=== PATIENT | female | born 1945 | race Caucasian/White ===

== ENCOUNTER 2019-11-21 16:00 | Outpatient (CLI) | payer MEDICARE, SELFPAY ==
[2019-11-21 16:40] LABS: Basophils Absolute Auto 0.1 K/mm3 (0.0-0.1); Basophils Percent Auto 0.7 % (0.2-1.2); Eosinophils Absolute Auto 0.1 K/mm3 (0-0.3); Eosinophils Percent Auto 1.1 % (0-4.4); Hematocrit 45.6 % (37.0-47.0); Hemoglobin 14.6 g/dL (12.0-15.0); Immature Granulocyte Absolute 0.02 K/mm3 (0.00-0.031); Immature Granulocyte Percent A 0.2 % (0-0.5); Lymphocytes Absolute Auto 1.75 K/mm3 (0.9-3.2); Lymphocytes Percent Auto 19.8 % (18.3-44.2); Mean Corpuscular Hemoglobin 30.6 pg (26-34); Mean Corpuscular Volume 95.6 fl (80-100); Mean Platelet Volume 10.7 fl (7.4-10.4); Monocytes Absolute Auto 0.6 K/mm3 (0.1-0.6); Monocytes Percent Auto 7.1 % (2.6-8.5); Neutrophils Absolute Auto 6.3 K/mm3 (1.3-6.7); Neutrophils Percent Auto 71.1 % (45.5-73.1); Platelet Count Result 188 k/mm3 (150-375); Red Blood Count 4.77 M/mm3 (4.2-5.4); White Blood Count 8.8 K/mm3 (4.5-10.0)
== END 2019-11-21 16:01 | disposition home or self-care (01) ==
PROVIDERS: PCP Internal Medicine; Visit Provider Internal Medicine
DX: D72.829 Elevated white blood cell count, unspecified (principal)
CPT/HCPCS: 36415; 85025

== ENCOUNTER 2020-03-06 15:54 | Outpatient (CLI) | payer MEDICARE, SELFPAY ==
--- NOTE | ~2020-03-06 | XR_ITS ---
XR cervical spine 4-5V 03/06/2020 16:18 Indication: Neck pain Procedure: 4 views cervical spine Comparison: No prior studies for comparison. Findings: Straightening of cervical lordosis. There is disc narrowing and endplate degenerative nava e at C3-4, C4-5, C5-6 and C6-7. Prominent ventral osteophytes at multiple levels. No fracture or trau matic malalignment. There is moderate multilevel uncinate hypertrophy. Lung apices are normal. Impression: 1: Moderate-severe cervical spondylosis. Reviewed, dictated and finalized at location A. Impression: 1: Moderate-severe cervical spondylosis.
== END 2020-03-06 15:55 | disposition home or self-care (01) ==
PROVIDERS: PCP Internal Medicine; Visit Provider Internal Medicine
DX: M47.892 Other spondylosis, cervical region (principal)
CPT/HCPCS: 72050

== ENCOUNTER 2020-04-02 07:16 | Outpatient (CLI) | payer MEDICARE, SELFPAY ==
[2020-04-02 08:03] LABS: Alanine Aminotransferase 21 U/L (4-35); Alkaline Phosphatase 53 U/L (38-126); Anion Gap 3 mmol/L (8-16); Aspartate Amino Transferase 24 U/L (14-36); Bilirubin,Total 0.2 mg/dL (0.2-1.3); Blood Urea Nitrogen 20 mg/dL (7-17); Calcium 9.6 mg/dL (8.4-10.2); Carbon Dioxide 34 mmol/L (22-30); Chloride 102 mmol/L (98-107); Cholesterol 197 mg/dL (0-200); Estimated Glomerular Filt Rate > 60; Glucose 100 mg/dL (65-105); HDL Direct 69 mg/dL; Potassium 4.2 mmol/L (3.4-5.0); Sodium 139 mmol/L (137-145); Triglycerides 64 mg/dL (<150)
[2020-04-02 08:14] LABS: LDL Cholesterol Direct 103 mg/dL
== END 2020-04-02 07:17 | disposition home or self-care (01) ==
PROVIDERS: PCP Internal Medicine; Visit Provider Internal Medicine
DX: I10 Essential (primary) hypertension (principal)
CPT/HCPCS: 36415; 80053; 80061

== ENCOUNTER 2020-05-16 06:44 | Outpatient (CLI) | payer MEDICARE, SELFPAY ==
[2020-05-16 07:47] LABS: Alanine Aminotransferase 28 U/L (4-35); Albumin Level 3.6 g/dL (3.5-5.1); Alkaline Phosphatase 50 U/L (38-126); Anion Gap 3 mmol/L (8-16); Aspartate Amino Transferase 25 U/L (14-36); Bilirubin,Total 0.4 mg/dL (0.2-1.3); Blood Urea Nitrogen 23 mg/dL (7-17); Calcium 9.1 mg/dL (8.4-10.2); Carbon Dioxide 34 mmol/L (22-30); Chloride 100 mmol/L (98-107); Cholesterol 150 mg/dL (0-200); Estimated Glomerular Filt Rate > 60; Glucose 95 mg/dL (65-105); HDL Direct 64 mg/dL; Potassium 4.5 mmol/L (3.4-5.0); Sodium 137 mmol/L (137-145); Triglycerides 46 mg/dL (<150)
[2020-05-16 07:58] LABS: LDL Cholesterol Direct 69 mg/dL
== END 2020-05-16 06:45 | disposition home or self-care (01) ==
PROVIDERS: PCP Internal Medicine; Visit Provider Internal Medicine
DX: E78.5 Hyperlipidemia, unspecified (principal)
CPT/HCPCS: 36415; 80053; 80061

== ENCOUNTER 2020-07-02 06:55 | Outpatient (CLI) | payer MEDICARE, SELFPAY ==
[2020-07-04 22:53] LABS: Albumin 3.7 g/dL (3.8-4.8); Alpha 1 Globulin 0.3 g/dL (0.2-0.3); Alpha 2 Globulin 0.6 g/dL (0.5-0.9); Beta 1 Globulin 0.4 g/dL (0.4-0.6); Gamma Globulin 0.7 g/dL (0.8-1.7); Interpretation Consistent with; Protein, Total 5.9 g/dL (6.1-8.1)
[2020-07-06 05:00] LABS: Creatinine, Random Urine 167 mg/dL (20-275); Total Protein/Creatinine Ratio 60 mg/g creat (21-161)
== END 2020-07-02 06:56 | disposition home or self-care (01) ==
PROVIDERS: PCP Internal Medicine; Visit Provider Internal Medicine
DX: Z13.29 Encounter for screening for other suspected endocrine disorder (principal); Z13.0 Encounter for screening for diseases of the blood and blood-forming organs and certain disorders involving the immune mechanism; Z13.228 Encounter for screening for other metabolic disorders
CPT/HCPCS: 36415; 82570; 84155; 84156; 84165; 84166

== ENCOUNTER 2020-07-16 07:58 | Outpatient (CLI) | payer MEDICARE, SELFPAY ==
--- NOTE | ~2020-07-16 | MM_ITS ---
EXAMINATION: MM screening [facility] BI w raymon HISTORY: Screening mammogram TECHNIQUE: Craniocaudal and mediolateral oblique 3-D tomosynthesis images were obtained and synthetic 2-D images were generated. CAD analysis was submitted and interpreted. COMPARISON: 07/05/2019, 06/30/2018, 06/16/2017, 06/03/1916 BREAST PARENCHYMAL COMPOSITION: The breasts are almost entirely fatty. FINDINGS: There is no evidence of suspicious mass, calcification, or architectural distortion to sugg est malignancy in either breast. There has been no suspicious interval change. IMPRESSION: 1. No mammographic evidence of malignancy. 2. Recommend routine screening mammography in one year. BI-RADS Category 1: Negative Reviewed, dictated and finalized at location A. 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
== END 2020-07-16 07:59 | disposition home or self-care (01) ==
LOC: ANHIMG 08:01
PROVIDERS: PCP Internal Medicine; Visit Provider Internal Medicine
DX: Z12.31 Encounter for screening mammogram for malignant neoplasm of breast (principal)
CPT/HCPCS: 77063; 77067

== ENCOUNTER 2020-09-12 10:58 | Outpatient (CLI) | payer MEDICARE, SELFPAY ==
--- NOTE | ~2020-09-12 | XR_ITS ---
EXAMINATION: XR tibia fibula LT 2V DATE: 09/12/2020 11:42 INDICATION: Left lower leg pain and swelling. TECHNIQUE: 2 views of left tibia and fibula were obtained. COMPARISON: Left tibia and fibula radiographs 02/10/2017 FINDINGS: Bone alignment is normal. No fracture. The knee demonstrates severe osteoarthritis of the p atellofemoral compartment, mild osteoarthritis of the medial compartment, moderate osteoarthritis of the lateral compartment. There are loose bodies in the joint. No knee joint effusion. IMPRESSION: 1. Severe left knee osteoarthritis. 2. Left knee joint loose bodies. Reviewed, dictated and finalized at location A.
--- NOTE | ~2020-09-12 | US_ITS ---
EXAMINATION:US venous doppler LE LT INDICATION:Left leg pain and swelling. Superficial thrombosis. TECHNIQUE: Multiple grayscale, color flow and Doppler images of the left lower extremity deep venous systems were obtained and reviewed. COMPARISON:No prior studies for comparison. FINDINGS: The common femoral, superficial femoral and popliteal veins demonstrate normal respiratory variation, augmentation and compressibility. Color flow is also seen within the posterior tibial, pe roneal, greater saphenous and profunda veins. No discrete mass identified in the lateral aspect of th e ankle in the area of palpable concern. IMPRESSION: 1: No lower extremity deep venous thrombosis. Reviewed, dictated and finalized at location B.
== END 2020-09-12 10:59 | disposition home or self-care (01) ==
PROVIDERS: PCP Internal Medicine; Visit Provider Internal Medicine
DX: I82.812 Embolism and thrombosis of superficial veins of left lower extremity (principal); M17.12 Unilateral primary osteoarthritis, left knee; M23.42 Loose body in knee, left knee
CPT/HCPCS: 73590; 93971

== ENCOUNTER 2020-09-21 07:28 | Outpatient (CLI) | payer MEDICARE, SELFPAY ==
--- NOTE | ~2020-09-21 | US_ITS ---
EXAMINATION: US venous doppler [facility] DATE: 09/21/2020 08:27 INDICATION: Left lower limb swelling TECHNIQUE: Grayscale ultrasound images without and with compression and Doppler ultrasound images of the left lower extremity veins were obtained. COMPARISON: None. FINDINGS: The visualized portions of left common femoral vein, profunda (deep) femoral vein, femoral vein, popl iteal vein, peroneal veins, posterior tibial veins, gastrocnemius vein and greater saphenous vein out flow are patent. No abnormal masses or fluid collections identified at the lateral left calf at the r egion of swelling. IMPRESSION: 1. No deep venous thrombosis in the left lower limb. Reviewed, dictated and finalized at location B.
== END 2020-09-21 07:29 | disposition home or self-care (01) ==
LOC: ANHIMG 07:31
PROVIDERS: PCP Internal Medicine; Visit Provider Internal Medicine
DX: M79.89 Other specified soft tissue disorders (principal)
CPT/HCPCS: 93971

== ENCOUNTER 2021-02-26 21:20 | Emergency (ER) | payer MEDICARE, SELFPAY ==
--- NOTE | ~2021-02-26 | XR_ITS ---
EXAMINATION: XR shoulder LT min 2V DATE: 02/27/2021 00:56 INDICATION: Left shoulder pain TECHNIQUE: AP internally and externally rotated, AP oblique externally rotated and transscapular Y vi ews of the left shoulder were obtained. COMPARISON: None FINDINGS: Normal alignment. No fracture. Glenohumeral joint is normal. Mild acromioclavicular osteoarthritis. Couple tiny chronic heterotopic ossicles along the cephalad margin of the acromioclavicular joint. So ft tissues are unremarkable. Visualized portion of the lungs are clear. IMPRESSION: Mild left acromioclavicular osteoarthritis. No acute osseous abnormality. Reviewed, dictated and finalized at location A.
--- NOTE | ~2021-02-26 | XR_ITS ---
XR chest 2V DATE: 02/26/2021 22:13 INDICATION: Chest pain for one day. Left neck and shoulder pain. Hypertension. TECHNIQUE: PA and lateral views COMPARISON: 02/22/2017 PA and lateral chest FINDINGS: Normal heart size. No hilar or mediastinal enlargement. No pulmonary infiltrate or consolid ation, pleural effusion or pulmonary vascular congestion or pneumothorax. Degenerative spurring of the thoracic spine. Surgical clips, right upper quadrant, consistent with cholecystectomy. IMPRESSION: No active cardiopulmonary disease Reviewed, dictated and finalized at location A.
--- NOTE | ~2021-02-26 | XR_ITS ---
XR_[id number]_CR 02/27/2021 00:55 Indication: Neck pain Procedure: 5 views of the cervical spine Comparison: 03/06/2020 Findings: There is degenerative disc disease at C3-4 through C6-7. There is multilevel uncinate and f acet hypertrophy. Lung apices are normal. Odontoid process within normal limits. No prevertebral soft tissue abnormality. Straightening of cervical lordosis, likely due to muscle spasm. No acute fractur e or traumatic malalignment. Impression: 1: No acute fracture. Reviewed, dictated and finalized at location A. Impression: 1: No acute fracture.
--- NOTE | 2021-02-26 21:27 | ECG_ITS ---
Measurements Intervals [place] Rate: 61 P: 37 NC: 155 QRS: -5 QRSD: 92 T: 44 QT: 401 QTc: 406 Interpretive Statements SINUS RHYTHM VOLTAGE CRITERIA FOR LVH BORDERLINE ST ABNORMALITY- ANTEROLATERAL LEADS BORDERLINE ECG Electronically Signed On 02-27-2021 6:55:38 CDT by Rohan High D.O.
[2021-02-26 21:53] LABS: Basophils Absolute Auto 0.1 K/mm3 (0.0-0.1); Basophils Percent Auto 0.7 % (0.2-1.2); Eosinophils Absolute Auto 0.1 K/mm3 (0-0.3); Eosinophils Percent Auto 1.5 % (0-4.4); Hematocrit 42.6 % (37.0-47.0); Hemoglobin 13.8 g/dL (12.0-15.0); Immature Granulocyte Absolute 0.02 K/mm3 (0.00-0.031); Immature Granulocyte Percent A 0.2 % (0-0.5); Lymphocytes Absolute Auto 1.48 K/mm3 (0.9-3.2); Lymphocytes Percent Auto 17.4 % (18.3-44.2); Mean Corpuscular HGB Conc 32.4 g/dl (32-36); Mean Corpuscular Hemoglobin 29.9 pg (26-34); Mean Corpuscular Volume 92.2 fl (80-100); Mean Platelet Volume 10.2 fl (7.4-10.4); Monocytes Absolute Auto 0.9 K/mm3 (0.1-0.6); Monocytes Percent Auto 10.4 % (2.6-8.5); Neutrophils Absolute Auto 5.9 K/mm3 (1.3-6.7); Neutrophils Percent Auto 69.8 % (45.5-73.1); Platelet Count Result 219 k/mm3 (150-375); Red Blood Count 4.62 M/mm3 (4.2-5.4); Red Cell Distribution Width 12.7 % (11.5-14.5); White Blood Count 8.5 K/mm3 (4.5-10.0)
[2021-02-26 22:02] LABS: INR 0.9; Prothrombin Time 11.7 Seconds (11.1-14.7)
[2021-02-26 22:03] LABS: Partial Thromboplastin Time 28.1 SECONDS (22.3-36.8)
[2021-02-26 22:05] LABS: Anion Gap 9 mmol/L (8-16); Blood Urea Nitrogen 17 mg/dL (7-17); Carbon Dioxide 27 mmol/L (22-30); Chloride 100 mmol/L (98-107); Estimated Glomerular Filt Rate > 60; Glucose 112 mg/dL (65-110); Sodium 136 mmol/L (137-145)
[2021-02-26 22:11] VITALS: BP 177/57; PULSE 64; RESP 16; TEMP 36.5; O2SAT 97
[2021-02-26 22:16] LABS: Troponin I < 0.012 ng/mL (0.000-0.034)
[2021-02-26 22:32] VITALS: BP 168/71; PULSE 65; RESP 20; O2SAT 97
[2021-02-26 23:02] VITALS: BP 131/62; PULSE 62; RESP 17; O2SAT 95
[2021-02-26 23:30] VITALS: BP 118/54; PULSE 60; RESP 18; O2SAT 96
[2021-02-26 23:32] VITALS: BP 118/54; PULSE 61; RESP 12; O2SAT 99
[2021-02-27 00:32] VITALS: BP 143/66; PULSE 59; RESP 17; O2SAT 97
--- NOTE | 2021-02-27 00:32 | ED.GENADULT ---
HPI - General Adult General Chief complaint: Neck Pain/Injury Stated complaint: left shoulder pain, neck pain w/ nausea Time Seen by Provider: 02/27/21 00:23 Source: patient History of Present Illness HPI narrative: Patient is a 75 y/o female complaining of left neck and shoulder pain starting over 24 hours ago. She describes her pain as aching and sharp at times. Movement and raising left arm aggravates her pain. She took OTC meds which did not help with her pain. She has no chest pain or SOB. Related Data Home Medications Medication Instructions Recorded Confirmed amlodipine 02/26/21 hydrochlorothiazide 02/26/21 latanoprost drp 02/26/21 lisinopril 02/26/21 pravastatin 02/26/21 02/26/21 Allergies Allergy/AdvReac Type Severity Reaction Status Date / Time Quinolones Allergy Mild N/V Verified 02/26/21 22:36 azelastine Allergy Unknown Nose Bleeds Verified 02/26/21 22:36 bacitracin Allergy Unknown Blister Verified 02/26/21 22:36 benzocaine Allergy Unknown Swelling Verified 02/26/21 22:36 camphor Allergy Unknown Heart Verified 02/26/21 22:36 fluttering cephalexin Allergy Unknown Nausea Verified 02/26/21 22:36 ipratropium Allergy Unknown Palpitation Verified 02/26/21 22:36 s ketorolac Allergy Unknown Nausea Verified 02/26/21 22:36 latex Allergy Unknown Blister Verified 02/26/21 22:36 levofloxacin Allergy Unknown Nausea Verified 02/26/21 22:36 lidocaine Allergy Unknown Swelling Verified 02/26/21 22:36 menthol Allergy Unknown Heart Verified 02/26/21 22:36 fluttering neomycin Allergy Unknown HIVES Verified 02/26/21 22:36 ofloxacin Allergy Unknown NAUSEA Verified 02/26/21 22:36 polymyxin B Allergy Unknown Blister Verified 02/26/21 22:36 triamcinolone Allergy Unknown N/V Verified 02/26/21 22:36 DURAPREP Allergy Mild RASH Uncoded 02/26/21 22:36 Review of Systems Constitutional: Constitutional: Denies chills, Denies fever(s), Denies headache(s) and Denies weakness Eyes: Eyes: Denies blurry vision ENT: Denies headache(s) and Reports neck pain Cardiovascular: Cardiovascular: Denies chest pain and Denies dyspnea Respiratory: Respiratory: Denies cough and Denies dyspnea Gastrointestinal: Gastrointestinal: Denies abdominal pain, Denies diarrhea, Denies nausea and Denies vomiting Genitourinary: Genitourinary: Denies hematuria and Denies dysuria Musculoskeletal: Musculoskeletal: Reports as per HPI, Denies back pain, Reports arthralgias (left shoulder pain), Reports neck pain and Reports other Neurologic: Denies headache(s) and Denies weakness PMFSH Family History Family History Mother Cerebrovascular accident, Onset Age: 92 Family history of arthritis Family history of mental disorder, Onset Age: 92 Depression, Onset Age: 92 Hypertension, Onset Age: 92 Family history of anemia, Onset Age: 92 Father Family history of dementia Depression, Onset Age: 82 Family history of glaucoma, Onset Age: 82 Grandparent Carcinoma of colon Family history of lung cancer Family history of Hodgkin's lymphoma Family history of cardiovascular disease Hypertension Family history of malignant neoplasm Sibling Family history of Parkinson's disease Patient's brother is in good health Social History Social History Smoking status: Never smoker Second hand tobacco smoke exposure: Yes Alcohol intake: current Exam Const: General: no acute distress and well developed Orientation/consciousness: oriented to person, oriented to place, oriented to time and patient oriented x3 HENMT: Head: normocephalic Ears: external ears normal General nose exam: Normal external nose present Eyes: General: appearance normal, both eyes and all related structures Conjunctivae: conjunctivae normal Neck: Neck: normal visual inspection and full ROM Chest: Chest palpation & inspection: norm
--- NOTE | 2021-02-27 00:45 | PC.NURSE ---
Pt to imaging at this time.
[2021-02-27 01:00] VITALS: BP 135/65; PULSE 57; RESP 18; O2SAT 98
[2021-02-27] MEDS: CYCLOBENZAPRINE HCL 10 MG TABLET PO (01:03)
[2021-02-27 01:10] LABS: Troponin I < 0.012 ng/mL (0.000-0.034)
[2021-02-27 01:31] VITALS: BP 143/48; PULSE 58; RESP 15; O2SAT 97
== END 2021-02-27 01:34 | disposition home or self-care (01) ==
PROVIDERS: Emergency Provider Emergency Medicine; PCP Internal Medicine
DX: M54.12 Radiculopathy, cervical region (principal); Z79.899 Other long term (current) drug therapy; Z51.81 Encounter for therapeutic drug level monitoring; Z88.8 Allergy status to other drugs, medicaments and biological substances
CPT/HCPCS: 36415; 71046; 72040; 73030; 80048; 84484; 85025; 85610; 85730; 93005; 99284; A9270

== ENCOUNTER 2021-03-23 18:25 | Emergency (ER) | payer MEDICARE, SELFPAY ==
--- NOTE | ~2021-03-23 | XR_ITS ---
EXAMINATION: XR hip LT 2V w AP pelvis DATE: 03/23/2021 20:48 INDICATION: Left hip pain post fall while mowing grass TECHNIQUE: Anteroposterior view of the pelvis and anteroposterior and frog-leg lateral views of the l eft hip were obtained. COMPARISON: None. FINDINGS: Alignment is normal. No fracture. Bilateral hip joint spaces are normal. Mild bilateral sacral iliac osteoarthritis. Severe lower lumbar facet osteoarthritis. Multiple metallic coils project over the pe lvis likely related to prior ventral hernia repair. IMPRESSION: 1. No acute osseous abnormality. Reviewed, dictated and finalized at location A.
[2021-03-23 18:28] VITALS: BP 106/90; PULSE 73; RESP 18; TEMP 36.2; O2SAT 100
--- NOTE | 2021-03-23 20:45 | PC.NURSE ---
Patient in xray.
--- NOTE | 2021-03-23 21:23 | ED.FALL ---
HPI - Fall General Chief Complaint: Fall Stated Complaint: fell, L hip pain Time Seen by Provider: 03/23/21 20:16 Source: patient Mode of arrival: ambulatory Limitations: no limitations History of Present Illness HPI Narrative: Patient was mowing the lawn, the lawnmower got stuck in a hole in the ER, she pushed the lawnmower away and then she got stuck in a hole and fell onto her left hip. Ambulatory after event no LOC, patient is not on blood thinners. Patient also complaining of right elbow skin tear. No elbow injury. Tdap not up-to-date. No other complaints. Mechanical fall no previous history of same. MD complaint: fall Onset (ago): hour(s) (1) Fall from: standing Fall witnessed: no Place fall occurred: home Loss of consciousness: none Prolonged down time: no Symptoms prior to fall: none Context: tripped/slipped Location of injury - extremities: Right: elbow Associated symptoms (after fall): denies Related Data Home Medications Medication Instructions Recorded Confirmed amlodipine 02/26/21 hydrochlorothiazide 02/26/21 latanoprost drp 02/26/21 lisinopril 02/26/21 pravastatin 02/26/21 02/26/21 Allergies Allergy/AdvReac Type Severity Reaction Status Date / Time Quinolones Allergy Mild N/V Verified 02/26/21 22:36 azelastine Allergy Unknown Nose Bleeds Verified 02/26/21 22:36 bacitracin Allergy Unknown Blister Verified 02/26/21 22:36 benzocaine Allergy Unknown Swelling Verified 02/26/21 22:36 camphor Allergy Unknown Heart Verified 02/26/21 22:36 fluttering cephalexin Allergy Unknown Nausea Verified 02/26/21 22:36 ipratropium Allergy Unknown Palpitation Verified 02/26/21 22:36 s ketorolac Allergy Unknown Nausea Verified 02/26/21 22:36 latex Allergy Unknown Blister Verified 02/26/21 22:36 levofloxacin Allergy Unknown Nausea Verified 02/26/21 22:36 lidocaine Allergy Unknown Swelling Verified 02/26/21 22:36 menthol Allergy Unknown Heart Verified 02/26/21 22:36 fluttering neomycin Allergy Unknown HIVES Verified 02/26/21 22:36 ofloxacin Allergy Unknown NAUSEA Verified 02/26/21 22:36 polymyxin B Allergy Unknown Blister Verified 02/26/21 22:36 triamcinolone Allergy Unknown N/V Verified 02/26/21 22:36 DURAPREP Allergy Mild RASH Uncoded 02/26/21 22:36 Review of Systems Review of Systems: CONSTITUTIONAL: no fever, no weight loss, no confusion EYES: no vision changes, no eye pain ENT: no rhinorrhea, no sore throat, no difficulty swallowing CARDIOVASCULAR: no chest pain, no leg edema, no palpitations RESPIRATORY: no cough, no shortness of breath, no hemoptysis GASTROINTESTINAL: no abdominal pain, no nausea, no vomiting, no diarrhea GENITOURINARY: no flank pain, no dysuria, no hematuria SKIN: R elbow skin tear, no jaundice MUSCULOSKELETAL: no back pain, L hip pain NEUROLOGIC: No headache, no dizziness, no focal weakness PSYCHIATRIC: No hallucinations, no suicidal ideation PMFSH Family History Family History Mother Cerebrovascular accident, Onset Age: 92 Family history of arthritis Family history of mental disorder, Onset Age: 92 Depression, Onset Age: 92 Hypertension, Onset Age: 92 Family history of anemia, Onset Age: 92 Father Family history of dementia Depression, Onset Age: 82 Family history of glaucoma, Onset Age: 82 Grandparent Carcinoma of colon Family history of lung cancer Family history of Hodgkin's lymphoma Family history of cardiovascular disease Hypertension Family history of malignant neoplasm Sibling Family history of Parkinson's disease Patient's brother is in good health Social History Social History Smoking status: Never smoker Second hand tobacco smoke exposure: Yes Alcohol intake: current Exam Narrative: General: alert, afebrile, answering all questions appropriately Head: normocephalic, atraumatic Eyes: EOMI
[2021-03-23 21:29] VITALS: BP 145/68; PULSE 65; RESP 18; TEMP 36.8; O2SAT 100
[2021-03-23] MEDS: ACETAMINOPHEN 500 MG TABLET 1000 MG PO (21:38)
[2021-03-23] MEDS: TETANUS,DIPHTHERIA,AC PERTUSSIS ADULT (0.5 ML) BOOSTRIX IM (21:39)
== END 2021-03-23 21:45 | disposition home or self-care (01) ==
LOC: ANHED 21:02
PROVIDERS: Emergency Provider Emergency Medicine; PCP Internal Medicine
DX: S76.012A Strain of muscle, fascia and tendon of left hip, initial encounter (principal); S51.011A Laceration without foreign body of right elbow, initial encounter; Z23 Encounter for immunization; W17.2XXA Fall into hole, initial encounter; Y92.007 Garden or yard of unspecified non-institutional (private) residence as the place of occurrence of the external cause
CPT/HCPCS: 73502; 90471; 90715; 99283; A9270

== ENCOUNTER 2021-04-12 09:04 | Outpatient (CLI) | payer MEDICARE, SELFPAY ==
[2021-04-12 09:46] LABS: Alanine Aminotransferase 26 U/L (4-35); Albumin Level 4.4 g/dL (3.5-5.1); Alkaline Phosphatase 63 U/L (38-126); Anion Gap 4 mmol/L (8-16); Aspartate Amino Transferase 25 U/L (14-36); Bilirubin,Total 0.5 mg/dL (0.2-1.3); Blood Urea Nitrogen 20 mg/dL (7-17); Calcium 9.8 mg/dL (8.4-10.2); Carbon Dioxide 32 mmol/L (22-30); Chloride 102 mmol/L (98-107); Cholesterol 174 mg/dL (0-200); Estimated Glomerular Filt Rate > 60; Glucose 113 mg/dL (65-110); HDL Direct 84 mg/dL; Potassium 5.6 mmol/L (3.4-5.0); Sodium 138 mmol/L (137-145); Triglycerides 70 mg/dL (<150)
[2021-04-12 10:03] LABS: LDL Cholesterol Direct 70 mg/dL
== END 2021-04-12 09:05 | disposition home or self-care (01) ==
PROVIDERS: PCP Internal Medicine; Visit Provider Internal Medicine
DX: I10 Essential (primary) hypertension (principal)
CPT/HCPCS: 36415; 80053; 80061

== ENCOUNTER 2021-05-06 07:13 | Outpatient (CLI) | payer MEDICARE, SELFPAY ==
[2021-05-06 09:10] LABS: Alanine Aminotransferase 19 U/L (4-35); Albumin Level 3.6 g/dL (3.5-5.1); Alkaline Phosphatase 56 U/L (38-126); Anion Gap 1 mmol/L (8-16); Aspartate Amino Transferase 24 U/L (14-36); Bilirubin,Total 0.5 mg/dL (0.2-1.3); Blood Urea Nitrogen 16 mg/dL (7-17); Calcium 9.5 mg/dL (8.4-10.2); Carbon Dioxide 34 mmol/L (22-30); Chloride 98 mmol/L (98-107); Cholesterol 138 mg/dL (0-200); Estimated Glomerular Filt Rate > 60; Glucose 93 mg/dL (65-110); HDL Direct 71 mg/dL; Potassium 4.4 mmol/L (3.4-5.0); Sodium 133 mmol/L (137-145); Triglycerides 42 mg/dL (<150)
[2021-05-06 09:21] LABS: LDL Cholesterol Direct 52 mg/dL
== END 2021-05-06 07:14 | disposition home or self-care (01) ==
PROVIDERS: PCP Internal Medicine; Visit Provider Internal Medicine
DX: E87.5 Hyperkalemia (principal)
CPT/HCPCS: 36415; 80053; 80061

== ENCOUNTER 2021-05-22 07:04 | Outpatient (CLI) | payer MEDICARE, SELFPAY ==
[2021-05-22 07:59] LABS: Alanine Aminotransferase 21 U/L (4-35); Albumin Level 3.9 g/dL (3.5-5.1); Alkaline Phosphatase 56 U/L (38-126); Anion Gap 3 mmol/L (8-16); Aspartate Amino Transferase 26 U/L (14-36); Bilirubin,Total 0.4 mg/dL (0.2-1.3); Blood Urea Nitrogen 14 mg/dL (7-17); Calcium 9.3 mg/dL (8.4-10.2); Carbon Dioxide 30 mmol/L (22-30); Chloride 98 mmol/L (98-107); Cholesterol 148 mg/dL (0-200); Estimated Glomerular Filt Rate > 60; Glucose 95 mg/dL (65-110); HDL Direct 77 mg/dL; Potassium 4.2 mmol/L (3.4-5.0); Sodium 131 mmol/L (137-145); Triglycerides 62 mg/dL (<150)
[2021-05-22 08:10] LABS: LDL Cholesterol Direct 57 mg/dL
== END 2021-05-22 07:05 | disposition home or self-care (01) ==
LOC: ANHLAB 07:09
PROVIDERS: PCP Internal Medicine; Visit Provider Internal Medicine
DX: E78.5 Hyperlipidemia, unspecified (principal)
CPT/HCPCS: 36415; 80053; 80061

== ENCOUNTER 2021-08-06 08:45 | Outpatient (CLI) | payer MEDICARE, SELFPAY ==
--- NOTE | ~2021-08-06 | MM_ITS ---
EXAMINATION: MM screening afua BI w raymon HISTORY: Screening mammogram TECHNIQUE: Craniocaudal and mediolateral oblique 3-D tomosynthesis images were obtained and synthetic 2-D images were generated. CAD analysis was submitted and interpreted. COMPARISON: July 16, 2020, July 05, 2019, June 30, 2018 bilateral screening mammogram examin ations BREAST PARENCHYMAL COMPOSITION: The breasts are almost entirely fatty. FINDINGS: There is no evidence of suspicious mass, calcification, or architectural distortion to sugg est malignancy in either breast. There has been no suspicious interval change. IMPRESSION: 1. No mammographic evidence of malignancy. 2. Recommend routine screening mammography in one year. BI-RADS Category 1: Negative Reviewed, dictated and finalized at location A. GER METROLOGY
== END 2021-08-06 08:46 | disposition home or self-care (01) ==
PROVIDERS: PCP Internal Medicine; Visit Provider Internal Medicine
DX: Z12.31 Encounter for screening mammogram for malignant neoplasm of breast (principal)
CPT/HCPCS: 77063; 77067

== ENCOUNTER 2021-08-19 07:20 | Outpatient (CLI) | payer MEDICARE, SELFPAY ==
--- NOTE | ~2021-08-19 | XR_ITS ---
EXAMINATION:XR cervical spine 4-5V DATE: 08/19/2021 07:56 INDICATION: Neck pain TECHNIQUE: AP, lateral, lateral swimmers and odontoid views of the cervical spine are provided. COMPARISON: 02/27/2021 FINDINGS: There are 2 mm of stable anterolisthesis of C2 on C3 and 2 mm of stable retrolisthesis of C 3 on C4 and C4 on C5. The vertebral body heights are maintained. There is moderate loss of interverte bral disc space height from C3-4 through C6-7. The odontoid is intact. No fracture is identified. Sma ll degenerative osteophytes project from the anterior endplates of multiple vertebral bodies. There i s severe multilevel facet and uncovertebral joint osteoarthritis. IMPRESSION: 1. Severe cervical spondylosis without acute findings or significant interval change. Reviewed, dictated and finalized at location B. E CUTTER IMPRESSION: 1. Severe cervical spondylosis without acute findings or significant interval c chuck.
--- NOTE | ~2021-08-19 | XR_ITS ---
EXAMINATION: XR shoulder RT min 2V DATE: 08/19/2021 07:56 INDICATION: Right shoulder pain. TECHNIQUE: 4 views of right shoulder were obtained. COMPARISON: None. FINDINGS: Bone alignment is normal. No fracture. There is moderate osteoarthritis of glenohumeral johnson nt and acromioclavicular joint. IMPRESSION: 1. Polyarticular osteoarthritis. Reviewed, dictated and finalized at location A. ERN FITTER
[2021-08-19 08:05] LABS: Anion Gap 3 mmol/L (8-16); Blood Urea Nitrogen 13 mg/dL (7-17); Carbon Dioxide 31 mmol/L (22-30); Chloride 100 mmol/L (98-107); Estimated Glomerular Filt Rate > 60; Glucose 96 mg/dL (65-110); Potassium 4.1 mmol/L (3.4-5.0); Sodium 134 mmol/L (137-145)
== END 2021-08-19 07:21 | disposition home or self-care (01) ==
PROVIDERS: PCP Internal Medicine; Visit Provider Internal Medicine
DX: E87.1 Hypo-osmolality and hyponatremia (principal); M47.892 Other spondylosis, cervical region; M19.011 Primary osteoarthritis, right shoulder
CPT/HCPCS: 36415; 72050; 73030; 80048

== ENCOUNTER 2021-09-25 07:40 | Outpatient (CLI) | payer MEDICARE, SELFPAY ==
--- NOTE | ~2021-09-25 | DEXA_ITS ---
Bone Density Report Name: MARYJANE PARISI Age: 76 Sex: Female Ethnicity: White Date of : 1945 Indication: postmenopausal; screening for osteoporosis; height loss; hysterectomy; Referring Provider: CHLOE, DENISE Fletcher Study: Bone densitometry was performed. Exam Date: September 25, 2021 Accession number: [id number] Bone Density: Region BMD T-score Z-score Classification AP Spine(L1, L4) 1.262 2.0 4.5 Normal Femoral Neck (Left) 0.707 -1.3 0.8 Osteopenia Total Hip (Left) 0.945 0.0 1.8 Normal Femoral Neck (Right) 0.855 0.1 2.1 Normal Total Hip (Right) 0.965 0.2 2.0 Normal Total Hip Mean 0.955 0.1 1.9 Normal World Health Organization criteria for BMD impression classify patients as: Normal (T-score at or above -1.0), Osteopenia (T-score between -1.0 and -2.5), or Osteoporosis (T-score at or below -2.5). 10-year Fracture Risk(1): Major Osteoporotic Fracture 10.0% Hip Fracture 1.7% Reported Risk Factors: [place] (), Neck BMD=0.707, BMI=33.3 (1) FRAX(R) Version 3.08. Fracture probability calculated for an untreated patient. Fracture probability may be lower if the patient has received treatment. Previous Exams: Region Exam Age BMD T-score BMD Change BMD Change Date g/cm2 vs Baseline vs Previous AP Spine(L1, L4) 09/25/2021 76 1.262 2.0 -0.185(-12.8%) -0.185(-12.8%) 06/12/2016 70 1.447 3.7 Total Hip(Left) 09/25/2021 76 0.945 0.0 -0.184(-16.3%) -0.184(-16.3%) 06/12/2016 70 1.129 1.5 Total Hip(Right) 09/25/2021 76 0.965 0.2 -0.130(-11.9%) -0.130(-11.9%) 06/12/2016 70 1.094 1.2 *Denotes significance at 95% confidence level, LSC for AP Spine = 0.022 g/cm2, LSC for Total Hip = 0.027 g/cm2 Clinical Information Provided by Patient: Has used the following medications: Vitamin D, Calcium Has the following medical conditions: Hysterectomy Patient maximum height was 64 Menopause Age: 47 Onset of menses at age 14 Number of children 0 Impression: The patient has low bone mass, based on the Left Femoral Neck T-score. The patient has an estimated ten-year risk of hip fracture of 1.7% and an estimated ten-year risk of major fracture of 10%, based on the WHO FRAX algorithm. The BMD for the AP Spine(L1, L4) decreased, changing by -12.8% since the last DXA exam. The BMD for the Total Hip(Left) decreased, changing by -16.3% since the last DXA exam. The BMD for the Total Hip(Right) decreased, changing
== END 2021-09-25 07:41 | disposition home or self-care (01) ==
PROVIDERS: PCP Internal Medicine; Visit Provider Internal Medicine
DX: Z78.0 Asymptomatic menopausal state (principal); M85.852 Other specified disorders of bone density and structure, left thigh
CPT/HCPCS: 77080

== ENCOUNTER 2021-10-19 08:26 | Outpatient (CLI) | payer MEDICARE, SELFPAY ==
[2021-10-19 09:14] LABS: Basophils Absolute Auto 0.1 K/mm3 (0.0-0.1); Basophils Percent Auto 1.1 % (0.2-1.2); Eosinophils Absolute Auto 0.1 K/mm3 (0-0.3); Hematocrit 46.3 % (37.0-47.0); Hemoglobin 14.5 g/dL (12.0-15.0); Immature Granulocyte Absolute 0.02 K/mm3 (0.00-0.031); Immature Granulocyte Percent A 0.3 % (0-0.5); Lymphocytes Absolute Auto 1.93 K/mm3 (0.9-3.2); Lymphocytes Percent Auto 26.9 % (18.3-44.2); Mean Corpuscular HGB Conc 31.3 g/dl (32-36); Mean Corpuscular Volume 95.9 fl (80-100); Mean Platelet Volume 9.6 fl (7.4-10.4); Monocytes Absolute Auto 0.7 K/mm3 (0.1-0.6); Monocytes Percent Auto 9.2 % (2.6-8.5); Neutrophils Absolute Auto 4.4 K/mm3 (1.3-6.7); Neutrophils Percent Auto 61.5 % (45.5-73.1); Platelet Count Result 274 k/mm3 (150-375); Red Blood Count 4.83 M/mm3 (4.2-5.4); Red Cell Distribution Width 14.1 % (11.5-14.5); White Blood Count 7.2 K/mm3 (4.5-10.0)
[2021-10-19 09:30] LABS: Albumin Level 3.7 g/dL (3.5-5.1); Anion Gap 2 mmol/L (8-16); Blood Urea Nitrogen 16 mg/dL (7-17); Calcium 9.2 mg/dL (8.4-10.2); Carbon Dioxide 33 mmol/L (22-30); Chloride 101 mmol/L (98-107); Estimated Glomerular Filt Rate > 60; Glucose 91 mg/dL (65-110); Phosphorus 3.8 mg/dL (2.5-4.5); Potassium 4.6 mmol/L (3.4-5.0); Sodium 136 mmol/L (137-145)
[2021-10-19 09:38] LABS: Parathyroid Intact 34.6 pg/mL (7.5-53.5)
[2021-10-19 09:59] LABS: Vitamin D 25 Hydroxy 96.3 ng/mL
== END 2021-10-19 08:27 | disposition home or self-care (01) ==
LOC: ANHLAB 08:29
PROVIDERS: PCP Internal Medicine; Visit Provider Internal Medicine
DX: M85.80 Other specified disorders of bone density and structure, unspecified site (principal)
CPT/HCPCS: 36415; 80069; 82306; 83970; 85025

== ENCOUNTER 2021-11-30 02:31 | Emergency (ER) | payer MEDICARE, SELFPAY ==
[2021-11-30 02:44] VITALS: BP 157/65; PULSE 72; RESP 15; TEMP 36.8; O2SAT 98
--- NOTE | 2021-11-30 03:09 | ED.GENADULT ---
HPI - General Adult General Chief complaint: Arrhythmia/Palpitations Stated complaint: rapid heart beat, legs twitching, irritable Time Seen by Provider: 11/30/21 03:01 History of Present Illness HPI narrative: 76-year-old female presents emergency room secondary to some swelling to her lower extremities and muscle twitching. Patient states she has been out playing golf in the heat for the last 4 days in a row. She been drinking a lot of water and added to it with a substance called drip drops . Apparently that some type of electrolyte supplement. Something that she has used many times in the past. However tonight she was lying there and was having a lot of muscle twitching and spasms and was concerned that her electrolytes may be out of balance. He also has some swelling to her lower extremities the left greater than right. Not uncommon for her to have more swelling in the left leg than the right. Denies any chest pain. She does have a history of some PVCs in the past and had some of those earlier but not at this time. Related Data Home Medications Medication Instructions Recorded Confirmed amlodipine 2.5 mg tablet 02/26/21 hydrochlorothiazide 12.5 mg tablet 02/26/21 latanoprost 0.005 % eye drops drp 02/26/21 lisinopril 20 mg tablet 02/26/21 pravastatin 20 mg tablet 02/26/21 02/26/21 Allergies Allergy/AdvReac Type Severity Reaction Status Date / Time Quinolones Allergy Mild N/V Verified 02/26/21 22:36 azelastine Allergy Unknown Nose Bleeds Verified 02/26/21 22:36 bacitracin Allergy Unknown Blister Verified 02/26/21 22:36 benzocaine Allergy Unknown Swelling Verified 02/26/21 22:36 camphor Allergy Unknown Heart Verified 02/26/21 22:36 fluttering cephalexin Allergy Unknown Nausea Verified 02/26/21 22:36 ipratropium Allergy Unknown Palpitation Verified 02/26/21 22:36 s ketorolac Allergy Unknown Nausea Verified 02/26/21 22:36 latex Allergy Unknown Blister Verified 02/26/21 22:36 levofloxacin Allergy Unknown Nausea Verified 02/26/21 22:36 lidocaine Allergy Unknown Swelling Verified 02/26/21 22:36 menthol Allergy Unknown Heart Verified 02/26/21 22:36 fluttering neomycin Allergy Unknown HIVES Verified 02/26/21 22:36 ofloxacin Allergy Unknown NAUSEA Verified 02/26/21 22:36 polymyxin B Allergy Unknown Blister Verified 02/26/21 22:36 triamcinolone Allergy Unknown N/V Verified 02/26/21 22:36 DURAPREP Allergy Mild RASH Uncoded 02/26/21 22:36 Review of Systems Review of Systems: CONSTITUTIONAL: Denies fever, chills, or sweats. EYES: Denies visual changes, redness, or discharge. ENT: Denies rhinorrhea, congestion, sore throat, or otalgia. CARDIOVASCULAR: Denies chest pain, palpitations, or edema. RESPIRATORY: Denies cough or dyspnea. GASTROINTESTINAL: Denies abdominal pain, nausea, vomiting, or diarrhea. GENITOURINARY: Denies dysuria or hematuria. SKIN: Denies rash or itching. MUSCULOSKELETAL: Denies back pain, joint pain, or myalgia. Muscle spasms and some swelling to her leg NEUROLOGIC: Denies headache, numbness, or weakness. PSYCHIATRIC: Denies anxiety or depression. [facility] Past Medical History Medical History PVC (premature ventricular contraction) Family History Family History Mother Cerebrovascular accident, Onset Age: 92 Family history of arthritis Family history of mental disorder, Onset Age: 92 Depression, Onset Age: 92 Hypertension, Onset Age: 92 Family history of anemia, Onset Age: 92 Father Family history of dementia Depression, Onset Age: 82 Family history of glaucoma, Onset Age: 82 Grandparent Carcinoma of colon Family history of lung cancer Family history of Hodgkin's lymphoma Family history of cardiovascular disease Hypertension Family history of malignant neoplasm Sibling Family history of Parkinson's disease Patient's brother is in g
[2021-11-30 03:44] VITALS: BP 139/54; PULSE 69; RESP 18; O2SAT 97
[2021-11-30 03:51] LABS: Alanine Aminotransferase 19 U/L (6-35); Albumin Level 3.4 g/dL (3.5-5.1); Alkaline Phosphatase 60 U/L (38-126); Anion Gap 3 mmol/L (8-16); Aspartate Amino Transferase 26 U/L (14-36); Bilirubin,Total 0.2 mg/dL (0.2-1.3); Blood Urea Nitrogen 21 mg/dL (7-17); Carbon Dioxide 30 mmol/L (22-30); Chloride 103 mmol/L (98-107); Estimated CRCL calculation 47 ml/min; Estimated Glomerular Filt Rate > 60; Glucose 113 mg/dL (65-110); Magnesium 2.1 mg/dL (1.6-2.3); Potassium 3.8 mmol/L (3.4-5.0); Sodium 136 mmol/L (137-145)
--- NOTE | 2021-11-30 04:21 | ECG_ITS ---
Measurements Intervals [place] Rate: 62 P: 53 SD: 143 QRS: 10 QRSD: 90 T: 56 QT: 385 QTc: 394 Interpretive Statements SINUS RHYTHM WITH SINUS ARRHYTHMIA LOW-VOLTAGE QRS IN PRECORDIAL LEADS NONSPECIFIC T-WAVE ABNORMALITY BORDERLINE ECG COMPARED TO ECG 02/26/2021 21:27:57 SINUS ARRHYTHMIA NOW PRESENT Electronically Signed On 11-30-2021 11:23:09 CDT by Sal Canales M.D.
[2021-11-30 05:05] VITALS: BP 124/57; PULSE 57; RESP 18; O2SAT 100
== END 2021-11-30 05:05 | disposition home or self-care (01) ==
PROVIDERS: Emergency Provider Emergency Medicine; PCP Internal Medicine
DX: T67.8XXA Other effects of heat and light, initial encounter (principal); M62.838 Other muscle spasm; R94.31 Abnormal electrocardiogram [ECG] [EKG]; X30.XXXA Exposure to excessive natural heat, initial encounter
CPT/HCPCS: 36415; 80053; 83735; 93005; 99284

== ENCOUNTER 2021-12-19 10:07 | Outpatient (CLI) | payer MEDICARE, SELFPAY ==
[2021-12-19 10:45] LABS: Appearance Urine Clear (Clear); Bilirubin Urine Negative (Negative); Blood Urine Negative (Negative); Color Urine Yellow (Yellow); Glucose Urine UA Negative (Negative); Ketones Urine Negative (Negative); Leukocyte Esterase Ur Negative LEU/UL (Negative); Nitrate Urine Negative (Negative); Protein Urine Negative (Negative); Urobilinogen Urine 0.2 mg/dL (<2.0)
[2021-12-19 11:49] LABS: Add Urine Microscopic? NO
== END 2021-12-19 10:08 | disposition home or self-care (01) ==
LOC: ANHLAB 10:18
PROVIDERS: PCP Internal Medicine; Visit Provider Internal Medicine
DX: R60.9 Edema, unspecified (principal)
CPT/HCPCS: 36415; 81003; 84443

== ENCOUNTER 2022-04-17 16:02 | Outpatient (CLI) | payer MEDICARE, SELFPAY ==
--- NOTE | ~2022-04-17 | XR_ITS ---
XR ribs RT 2V w CXR 2V DATE: 04/17/2022 16:48 INDICATION: Posterior lower right rib pain. No injury. TECHNIQUE: PA and lateral views. 3 views of the right ribs. COMPARISON: 02/26/2021 2 view chest FINDINGS: No right rib fracture or bone destruction is detected. Normal heart size. No hilar or mediastinal enlargement. No pulmonary infiltrate or consolidation, ple ural effusion or pulmonary vascular congestion or pneumothorax. Status post cholecystectomy. IMPRESSION: No right rib fractures detected No active cardiopulmonary disease Reviewed, dictated and finalized at location A.
--- NOTE | ~2022-04-17 | XR_ITS ---
XR lumbar spine 2-3V DATE: 04/17/2022 16:48 INDICATION: Low right back pain TECHNIQUE: AP, lateral, coned lateral lumbosacral views COMPARISON: None FINDINGS: There is osteopenia. There is severe degenerative disc disease at T11-12, T12-L1, L1-2, L2-3. There is associated mild ret rolisthesis at L2-3. Moderate degenerative disc disease at L3-4. Moderately severe degenerative disc disease at L4-5 and L5-S1. There is very prominent degenerative changes apophyseal joints with associated 9 mm borderline grade 1/grade 2 anterolisthesis at L4-5. No fracture or bone destruction is evident. Included lower thoracic and lumbar pedicles are intact. There is degenerative change of the acromioclavicular joints. Status post upper and lower ventral abdominal wall repair. Surgical clips, right upper quadrant consistent with cholecystectomy. IMPRESSION: Multilevel degenerative disc disease of lower thoracic and lumbar spine Borderline grade 1/grade 2 anterolisthesis at L4-5 due to prominent degenerative change at the apophy seal joints Reviewed, dictated and finalized at location A. IMPRESSION: Multilevel degenerative disc disease of lower thoracic and lumbar s pine Borderline grade 1/grade 2 anterolisthesis at L4-5 due to prominent degenerativ e change at the apophyseal joints
== END 2022-04-17 16:03 | disposition home or self-care (01) ==
PROVIDERS: PCP Internal Medicine; Visit Provider Internal Medicine
DX: R07.81 Pleurodynia (principal); M51.34 Other intervertebral disc degeneration, thoracic region; M51.36 Other intervertebral disc degeneration, lumbar region
CPT/HCPCS: 71046; 71100; 72100

== ENCOUNTER 2022-04-22 07:54 | Outpatient (CLI) | payer MEDICARE, SELFPAY ==
[2022-04-22 08:24] LABS: Basophils Absolute Auto 0.1 K/mm3 (0.0-0.1); Basophils Percent Auto 0.8 % (0.2-1.2); Eosinophils Absolute Auto 0.2 K/mm3 (0-0.3); Eosinophils Percent Auto 2.7 % (0-4.4); Hemoglobin 13.9 g/dL (12.0-15.0); Immature Granulocyte Absolute 0.01 K/mm3 (0.00-0.031); Immature Granulocyte Percent A 0.2 % (0-0.5); Lymphocytes Absolute Auto 1.48 K/mm3 (0.9-3.2); Lymphocytes Percent Auto 25.1 % (18.3-44.2); Mean Corpuscular HGB Conc 32.3 g/dl (32-36); Mean Corpuscular Volume 92.7 fl (80-100); Mean Platelet Volume 10.2 fl (7.4-10.4); Monocytes Absolute Auto 0.6 K/mm3 (0.1-0.6); Monocytes Percent Auto 10.5 % (2.6-8.5); Neutrophils Absolute Auto 3.6 K/mm3 (1.3-6.7); Neutrophils Percent Auto 60.7 % (45.5-73.1); Platelet Count Result 201 k/mm3 (150-375); Red Blood Count 4.64 M/mm3 (4.2-5.4); White Blood Count 5.9 K/mm3 (4.5-10.0)
[2022-04-22 08:33] LABS: Appearance Urine Clear (Clear); Bilirubin Urine 1+ (Negative); Blood Urine Trace-intact (Negative); Color Urine Yellow (Yellow); Glucose Urine UA Negative (Negative); Ketones Urine Trace mg/dL (Negative); Leukocyte Esterase Ur Negative LEU/UL (Negative); Nitrate Urine Negative (Negative); Protein Urine Negative (Negative); Urobilinogen Urine 0.2 mg/dL (<2.0)
[2022-04-22 08:35] LABS: Alanine Aminotransferase 20 U/L (6-35); Albumin Level 3.9 g/dL (3.5-5.1); Alkaline Phosphatase 66 U/L (38-126); Anion Gap 8 mmol/L (8-16); Aspartate Amino Transferase 24 U/L (14-36); Bilirubin,Total 0.4 mg/dL (0.2-1.3); Blood Urea Nitrogen 14 mg/dL (7-17); Calcium 9.2 mg/dL (8.4-10.2); Carbon Dioxide 32 mmol/L (22-30); Chloride 97 mmol/L (98-107); Cholesterol 141 mg/dL (0-200); Estimated Glomerular Filt Rate > 60; Glucose 90 mg/dL (65-110); HDL Direct 67 mg/dL; Potassium 4.2 mmol/L (3.4-5.0); Sodium 137 mmol/L (137-145); Triglycerides 47 mg/dL (<150)
[2022-04-22 08:42] LABS: Hemoglobin A1C 5.6 % (<5.7)
[2022-04-22 08:45] LABS: LDL Cholesterol Direct 53 mg/dL
[2022-04-22 08:57] LABS: Bacteria Urine Trace /hpf; Mucus Urine Rare /lpf; Squamous Epithelial Cell Urine Rare /hpf (Few); WBC Urine 0-3 /hpf
[2022-04-22 09:18] LABS: Add Urine Microscopic? YES
== END 2022-04-22 07:55 | disposition home or self-care (01) ==
PROVIDERS: PCP Internal Medicine; Visit Provider Internal Medicine
DX: R53.83 Other fatigue (principal); R73.01 Impaired fasting glucose; E78.5 Hyperlipidemia, unspecified; I10 Essential (primary) hypertension
CPT/HCPCS: 36415; 80053; 80061; 81001; 83036; 84443; 85025

== ENCOUNTER → 2022-04-23 15:13 | Outpatient (CLI) | payer MEDICARE, SELFPAY ==
--- NOTE | ~2022-04-23 | CT_ITS ---
EXAMINATION: CT abdomen pelvis wo con DATE: 04/23/2022 15:36 INDICATION: Right groin and inguinal pain TECHNIQUE: Computed tomography (CT) of the abdomen and pelvis was performed without intravenous contr ast. The dose-length product (DLP) was 909.27 mGy-cm. Automated exposure control and iterative recons truction technique were employed. COMPARISON: 02/15/2018 FINDINGS: The lung bases are clear. The heart size is normal. The gallbladder is surgically absent. T he liver, spleen, pancreas, and adrenal glands are normal. The kidneys are unremarkable. No pathologi aman enlarged abdominal or pelvic lymph nodes are identified. There is no free intraperitoneal gas o r evidence of bowel obstruction. A rectosigmoid anastomosis is noted. The appendix is normal. Colonic diverticulosis is present without evidence of diverticulitis. There are changes of mesh ventral poly ia repair. There is a small left inguinal hernia containing fat. There is severe lumbar spondylosis. There is mild osteoarthritis of the hips. IMPRESSION: 1. No CT correlate for the patient's symptoms. Reviewed, dictated and finalized at location B. HOUSE CLERK
== END ==
PROVIDERS: PCP Internal Medicine; Visit Provider Surgery
DX: R10.31 Right lower quadrant pain (principal)
CPT/HCPCS: 74176

== ENCOUNTER 2022-04-24 07:43 | Outpatient (CLI) | payer MEDICARE, SELFPAY ==
[2022-04-24 09:08] LABS: Appearance Urine Clear (Clear); Bilirubin Urine 1+ (Negative); Blood Urine Trace-lysed (Negative); Color Urine Yellow (Yellow); Glucose Urine UA Negative (Negative); Ketones Urine Negative (Negative); Leukocyte Esterase Ur Negative LEU/UL (Negative); Nitrate Urine Negative (Negative); Protein Urine Trace mg/dL (Negative); Specific Grav Ur >= 1.030 (1.001-1.035); Urobilinogen Urine 0.2 mg/dL (<2.0); pH Urine 5.5 (5.0-9.0)
[2022-04-24 09:18] LABS: Add Urine Microscopic? YES; Bacteria Urine Trace /hpf; Mucus Urine Few /lpf; Squamous Epithelial Cell Urine Rare /hpf (Few); WBC Urine 0-3 /hpf
== END 2022-04-24 07:44 | disposition home or self-care (01) ==
LOC: ANHLAB 07:46
PROVIDERS: PCP Internal Medicine; Visit Provider Internal Medicine
DX: R31.29 Other microscopic hematuria (principal)
CPT/HCPCS: 81001

== ENCOUNTER 2022-09-26 08:34 | Outpatient (CLI) | payer MEDICARE, SELFPAY ==
--- NOTE | ~2022-09-26 | MM_ITS ---
EXAMINATION: MM screening afua BI w raymon HISTORY: Screening mammogram TECHNIQUE: Craniocaudal and mediolateral oblique 3-D tomosynthesis images were obtained and synthetic 2-D images were generated. CAD analysis was submitted and interpreted. COMPARISON: August 06, 2021, July 16, 2020, July 05, 2019 bilateral screening mammogram exami nations BREAST PARENCHYMAL COMPOSITION: The breasts are almost entirely fatty. FINDINGS: There is no evidence of suspicious mass, calcification, or architectural distortion to sugg est malignancy in either breast. There has been no suspicious interval change. IMPRESSION: 1. No mammographic evidence of malignancy. 2. Recommend routine screening mammography in one year. BI-RADS Category 1: Negative Reviewed, dictated and finalized at location A.
== END 2022-09-26 08:35 | disposition home or self-care (01) ==
LOC: ANHIMG 08:36
PROVIDERS: PCP Internal Medicine; Visit Provider Internal Medicine
DX: Z12.31 Encounter for screening mammogram for malignant neoplasm of breast (principal)
CPT/HCPCS: 77063; 77067

== ENCOUNTER 2023-04-06 12:52 | Emergency (ER) | payer MEDICARE, SELFPAY ==
--- NOTE | ~2023-04-06 | CT_ITS ---
EXAMINATION: CT abdomen pelvis w con DATE: 04/06/2023 17:49 INDICATION: left lower quadrant TECHNIQUE: Computed tomography (CT) of the abdomen and pelvis was performed with 100 mL Omnipaque-350 intravenous contrast. Automated exposure control and iterative reconstruction technique were employe d. The dose-length product was 1041.37 mGy-cm. COMPARISON: 04/23/2022. FINDINGS: Lower thorax: Unremarkable Liver: Normal. Biliary/Gallbladder: Gallbladder is absent. No bile duct dilation. Pancreas: No mass or duct dilation. Spleen: Normal. Adrenals:No mass. Kidneys: No suspicious mass, obstructing stone, or hydronephrosis. Bilateral renal hypodensities too small to characterize but most likely represent cysts. GI tract: Mild distal esophageal and gastric wall edema. Uncomplicated rectosigmoid anastomosis. No s mall or large bowel dilation. Normal appendix. Diverticulosis without diverticulitis. Mesentery/Peritoneum: No ascites, mass, or free air. Retroperitoneum: No mass. Mild atherosclerotic abdominal aortic and/or arterial calcifications. Pelvis: Normal urinary bladder. Absent uterus. Soft Tissues: Small uncomplicated fat-containing left inguinal hernia. Bones: No acute osseous finding. Stable grade 1 L4-5 anterolisthesis. IMPRESSION: Mild esophagitis/gastritis. Otherwise, no acute abdominal pelvic process detected. Reviewed, dictated and finalized at location K.
[2023-04-06 13:16] VITALS: BP 133/55; PULSE 66; RESP 18; TEMP 36.4; O2SAT 99
--- NOTE | 2023-04-06 14:20 | ED.GENADULT ---
HPI - General Adult General Chief complaint: Abdominal Pain <Senia Carter October, - Last Filed: 04/06/23 14:22> Stated complaint: abdominal pain <Senia Carter October, - Last Filed: 04/06/23 14:22> Time Seen by Provider: 04/06/23 16:29 <Senia Carter October, - Last Filed: 04/06/23 14:22> History of Present Illness HPI narrative: Atiya Aguilera is a 77 y/o female with PMHx of diverticulitis with 14 inches of her colon removed in 1999. Reports last flare was several years ago. She reports of having left lower quadrant pain that started about 4 days ago, feeling nauseated but has not vomited. No fever/chills <Senia Carter October, - Last Filed: 04/06/23 14:22> Related Data Home medications: Home Medications Medication Instructions Recorded Confirmed amlodipine 2.5 mg tablet 02/26/21 05/05/22 hydrochlorothiazide 12.5 mg tablet 02/26/21 05/05/22 latanoprost 0.005 % eye drops drp 02/26/21 05/05/22 cetirizine 10 mg capsule (Wal-Zyr 10 mg PO DAILY PRN 04/14/22 05/05/22 (cetirizine)) lisinopril 40 mg tablet 40 mg PO DAILY 04/14/22 05/05/22 pravastatin 40 mg tablet 40 mg PO DAILY 04/14/22 05/05/22 <Senia Carter October, - Last Filed: 04/06/23 14:22> Allergies/adverse reactions: Allergies Allergy/AdvReac Type Severity Reaction Status Date / Time Quinolones Allergy Mild N/V Verified 04/06/23 15:54 azelastine Allergy Unknown Nose Bleeds Verified 04/06/23 15:54 bacitracin Allergy Unknown Blister Verified 04/06/23 15:54 benzocaine Allergy Unknown Swelling Verified 04/06/23 15:54 camphor Allergy Unknown Heart Verified 04/06/23 15:54 fluttering cephalexin Allergy Unknown Nausea Verified 04/06/23 15:54 ipratropium Allergy Unknown Palpitation Verified 04/06/23 15:54 s ketorolac Allergy Unknown Nausea Verified 04/06/23 15:54 latex Allergy Unknown Blister Verified 04/06/23 15:54 levofloxacin Allergy Unknown Nausea Verified 04/06/23 15:54 menthol Allergy Unknown Heart Verified 04/06/23 15:54 fluttering neomycin Allergy Unknown HIVES Verified 04/06/23 15:54 ofloxacin Allergy Unknown NAUSEA Verified 04/06/23 15:54 polymyxin B Allergy Unknown Blister Verified 04/06/23 15:54 triamcinolone Allergy Unknown N/V Verified 04/06/23 15:54 DURAPREP Allergy Mild RASH Uncoded 04/06/23 15:54 <Sneia Carter October, - Last Filed: 04/06/23 14:22> [facility] Past Medical History Medical History: Medical History Hyperlipidemia Hypertension PVC (premature ventricular contraction) Seizure <Senia Carter October, Last Filed: 04/06/23 14:22> Surgical History Surgical History: Surgical History History of arthroscopic knee surgery History of cataract surgery History of colectomy History of incisional hernia repair Multiple incisional hernia repairs - 10/1995, 06/2021, 04/2005, 06/2006, 07/2015 History of laparoscopic cholecystectomy <Senia Carter October, - Last Filed: 04/06/23 14:22> Family History Family History: Family History Mother Cerebrovascular accident, Onset Age: 92 Family history of arthritis Family history of mental disorder, Onset Age: 92 Depression, Onset Age: 92 Hypertension, Onset Age: 92 Family history of anemia, Onset Age: 92 Father Family history of dementia Depression, Onset Age: 82 Family history of glaucoma, Onset Age: 82 Grandparent Carcinoma of colon Family history of lung cancer Family history of Hodgkin's lymphoma Family history of cardiovascular disease Hypertension Family history of malignant neoplasm Sibling Family history of Parkinson's disease Patient's brother is in good health <Senia Carter October, Last Filed: 04/06/23 14:22> Social History Social History: Social History Smoking status: Never smoke
[2023-04-06 14:51] LABS: Basophils Absolute Auto 0.1 K/mm3 (0.0-0.1); Basophils Percent Auto 0.7 % (0.2-1.2); Eosinophils Absolute Auto 0.1 K/mm3 (0-0.3); Hematocrit 47.2 % (37.0-47.0); Hemoglobin 14.9 g/dL (12.0-15.0); Immature Granulocyte Absolute 0.02 K/mm3 (0.00-0.031); Immature Granulocyte Percent A 0.3 % (0-0.5); Lymphocytes Absolute Auto 1.34 K/mm3 (0.9-3.2); Lymphocytes Percent Auto 19.6 % (18.3-44.2); Mean Corpuscular HGB Conc 31.6 g/dl (32-36); Mean Corpuscular Hemoglobin 30.1 pg (26-34); Mean Corpuscular Volume 95.4 fl (80-100); Mean Platelet Volume 9.6 fl (7.4-10.4); Monocytes Absolute Auto 0.7 K/mm3 (0.1-0.6); Monocytes Percent Auto 10.4 % (2.6-8.5); Neutrophils Absolute Auto 4.7 K/mm3 (1.3-6.7); Platelet Count Result 285 k/mm3 (150-375); Red Blood Count 4.95 M/mm3 (4.2-5.4); Red Cell Distribution Width 14.3 % (11.5-14.5); White Blood Count 6.9 K/mm3 (4.5-10.0)
[2023-04-06 15:09] LABS: Alanine Aminotransferase 22 U/L (6-35); Albumin Level 4.3 g/dL (3.5-5.1); Alkaline Phosphatase 62 U/L (38-126); Anion Gap 4 mmol/L (8-16); Aspartate Amino Transferase 27 U/L (14-36); Bilirubin,Total 0.5 mg/dL (0.2-1.3); Blood Urea Nitrogen 12 mg/dL (7-17); Calcium 9.6 mg/dL (8.4-10.2); Carbon Dioxide 29 mmol/L (22-30); Chloride 100 mmol/L (98-107); Estimated CRCL calculation 47 ml/min; Estimated Glomerular Filt Rate > 60; Glucose 94 mg/dL (65-110); Lipase 86 U/L (23-300); Potassium 4.4 mmol/L (3.4-5.0); Sodium 133 mmol/L (137-145)
[2023-04-06 15:10] LABS: Appearance Urine Clear (Clear); Bilirubin Urine Negative (Negative); Blood Urine Negative (Negative); Color Urine Yellow (Yellow); Glucose Urine UA Negative (Negative); Ketones Urine Negative (Negative); Leukocyte Esterase Ur Negative LEU/UL (Negative); Nitrate Urine Negative (Negative); Protein Urine Negative (Negative); Specific Grav Ur 1.015 (1.001-1.035); Urobilinogen Urine 0.2 mg/dL (<2.0)
[2023-04-06 15:13] LABS: Add Urine Microscopic? NO
[2023-04-06 15:53] VITALS: BP 183/61; PULSE 60; RESP 16; O2SAT 100
[2023-04-06 16:56] VITALS: BP 160/73; PULSE 76; RESP 22; O2SAT 100
== END 2023-04-06 18:56 | disposition home or self-care (01) ==
PROVIDERS: Nurse Practitioner Family; Emergency Provider Emergency Medicine; PCP Internal Medicine
DX: R10.32 Left lower quadrant pain (principal); E78.5 Hyperlipidemia, unspecified; I10 Essential (primary) hypertension; Z90.49 Acquired absence of other specified parts of digestive tract; Z98.49 Cataract extraction status, unspecified eye; K20.90 Esophagitis, unspecified without bleeding; K29.70 Gastritis, unspecified, without bleeding
CPT/HCPCS: 36415; 74177; 80053; 81003; 83605; 83690; 85025; 99284; Q9967

== ENCOUNTER 2023-04-13 14:44 | Emergency (ER) | payer MEDICARE, SELFPAY ==
--- NOTE | ~2023-04-13 | CT_ITS ---
EXAMINATION: CT abdomen pelvis w con DATE: 04/13/2023 19:29 INDICATION: TECHNIQUE: Computed tomography (CT) of the abdomen and pelvis was performed with 100 cc Omnipaque 350 intravenous contrast. The dose-length product was 1098.38 mGy-cm. Automated exposure control and ite rative reconstruction technique were employed. COMPARISON: CT dated 04/06/2023. FINDINGS: Lung bases are unremarkable. Heart size normal. No significant pleural or pericardial effus ion. Status post cholecystectomy. The there are changes of ventral abdominal wall hernia repair. The liver, spleen, pancreas, adrenal glands and kidneys are unremarkable. No free air or free fluid. Nonobstructive bowel gas pattern. Colonic diverticulosis without evidence for diverticulitis. There i s a surgical anastomosis at the rectosigmoid junction. Normal appendix. Stable grade 1 spondylolisthe sis at L4-5. There is moderate lower thoracic and lumbar spondylosis. IMPRESSION: 1. No acute abdominal abnormality. Reviewed, dictated and finalized at location A.
[2023-04-13 14:53] VITALS: BP 167/72; PULSE 79; RESP 20; TEMP 36.4; O2SAT 97
--- NOTE | 2023-04-13 15:30 | ED.GENADULT ---
HPI - General Adult General Chief complaint: Abdominal Pain Stated complaint: abdominal pain/diverticulitis Time Seen by Provider: 04/13/23 19:22 History of Present Illness HPI narrative: Atiya Aguilera is a 77 y/o female with PMHx of Diverticulitis. She was evaluated here 1 week ago dx wtih diverticulitis and sent home with PO antibiotics. She followed up with her PCP the following Thursday and her PCP increased her antibiotics to every 8 hours/ clear liquid diet. She followed up with her PCP today and her PCP sent her here concerned that she is not responding to her antibiotics as her pain is increasing and spreading and would like her admitted for IV antibiotics. Patient report of nausea but has not vomited and she has been able to keep her antibiotics down. Related Data Home Medications Medication Instructions Recorded Confirmed amlodipine 2.5 mg tablet 02/26/21 04/15/23 hydrochlorothiazide 12.5 mg tablet 02/26/21 04/15/23 latanoprost 0.005 % eye drops drp 02/26/21 04/15/23 cetirizine 10 mg capsule (Wal-Zyr 10 mg PO DAILY PRN 04/14/22 04/15/23 (cetirizine)) lisinopril 40 mg tablet 40 mg PO DAILY 04/14/22 04/15/23 pravastatin 40 mg tablet 40 mg PO DAILY 04/14/22 04/15/23 Allergies Allergy/AdvReac Type Severity Reaction Status Date / Time Quinolones Allergy Mild N/V Verified 04/06/23 15:54 azelastine Allergy Unknown Nose Bleeds Verified 04/06/23 15:54 bacitracin Allergy Unknown Blister Verified 04/06/23 15:54 benzocaine Allergy Unknown Swelling Verified 04/06/23 15:54 camphor Allergy Unknown Heart Verified 04/06/23 15:54 fluttering cephalexin Allergy Unknown Nausea Verified 04/06/23 15:54 ipratropium Allergy Unknown Palpitation Verified 04/06/23 15:54 s ketorolac Allergy Unknown Nausea Verified 04/06/23 15:54 latex Allergy Unknown Blister Verified 04/06/23 15:54 levofloxacin Allergy Unknown Nausea Verified 04/06/23 15:54 menthol Allergy Unknown Heart Verified 04/06/23 15:54 fluttering neomycin Allergy Unknown HIVES Verified 04/06/23 15:54 ofloxacin Allergy Unknown NAUSEA Verified 04/06/23 15:54 polymyxin B Allergy Unknown Blister Verified 04/06/23 15:54 triamcinolone Allergy Unknown N/V Verified 04/06/23 15:54 DURAPREP Allergy Mild RASH Uncoded 04/06/23 15:54 PMFSH Past Medical History Medical History Hyperlipidemia Hypertension PVC (premature ventricular contraction) Seizure Stomach ulcer Surgical History Surgical History History of arthroscopic knee surgery History of cataract surgery History of colectomy History of hysterectomy History of incisional hernia repair Multiple incisional hernia repairs - 10/1995, 06/2021, 04/2005, 06/2006, 07/2015 History of laparoscopic cholecystectomy Family History Family History Mother Cerebrovascular accident, Onset Age: 92 Family history of arthritis Family history of mental disorder, Onset Age: 92 Depression, Onset Age: 92 Hypertension, Onset Age: 92 Family history of anemia, Onset Age: 92 Father Family history of dementia Depression, Onset Age: 82 Family history of glaucoma, Onset Age: 82 Grandparent Carcinoma of colon Family history of lung cancer Family history of Hodgkin's lymphoma Family history of cardiovascular disease Hypertension Family history of malignant neoplasm Sibling Family history of Parkinson's disease Patient's brother is in good health Social History Social History Smoking status: Never smoker Second hand tobacco smoke exposure: Yes Alcohol intake: current Living arrangements: with family Occupation/Education: retired [employer] Vital Signs Vital signs: Vital Signs Temperature 36.4 C 04/13/23 14:53 Pulse Rate 79 04/13/23 14:53 Respiratory Rate 20
[2023-04-13 19:10] LABS: Basophils Absolute Auto 0.1 K/mm3 (0.0-0.1); Basophils Percent Auto 1.1 % (0.2-1.2); Eosinophils Percent Auto 0.5 % (0-4.4); Hematocrit 47.7 % (37.0-47.0); Hemoglobin 15.3 g/dL (12.0-15.0); Immature Granulocyte Absolute 0.02 K/mm3 (0.00-0.031); Immature Granulocyte Percent A 0.2 % (0-0.5); Lymphocytes Absolute Auto 1.49 K/mm3 (0.9-3.2); Lymphocytes Percent Auto 18.2 % (18.3-44.2); Mean Corpuscular HGB Conc 32.1 g/dl (32-36); Mean Corpuscular Hemoglobin 29.9 pg (26-34); Mean Corpuscular Volume 93.2 fl (80-100); Monocytes Absolute Auto 0.8 K/mm3 (0.1-0.6); Monocytes Percent Auto 9.9 % (2.6-8.5); Neutrophils Absolute Auto 5.8 K/mm3 (1.3-6.7); Neutrophils Percent Auto 70.1 % (45.5-73.1); Platelet Count Result 272 k/mm3 (150-375); Red Blood Count 5.12 M/mm3 (4.2-5.4); Red Cell Distribution Width 13.8 % (11.5-14.5); White Blood Count 8.2 K/mm3 (4.5-10.0)
[2023-04-13 19:20] LABS: Alanine Aminotransferase 23 U/L (6-35); Albumin Level 4.4 g/dL (3.5-5.1); Alkaline Phosphatase 59 U/L (38-126); Anion Gap 6 mmol/L (8-16); Aspartate Amino Transferase 35 U/L (14-36); Bilirubin,Total 0.8 mg/dL (0.2-1.3); Blood Urea Nitrogen 5 mg/dL (7-17); Calcium 9.6 mg/dL (8.4-10.2); Carbon Dioxide 30 mmol/L (22-30); Chloride 96 mmol/L (98-107); Estimated CRCL calculation 69 ml/min; Estimated Glomerular Filt Rate > 60; Glucose 94 mg/dL (65-110); Lipase 51 U/L (23-300); Potassium 4.4 mmol/L (3.4-5.0); Sodium 132 mmol/L (137-145)
[2023-04-13 19:21] LABS: Lactic Acid Reflex 0.9 mmol/L (0.7-2.0)
[2023-04-13 19:24] LABS: Estimated CRCL calculation 81 ml/min; Estimated Glomerular Filt Rate > 60
--- NOTE | 2023-04-13 19:40 | ED.GENADULT ---
HPI - General Adult General Chief complaint: Abdominal Pain Stated complaint: abdominal pain/diverticulitis Time Seen by Provider: 04/13/23 19:22 History of Present Illness HPI narrative: This is a 77-year-old female a bouncing back to the ED for left lower quadrant /groin pain. Patient started having symptoms 11-12 days ago. She was seen ER and while her CT was negative she does have significant history of diverticulitis and was presumptively treated for that. However her symptoms did not improve. She followed-up with Dr. Travis Yin who felt this was a muscle strain. She then saw her primary care physician who recommended she come to the ED to be admitted for IV antibiotics. At this time the patient says the pain is in the left lower quadrant, is an achy pain that is not noticeable at rest or when she is in a comfortable position but is worse when she moves. Patient notes she is very active and golfs several times a week and gardens. She says this does feel like when she has had diverticulitis in the past. patient does not have any GI symptoms outside of some nausea. The patient has been on a liquid diet for 3-4 days and says she is very hungry. At no point has the patient been prescribed or taking any pain medication for her pain. Related Data Home Medications Medication Instructions Recorded Confirmed amlodipine 2.5 mg tablet 02/26/21 05/05/22 hydrochlorothiazide 12.5 mg tablet 02/26/21 05/05/22 latanoprost 0.005 % eye drops drp 02/26/21 05/05/22 cetirizine 10 mg capsule (Wal-Zyr 10 mg PO DAILY PRN 04/14/22 05/05/22 (cetirizine)) lisinopril 40 mg tablet 40 mg PO DAILY 04/14/22 05/05/22 pravastatin 40 mg tablet 40 mg PO DAILY 04/14/22 05/05/22 Allergies Allergy/AdvReac Type Severity Reaction Status Date / Time Quinolones Allergy Mild N/V Verified 04/06/23 15:54 azelastine Allergy Unknown Nose Bleeds Verified 04/06/23 15:54 bacitracin Allergy Unknown Blister Verified 04/06/23 15:54 benzocaine Allergy Unknown Swelling Verified 04/06/23 15:54 camphor Allergy Unknown Heart Verified 04/06/23 15:54 fluttering cephalexin Allergy Unknown Nausea Verified 04/06/23 15:54 ipratropium Allergy Unknown Palpitation Verified 04/06/23 15:54 s ketorolac Allergy Unknown Nausea Verified 04/06/23 15:54 latex Allergy Unknown Blister Verified 04/06/23 15:54 levofloxacin Allergy Unknown Nausea Verified 04/06/23 15:54 menthol Allergy Unknown Heart Verified 04/06/23 15:54 fluttering neomycin Allergy Unknown HIVES Verified 04/06/23 15:54 ofloxacin Allergy Unknown NAUSEA Verified 04/06/23 15:54 polymyxin B Allergy Unknown Blister Verified 04/06/23 15:54 triamcinolone Allergy Unknown N/V Verified 04/06/23 15:54 DURAPREP Allergy Mild RASH Uncoded 04/06/23 15:54 PMFSH Past Medical History Medical History Hyperlipidemia Hypertension PVC (premature ventricular contraction) Seizure Stomach ulcer Surgical History Surgical History History of arthroscopic knee surgery History of cataract surgery History of colectomy History of hysterectomy History of incisional hernia repair Multiple incisional hernia repairs - 10/1995, 06/2021, 04/2005, 06/2006, 07/2015 History of laparoscopic cholecystectomy Family History Family History Mother Cerebrovascular accident, Onset Age: 92 Family history of arthritis Family history of mental disorder, Onset Age: 92 Depression, Onset Age: 92 Hypertension, Onset Age: 92 Family history of anemia, Onset Age: 92 Father Family history of dementia Depression, Onset Age: 82 Family history of glaucoma, Onset Age: 82 Grandparent Carcinoma of colon Family history of lung cancer Family history of Hodgkin's lymphoma Family history of cardiovascular disease Hypertension Family history of malignant ne
[2023-04-13] MEDS: ACETAMINOPHEN 500 MG TABLET 1000 MG PO (19:56)
[2023-04-13] MEDS: KETOROLAC 15 MG/ML VIAL (*BKC) IV PUSH (19:56)
[2023-04-13] MEDS: methocarbamoL 750 MG TABLET PO (19:57)
[2023-04-13] MEDS: SODIUM CHLORIDE 0.9% IV 1,000 ML 999 ML IV CONT (19:57)
[2023-04-13 21:27] LABS: Appearance Urine Clear (Clear); Bilirubin Urine Negative (Negative); Blood Urine Negative (Negative); Color Urine Yellow (Yellow); Glucose Urine UA Negative (Negative); Ketones Urine Trace mg/dL (Negative); Leukocyte Esterase Ur Negative LEU/UL (Negative); Nitrate Urine Negative (Negative); Protein Urine Negative (Negative); Urobilinogen Urine 0.2 mg/dL (<2.0)
[2023-04-13 21:28] LABS: Specific Grav Ur 1.053 (1.001-1.035)
[2023-04-13 21:29] LABS: Add Urine Microscopic? NO
[2023-04-13 22:08] VITALS: BP 148/70; PULSE 75; RESP 20; O2SAT 97
== END 2023-04-13 22:08 | disposition home or self-care (01) ==
PROVIDERS: Nurse Practitioner Family; Physician Assistant; Emergency Provider Emergency Medicine; PCP Internal Medicine
DX: R10.32 Left lower quadrant pain (principal); E78.5 Hyperlipidemia, unspecified; I10 Essential (primary) hypertension; Z90.49 Acquired absence of other specified parts of digestive tract; Z90.710 Acquired absence of both cervix and uterus; Z98.49 Cataract extraction status, unspecified eye; Z77.22 Contact with and (suspected) exposure to environmental tobacco smoke (acute) (chronic)
CPT/HCPCS: 36415; 74177; 80053; 81003; 83605; 83690; 85025; 96374; 99284; A9270; J1885; J7030; Q9967

== ENCOUNTER 2023-04-15 07:08 | Outpatient (CLI) | payer MEDICARE, SELFPAY ==
[2023-04-15 07:58] LABS: Alanine Aminotransferase 19 U/L (6-35); Albumin Level 3.5 g/dL (3.5-5.1); Alkaline Phosphatase 50 U/L (38-126); Anion Gap 2 mmol/L (8-16); Aspartate Amino Transferase 28 U/L (14-36); Bilirubin,Total 0.4 mg/dL (0.2-1.3); Blood Urea Nitrogen 11 mg/dL (7-17); Carbon Dioxide 29 mmol/L (22-30); Chloride 102 mmol/L (98-107); Cholesterol 132 mg/dL (0-200); Estimated Glomerular Filt Rate > 60; Glucose 97 mg/dL (65-110); HDL Direct 65 mg/dL; Sodium 133 mmol/L (137-145); Triglycerides 60 mg/dL (<150)
[2023-04-15 08:08] LABS: LDL Cholesterol Direct 50 mg/dL
== END 2023-04-15 07:09 | disposition home or self-care (01) ==
LOC: ANHLAB 07:10
PROVIDERS: PCP Internal Medicine; Visit Provider Internal Medicine
DX: I10 Essential (primary) hypertension (principal)
CPT/HCPCS: 36415; 80053; 80061

== ENCOUNTER 2023-05-11 06:50 | Outpatient (CLI) | payer MEDICARE, SELFPAY ==
[2023-05-11 09:31] LABS: Vitamin D 25 Hydroxy 64.8 ng/mL
[2023-05-11 10:03] LABS: Hepatitis C Virus Antibody Negative (Negative)
== END 2023-05-11 06:51 | disposition home or self-care (01) ==
LOC: ANHLAB 06:55
PROVIDERS: PCP Internal Medicine; Visit Provider Internal Medicine
DX: M85.80 Other specified disorders of bone density and structure, unspecified site (principal); Z11.59 Encounter for screening for other viral diseases; T07.XXXA Unspecified multiple injuries, initial encounter
CPT/HCPCS: 36415; 82306; 86803

== ENCOUNTER 2023-06-02 01:17 | Day surgery (SDC) | payer MEDICARE, SELFPAY ==
[2023-05-15 08:49] VITALS: BMI 33.5
--- NOTE | 2023-05-29 10:25 | SUR.PREOP ---
Patient called regarding upcoming procedure. Message left on pt's voicemail regarding appointment times.
[2023-06-02 10:10] VITALS: BP 160/59; PULSE 67; RESP 18; TEMP 36.5; O2SAT 100
[2023-06-02] MEDS: LACTATED RINGERS 1,000 ML 150 ML IV CONT (10:18)
--- NOTE | 2023-06-02 10:57 | PM.HPGS ---
History of Present Illness History of Present Illness Consent: Risks, benefits, and alternatives have been discussed and questions answered. Patient agrees to proceed with procedure. Chief complaint: Left lower quadrant pain Narrative: Atiya Aguilera is a 77 year old female Presents for colonoscopy. Patient reports having had left lower quadrant pain he was seen in the ER several months ago. Eventually was seen in the GI office in early April and placed on fiber supplements. She states this has helped regulate her bowel habits and minimized any abdominal pain. Past medical history is significant for multiple surgeries. She had a sigmoid resection because of diverticulitis. She has had several hernias. Is felt to have an ongoing left lower quadrant ventral hernia. Patient referred for colonoscopy. To evaluate her pain which is now resolved. He reports bowel habits have improved as well. Family history is noncontributory. Review of Systems Review of Systems: Review of systems noncontributory. [facility] Past Medical History Medical History (Updated 04/23/23 @ 11:22 by AMBERLY Fofana) Constipation Diverticulitis Hyperlipidemia Hypertension Left lower quadrant pain PVC (premature ventricular contraction) Seizure Stomach ulcer Surgical History Surgical History History of arthroscopic knee surgery History of cataract surgery History of colectomy History of hysterectomy History of incisional hernia repair Multiple incisional hernia repairs - 10/1995, 06/2021, 04/2005, 06/2006, 07/2015 History of laparoscopic cholecystectomy Family History Family History (Updated 05/15/23 @ 09:18 by Kacey Rahman RN) Mother Family history of arthritis Family history of anemia, Onset Age: 92 Depression, Onset Age: 92 Family history of mental disorder, Onset Age: 92 Hypertension, Onset Age: 92 Cerebrovascular accident, Onset Age: 92 Father Depression, Onset Age: 82 Family history of glaucoma, Onset Age: 82 Family history of dementia Grandparent Family history of cardiovascular disease Family history of malignant neoplasm Family history of lung cancer Family history of Hodgkin's lymphoma Carcinoma of colon Hypertension Sibling Patient's brother is in good health Family history of Parkinson's disease Social History Social History Smoking status: Never smoker Second hand tobacco smoke exposure: Yes Alcohol intake: current Substance use: never Substance use type: does not use Living arrangements: with family Occupation/Education: retired Spiritual care concerns: No Meds Home Medications and Allergies Home Medications Medication Instructions Recorded Confirmed Type amlodipine 2.5 mg tablet 2.5 mg PO DAILY 02/26/21 05/15/23 History hydrochlorothiazide 12.5 mg tablet 12.5 mg PO DAILY 02/26/21 05/15/23 History latanoprost 0.005 % eye drops 1 drp EACH EYE HS 02/26/21 05/15/23 History cetirizine 10 mg capsule (Wal-Zyr 10 mg PO DAILY 04/14/22 05/15/23 History (cetirizine)) lisinopril 40 mg tablet 40 mg PO DAILY 04/14/22 05/15/23 History pravastatin 40 mg tablet 40 mg PO HS 04/14/22 05/15/23 History sodium,potassium,mag sulfates 17.5 See Rx Instructions PO .COMPLEX 04/24/23 05/15/23 Rx gram-3.13 gram-1.6 gram oral soln #354 mL (Suprep Bowel Prep Kit) acetaminophen 500 mg tablet 1,000 mg PO TID PRN Pain 05/15/23 05/15/23 History amoxicillin 500 mg tablet 2,000 mg PO ONCE PRN PROPHYLACTIC 05/15/23 05/15/23 History multivitamin with minerals-folic 1 tablet PO DAILY 05/15/23 05/15/23 History acid 80 mcg chewable tablet (Centrum Adult 50 Plus) psyllium husk 3.4 gram/5.4 gram 1 tsp PO DAILY 05/15/23 05/15/23 History oral powder (Metamucil) Allergies Allergy/AdvReac Type Severity Reaction Status Date / Time be
--- NOTE | 2023-06-02 10:59 | WPDANESEPPF ---
Anes - Initial Pre Proc Eval Procedure: Operation Date: 06/02/23 11:00 Proposed Procedures p Colonoscopy - Isak Boswell MD Date/Time: 06/02/23 10:59 Surgeon: Isak Boswell MD Pre Op Diagnosis: Left lower quadrant pain Patient Data Age: 77 Gender: F Height: 1.57 m Weight: 84.4 kg Last Vital Signs Temp 36.5 C 06/02/23 10:10 Pulse 67 06/02/23 10:10 Resp 18 06/02/23 10:10 BP 160/59 H 06/02/23 10:10 Pulse Ox 100 06/02/23 10:10 O2 Del Method Room Air 06/02/23 10:10 Allergies Allergy/AdvReac Type Severity Reaction Status Date / Time benzocaine Allergy Severe Swelling Verified 06/02/23 10:09 cedarwood Allergy Severe Difficulty Verified 06/02/23 10:09 Breathing bacitracin Allergy Intermediate Blister Verified 06/02/23 10:09 camphor Allergy Intermediate Heart Verified 06/02/23 10:09 fluttering latex Allergy Intermediate Blister Verified 06/02/23 10:09 menthol Allergy Intermediate Heart Verified 06/02/23 10:09 fluttering neomycin Allergy Intermediate HIVES Verified 06/02/23 10:09 polymyxin B Allergy Intermediate Blister Verified 06/02/23 10:09 azelastine AdvReac Severe Nose Bleeds Verified 06/02/23 10:09 cephalexin AdvReac Intermediate Nausea Verified 06/02/23 10:09 ipratropium AdvReac Intermediate Palpitation Verified 06/02/23 10:09 s ketorolac AdvReac Intermediate Nausea Verified 06/02/23 10:09 levofloxacin AdvReac Intermediate Nausea Verified 06/02/23 10:09 ofloxacin AdvReac Intermediate NAUSEA Verified 06/02/23 10:09 triamcinolone AdvReac Intermediate N/V Verified 06/02/23 10:09 Quinolones AdvReac Mild N/V Verified 06/02/23 10:09 dust mites Allergy Severe Wheezing Uncoded 05/15/23 08:53 DURAPREP Allergy Intermediate RASH Uncoded 05/15/23 08:51 Home Medications Medication Instructions Recorded Confirmed Type amlodipine 2.5 mg tablet 2.5 mg PO DAILY 02/26/21 05/15/23 History hydrochlorothiazide 12.5 mg tablet 12.5 mg PO DAILY 02/26/21 05/15/23 History latanoprost 0.005 % eye drops 1 drp EACH EYE HS 02/26/21 05/15/23 History cetirizine 10 mg capsule (Wal-Zyr 10 mg PO DAILY 04/14/22 05/15/23 History (cetirizine)) lisinopril 40 mg tablet 40 mg PO DAILY 04/14/22 05/15/23 History pravastatin 40 mg tablet 40 mg PO HS 04/14/22 05/15/23 History sodium,potassium,mag sulfates 17.5 See Rx Instructions PO .COMPLEX 04/24/23 05/15/23 Rx gram-3.13 gram-1.6 gram oral soln #354 mL (Suprep Bowel Prep Kit) acetaminophen 500 mg tablet 1,000 mg PO TID PRN Pain 05/15/23 05/15/23 History amoxicillin 500 mg tablet 2,000 mg PO ONCE PRN PROPHYLACTIC 05/15/23 05/15/23 History multivitamin with minerals-folic 1 tablet PO DAILY 05/15/23 05/15/23 History acid 80 mcg chewable tablet (Centrum Adult 50 Plus) psyllium husk 3.4 gram/5.4 gram 1 tsp PO DAILY 05/15/23 05/15/23 History oral powder (Metamucil) Patient hx anesthesia problems: none Family hx anesthesia problems: none Results Review: All pre-operative results and documents have been reviewed as part of the pre-operative evaluation. [facility] Past Medical History Medical History Constipation Diverticulitis Hyperlipidemia Hypertension Left lower quadrant pain PVC (premature ventricular contraction) Seizure Stomach ulcer Surgical History Surgical History History of arthroscopic knee surgery History of cataract surgery History of colectomy History of hysterectomy History of incisional hernia repair Multiple incisional hernia repairs - 10/1995, 06/2021, 04/2005, 06/2006, 07/2015 History of laparoscopic cholecystectomy Family History Family History Mother Family history of arthritis Family history of anemia, Onset Age: 92 Depression, Onset Age: 92 Family history of mental disorder, Onset Age: 92 Hypertension, Onset Age: 92 Cerebrova
[2023-06-02 12:02] VITALS: BP 120/54; PULSE 64; RESP 22; O2SAT 100
[2023-06-02 12:12] VITALS: BP 126/54; PULSE 60; RESP 12; O2SAT 100
[2023-06-02 12:22] VITALS: BP 132/63; PULSE 60; RESP 11; O2SAT 100
== END 2023-06-02 12:35 | disposition home or self-care (01) ==
PROVIDERS: PCP Internal Medicine; Visit Provider Internal Medicine Gastroenterology
PROC: 0DJD8ZZ Inspection of Lower Intestinal Tract, Via Natural or Artificial Opening Endoscopic (ICD-10-PCS; CPT 45378; principal; 2023-06-02 11:00)
DX: K57.30 Diverticulosis of large intestine without perforation or abscess without bleeding (principal); K63.5 Polyp of colon; K64.8 Other hemorrhoids; I10 Essential (primary) hypertension; E78.5 Hyperlipidemia, unspecified; I49.3 Ventricular premature depolarization; E66.9 Obesity, unspecified; Z68.34 Body mass index [BMI] 34.0-34.9, adult
CPT/HCPCS: 45385; 88305; J2704; J7120

== ENCOUNTER 2023-06-10 08:15 | Outpatient (CLI) | payer MEDICARE, SELFPAY ==
--- NOTE | 2023-06-10 | EST_ITS ---
Patient Info Name: Atiya Aguilera Age: 77 years : 1945 Gender: Female Ht: 62 in Wt: 186 lbs BSA: 1.96 m2 HR: 64 bpm BP: 152 / 55 mmHg Heart Rhythm: Sinus Rhythm Exam Date: 06/10/2023 8:49 AM Exam Location: Echo Lab Patient Status: Outpatient Admit Date: 06/10/2023 Staff Ordering Physician: Leah Barajas MD Attending Provider: Leah Barajas MD Exercise Technologist: Xochitl Ortiz RDCS Exercise Physician: Sandrine Rushing MD Exam Type: CA stress test treadmill Study Info An exercise stress test was performed. Summary 1. Hypertensive blood pressure response to exercise. 2. Exercise capacity fair to good at 6-10 METS. 3. Significant baseline motion artifact during exercise despite multiple attempts at readjusting EKG leads. Stress ECG is uninterpretable for ischemia given the significant baseline motion artifact. Consider repeating stress test with imaging. 4. Stress test supervised and interpreted by Sandrine Rushing MD. Protocol: Jose Carlos Stress ECG Details Stage: REST Duration (min): 1 min : 59 sec Speed (mph): 0.0 Grade (%): 0 HR (bpm): 60 SBP (mmHg): 152 DBP (mmHg): 55 METS: --- Stage: REST Duration (min): 9 min : 8 sec Speed (mph): 0.0 Grade (%): 0 HR (bpm): 65 SBP (mmHg): 152 DBP (mmHg): 55 METS: --- Stage: STAGE 1 Duration (min): 1 min : 0 sec Speed (mph): 1.7 Grade (%): 10 HR (bpm): 95 SBP (mmHg): 152 DBP (mmHg): 55 METS: --- Stage: STAGE 1 Duration (min): 2 min : 0 sec Speed (mph): 1.7 Grade (%): 10 HR (bpm): 116 SBP (mmHg): 152 DBP (mmHg): 55 METS: --- Stage: STAGE 1 Duration (min): 3 min : 0 sec Speed (mph): 1.7 Grade (%): 10 HR (bpm): 104 SBP (mmHg): 202 DBP (mmHg): 68 METS: --- Stage: STAGE 2 Duration (min): 1 min : 0 sec Speed (mph): 2.5 Grade (%): 12 HR (bpm): 112 SBP (mmHg): 202 DBP (mmHg): 68 METS: --- Stage: STAGE 2 Duration (min): 2 min : 0 sec Speed (mph): 2.5 Grade (%): 12 HR (bpm): 117 SBP (mmHg): 202 DBP (mmHg): 68 METS: --- Stage: STAGE 2 Duration (min): 3 min : 0 sec Speed (mph): 2.5 Grade (%): 12 HR (bpm): 123 SBP (mmHg): 206 DBP (mmHg): 69 METS: --- Stage: STAGE 3 Duration (min): 0 min : 25 sec Speed (mph): 0.0 Grade (%): 0 HR (bpm): 129 SBP (mmHg): 206 DBP (mmHg): 69 METS: --- Stage: RECOVERY Duration (min): 0 min : 34 sec Speed (mph): 0.0 Grade (%): 0 HR (bpm): 101 SBP (mmHg): 206 DBP (mmHg): 69 METS: --- Stage: RECOVERY Duration (min): 1 min : 34 sec Speed (mph): 0.0 Grade (%): 0 HR (bpm): 88 SBP (mmHg): 217 DBP (mmHg): 47 METS: --- Stage: RECOVERY Duration (min): 2 min : 34 sec Speed (mph): 0.0 Grade (%): 0 HR (bpm): 77 SBP (mmHg): 217 DBP (mmHg): 47 METS: --- Stage: RECOVERY Duration (min): 3 min : 34 sec Speed (mph): 0.0 Grade (%): 0 HR (bpm): 74 SBP (mmHg): 181 DBP
== END 2023-06-10 08:16 | disposition home or self-care (01) ==
LOC: ANHCARD 08:16
PROVIDERS: PCP Internal Medicine; Visit Provider Internal Medicine
DX: R07.89 Other chest pain (principal)
CPT/HCPCS: 93017

== ENCOUNTER 2023-08-24 09:12 | Outpatient (CLI) | payer MEDICARE, SELFPAY ==
--- NOTE | 2023-08-24 | EST_ITS ---
Patient Info Name: Atiya Aguilera Age: 78 years : 1945 Gender: Female Ht: 62 in Wt: 180 lbs BSA: 1.92 m2 HR: 57 bpm BP: 166 / 84 mmHg Heart Rhythm: Sinus Rhythm Exam Date: 08/24/2023 10:16 AM Exam Location: Echo Lab Patient Status: Outpatient Admit Date: 08/24/2023 Staff Ordering Physician: Leah Barajas MD Attending Provider: Leah Barajas MD Exercise Technologist: Myrna Begr, CT Nurse: Kimber Reddy APN Exam Type: CA stress test treadmill w NM Study Info Indications R07.89 - Other chest pain A nuclear stress test was performed. Summary 1. No abnormal ST/T wave changes with exercise. 2. Normal sinus rhythm - normal ECG. 3. Graded exercise test to 88% of age predicted maximum heart rate clinically and electrocardiographically negative. 4. Myocardial perfusion imaging study to be dictated by Radiology. Protocol: Jose Carlos Stress ECG Details Stage: REST Duration (min): 4 min : 31 sec Speed (mph): 0.0 Grade (%): 0 HR (bpm): 58 SBP (mmHg): 166 DBP (mmHg): 84 METS: --- Stage: REST Duration (min): 18 min : 15 sec Speed (mph): 0.0 Grade (%): 0 HR (bpm): 71 SBP (mmHg): 166 DBP (mmHg): 84 METS: --- Stage: STAGE 1 Duration (min): 1 min : 0 sec Speed (mph): 1.7 Grade (%): 10 HR (bpm): 90 SBP (mmHg): 166 DBP (mmHg): 84 METS: --- Stage: STAGE 1 Duration (min): 2 min : 0 sec Speed (mph): 1.7 Grade (%): 10 HR (bpm): 104 SBP (mmHg): 166 DBP (mmHg): 84 METS: --- Stage: STAGE 1 Duration (min): 3 min : 0 sec Speed (mph): 1.7 Grade (%): 10 HR (bpm): 102 SBP (mmHg): 241 DBP (mmHg): 78 METS: --- Stage: STAGE 2 Duration (min): 1 min : 0 sec Speed (mph): 2.5 Grade (%): 12 HR (bpm): 110 SBP (mmHg): 260 DBP (mmHg): 87 METS: --- Stage: STAGE 2 Duration (min): 2 min : 0 sec Speed (mph): 2.5 Grade (%): 12 HR (bpm): 114 SBP (mmHg): 260 DBP (mmHg): 87 METS: --- Stage: STAGE 2 Duration (min): 3 min : 0 sec Speed (mph): 2.5 Grade (%): 12 HR (bpm): 124 SBP (mmHg): 260 DBP (mmHg): 87 METS: --- Stage: STAGE 3 Duration (min): 0 min : 7 sec Speed (mph): 3.4 Grade (%): 14 HR (bpm): 126 SBP (mmHg): 260 DBP (mmHg): 87 METS: --- Stage: RECOVERY Duration (min): 0 min : 52 sec Speed (mph): 0.0 Grade (%): 0 HR (bpm): 98 SBP (mmHg): 188 DBP (mmHg): 98 METS: --- Stage: RECOVERY Duration (min): 1 min : 52 sec Speed (mph): 0.0 Grade (%): 0 HR (bpm): 81 SBP (mmHg): 188 DBP (mmHg): 98 METS: --- Stage: RECOVERY Duration (min): 2 min : 52 sec Speed (mph): 0.0 Grade (%): 0 HR (bpm): 75 SBP (mmHg): 241 DBP (mmHg): 71 METS: --- Stage: RECOVERY Duration (min): 3 min : 52 sec Speed (mph): 0.0 Grade (%): 0 HR (bpm): 66 SBP (mmHg): 241 DBP (mmHg): 71 METS: --- Stage: RECOVERY Duration (min):
--- NOTE | ~2023-08-24 | NM_ITS ---
EXAMINATION: NM stress w perf spect multi DATE: 08/24/2023 11:30 INDICATION: Chest discomfort TECHNIQUE: Rest images were obtained following intravenous administration of 9.3 mCi Tc99m tetrofosmi n ([employer]). The patient performed an exercise activity. At peak exercise, 29.4 mCi Tc99m tetrofosmin ([employer]) was administered intravenously, and stress images were obtained. Data was reconstructed in to short axis and horizontal and vertical long axis SPECT images. Gated SPECT images were also obtain ed. COMPARISON: None. FINDINGS: There is normal left ventricular perfusion without definite evidence of reversible or fixed perfusion abnormality to suggest ischemia or infarction. There is normal left ventricular chamber size, wall motion and ejection fraction. Left ventricular ejection fraction measures >70%. IMPRESSION: 1. Normal myocardial perfusion at rest and during stress. 2. Left ventricular ejection fraction measuring >70%. Reviewed, dictated and finalized at location B.
== END 2023-08-24 09:13 | disposition home or self-care (01) ==
PROVIDERS: PCP Internal Medicine; Visit Provider Internal Medicine
DX: R07.89 Other chest pain (principal)
CPT/HCPCS: 78452; 93017; A9502

== ENCOUNTER 2023-12-21 08:08 | Outpatient (CLI) | payer MEDICARE, SELFPAY ==
--- NOTE | ~2023-12-21 | MM_ITS ---
EXAMINATION: MM screening afua BI w raymon HISTORY: Screening TECHNIQUE: Craniocaudal and mediolateral oblique 3-D tomosynthesis images were obtained and synthetic 2-D images were generated. CAD analysis was submitted and interpreted. COMPARISON: Comparison to multiple prior studies sequentially, with oldest reviewed study dated 07/2017. BREAST PARENCHYMAL COMPOSITION: Not Dense: Breast are almost entirely fatty. FINDINGS: There is no evidence of suspicious mass, calcification, or architectural distortion to sugg est malignancy in either breast. There has been no suspicious interval change. IMPRESSION: 1. No mammographic evidence of malignancy. 2. Recommend routine screening mammography in one year. BI-RADS Category 1: Negative Reviewed, dictated and finalized at location B.
== END 2023-12-21 08:09 | disposition home or self-care (01) ==
LOC: ANHIMG 08:11
PROVIDERS: PCP Internal Medicine; Visit Provider Internal Medicine
DX: Z12.31 Encounter for screening mammogram for malignant neoplasm of breast (principal)
CPT/HCPCS: 77063; 77067

== ENCOUNTER 2024-03-10 07:01 | Outpatient (CLI) | payer MEDICARE, SELFPAY ==
[2024-03-10 07:59] LABS: Alanine Aminotransferase 18 U/L (6-35); Albumin Level 3.9 g/dL (3.5-5.1); Alkaline Phosphatase 60 U/L (38-126); Anion Gap 1 mmol/L (4-12); Aspartate Amino Transferase 21 U/L (14-36); Bilirubin,Total 0.8 mg/dL (0.2-1.3); Blood Urea Nitrogen 15 mg/dL (7-17); Calcium 9.3 mg/dL (8.4-10.2); Carbon Dioxide 35 mmol/L (22-30); Chloride 100 mmol/L (98-107); Cholesterol 157 mg/dL (0-200); Estimated Glomerular Filt Rate > 60; Glucose 98 mg/dL (65-110); HDL Direct 87 mg/dL; Potassium 4.3 mmol/L (3.4-5.0); Sodium 136 mmol/L (137-145); Triglycerides 54 mg/dL (<150)
[2024-03-10 08:05] LABS: Hemoglobin A1C 6.1 % (<5.7)
[2024-03-10 08:13] LABS: LDL Cholesterol Direct 56 mg/dL
[2024-03-15 08:48] LABS: Reference Lab Test Name VIT D TOTAL IA
[2024-03-15 08:50] LABS: Reference Lab Test Result 42
== END 2024-03-10 07:02 | disposition home or self-care (01) ==
LOC: ANHLAB 07:11
PROVIDERS: PCP Internal Medicine; Visit Provider Internal Medicine
DX: E78.5 Hyperlipidemia, unspecified (principal); R73.01 Impaired fasting glucose; M85.80 Other specified disorders of bone density and structure, unspecified site; I10 Essential (primary) hypertension
CPT/HCPCS: 36415; 80053; 80061; 83036

== ENCOUNTER 2024-03-15 07:32 | Outpatient (CLI) | payer MEDICARE, SELFPAY ==
[2024-03-17 00:51] LABS: Creatinine, Random Urine 187 mg/dL (20-275); Total Prot/Creat ratio mg/mg 0.059 (0.024-0.184); Total Protein/Creatinine Ratio 59 mg/g creat (24-184)
[2024-03-17 05:14] LABS: Protein, Total 5.8 g/dL (6.1-8.1)
[2024-03-17 15:32] LABS: Albumin 3.7 g/dL (3.8-4.8); Alpha 1 Globulin 0.2 g/dL (0.2-0.3); Alpha 2 Globulin 0.6 g/dL (0.5-0.9); Beta 1 Globulin 0.5 g/dL (0.4-0.6); Gamma Globulin 0.6 g/dL (0.8-1.7)
== END 2024-03-15 07:33 | disposition home or self-care (01) ==
PROVIDERS: PCP Internal Medicine; Visit Provider Internal Medicine
DX: Z13.29 Encounter for screening for other suspected endocrine disorder (principal); Z13.0 Encounter for screening for diseases of the blood and blood-forming organs and certain disorders involving the immune mechanism; Z13.228 Encounter for screening for other metabolic disorders
CPT/HCPCS: 36415; 82570; 84155; 84156; 84165; 84166

== ENCOUNTER 2024-03-18 12:38 | Emergency (ER) | payer MEDICARE, SELFPAY ==
[2024-03-18] VITALS (7 sets, daily range): BP systolic 124–158; BP diastolic 54–72; PULSE 58–71; RESP 13–20; TEMP 36.4–36.6; O2SAT 97–100
--- NOTE | ~2024-03-18 | CT_ITS ---
EXAMINATION: CT abdomen pelvis w con DATE: 03/18/2024 14:57 INDICATION: Right flank pain TECHNIQUE: Computed tomography (CT) of the abdomen and pelvis was performed with 100 mL Omnipaque-350 intravenous contrast. Automated exposure control and iterative reconstruction technique were employe d. The dose-length product was 1122.32 mGy-cm. COMPARISON: 04/13/2023 FINDINGS: Lung bases are clear. Heart size is normal. Small amount of atherosclerotic coronary artery calcific location. No pericardial or pleural effusion. Cholecystectomy clips the gallbladder fossa. There is a lso been prior ventral hernia mesh repair. Liver, spleen, pancreas, bilateral adrenal glands and kidn eys are normal. Bladder is normal. The uterus is not identified and has likely been surgically resect ed. Partial colectomy with anastomotic suture line at the sigmoid colon. There scattered diverticula most prominent along the remaining sigmoid: And at the cecum without adjacent from trace stranding to suggest diverticular colitis. No bowel obstruction. No free intraperitoneal gas or fluid. No patholo gically enlarged abdominal or pelvic lymphadenopathy. Moderate to severe thoracolumbar spondylosis. 5 mm anterolisthesis L4 on L5. IMPRESSION: 1. No acute intra-abdominal/pelvic process. Reviewed, dictated and finalized at location A.
--- NOTE | ~2024-03-18 | XR_ITS ---
Clinical Indication: Chest pain PA and lateral views of the chest: Comparison: 04/17/2022 Findings: The lungs are clear, without evidence of focal consolidation or pleural effusion. Cardiome diastinal silhouette is within normal limits. Bones and soft tissues are unremarkable, 7 right should er arthroplasty. Impression: No acute abnormality. Reviewed, dictated and finalized at location . Impression: No acute abnormality.
--- NOTE | 2024-03-18 12:44 | ECG_ITS ---
Test Date: 2024-03-18 12:49:28 Measurements Intervals [place] Rate: 64 P: 139 LA: 146 QRS: 1 QRSD: 92 T: 93 QT: 354 QTc: 368 Interpretive Statements ECTOPIC ATRIAL RHYTHM NONSPECIFIC T-WAVE ABNORMALITY No previous ECG available for comparison Electronically Signed On 03-19-2024 16:13:03 CDT by Lucrecia Parada M.D.
[2024-03-18 13:11] LABS: Basophils Percent Auto 0.3 % (0.2-1.2); Eosinophils Percent Auto 0.1 % (0-4.4); Hematocrit 40.2 % (37.0-47.0); Hemoglobin 13.4 g/dL (12.0-15.0); Immature Granulocyte Absolute 0.04 K/mm3 (0.00-0.031); Immature Granulocyte Percent A 0.3 % (0-0.5); Lymphocytes Absolute Auto 1.06 K/mm3 (0.9-3.2); Lymphocytes Percent Auto 8.7 % (18.3-44.2); Mean Corpuscular HGB Conc 33.3 g/dl (32-36); Mean Corpuscular Hemoglobin 31.6 pg (26-34); Mean Corpuscular Volume 94.8 fl (80-100); Mean Platelet Volume 10.1 fl (7.4-10.4); Monocytes Absolute Auto 0.9 K/mm3 (0.1-0.6); Monocytes Percent Auto 7.5 % (2.6-8.5); Neutrophils Absolute Auto 10.2 K/mm3 (1.3-6.7); Neutrophils Percent Auto 83.1 % (45.5-73.1); Platelet Count Result 202 k/mm3 (150-375); Red Blood Count 4.24 M/mm3 (4.2-5.4); Red Cell Distribution Width 12.6 % (11.5-14.5); White Blood Count 12.2 K/mm3 (4.5-10.0)
[2024-03-18 13:20] LABS: Alanine Aminotransferase 16 U/L (6-35); Albumin Level 3.9 g/dL (3.5-5.1); Alkaline Phosphatase 63 U/L (38-126); Anion Gap 3 mmol/L (4-12); Aspartate Amino Transferase 32 U/L (14-36); Bilirubin,Total 0.7 mg/dL (0.2-1.3); Blood Urea Nitrogen 10 mg/dL (7-17); Calcium 9.2 mg/dL (8.4-10.2); Carbon Dioxide 32 mmol/L (22-30); Chloride 93 mmol/L (98-107); Estimated CRCL calculation 66 ml/min; Estimated Glomerular Filt Rate > 60; Glucose 120 mg/dL (65-110); Lipase 50 U/L (23-300); Potassium 4.1 mmol/L (3.4-5.0); Sodium 128 mmol/L (137-145)
[2024-03-18 13:21] LABS: Partial Thromboplastin Time 29.4 Seconds (22.3-36.8); Prothrombin Time 13.3 Seconds (11.1-14.7)
[2024-03-18 13:30] LABS: Troponin I < 0.012 ng/mL (0.000-0.034)
[2024-03-18] MEDS: LIDOCAINE 5% PATCH 1 PATCH TRANSDERM (14:09)
[2024-03-18 14:48] LABS: Add Urine Microscopic? YES; Appearance Urine Cloudy (Clear); Bacteria Urine None Seen /hpf; Bilirubin Urine Negative (Negative); Blood Urine Negative (Negative); Color Urine Yellow (Yellow); Glucose Urine UA Negative (Negative); Ketones Urine Negative (Negative); Leukocyte Esterase Ur Negative LEU/UL (Negative); Nitrate Urine Negative (Negative); Non Pathogenic Casts 0-2; Protein Urine Negative (Negative); RBC Urine 0-2 /hpf (0-2); Squamous Epithelial Cell Urine None Seen /hpf (Few); Urobilinogen Urine 0.2 mg/dL (<2.0); WBC Urine 0-5 /hpf (0-3); pH Urine 7.5 (5.0-9.0)
--- NOTE | 2024-03-18 15:58 | ED.CHESTPAIN ---
HPI - Chest Pain General Chief Complaint: Chest Pain Stated Complaint: right chest pain Time Seen by Provider: 03/18/24 13:36 Source: patient Mode of arrival: ambulatory Limitations: no limitations History of Present Illness HPI narrative: This is a 78-year-old female, with history of diverticulitis, seizure disorder and hypertension, presents emergency department complaining of right-sided chest pain for the past day. Patient describes pain as sharp, located at the inferior border of the right ribcage. Worsened with deep breathing or movement. She denies radiation of the pain, shortness of breath, nausea, vomiting or cold sweats. She has no other complaints at this time. Related Data Home Medications Medication Instructions Recorded Confirmed amlodipine 2.5 mg tablet 2.5 mg PO DAILY 02/26/21 05/15/23 hydrochlorothiazide 12.5 mg tablet 12.5 mg PO DAILY 02/26/21 05/15/23 latanoprost 0.005 % eye drops 1 drp EACH EYE HS 02/26/21 05/15/23 cetirizine 10 mg capsule (Wal-Zyr 10 mg PO DAILY 04/14/22 05/15/23 (cetirizine)) lisinopril 40 mg tablet 40 mg PO DAILY 04/14/22 05/15/23 pravastatin 40 mg tablet 40 mg PO HS 04/14/22 05/15/23 acetaminophen 500 mg tablet 1,000 mg PO TID PRN Pain 05/15/23 05/15/23 amoxicillin 500 mg tablet 2,000 mg PO ONCE PRN PROPHYLACTIC 05/15/23 05/15/23 multivitamin with minerals-folic 1 tablet PO DAILY 05/15/23 05/15/23 acid 80 mcg chewable tablet (Centrum Adult 50 Plus) psyllium husk 3.4 gram/5.4 gram 1 tsp PO DAILY 05/15/23 05/15/23 oral powder (Metamucil) Allergies Allergy/AdvReac Type Severity Reaction Status Date / Time benzocaine Allergy Severe Swelling Verified 06/02/23 10:09 cedarwood Allergy Severe Difficulty Verified 06/02/23 10:09 Breathing bacitracin Allergy Intermediate Blister Verified 06/02/23 10:09 camphor Allergy Intermediate Heart Verified 06/02/23 10:09 fluttering latex Allergy Intermediate Blister Verified 06/02/23 10:09 menthol Allergy Intermediate Heart Verified 06/02/23 10:09 fluttering neomycin Allergy Intermediate HIVES Verified 06/02/23 10:09 polymyxin B Allergy Intermediate Blister Verified 06/02/23 10:09 azelastine AdvReac Severe Nose Bleeds Verified 06/02/23 10:09 cephalexin AdvReac Intermediate Nausea Verified 06/02/23 10:09 ipratropium AdvReac Intermediate Palpitation Verified 06/02/23 10:09 s ketorolac AdvReac Intermediate Nausea Verified 06/02/23 10:09 levofloxacin AdvReac Intermediate Nausea Verified 06/02/23 10:09 ofloxacin AdvReac Intermediate NAUSEA Verified 06/02/23 10:09 triamcinolone AdvReac Intermediate N/V Verified 06/02/23 10:09 Quinolones AdvReac Mild N/V Verified 06/02/23 10:09 dust mites Allergy Severe Wheezing Uncoded 05/15/23 08:53 DURAPREP Allergy Intermediate RASH Uncoded 05/15/23 08:51 Review of Systems Review of Systems: All systems reviewed & are unremarkable except as noted in HPI and below PMFSH Past Medical History Medical History Constipation Diverticulitis Hyperlipidemia Hypertension Left lower quadrant pain PVC (premature ventricular contraction) Seizure Stomach ulcer Surgical History Surgical History History of arthroscopic knee surgery History of cataract surgery History of colectomy History of hysterectomy History of incisional hernia repair Multiple incisional hernia repairs - 10/1995, 06/2021, 04/2005, 06/2006, 07/2015 History of laparoscopic cholecystectomy Family History Family History Mother Family history of arthritis Family history of anemia, Onset Age: 92 Depression, Onset Age: 92 Family history of mental disorder, Onset Age: 92 Hypertension, Onset Age: 89 Cerebrovascular accident, Onset Age: 89 Father Depression, Onset Age: 82 Family history of glaucoma, Onset Age: 82 Family history of
== END 2024-03-18 16:34 | disposition home or self-care (01) ==
PROVIDERS: Emergency Provider Preventive Medicine Aerospace Medicine; PCP Internal Medicine
DX: R09.1 Pleurisy (principal); R07.89 Other chest pain; E87.1 Hypo-osmolality and hyponatremia; G40.909 Epilepsy, unspecified, not intractable, without status epilepticus; I10 Essential (primary) hypertension; E78.5 Hyperlipidemia, unspecified; Z98.49 Cataract extraction status, unspecified eye; Z90.710 Acquired absence of both cervix and uterus; Z90.49 Acquired absence of other specified parts of digestive tract; Z79.899 Other long term (current) drug therapy; R94.31 Abnormal electrocardiogram [ECG] [EKG]
CPT/HCPCS: 36415; 71046; 74177; 80053; 81001; 83690; 84484; 85025; 85610; 85730; 93005; 99284; A9270; Q9967

== ENCOUNTER 2024-04-07 04:07 | Emergency (ER) | payer MEDICARE, SELFPAY ==
--- NOTE | 2024-04-07 04:38 | ED.EXTPRO ---
HPI - Extremity Problem General Chief complaint: Extremity Problem,Nontraumatic Stated complaint: right case wound Time Seen by Provider: 04/07/24 04:09 History of Present Illness HPI Narrative: Patient is a 78-year-old female who presents to the emergency department this due to concern for right lower extremity cellulitis. Patient states that she scraped her right case on the of this month on a bleacher at a football game. Patient states that initially it was a small skin tear but throughout the past few days she has noticed that the area surrounding it has become more erythematous and is concerned that she is developing a skin infection. Patient admits that she has been placing Vaseline on the wound. Denies any additional symptoms or concerns at this time. Related Data Home Medications Medication Instructions Recorded Confirmed amlodipine 2.5 mg tablet 2.5 mg PO DAILY 02/26/21 05/15/23 hydrochlorothiazide 12.5 mg tablet 12.5 mg PO DAILY 02/26/21 05/15/23 latanoprost 0.005 % eye drops 1 drp EACH EYE HS 02/26/21 05/15/23 cetirizine 10 mg capsule (Wal-Zyr 10 mg PO DAILY 04/14/22 05/15/23 (cetirizine)) lisinopril 40 mg tablet 40 mg PO DAILY 04/14/22 05/15/23 pravastatin 40 mg tablet 40 mg PO HS 04/14/22 05/15/23 acetaminophen 500 mg tablet 1,000 mg PO TID PRN Pain 05/15/23 05/15/23 amoxicillin 500 mg tablet 2,000 mg PO ONCE PRN PROPHYLACTIC 05/15/23 05/15/23 multivitamin with minerals-folic 1 tablet PO DAILY 05/15/23 05/15/23 acid 80 mcg chewable tablet (Centrum Adult 50 Plus) psyllium husk 3.4 gram/5.4 gram 1 tsp PO DAILY 05/15/23 05/15/23 oral powder (Metamucil) Allergies Allergy/AdvReac Type Severity Reaction Status Date / Time benzocaine Allergy Severe Swelling Verified 06/02/23 10:09 cedarwood Allergy Severe Difficulty Verified 06/02/23 10:09 Breathing bacitracin Allergy Intermediate Blister Verified 06/02/23 10:09 camphor Allergy Intermediate Heart Verified 06/02/23 10:09 fluttering latex Allergy Intermediate Blister Verified 06/02/23 10:09 menthol Allergy Intermediate Heart Verified 06/02/23 10:09 fluttering neomycin Allergy Intermediate HIVES Verified 06/02/23 10:09 polymyxin B Allergy Intermediate Blister Verified 06/02/23 10:09 azelastine AdvReac Severe Nose Bleeds Verified 06/02/23 10:09 cephalexin AdvReac Intermediate Nausea Verified 06/02/23 10:09 ipratropium AdvReac Intermediate Palpitation Verified 06/02/23 10:09 s ketorolac AdvReac Intermediate Nausea Verified 06/02/23 10:09 levofloxacin AdvReac Intermediate Nausea Verified 06/02/23 10:09 ofloxacin AdvReac Intermediate NAUSEA Verified 06/02/23 10:09 triamcinolone AdvReac Intermediate N/V Verified 06/02/23 10:09 Quinolones AdvReac Mild N/V Verified 06/02/23 10:09 dust mites Allergy Severe Wheezing Uncoded 05/15/23 08:53 DURAPREP Allergy Intermediate RASH Uncoded 05/15/23 08:51 Review of Systems Review of Systems: All systems are reviewed and are negative unless stated otherwise in the HPI. [facility] Past Medical History Medical History Constipation Diverticulitis Hyperlipidemia Hypertension Left lower quadrant pain PVC (premature ventricular contraction) Seizure Stomach ulcer Surgical History Surgical History History of arthroscopic knee surgery History of cataract surgery History of colectomy History of hysterectomy History of incisional hernia repair Multiple incisional hernia repairs - 10/1995, 06/2021, 04/2005, 06/2006, 07/2015 History of laparoscopic cholecystectomy Family History Family History Mother Family history of arthritis Family history of anemia, Onset Age: 92 Depression, Onset Age: 92 Family history of mental disorder, Onset Age: 92 Hypertension, Onset Age: 92 Cerebrovascular accident, Onset Age: 92 Father Depression, Onset Age: 82 Family history of glaucoma, Onset Age: 82 Family history of dementia Grandparent Family history of cardiovascular disease Family history of malignant neoplasm Family history of lung cancer Family history of Hodgkin's lymphoma Carcinoma of colon Hypertension Sibling Patient's brother is in good health Family history of Parkinson's disease Social History Social History Smoking status: Never smoker Second hand tobacco smoke exposure: Yes Alcohol intake: current Substance use: never Substance use type: does not use Living arrangements: with family Occupation/Education: retired Spiritual care concerns: No Exam Narrative: General: Alert, awake, afebrile, in no acute distress. HEENT: PERRL, no rhinorrhea, no post nasal drip, oropharynx clear. Cardiovascular: Regular rate and rhythm, no murmurs, rubs or gallops, no peripheral edema. Respiratory: Clear to auscultation bilaterally, no tachypnea, no wheezing, no rhonchi, no rubs, no respiratory distress. Abdomen: Soft, nontender, nondistended, no rebound, no guarding, no peritoneal signs. Musculoskeletal: No joint swelling or deformity, normal muscle tone. Skin: Round 2 x 2 cm skin tear with a surrounding erythema and a small area of yellow crusting with clear yellow drainage concerning for cellulitis. Neurological: Alert and oriented to person, place, and time. Follows all commands. No focal deficits, speech is clear and fluent. Course Vital Signs Vital signs: Vital Signs Pulse Rate 69 04/07/24 05:19 Respiratory Rate 15 04/07/24 05:19 Blood Pressure 142/86 H 04/07/24 05:19 Pulse Oximetry 97 04/07/24 05:19 Pulse Rate 69 04/07/24 05:19 Respiratory Rate 15 04/07/24 05:19 Blood Pressure 142/86 H 04/07/24 05:19 Pulse Oximetry 97 04/07/24 05:19 MDM - Extremity (Nontraumatic) MDM Narrative Medical decision making narrative: The patient was evaluated by myself in the emergency department. History is obtained from patient who is an independent historian and physical exam was performed. External medical records were reviewed at this time. Patient was informed to not use Vaseline on any patient is this could be contributing cellulitis. Patient does have an extensive list of allergies to medications and she was informed that she will be placed on Bactrim to cover for MRSA. Initial dose of Bactrim was administered in the emergency department and patient was informed that she will be provided with a script which will be sent to her pharmacy to continue her oral course and patient is agreeable. Differential diagnosis considerations include cellulitis, abscess, skin tear. Comorbidities impacting this visit include none. I have evaluated and discussed social determinants of health with the patient that could potentially impact subsequent diagnosis and treatment plans. On repeat assessment of the patient, reevaluation revealed that the patient is doing well and is in no acute distress. Patient symptoms have improved since she arrived to our emergency department. Repeat vital signs were all reviewed and noted to be stable. Differential diagnosis and treatment plan were discussed with the patient at bedside. Patient agrees with discussion and after shared medical decision making agrees with discharge. All questions were answered to the patient's satisfaction. Patient will follow up with her PCP in 3-5 days. A script for Bactrim was sent to patient's pharmacy to take as prescribed. Patient was provided with strict return precautions and instructed to return to the emergency department if any new or worsening symptoms develop. The patient was discharged in stable condition. Discharge Plan Discharge Clinical Impression: Cellulitis Patient Disposition: Home, Self-Care Condition: Stable Instructions: Antibiotic Form, Cellulitis (ED) Additional Instructions: Please take the prescribed antibiotic for your cellulitis as instructed for the next 7 days. Return to the ED if any new or worsening symptoms develop and if your wound does not improve with the antibiotics. Prescriptions: New sulfamethoxazole-trimethoprim [Bactrim DS] 800-160 mg tablet 1 tablet PO Q12H 7 Days Qty: 14 0RF No Action lisinopril 40 mg tablet 40 mg PO DAILY pravastatin 40 mg tablet 40 mg PO HS Wal-Zyr (cetirizine) 10 mg capsule 10 mg PO DAILY latanoprost 0.005 % drops 1 drp EACH EYE HS amlodipine 2.5 mg tablet 2.5 mg PO DAILY hydrochlorothiazide 12.5 mg tablet 12.5 mg PO DAILY amoxicillin 500 mg Tablet 2,000 mg PO ONCE PRN (Reason: PROPHYLACTIC) Patient Comments: PRIOR TO DENTAL PROCEDURES Metamucil 3.4 gram/5.4 gram Powder 1 tsp PO DAILY Rx Instructions: mix into at least 4 oz water or juice before administering Centrum Adult 50 Plus 80 mcg Tablet,Chewable 1 tablet PO DAILY acetaminophen 500 mg tablet 1,000 mg PO TID PRN (Reason: Pain) lidocaine 5 % adhesive patch,medicated 1 patch topical DAILY Qty: 30 0RF Rx Instructions: leave on most painful area for up to 12 hrs sodium,potassium,mag sulfates [Suprep Bowel Prep Kit] 17.5-3.13-1.6 gram recon soln See Rx Instructions PO .COMPLEX Qty: 354 0RF Rx Instructions: TAKE DIRECTED Follow-up/Referrals: Leah Barajas MD [Primary Care Provider] - 1 Week Time of Disposition: 04:37
[2024-04-07] MEDS: SULFAMETHOXAZOLE/TRIMETHOPRIM 800/160 MG DS TABLET 1 TAB PO (05:18)
[2024-04-07 05:19] VITALS: BP 142/86; PULSE 69; RESP 15; O2SAT 97
== END 2024-04-07 05:19 | disposition home or self-care (01) ==
LOC: ANHED 05:08
PROVIDERS: Emergency Provider Emergency Medicine; PCP Internal Medicine
DX: L03.115 Cellulitis of right lower limb (principal); I10 Essential (primary) hypertension; E78.5 Hyperlipidemia, unspecified; Z98.49 Cataract extraction status, unspecified eye; Z90.710 Acquired absence of both cervix and uterus; Z90.49 Acquired absence of other specified parts of digestive tract; Z79.899 Other long term (current) drug therapy
CPT/HCPCS: 99283; A9270

== ENCOUNTER 2024-04-09 08:26 | Emergency (ER) | payer MEDICARE, SELFPAY ==
[2024-04-09 08:31] VITALS: BP 170/56; PULSE 66; RESP 14; TEMP 37; O2SAT 99
[2024-04-09 09:15] VITALS: BP 128/49; PULSE 62; RESP 18; O2SAT 98
[2024-04-09 09:23] LABS: Basophils Absolute Auto 0.1 K/mm3 (0.0-0.1); Basophils Percent Auto 0.6 % (0.2-1.2); Eosinophils Absolute Auto 0.1 K/mm3 (0-0.3); Eosinophils Percent Auto 1.6 % (0-4.4); Hematocrit 41.6 % (37.0-47.0); Hemoglobin 13.3 g/dL (12.0-15.0); Immature Granulocyte Absolute 0.02 K/mm3 (0.00-0.031); Immature Granulocyte Percent A 0.3 % (0-0.5); Lymphocytes Absolute Auto 1.14 K/mm3 (0.9-3.2); Lymphocytes Percent Auto 14.3 % (18.3-44.2); Mean Corpuscular Hemoglobin 30.2 pg (26-34); Mean Corpuscular Volume 94.3 fl (80-100); Mean Platelet Volume 9.5 fl (7.4-10.4); Monocytes Absolute Auto 0.9 K/mm3 (0.1-0.6); Monocytes Percent Auto 10.8 % (2.6-8.5); Neutrophils Absolute Auto 5.8 K/mm3 (1.3-6.7); Neutrophils Percent Auto 72.4 % (45.5-73.1); Platelet Count Result 257 k/mm3 (150-375); Red Blood Count 4.41 M/mm3 (4.2-5.4); Red Cell Distribution Width 12.7 % (11.5-14.5)
[2024-04-09 09:31] VITALS: BP 114/46; PULSE 63; RESP 20; O2SAT 100
[2024-04-09 09:33] LABS: Alanine Aminotransferase 14 U/L (6-35); Albumin Level 3.6 g/dL (3.5-5.1); Alkaline Phosphatase 61 U/L (38-126); Anion Gap 4 mmol/L (4-12); Aspartate Amino Transferase 20 U/L (14-36); Bilirubin,Total 0.6 mg/dL (0.2-1.3); Blood Urea Nitrogen 15 mg/dL (7-17); Calcium 9.4 mg/dL (8.4-10.2); Carbon Dioxide 34 mmol/L (22-30); Chloride 95 mmol/L (98-107); Estimated CRCL calculation 57 ml/min; Estimated Glomerular Filt Rate > 60; Glucose 91 mg/dL (65-110); Potassium 4.5 mmol/L (3.4-5.0); Sodium 133 mmol/L (137-145)
--- NOTE | 2024-04-09 09:42 | ED_ITS ---
HPI - General Adult General Chief complaint: Extremity Problem,Nontraumatic Stated complaint: R leg infection Time Seen by Provider: 04/09/24 08:27 History of Present Illness HPI narrative: patient is a 78-year-old female who presents ER with infection to her right case. She broke the skin on 03/25/2024 when she struck it on a bleacher. She reports earlier this week she began having redness around the site that was spreading. She was started on Bactrim and took 1 dose and then her doctor discontinued the medication as it interferes with her lisinopril. She switched her to amoxicillin and doxycycline. Patient has continued to take that. She feels like there is still red and she is concerned that if she still has infection she will not be able to get a surgery on 04/19/2024. No fevers or chills or sweats. No purulent drainage. Related Data Home Medications Medication Instructions Recorded Confirmed amlodipine 2.5 mg tablet 2.5 mg PO DAILY 02/26/21 05/15/23 hydrochlorothiazide 12.5 mg tablet 12.5 mg PO DAILY 02/26/21 05/15/23 latanoprost 0.005 % eye drops 1 drp EACH EYE HS 02/26/21 05/15/23 cetirizine 10 mg capsule (Wal-Zyr 10 mg PO DAILY 04/14/22 05/15/23 (cetirizine)) lisinopril 40 mg tablet 40 mg PO DAILY 04/14/22 05/15/23 pravastatin 40 mg tablet 40 mg PO HS 04/14/22 05/15/23 acetaminophen 500 mg tablet 1,000 mg PO TID PRN Pain 05/15/23 05/15/23 amoxicillin 500 mg tablet 2,000 mg PO ONCE PRN PROPHYLACTIC 05/15/23 05/15/23 multivitamin with minerals-folic 1 tablet PO DAILY 05/15/23 05/15/23 acid 80 mcg chewable tablet (Centrum Adult 50 Plus) psyllium husk 3.4 gram/5.4 gram 1 tsp PO DAILY 05/15/23 05/15/23 oral powder (Metamucil) Allergies Allergy/AdvReac Type Severity Reaction Status Date / Time benzocaine Allergy Severe Swelling Verified 04/09/24 08:38 cedarwood Allergy Severe Difficulty Verified 04/09/24 08:38 Breathing bacitracin Allergy Intermediate Blister Verified 04/09/24 08:38 camphor Allergy Intermediate Heart Verified 04/09/24 08:38 fluttering latex Allergy Intermediate Blister Verified 04/09/24 08:38 menthol Allergy Intermediate Heart Verified 04/09/24 08:38 fluttering neomycin Allergy Intermediate HIVES Verified 04/09/24 08:38 polymyxin B Allergy Intermediate Blister Verified 04/09/24 08:38 azelastine AdvReac Severe Nose Bleeds Verified 04/09/24 08:38 cephalexin AdvReac Intermediate Nausea Verified 04/09/24 08:38 ipratropium AdvReac Intermediate Palpitation Verified 04/09/24 08:38 s ketorolac AdvReac Intermediate Nausea Verified 04/09/24 08:38 levofloxacin AdvReac Intermediate Nausea Verified 04/09/24 08:38 ofloxacin AdvReac Intermediate NAUSEA Verified 04/09/24 08:38 triamcinolone AdvReac Intermediate N/V Verified 04/09/24 08:38 Quinolones AdvReac Mild N/V Verified 04/09/24 08:38 dust mites Allergy Severe Wheezing Uncoded 04/09/24 08:38 DURAPREP Allergy Intermediate RASH Uncoded 04/09/24 08:38 Review of Systems Review of Systems: All systems reviewed & are unremarkable except as noted in HPI and below Constitutional: Constitutional: Reports no additional constitutional complaints Musculoskeletal: Musculoskeletal: Reports no additional musculoskeletal complaints Integumentary/Breasts: Skin/Breast: Reports system reviewed and no additional complaints, except as docu PMFSH Past Medical History Medical History Constipation Diverticulitis Hyperlipidemia Hypertension Left lower quadrant pain PVC (premature ventricular contraction) Seizure Stomach ulcer Surgical History Surgical History History of arthroscopic knee surgery History of cataract surgery History of colectomy History of hysterectomy History of incisional hernia repair Multiple incisional hernia repairs - 10/1995, 06/2021, 04/2005, 06/2006, 07/2015 History of laparoscopic cholecystectomy Family History Family History Mother Family history of arthritis Family history of anemia, Onset Age: 92 Depression, Onset Age: 92 Family history of mental disorder, Onset Age: 92 Hypertension, Onset Age: 92 Cerebrovascular accident, Onset Age: 92 Father Depression, Onset Age: 82 Family history of glaucoma, Onset Age: 82 Family history of dementia Grandparent Family history of cardiovascular disease Family history of malignant neoplasm Family history of lung cancer Family history of Hodgkin's lymphoma Carcinoma of colon Hypertension Sibling Patient's brother is in good health Family history of Parkinson's disease Social History Social History Smoking status: Never smoker Second hand tobacco smoke exposure: Yes Alcohol intake: current Substance use: never Substance use type: does not use Living arrangements: with family Occupation/Education: retired Spiritual care concerns: No Exam Narrative: GENERAL: Well-appearing, well-nourished, and in no acute distress. HEAD: Normocephalic, atraumatic. ENT: Mucous membranes moist. EXTREMITIES: Normal range of motion. No edema. Normal pulses SKIN: Warm, dry, no rash. left case with erythema and skin tear. No fluctuant abscess. NEURO: No focal deficits. Alert and oriented x3. PSYCH: Normal mood and affect. Course Course Emergency Course: Labs normal. Recommend continuing home antibiotics. Will not make another change. Compared to a photo she has on her phone it does not seem to be spreading but it is a bit deeper red around the wound itself. Vital Signs Vital signs: Vital Signs Temperature 98.6 F 04/09/24 08:31 Pulse Rate 66 04/09/24 08:31 Respiratory Rate 14 04/09/24 08:31 Blood Pressure 170/56 H 04/09/24 08:31 Pulse Oximetry 99 04/09/24 08:31 Oxygen Delivery Room Air 04/09/24 08:31 Temperature 98.6 F 04/09/24 08:31 Pulse Rate 66 04/09/24 08:31 Respiratory Rate 14 04/09/24 08:31 Blood Pressure 170/56 H 04/09/24 08:31 Pulse Oximetry 99 04/09/24 08:31 Oxygen Delivery Room Air 04/09/24 08:31 Medical Decision Making Vital Signs Vital Signs: Vital Signs Temperature 98.6 F 04/09/24 08:31 Pulse Rate 66 04/09/24 08:31 Respiratory Rate 14 04/09/24 08:31 Blood Pressure 170/56 H 04/09/24 08:31 Pulse Oximetry 99 04/09/24 08:31 Oxygen Delivery Room Air 04/09/24 08:31 Temperature 98.6 F 04/09/24 08:31 Pulse Rate 66 04/09/24 08:31 Respiratory Rate 14 04/09/24 08:31 Blood Pressure 170/56 H 04/09/24 08:31 Pulse Oximetry 99 04/09/24 08:31 Oxygen Delivery Room Air 04/09/24 08:31 Lab Data 04/09/24 09:15 04/09/24 09:15 Labs: Lab Results 04/09/24 Range/Units 09:15 WBC 8.0 (4.5-10.0) K/mm3 RBC 4.41 (4.2-5.4) M/mm3 Hgb 13.3 (12.0-15.0) g/dL Hct 41.6 (37.0-47.0) % MCV 94.3 (80-100) fl MCH 30.2 (26-34) pg MCHC 32.0 (32-36) g/dl RDW 12.7 (11.5-14.5) % Plt Count 257 (150-375) k/mm3 MPV 9.5 (7.4-10.4) fl Immature Gran % (Auto) 0.3 (0-0.5) % Neut % (Auto) 72.4 (45.5-73.1) % Lymph % (Auto) 14.3 L (18.3-44.2) % [place] % (Auto) 10.8 H (2.6-8.5) % Eos % (Auto) 1.6 (0-4.4) % Baso % (Auto) 0.6 (0.2-1.2) % Lymph # (Auto) 1.14 (0.9-3.2) K/mm3 [place] # (Auto) 0.9 H (0.1-0.6) K/mm3 Eos # (Auto) 0.1 (0-0.3) K/mm3 Baso # (Auto) 0.1 (0.0-0.1) K/mm3 Abs Immat Gran (auto) 0.02 (0.00-0.031) K/mm3 Absolute Neuts (auto) 5.8 (1.3-6.7) K/mm3 Absolute Nucleated RBC 0.000 (0.0-0.012) K/mm3 Nucleated RBC % 0.0 (0.0-0.2) % Sodium 133 L (137-145) mmol/L Potassium 4.5 (3.4-5.0) mmol/L Chloride 95 L (98-107) mmol/L Carbon Dioxide 34 H (22-30) mmol/L Anion Gap 4 (4-12) mmol/L BUN 15 D (7-17) mg/dL Creatinine 0.70 (0.7-1.0) mg/dL Estim Creat Clear Calc 57 ml/min Estimated GFR > 60 (59 - ) Glucose 91 (65-110) mg/dL Calcium 9.4 (8.4-10.2) mg/dL Total Bilirubin 0.6 (0.2-1.3) mg/dL AST 20 (14-36) U/L ALT 14 (6-35) U/L Alkaline Phosphatase 61 (38-126) U/L Total Protein 6.0 L (6.3-8.2) g/dL Albumin 3.6 (3.5-5.1) g/dL Discharge Plan Discharge Clinical Impression: Cellulitis Patient Disposition: Home, Self-Care Condition: Stable Instructions: Cellulitis (ED) Additional Instructions: continue taking antibiotics. Return the ER if there is pus draining from the wound or you develop fever. Follow up with your primary care doctor. Prescriptions: No Action lisinopril 40 mg tablet 40 mg PO DAILY pravastatin 40 mg tablet 40 mg PO HS Wal-Zyr (cetirizine) 10 mg capsule 10 mg PO DAILY latanoprost 0.005 % drops 1 drp EACH EYE HS amlodipine 2.5 mg tablet 2.5 mg PO DAILY hydrochlorothiazide 12.5 mg tablet 12.5 mg PO DAILY amoxicillin 500 mg Tablet 2,000 mg PO ONCE PRN (Reason: PROPHYLACTIC) Patient Comments: PRIOR TO DENTAL PROCEDURES Metamucil 3.4 gram/5.4 gram Powder 1 tsp PO DAILY Rx Instructions: mix into at least 4 oz water or juice before administering Centrum Adult 50 Plus 80 mcg Tablet,Chewable 1 tablet PO DAILY acetaminophen 500 mg tablet 1,000 mg PO TID PRN (Reason: Pain) lidocaine 5 % adhesive patch,medicated 1 patch topical DAILY Qty: 30 0RF Rx Instructions: leave on most painful area for up to 12 hrs sulfamethoxazole-trimethoprim [Bactrim DS] 800-160 mg tablet 1 tablet PO Q12H 7 Days Qty: 14 0RF sodium,potassium,mag sulfates [Suprep Bowel Prep Kit] 17.5-3.13-1.6 gram recon soln See Rx Instructions PO .COMPLEX Qty: 354 0RF Rx Instructions: TAKE DIRECTED Follow-up/Referrals: Leah Barajas MD [Primary Care Provider] - 1 Week
== END 2024-04-09 09:56 | disposition home or self-care (01) ==
PROVIDERS: Emergency Provider Emergency Medicine; PCP Internal Medicine
DX: L03.115 Cellulitis of right lower limb (principal); E78.5 Hyperlipidemia, unspecified; I10 Essential (primary) hypertension
CPT/HCPCS: 36415; 80053; 85025; 99283

== ENCOUNTER 2024-04-22 04:32 | Emergency (ER) | payer MEDICARE, SELFPAY ==
--- NOTE | ~2024-04-22 | US_ITS ---
Duplex Sonography of the bilateral lower extremities: Indication: Swelling Sagittal and transverse B-mode images as well as color-flow imaging were performed on the right and l eft femoral and popliteal veins. B-mode examination was done without and with compression in the tra nsverse plane. There is visualization of the bilateral common femoral, proximal profunda femoral, santos perficial femoral, greater saphenous, and popliteal veins. Normal flow was seen on color-flow imaging . Normal compressibility was demonstrated. Visualized calf veins are also patent. Impression: No evidence of deep vein thrombosis involving the bilateral lower extremities. Reviewed, dictated and finalized at location M. EMIC INTERN Impression: No evidence of deep vein thrombosis involving the bilateral lower e xtremities.
[2024-04-22 04:45] VITALS: BP 144/60; PULSE 64; RESP 16; TEMP 36.8; O2SAT 96
--- NOTE | 2024-04-22 05:08 | ED.EXTPRO ---
HPI - Extremity Problem General Chief complaint: Extremity Problem,Nontraumatic <Nicholas Garcia MD - Last Filed: 04/22/24 07:29> Stated complaint: swollen legs <Nicholas Garcia MD - Last Filed: 04/22/24 07:29> Time Seen by Provider: 04/22/24 04:45 <Nicholas Garcia MD - Last Filed: 04/22/24 07:29> History of Present Illness HPI Narrative: 78-year-old female with a history of venous insufficiency and recent right shoulder surgery 2 days prior. Presents to the emergency department for evaluation of leg swelling. She has a history of swelling in her legs and recent cellulitis for right lower extremity treated with antibiotics. She states that since her surgery 2 days prior she has been having worsening swelling in her bilateral lower extremities but right side is worse than left. She normally wears compression stockings. Notes that swelling slightly diminishes when she gets up and ambulates but are still worse than her baseline level of swelling. Denies any calf pain or new pain in the thigh. No history of DVT or thrombosis. Takes a baby aspirin but no other anticoagulation medications. <Nicholas Garcia MD - Last Filed: 04/22/24 07:29> Related Data Home medications: Home Medications Medication Instructions Recorded Confirmed amlodipine 2.5 mg tablet 2.5 mg PO DAILY 02/26/21 05/15/23 hydrochlorothiazide 12.5 mg tablet 12.5 mg PO DAILY 02/26/21 05/15/23 latanoprost 0.005 % eye drops 1 drp EACH EYE HS 02/26/21 05/15/23 cetirizine 10 mg capsule (Wal-Zyr 10 mg PO DAILY 04/14/22 05/15/23 (cetirizine)) lisinopril 40 mg tablet 40 mg PO DAILY 04/14/22 05/15/23 pravastatin 40 mg tablet 40 mg PO HS 04/14/22 05/15/23 acetaminophen 500 mg tablet 1,000 mg PO TID PRN Pain 05/15/23 05/15/23 amoxicillin 500 mg tablet 2,000 mg PO ONCE PRN PROPHYLACTIC 05/15/23 05/15/23 multivitamin with minerals-folic 1 tablet PO DAILY 05/15/23 05/15/23 acid 80 mcg chewable tablet (Centrum Adult 50 Plus) psyllium husk 3.4 gram/5.4 gram 1 tsp PO DAILY 05/15/23 05/15/23 oral powder (Metamucil) <Nicholas Garcia MD - Last Filed: 04/22/24 07:29> Allergies/Adverse reactions: Allergies Allergy/AdvReac Type Severity Reaction Status Date / Time benzocaine Allergy Severe Swelling Verified 04/09/24 08:38 cedarwood Allergy Severe Difficulty Verified 04/09/24 08:38 Breathing bacitracin Allergy Intermediate Blister Verified 04/09/24 08:38 camphor Allergy Intermediate Heart Verified 04/09/24 08:38 fluttering latex Allergy Intermediate Blister Verified 04/09/24 08:38 menthol Allergy Intermediate Heart Verified 04/09/24 08:38 fluttering neomycin Allergy Intermediate HIVES Verified 04/09/24 08:38 polymyxin B Allergy Intermediate Blister Verified 04/09/24 08:38 azelastine AdvReac Severe Nose Bleeds Verified 04/09/24 08:38 cephalexin AdvReac Intermediate Nausea Verified 04/09/24 08:38 ipratropium AdvReac Intermediate Palpitation Verified 04/09/24 08:38 s ketorolac AdvReac Intermediate Nausea Verified 04/09/24 08:38 levofloxacin AdvReac Intermediate Nausea Verified 04/09/24 08:38 ofloxacin AdvReac Intermediate NAUSEA Verified 04/09/24 08:38 triamcinolone AdvReac Intermediate N/V Verified 04/09/24 08:38 Quinolones AdvReac Mild N/V Verified 04/09/24 08:38 sulfamethoxazole AdvReac Other Verified 04/22/24 04:33 [From Bactrim] trimethoprim [From Bactrim] AdvReac Other Verified 04/22/24 04:33 dust mites Allergy Severe Wheezing Uncoded 04/09/24 08:38 DURAPREP Allergy Intermediate RASH Uncoded 04/09/24 08:38 <Nicholas Garcia MD - Last Filed: 04/22/24 07:29> Review of Systems Review of Systems: As reviewed above in HPI <Nicholas Garcia MD - Last Filed: 04/22/24 07:29> PMFSH Past Medical History Medical History: Medical History Constipation Diverticulitis Hyperlipidemia Hypertension Left lower quadrant pain PVC (premature ventricular contraction) Seizure Stomach ulcer <Nicholas Garcia MD - Last Filed: 04/22/24 07:29> Surgical History Surgical History: Surgical History History of arthroscopic knee surgery History of cataract surgery History of colectomy History of hysterectomy History of incisional hernia repair Multiple incisional hernia repairs - 10/1995, 06/2021, 04/2005, 06/2006, 07/2015 History of laparoscopic cholecystectomy <Nicholas Garcia MD - Last Filed: 04/22/24 07:29> Family History Family History: Family History Mother Family history of arthritis Family history of anemia, Onset Age: 92 Depression, Onset Age: 92 Family history of mental disorder, Onset Age: 92 Hypertension, Onset Age: 92 Cerebrovascular accident, Onset Age: 92 Father Depression, Onset Age: 82 Family history of glaucoma, Onset Age: 82 Family history of dementia Grandparent Family history of cardiovascular disease Family history of malignant neoplasm Family history of lung cancer Family history of Hodgkin's lymphoma Carcinoma of colon Hypertension Sibling Patient's brother is in good health Family history of Parkinson's disease <Nicholas Garcia MD - Last Filed: 04/22/24 07:29> Social History Social History: Social History Smoking status: Never smoker Second hand tobacco smoke exposure: Yes Alcohol intake: current Substance use: never Substance use type: does not use Living arrangements: with family Occupation/Education: retired Spiritual care concerns: No <Nicholas Garcia MD - Last Filed: 04/22/24 07:29> Exam Narrative: GENERAL: [Well-appearing, well-nourished, and in no acute distress.] HEAD: [Normocephalic, atraumatic.] EYES: [PERRLA and EOMI.] ENT: Nares clear, no rhinorrhea or epistaxis. Mucous membranes moist. NECK: Supple. CHEST: [Clear to auscultation. No respiratory distress.] HEART: [Regular rate and rhythm]. No murmur heard. [Normal peripheral pulses.] ABDOMEN: [Soft, nondistended], [nontender], [No rigidity or guarding] EXTREMITIES: Right shoulder in a sling. Bilateral lower extremities with 1+ pitting edema right-sided more swollen than the left at the calf and ankle. Superficial abrasion to the anterior right case noted from previous examinations. No overlying skin changes or cellulitis. SKIN: Warm, dry, no rash. NEURO: [No focal deficits]. Alert and oriented [x3.] PSYCH: [Normal mood and affect.] <Nicholas Garcia MD - Last Filed: 04/22/24 07:29> Course Course Emergency Course: Signed out to the oncoming ER physician Dr. Singleton at 0700. <Nicholas Garcia MD - Last Filed: 04/22/24 07:29> Vital Signs Vital signs: Vital Signs Temperature 36.8 C 04/22/24 04:45 Pulse Rate 64 04/22/24 04:45 Respiratory Rate 16 04/22/24 04:45 Blood Pressure 144/60 H 04/22/24 04:45 Pulse Oximetry 96 04/22/24 04:45 Oxygen Delivery Room Air 04/22/24 04:45 Temperature 36.8 C 04/22/24 04:45 Pulse Rate 67 04/22/24 07:35 Respiratory Rate 20 04/22/24 07:35 Blood Pressure 150/51 H 04/22/24 07:35 Pulse Oximetry 98 04/22/24 07:35 Oxygen Delivery Room Air 04/22/24 04:45 <Nicholas Garcia MD - Last Filed: 04/22/24 07:29> Vital Signs Temperature 36.8 C 04/22/24 04:45 Pulse Rate 64 04/22/24 04:45 Respiratory Rate 16 04/22/24 04:45 Blood Pressure 144/60 H 04/22/24 04:45 Pulse Oximetry 96 04/22/24 04:45 Oxygen Delivery Room Air 04/22/24 04:45 Temperature 36.8 C 04/22/24 04:45 Pulse Rate 67 04/22/24 07:35 Respiratory Rate 20 04/22/24 07:35 Blood Pressure 150/51 H 04/22/24 07:35 Pulse Oximetry 98 04/22/24 07:35 Oxygen Delivery Room Air 04/22/24 04:45 <Markus Singleton MD - Last Filed: 04/22/24 08:00> MDM - Extremity (Nontraumatic) MDM Narrative Medical decision making narrative: 78-year-old female with a history of chronic venous insufficiency in the legs and recent shoulder surgery 2 days prior presenting to the ER for evaluation. She called her surgeons office and was told to proceed to the ER for evaluation of potential blood clot. She is only on aspirin but no other blood thinning medications. Only risk factor for thrombosis at this time is her recent procedure. She has normal reassuring vital signs. Warm well-perfused extremities with 2+ pedal pulses. Right leg is slightly more swollen than the left leg and there is appreciable 1+ pitting edema bilaterally. No skin changes or concerns for a cellulitis at this time. Was previously treated for cellulitis several weeks prior at this facility. Given her asymmetric leg swelling and recent procedure a Doppler DVT ultrasound of bilateral lower extremities was ordered. Given the present hours of operation of the ultrasound team patient will remain in the emergency department until 7:00 a.m. when they will come in for her evaluation. Patient was agreeable to stay in the ER until then. Patient will be endorsed to the oncoming ER physician pending scan and discharged home afterwards. <Nicholas Garcia MD - Last Filed: 04/22/24 07:29> 78-year-old female with a history of chronic venous insufficiency in the legs and recent shoulder surgery 2 days prior presenting to the ER for evaluation. She called her surgeons office and was told to proceed to the ER for evaluation of potential blood clot. She is only on aspirin but no other blood thinning medications. Only risk factor for thrombosis at this time is her recent procedure. She has normal reassuring vital signs. Warm well-perfused extremities with 2+ pedal pulses. Right leg is slightly more swollen than the left leg and there is appreciable 1+ pitting edema bilaterally. No skin changes or concerns for a cellulitis at this time. Was previously treated for cellulitis several weeks prior at this facility. Given her asymmetric leg swelling and recent procedure a Doppler DVT ultrasound of bilateral lower extremities was ordered. Given the present hours of operation of the ultrasound team patient will remain in the emergency department until 7:00 a.m. when they will come in for her evaluation. Patient was agreeable to stay in the ER until then. Patient will be endorsed to the oncoming ER physician pending scan and discharged home afterwards. ultrasound was obtained that showed no evidence of DVT <Markus Singleton MD - Last Filed: 04/22/24 08:00> Discharge Plan Discharge Clinical Impression: Localized swelling of both lower legs <Nicholas Garcia MD - Last Filed: 04/22/24 07:29> Patient Disposition: Home, Self-Care <Nicholas Garcia MD - Last Filed: 04/22/24 07:29> Condition: Stable <Nicholas Garcia MD - Last Filed: 04/22/24 07:29> Instructions: Antibiotic Form, Leg Edema (ED), Leg Pain (ED) <Nicholas Garcia MD - Last Filed: 04/22/24 07:29> Prescriptions: No Action lisinopril 40 mg tablet 40 mg PO DAILY pravastatin 40 mg tablet 40 mg PO HS Wal-Zyr (cetirizine) 10 mg capsule 10 mg PO DAILY latanoprost 0.005 % drops 1 drp EACH EYE HS amlodipine 2.5 mg tablet 2.5 mg PO DAILY hydrochlorothiazide 12.5 mg tablet 12.5 mg PO DAILY amoxicillin 500 mg Tablet 2,000 mg PO ONCE PRN (Reason: PROPHYLACTIC) Patient Comments: PRIOR TO DENTAL PROCEDURES Metamucil 3.4 gram/5.4 gram Powder 1 tsp PO DAILY Rx Instructions: mix into at least 4 oz water or juice before administering Centrum Adult 50 Plus 80 mcg Tablet,Chewable 1 tablet PO DAILY acetaminophen 500 mg tablet 1,000 mg PO TID PRN (Reason: Pain) lidocaine 5 % adhesive patch,medicated 1 patch topical DAILY Qty: 30 0RF Rx Instructions: leave on most painful area for up to 12 hrs sulfamethoxazole-trimethoprim [Bactrim DS] 800-160 mg tablet 1 tablet PO Q12H 7 Days Qty: 14 0RF sodium,potassium,mag sulfates [Suprep Bowel Prep Kit] 17.5-3.13-1.6 gram recon soln See Rx Instructions PO .COMPLEX Qty: 354 0RF Rx Instructions: TAKE DIRECTED <Nicholas Garcia MD - Last Filed: 04/22/24 07:29> Follow-up/Referrals: Leah Barajas MD [Primary Care Provider] - <Nicholas Garcia MD - Last Filed: 04/22/24 07:29> Time of Disposition: 07:59 <Nicholas Garcia MD - Last Filed: 04/22/24 07:29> 07:59 <Markus Singleton MD - Last Filed: 04/22/24 08:00>
[2024-04-22 05:51] VITALS: BP 137/48; PULSE 61; RESP 14; O2SAT 98
[2024-04-22 06:36] VITALS: BP 117/89; PULSE 59; RESP 13; O2SAT 98
[2024-04-22 07:35] VITALS: BP 150/51; PULSE 67; RESP 20; O2SAT 98
--- NOTE | 2024-04-22 07:43 | PC.NURSE ---
US at bedside
[2024-04-22] MEDS: ACETAMINOPHEN 325 MG TABLET 650 MG PO (07:55)
== END 2024-04-22 08:32 | disposition home or self-care (01) ==
PROVIDERS: Emergency Provider Student in an Organized Health Care Education/Training Program; PCP Internal Medicine
DX: R22.43 Localized swelling, mass and lump, lower limb, bilateral (principal); I10 Essential (primary) hypertension; E78.5 Hyperlipidemia, unspecified
CPT/HCPCS: 93970; 99284; A9270

== ENCOUNTER 2024-04-23 08:18 | Outpatient (CLI) | payer MEDICARE, SELFPAY ==
[2024-04-23 08:49] LABS: Basophils Absolute Auto 0.1 K/mm3 (0.0-0.1); Basophils Percent Auto 0.9 % (0.2-1.2); Eosinophils Absolute Auto 0.3 K/mm3 (0-0.3); Hematocrit 34.2 % (37.0-47.0); Hemoglobin 11.1 g/dL (12.0-15.0); Immature Granulocyte Absolute 0.01 K/mm3 (0.00-0.031); Immature Granulocyte Percent A 0.2 % (0-0.5); Lymphocytes Absolute Auto 1.27 K/mm3 (0.9-3.2); Lymphocytes Percent Auto 23.7 % (18.3-44.2); Mean Corpuscular HGB Conc 32.5 g/dl (32-36); Mean Corpuscular Hemoglobin 30.5 pg (26-34); Monocytes Absolute Auto 0.5 K/mm3 (0.1-0.6); Monocytes Percent Auto 8.4 % (2.6-8.5); Neutrophils Absolute Auto 3.3 K/mm3 (1.3-6.7); Neutrophils Percent Auto 61.8 % (45.5-73.1); Platelet Count Result 213 k/mm3 (150-375); Red Blood Count 3.64 M/mm3 (4.2-5.4); Red Cell Distribution Width 12.8 % (11.5-14.5); White Blood Count 5.4 K/mm3 (4.5-10.0)
[2024-04-23 09:04] LABS: Alanine Aminotransferase 18 U/L (6-35); Albumin Level 3.4 g/dL (3.5-5.1); Alkaline Phosphatase 58 U/L (38-126); Anion Gap 1 mmol/L (4-12); Aspartate Amino Transferase 26 U/L (14-36); Bilirubin,Total 0.4 mg/dL (0.2-1.3); Blood Urea Nitrogen 10 mg/dL (7-17); Calcium 9.2 mg/dL (8.4-10.2); Carbon Dioxide 35 mmol/L (22-30); Chloride 92 mmol/L (98-107); Estimated Glomerular Filt Rate > 60; Glucose 104 mg/dL (65-110); Potassium 4.5 mmol/L (3.4-5.0); Sodium 128 mmol/L (137-145)
[2024-04-23 09:10] LABS: NT Pro B Type Natriuretic Pept 128 pg/mL (19.9-100)
[2024-04-23 09:21] LABS: Creatinine Urine 39.1 mg/dL
[2024-04-23 09:32] LABS: MALB Creatinine Ratio < 15.3 mg/g (0-30); Microalbumin Urine Random < 6.0 mg/L (0-16.7)
== END 2024-04-23 08:19 | disposition home or self-care (01) ==
PROVIDERS: PCP Internal Medicine; Visit Provider Internal Medicine
DX: E87.1 Hypo-osmolality and hyponatremia (principal); R60.0 Localized edema
CPT/HCPCS: 36415; 80053; 82043; 83880; 84443; 85025

== ENCOUNTER 2024-04-27 07:36 | Outpatient (CLI) | payer MEDICARE, SELFPAY ==
[2024-04-27 08:01] LABS: Basophils Absolute Auto 0.1 K/mm3 (0.0-0.1); Basophils Percent Auto 1.3 % (0.2-1.2); Eosinophils Absolute Auto 0.5 K/mm3 (0-0.3); Eosinophils Percent Auto 8.1 % (0-4.4); Hematocrit 34.2 % (37.0-47.0); Hemoglobin 11.1 g/dL (12.0-15.0); Immature Granulocyte Absolute 0.02 K/mm3 (0.00-0.031); Immature Granulocyte Percent A 0.4 % (0-0.5); Lymphocytes Absolute Auto 1.17 K/mm3 (0.9-3.2); Lymphocytes Percent Auto 21.1 % (18.3-44.2); Mean Corpuscular HGB Conc 32.5 g/dl (32-36); Mean Corpuscular Hemoglobin 30.5 pg (26-34); Mean Platelet Volume 9.3 fl (7.4-10.4); Monocytes Absolute Auto 0.7 K/mm3 (0.1-0.6); Monocytes Percent Auto 11.9 % (2.6-8.5); Neutrophils Absolute Auto 3.2 K/mm3 (1.3-6.7); Neutrophils Percent Auto 57.2 % (45.5-73.1); Platelet Count Result 299 k/mm3 (150-375); Red Blood Count 3.64 M/mm3 (4.2-5.4); White Blood Count 5.6 K/mm3 (4.5-10.0)
[2024-04-27 08:16] LABS: Alanine Aminotransferase 17 U/L (6-35); Albumin Level 3.5 g/dL (3.5-5.1); Alkaline Phosphatase 66 U/L (38-126); Anion Gap 4 mmol/L (4-12); Aspartate Amino Transferase 25 U/L (14-36); Bilirubin,Total 0.3 mg/dL (0.2-1.3); Blood Urea Nitrogen 14 mg/dL (7-17); Carbon Dioxide 32 mmol/L (22-30); Chloride 94 mmol/L (98-107); Estimated Glomerular Filt Rate > 60; Glucose 99 mg/dL (65-110); Potassium 4.7 mmol/L (3.4-5.0); Sodium 130 mmol/L (137-145)
== END 2024-04-27 07:37 | disposition home or self-care (01) ==
PROVIDERS: PCP Internal Medicine; Visit Provider Internal Medicine
DX: E87.1 Hypo-osmolality and hyponatremia (principal); R68.83 Chills (without fever)
CPT/HCPCS: 36415; 80053; 85025

== ENCOUNTER 2024-04-30 07:27 | Outpatient (CLI) | payer MEDICARE, SELFPAY ==
[2024-04-30 08:31] LABS: Anion Gap 2 mmol/L (4-12); Blood Urea Nitrogen 13 mg/dL (7-17); Calcium 9.5 mg/dL (8.4-10.2); Carbon Dioxide 32 mmol/L (22-30); Chloride 100 mmol/L (98-107); Estimated Glomerular Filt Rate > 60; Glucose 96 mg/dL (65-110); Magnesium 2.2 mg/dL (1.6-2.3); Potassium 4.7 mmol/L (3.4-5.0); Sodium 134 mmol/L (137-145)
== END 2024-04-30 07:28 | disposition home or self-care (01) ==
PROVIDERS: PCP Internal Medicine; Visit Provider Internal Medicine
DX: R60.0 Localized edema (principal)
CPT/HCPCS: 36415; 80048; 83735

== ENCOUNTER 2024-05-02 12:38 | Emergency (ER) | payer MEDICARE, SELFPAY ==
--- NOTE | 2024-05-02 12:56 | PC.NURSE ---
Pt approached triage desk and stated that the ED was too busy so she was going to leave. Pt ambulated to exit using steady gait NAD noted
== END 2024-05-02 13:55 | disposition left against medical advice (07) ==
LOC: ANHED 13:03
PROVIDERS: PCP Internal Medicine
DX: M25.511 Pain in right shoulder (principal)
CPT/HCPCS: 99199

== ENCOUNTER 2024-05-09 10:46 | Outpatient (CLI) | payer MEDICARE, SELFPAY ==
[2024-05-09 12:10] LABS: Anion Gap 2 mmol/L (4-12); Blood Urea Nitrogen 13 mg/dL (7-17); Calcium 9.4 mg/dL (8.4-10.2); Carbon Dioxide 33 mmol/L (22-30); Chloride 99 mmol/L (98-107); Estimated Glomerular Filt Rate > 60; Glucose 94 mg/dL (65-110); Potassium 4.6 mmol/L (3.4-5.0); Sodium 134 mmol/L (137-145)
== END 2024-05-09 10:47 | disposition home or self-care (01) ==
PROVIDERS: PCP Internal Medicine; Visit Provider Internal Medicine
DX: R60.0 Localized edema (principal)
CPT/HCPCS: 36415; 80048; 83735

== ENCOUNTER 2024-05-16 07:44 | Outpatient (CLI) | payer MEDICARE, SELFPAY ==
[2024-05-16 08:40] LABS: Anion Gap 3 mmol/L (4-12); Blood Urea Nitrogen 13 mg/dL (7-17); Calcium 9.4 mg/dL (8.4-10.2); Carbon Dioxide 33 mmol/L (22-30); Chloride 101 mmol/L (98-107); Estimated Glomerular Filt Rate > 60; Glucose 101 mg/dL (65-110); Potassium 4.1 mmol/L (3.4-5.0); Sodium 137 mmol/L (137-145)
== END 2024-05-16 07:45 | disposition home or self-care (01) ==
LOC: ANHLAB 07:46
PROVIDERS: PCP Internal Medicine; Visit Provider Internal Medicine
DX: I10 Essential (primary) hypertension (principal)
CPT/HCPCS: 36415; 80048; 83735

== ENCOUNTER 2024-05-23 07:35 | Outpatient (RCR) | payer MEDICARE, SELFPAY ==
[2024-04-25 12:44] VITALS: BMI 33.0
== END 2024-07-11 14:26 | disposition home or self-care (01) ==
LOC: ANHWOC 07:35
PROVIDERS: PCP Internal Medicine; Visit Provider Internal Medicine
DX: S61.401A Unspecified open wound of right hand, initial encounter (principal); L97.919 Non-pressure chronic ulcer of unspecified part of right lower leg with unspecified severity
CPT/HCPCS: 99212; 99213; A9270; G0463

== ENCOUNTER 2024-11-29 12:59 | Outpatient (CLI) | payer MEDICARE, SELFPAY ==
--- NOTE | ~2024-11-29 | DEXA_ITS ---
Bone Density Report Name: MARYJANE PARISI Age: 79 Sex: Female Ethnicity: White Date of : 1945 Indication: postmenopausal; screening for osteoporosis; height loss; hysterectomy; Referring Provider: CRISTI, DYLAN [place] Study: Bone densitometry was performed. Exam Date: November 29, 2024 Accession number: [id number] Bone Density: Region BMD T-score Z-score Classification AP Spine(L2, L3, L4) 1.356 2.5 5.2 Normal Femoral Neck (Left) 0.635 -1.9 0.3 Osteopenia Total Hip (Left) 0.940 0.0 1.9 Normal Femoral Neck (Right) 0.723 -1.1 1.1 Osteopenia Total Hip (Right) 0.914 -0.2 1.7 Normal Total Hip Mean 0.927 -0.1 1.8 Normal World Health Organization criteria for BMD impression classify patients as: Normal (T-score at or above -1.0), Osteopenia (T-score between -1.0 and -2.5), or Osteoporosis (T-score at or below -2.5). 10-year Fracture Risk(1): Major Osteoporotic Fracture 13% Hip Fracture 3.4% Reported Risk Factors: [place] (), Neck BMD=0.635, BMI=36.5 (1) FRAX(R) Version 3.08. Fracture probability calculated for an untreated patient. Fracture probability may be lower if the patient has received treatment. Previous Exams: Region Exam Age BMD T-score BMD Change BMD Change Date g/cm2 vs Baseline vs Previous AP Spine (L2-L4) 11/29/2024 79 1.356 2.5 -0.186 (-12.1% -0.186 (-12.1% 06/12/2016 70 1.542 4.2 Total Hip(Left) 11/29/2024 79 0.940 0.0 -0.190 (-16.8% -0.005 (-0.6%) 09/25/2021 76 0.945 0.0 -0.184 (-16.3% -0.184 (-16.3% 06/12/2016 70 1.129 1.5 Total Hip(Right) 11/29/2024 79 0.914 -0.2 -0.180 (-16.5% -0.050 (-5.2%) 09/25/2021 76 0.965 0.2 -0.130 (-11.9% -0.130 (-11.9% 06/12/2016 70 1.094 1.2 *Denotes significance at 95% confidence level, LSC for AP Spine = 0.022 g/cm2, LSC for Total Hip = 0.027 g/cm2 Clinical Information Provided by Patient: Has used the following medications: Vitamin D, Calcium Has the following medical conditions: Hysterectomy Patient maximum height was 64 Menopause Age: 47 Onset of menses at age 12 Number of children 0 Impression: The patient has low bone mass, based on the Left Femoral Neck T-score. The patient has an estimated ten-year risk of hip fracture of 3.4% and an estimated ten-year risk of major fracture of 13%, based on the WHO FRAX algorithm. The BMD for the AP Spine (L2-L4) decreased, changing by -12.1% since the last DXA exam. The BMD for the Total Hip(Right) decreased, changing by -5.2% since the last DXA exam. Discussion: BONE DENSITY IS LOW AT ONE OR MORE SKELETAL SITES. THE PATIENT'S BMD AND CLINICAL RISK FACTORS CONTRIBUTE TO THIS PATIENT'S INCREASED RISK OF FRACTURE. This patient's lowest T-score is low at one or more skeletal sites. It meets the World Health Organization's (WHO) criteria for ?low bone mass? (T-score between -1.0 and -2.5). The patient's 10-year risk of hip fracture as calculated by FRAX exceeds the threshold where pharmacological therapy is recommended by the National Osteoporosis Foundation (NOF). However, all treatment decisions require clinical judgment and consideration of individual patient factors, including patient preferences, comorbidities, previous drug use, risk factors not captured in the FRAX model (e.g., frailty, falls, vitamin D deficiency, increased bone turnover, interval significant decline in bone density) and possible under or overestimation of fracture risk by FRAX. The patient should follow a healthful lifestyle (good nutrition with adequate calcium and vitamin D, and appropriate weight-bearing exercise). Follow-Up: Consider a repeat BMD and Vertebral Fracture Assessment (VFA) exam in 2 years or sooner if medically necessary, to reassess this patient's status. Reported by: JANET on 11/29/2024 1:43:00 PM. Reviewed, dictated and finalized at location A.
--- OUTSIDE RECORDS SUMMARY | 2024-11-29 13:37 | XMS_ITS | Encounter Summary ---
Author Organization [facility] Address [address] [facility] [address] Care Team Providers Care Shop Technician Name Role Phone Indigo Curtis MD Unavailable Colton Hernández MD Unavailable [phone] Ida Bailey MD Primary Care Provider [phone] Antonio Santillan MD Primary Care Provider [phone] Hiram Fontenot MD Primary Care Provider [phone] Huber Matos MD Unavailable [phone] Leah Barajas MD Primary Care Provider [phone] Myrna Devi PA-C Unavailable [phone] Lavern Monzon Primary Care Provider [phone] Encounter Details Date Type Department Care Team (Late Contact Info) Description 10/29/2016 [facility] Outpatient Visit [facility] Orthopedics [address] [place] [id number] Unknown, Provider Social History Tobacco Use Types Packs/Day Years Used Date Smoking Tobacco: Never Assessed Comments Unknown Sex and Gender Information Value Date Recorded Sex Assigned at Not on file Legal Sex Female 2:16 PM DIP BRAZIER Gender Identity Not on file Sexual Orientation Not on file documented as of this encounter Plan of Treatment Upcoming Encounters Date Type Department Care Team (Late Contact Info) Description 02/16/2025 9:45 AM CDT Office Visit [facility] [address] [facility] [address] [place] [phone] [place] [address] [address] 05/08/2025 10:00 AM DIP BRAZIER Office Visit [facility] Health Orthopedics [address] [facility], [address] [address] [place] [address] [id number] documented as of this encounter Visit Diagnoses Not on filedocumented in this encounter Care Teams Shop Technician Relationship Specialty [place] [address] [id number] PCP - General Family Medicine 05/29/16 07/13/17 Antonio Santillan MD [address] [place] [address] PCP - General Internal Medicine 07/14/17 02/08/18 Hiram Fontenot MD [address] [place] [phone] PCP - General 02/09/18 07/15/20 [place] [address] [address] [address] PCP - General Internal Medicine 10/08/20 07/11/24 Myrna Devi, PA-C [address] [address] PCP - Attributed-Sandeep [place] 10/13/22 07/02/23 Lavern Monzon [address] [place], [place] [phone] PCP - General Roller Stitcher 07/12/24 Indigo Curtis MD Orthopedic Surgery 04/14/12 Colton Hernández [place] [address] [place] [address] Orthopedic Surgery 10/21/13 [place] [address] [place] [address] Physical Medicine and Rehabilitation 09/22/18 documented as of this encounter
--- OUTSIDE RECORDS SUMMARY | 2024-11-29 13:37 | XMS_ITS | Encounter Summary ---
Author Organization [facility] Address [address] [facility] [place] [address] Care Team Providers Care Optical Design Engineer Name Role Phone Inidgo Curtis MD Unavailable [phone] Colton Hernández MD Unavailable [phone] Ida Bailey MD Primary Care Provider [phone] Antonio Santillan MD Primary Care Provider [phone] Hiram Fontenot MD Primary Care Provider [phone] Huber Matos MD Unavailable [phone] Leah Barajas MD Primary Care Provider + [phone] Myrna Devi PA-C Unavailable [phone] Lavern Monzon Primary Care Provider [phone] Encounter Details Date Type Department Care Team (Late Contact Info) Description 06/04/2017 [facility] Outpatient Visit [facility] Orthopedics [address] [place] [phone] Unknown, Provider Social History Tobacco Use Types Packs/Day Years Used Date Smoking Tobacco: Never Assessed Comments Unknown Sex and Gender Information Value Date Recorded Sex Assigned at Not on file Legal Sex Female 2:16 PM CONCRETE SAW OPERATOR Gender Identity Not on file Sexual Orientation Not on file documented as of this encounter Plan of Treatment Upcoming Encounters Date Type Department Care Team (Late Contact Info) Description 02/16/2025 9:45 AM CDT Office Visit [facility] [address] [facility] [address] [facility] [place] [phone] [place] [address] [address] [address] 05/08/2025 10:00 AM CONCRETE SAW OPERATOR Office Visit [facility] Health Orthopedics [address] [facility], [address] [address] [place] [address] [id number] documented as of this encounter Visit Diagnoses Not on filedocumented in this encounter Care Teams Optical Design Engineer Relationship Specialty [place] [address] [phone] PCP - General Family Medicine 05/29/16 07/13/17 Antonio Santillan MD [address] [place] [address] PCP - General Internal Medicine 07/14/17 02/08/18 Hiram Fontenot MD [address] [place] [phone] PCP - General 02/09/18 07/15/20 [place] [address] [address] [address] PCP - General Internal Medicine 10/08/20 07/11/24 Myrna Devi, PA-C [address] [address] PCP - Attributed-Sandeep [place] 10/13/22 07/02/23 Lavern Monzon [address] [place], [place] [phone] PCP - General Transportation Project Manager 07/12/24 Indigo Curtis MD Orthopedic Surgery 04/14/12 Colton Hernández [place] [address] [place] [address] Orthopedic Surgery 10/21/13 [place] [address] [place] [address] Physical Medicine and Rehabilitation 09/22/18 documented as of this encounter
--- OUTSIDE RECORDS SUMMARY | 2024-11-29 13:37 | XMS_ITS ---
Author Organization [facility] ([address]) Address [address] [place] [address] Care Team Providers Care Shoe Associate Name Role Phone Leah Barajas Primary Care Provider UnavailCaroline Ellsworth Unavailable [phone] [employer]Migration, Provider Unavailable Unavailab le Allergies Allergen (clinical drug ingredient) Drug/Non Drug Allergy documented on EMR Reaction Allergy Type Onset Date Status KEFLEX (uncoded) unknown reaction Allergy Active PROLONG CONTACT TO LATEX (uncoded) Blisters on skin Allergy Active ketorolac TORADOL (uncoded) Unknown Allergy Ac tive azelastine Azelastine HCl epistaxis Drug Allergy A ctive menthol Biofreeze Palpitations; flushing Drug Allergy Active ipratropium Ipratropium [place]amie Palpitations ; flushing; red/swolen face Drug Allergy Active levofloxacin levoFLOXacin unknown reaction Drug Allergy Active Neosporin blisters Drug Allergy Active cyclobenzaprine Cyclobenzaprine shortness of breath Drug Allergy Active REASON FOR VISIT Multum To Medispan Conversion Encounter Medications Medication SIG (Take, Route, Frequency, Duration) Notes Start Date End Date Status Xyzal Allergy 24HR 5 MG 1 tablet PO ebony y for 30 Not-Taking Patanase 665 MCG/INH 2 SPRAY(S) INTRANASALLY 2 TIMES A DAY for 30 DAY(S) *Please review and pick correct strength-formula tion from Medispan options. If intended option is not shown, discontinue and re-order from Quick Search* Not-Taking Levocetirizine Dihydrochloride 5 MG 1 tab(s) orally once a day (in the evening) for 30 day(s) 08/30/2023 Active NASAL WASHES N/A DIRECTED INTRANASALLY NEEDED for 30 *Please review for potential replacement for e-prescription and drug interaction check* Active Fluticasone Propionate 50 MCG/ACT 2 spray(s) in each nostril BID for 30 day(s) 08/30/2023 Active ESTROPIPATE 0.75 MG 1 TAB(S) ORALLY ONCE A DAY *Please review for potential replacement for e-prescription and drug interaction check* Not-Taking Estradiol 0.5 MG 1 tab(s) orally once a day for 30 day(s) Not-Taking Pantoprazole Sodium 20 MG [...] review and pick correct strength-formula tion from XRONet options. If intended option is not shown, [...] review and pick correct strength-formula tion from XRONet options. If intended option is not shown, [...] Active Encounters Encounter Location Date Provider Diagnosis [address] [address] 11/28/2023 Provider Ty Allergic rhinitis due to pollen J30.1 Assessments Encounter Date Diagnosis (ICD Code) Assessment Notes Treatment Notes Treatment Clinical Notes Section Notes 11/28/2023 Allergic rhinitis due to pollen (ICD-10 - J30.1) Plan Of Treatment Medication Medication Name Sig Start Date Stop Date Notes Levocetirizine Dihydrochloride 5 MG 1 tab(s) orally once a day (in the evening) for 30 day(s) 08/30/2023 NASAL WASHES N/A DIRECTED INTRANASALLY NEEDED for 30 *Please review for potential replacement for e-prescription and drug interaction check* Fluticasone Propionate 50 MCG/ACT 2 spray(s) in each nostril BID for 30 day(s) 08/30/2023 Progress Notes * Atiya AGUILERA DDOB:1945 (79 yo F)Acc No.[id number]:11/28/2023 Patient: Atiya SINGH D Provider: Aguilar Bates :1945 A ge:78 Y S ex:Female Date:11/28/2023 Address:[address] [place], [place] [phone] Pcp:Leah Barajas Subjective: * Chief Complaints: * [facility] . [facility] * Medical History: * Medications: T aking ALBUTEROL (EQV-PROAIR HFA) 90 MCG/INH AEROSOL 2 PUFF(S) INHALED EVERY 6 HOURS , Notes to Pharmacist: *Please review for potential replacement for e-prescription and drug interaction check*, Taking Lubricant Eye Drops - SOLUTION 1 GTT IN EACH EYE 4 TIMES A DAY , Notes to Pharmacist: *Please review and pick correct strength-formulation from XRONet options. If intended option is not shown, [...] review and pick correct strength- formulation from XRONet options. If intended option is not shown, [...] *Please review and pick correct strength-formulation from XRONet options. If intended option is not shown, [...] *Please review and pick correct strength-formulation from Medispan options. If intended option is not shown, discontinue and re-order from Quick Search* * Allergies: B iofreeze: Palpitations; flushing, PROLONG CONTACT TO LATEX: Blisters on skin, Neosporin: blisters - Allergy, Ipratropium [place]: Palpitations; flushing; red/swolen face, Azelastine HCl: epistaxis, TORADOL, levoFLOXacin: unknown reaction, KEFLEX: unknown reaction, Cyclobenzaprine: shortness of breath. Objective: * Vitals: Assessment: * Assessment: 1. A llergic rhinitis due to pollen - J30.1 (Primary) Plan: * Treatment: * Billing Information: * Visit Code: * Procedure Codes: * Electronic signature of Prov huseyin MORTON-Migration on 11/29/2024 at 01:36 PM CDT Sign off status: Pending * Provider: Aguilar eason Migration Date: 11/28/2023 Generated for Jaime nunes/Noel/Shiva on: 11/29/2024 01:36 PM CDT
--- OUTSIDE RECORDS SUMMARY | 2024-11-29 13:37 | XMS_ITS | Encounter Summary ---
Author Organization [facility] Address [address] [facility] [place] [address] Care Team Providers Care Upholstery Estimator Name Role Phone Indigo Curtis MD Unavailable [phone] Colton Hernández MD Unavailable [phone] Ida Bailey MD Primary Care Provider [phone] Antonio Santillan MD Primary Care Provider [phone] Hiram Fontenot MD Primary Care Provider [phone] Huber Matos MD Unavailable [phone] Leah Barajas MD Primary Care Provider + [phone] Myrna Devi PA-C Unavailable [phone] Lavern Monzon Primary Care Provider [phone] Encounter Details Date Type Department Care Team (Late Contact Info) Description 09/29/2016 [facility] Outpatient Visit [facility] Orthopedics [address] [place] [address] Unknown, Provider Social History Tobacco Use Types Packs/Day Years Used Date Smoking Tobacco: Never Assessed Comments Unknown Sex and Gender Information Value Date Recorded Sex Assigned at Not on file Legal Sex Female 2:16 PM SUBSTATION OPERATOR HELPER Gender Identity Not on file Sexual Orientation Not on file documented as of this encounter Plan of Treatment Upcoming Encounters Date Type Department Care Team (Late Contact Info) Description 02/16/2025 9:45 AM CDT Office Visit [facility] [address] [facility] [address] [facility] [place] [address] [place] [address] [address] 05/08/2025 10:00 AM SUBSTATION OPERATOR HELPER Office Visit [facility] Health Orthopedics [address] [facility], [address] [address] [place] [address] [address] [id number] documented as of this encounter Visit Diagnoses Not on filedocumented in this encounter Care Teams Upholstery Estimator Relationship Specialty [place] [address] [phone] PCP - General Family Medicine 05/29/16 07/13/17 Antonio Santillan MD [address] [place] [address] PCP - General Internal Medicine 07/14/17 02/08/18 Hiram Fontenot MD [address] [place] [phone] PCP - General 02/09/18 07/15/20 [place] [address] [address] [address] PCP - General Internal Medicine 10/08/20 07/11/24 Myrna Devi, PA-C [address] [address] PCP - Attributed-Sandeep [place] 10/13/22 07/02/23 Lavern Monzon [address] [place], [place] [id number] PCP - General Ceramics Test Engineer 07/12/24 Indigo Curtis MD Orthopedic Surgery 04/14/12 Colton Hernández [place] [address] [place] [address] Orthopedic Surgery 10/21/13 [place] [address] [place] [address] Physical Medicine and Rehabilitation 09/22/18 documented as of this encounter
--- OUTSIDE RECORDS SUMMARY | 2024-11-29 13:37 | XMS_ITS | Patient Health Record ---
Author Organization [facility] [employer] [place] ([address]) Address [address] [place] [address] Care Team Providers Care Petroleum Refinery Operator Name Role Phone Leah Barajas Primary Care Provider Caroline Tello Unavailable [phone] Allergies Allergen (clinical drug ingredient) Drug/Non Drug Allergy documented on EMR Reaction Allergy Type Onset Date Status KEFLEX (uncoded) unknown reaction Allergy Active PROLONG CONTACT TO LATEX (uncoded) Blisters on skin Allergy Active ketorolac TORADOL (uncoded) Unknown Allergy Ac tive azelastine Azelastine HCl epistaxis Drug Allergy A ctive menthol Biofreeze Palpitations; flushing Drug Allergy Active ipratropium Ipratropium Kerrick Palpitations ; flushing; red/swolen face Drug Allergy Active levofloxacin levoFLOXacin unknown reaction Drug Allergy Active Neosporin blisters Drug Allergy Active cyclobenzaprine Cyclobenzaprine shortness of breath Drug Allergy Active Reason For Referral No Information Medications Medication SIG (Take, Route, Frequency, Duration) Notes Start Date End Date Status VITAMIN D3 5000 intl units 1 cap(s) orally once a day Not-Taking CALCIUM 500+D 500 mg-400 intl units 1 tab(s) chewed 2 times a day Not-Taking ZYRTEC 10 mg 1 tab(s) orally once a day Active CENTRUM ADULT MULTIGUMMIES MULTIPLE VITAMINS WITH MINERALS 1 TAB(S) CHEWED ONCE A DAY *Please review for potential replacement for e-prescription and drug interaction check* Active Milk of Magnesia 1200 MG/15 ML 15 ML ORALLY 3 TIMES A DAY *Please review and pick correct strength-formula tion from [employer] options. If intended option is not shown, discontinue and re-order from Quick Search* Active Pravastatin Sodium 40 MG 1 tab(s) orally once a day Active Latanoprost 0.005 % 1 gtt in each eye once a day (in the evening) Active Fluticasone Propionate 50 MCG/ACT 2 spray(s) in each nostril BID for 30 day(s) 08/30/2023 Active ALBUTEROL (EQV-PROAIR HFA) 90 MCG/INH 2 PUFF(S) INHALED EVERY 6 HOURS *Please review for potential replacement for e-prescription and drug interaction check* Active Lubricant Eye Drops - 1 GTT IN EACH EYE 4 TIMES A DAY *Please review and pick correct strength-formula tion from [employer] options. If intended option is not shown, discontinue and re-order from Quick Search* Active ESTROPIPATE 0.75 MG 1 TAB(S) ORALLY ONCE A DAY *Please review for potential replacement for e-prescription and drug interaction check* Not-Taking Xyzal Allergy 24HR 5 MG 1 tablet PO ebony y for 30 Not-Taking Patanase 665 MCG/INH 2 SPRAY(S) INTRANASALLY 2 TIMES A DAY for 30 DAY(S) *Please review and pick correct strength-formula tion from [employer] options. If intended option is not shown, discontinue and re-order from Quick Search* Not-Taking Levocetirizine Dihydrochloride 5 MG 1 tab(s) orally once a day (in the evening) for 30 day(s) 08/30/2023 Active AMLODIPINE 2.5 mg 1 tab(s) orally once a day Active LISINOPRIL 40 mg 1 tab(s) orally once a day Active HYDROCHLOROTHIAZIDE 12.5 mg 1 cap(s) orally once a day Active PRAVASTATIN 40 mg 1 tab(s) orally once a day Active LATANOPROST OPHTHALMIC 0.005% 1 gtt in each eye once a day (in the evening) Active MILK OF MAGNESIA 1200 mg/15 mL 15 mL orally 3 times a day Active LUBRICANT EYE DROPS - 1 gtt in each eye 4 times a day Active LEVOCETIRIZINE 5 mg 1 tab(s) orally once a day (in the evening) for 30 day(s) 08/30/2023 Active FLUTICASONE NASAL 50 mcg/inh 2 spray(s) in each nostril BID for 30 day(s) 08/30/2023 Active NASAL WASHES N/A DIRECTED INTRANASALLY NEEDED for 30 *Please review for potential replacement for e-prescription and drug interaction check* Active PATANASE 665 mcg/inh 2 spray(s) intranasally 2 times a day for 30 day(s) Not-Taking Estradiol 0.5 MG 1 tab(s) orally once a day for 30 day(s) Not-Taking Pantoprazole Sodium 20 MG 1 tab(s) orally once a day Not-Taking Aspirin 81 MG 1 tab(s) orally once a day Not-Taking ZyrTEC Allergy 10 MG 1 tab(s) orally once a day Active Vitamin D3 125 MCG (5000 UT) 1 cap(s) orally once a day Not-Taking Calcium 500+D 500 MG-400 INTL UNITS 1 TAB(S) CHEWED 2 TIMES A DAY *Please review and pick correct strength-formula tion from [employer] options. If intended option is not shown, discontinue and re-order from Quick Search* Not-Taking NASAL WASHES N/A DIRECTED INTRANASALLY NEEDED *Please review for potential replacement for e-prescription and drug interaction check* Not-Taking Lisinopril 40 MG 1 tab(s) orally once a day Active hydroCHLOROthiazide 12.5 MG 1 cap(s) orally once a day Active amLODIPine Besylate 2.5 MG 1 tab(s) orally once a day Active XYZAL 5 mg 1 tablet PO daily for 30 Not-Taking PANTOPRAZOLE 20 mg 1 tab(s) orally once a day Not-Taking ASPIR 81 81 mg 1 tab(s) orally once a day Not-Taking ESTRADIOL 0.5 mg 1 tab(s) orally once a day for 30 day(s) Not-Taking Immunizations Vaccine Route Administration Date Status Comme nts NOC Tdap Unknown 07/22/1965 Administered Portal [employer] NOC Pneumovax 23 Unknown 01/19/2018 Refused NOC Fluzone Quadrivalent Unknown 08/25/2018 Refused Influenza Unknown 04/20/2017 Administered Portal Infor matFlipaste Flucelvax Unknown 03/17/2019 Refused Flucelvax Unknown 07/16/2019 Administered DTaP < 7 y/o Unknown 07/21/1947 Administered Portal Inf ormation Social History Tobacco Use: Social History Observation Description Date Details (start date - stop date) Never Smoker NA - NA Smoking Smart Form: Question Answer Notes Are you a: never smoker Problems Problem Type SNOMED Code ICD Code Onset Dates Problem Status W/U Status Risk Notes Problem Chronic allergic conjunctivitis (42427327) Other chronic allergic conjunctivitis (H10.45) Active confirmed Problem Allergic rhinitis caused by pollen (disorder) (49698211) Allergic rhinitis due to pollen (J30.1) Active confirmed Problem Allergic rhinitis (41061635) Other allergic rhinitis (J30.89) Active confirmed Problem Allergic contact dermatitis caused by drug in contact with skin (158038950) Allergic contact dermatitis due to drugs in contact with skin (L23.3) Active confirmed Problem Sunburn (632177927) Sunburn, unspecified (L55.9) Active confirmed Problem Allergic rhinitis caused by animal hair and dander (540106662799864) Allergic rhinitis due to animal (cat) (dog) hair and dander (J30.81) Active confirmed Problem Allergic contact dermatitis caused by chemical (9524170883561155 3) Allergic contact dermatitis due to other chemical products (L23.5) Active confirmed Problem Postnasal drip (20605175) Postnasal drip (R09.82) Active confirmed Problem Allergy status t o anesthetic agent status (Z88.4) Active confirmed Problem Drug allergy (590642507) Allergy status to other drugs, medicaments and biological substances status (Z88.8) Active confirmed Problem Allergy status t o analgesic agent (Z88.6) Active confirmed Plan Of Treatment No Information Insurance Providers Payer Name Payer Address Payer Phone Subscriber Number Group Number Insured Name Patient Relationship to Insured Coverage Start Date Coverage End Date [employer] Medicare [address] [place] [address] [phone] [id number] Ale Atiya Self - patient is the insured 4 Medical (General) History Medical History History ICD Code Essential (primary) hypertension Surgical History Surgery Date(Month/Year) Hysterectomy 11/09/2017 Sigmoid Colectomy 12/29/2017 Repair Incisional Hernia 10/16/2000 Repair Incisional Hernia 06/22/2001 Repair Incisional Hernia 05/06/2005 Arthroscopic Knee 03/25/2006 Repair Incisional Hernia 06/18/2006 Cataract (R/L) 07/29/2010 Cholecystectomy 01/30/2015 Repair Incisional Hernia 07/20/2015 Hospitalization History Reason Date(Month/Year) Diverticulitis as adult Poison Ara as child Curtis as toddler
--- OUTSIDE RECORDS SUMMARY | 2024-11-29 13:37 | XMS_ITS | Encounter Summary ---
Author Organization [facility] Address [address] [place] [address] Care Team Providers Care Geomorphologist Name Role Phone Indigo Curtis MD Unavailable [phone] Colton Hernández MD Unavailable [phone] Ida Bailey MD Primary Care Provider [phone] Antonio Santillan MD Primary Care Provider [phone] Hiram Fontenot MD Primary Care Provider [phone] Huber Matos MD Unavailable [phone] Leah Barajas MD Primary Care Provider [phone] Myrna Devi PA-C Unavailable [phone] Lavern Monzon Primary Care Provider [phone] Encounter Details Date Type Department Care Team (Late Contact Info) Description 11/13/2016 [facility] Outpatient Visit [facility] Orthopedics [address] [place] [address] Unknown, Provider Social History Tobacco Use Types Packs/Day Years Used Date Smoking Tobacco: Never Assessed Comments Unknown Sex and Gender Information Value Date Recorded Sex Assigned at Not on file Legal Sex Female 2:16 PM DATABASE MODELER Gender Identity Not on file Sexual Orientation Not on file documented as of this encounter Plan of Treatment Upcoming Encounters Date Type Department Care Team (Late Contact Info) Description 02/16/2025 9:45 AM CDT Office Visit [facility] [address] [facility] [address] [facility] [place] [address] [place] [address] [address] [address] 05/08/2025 10:00 AM DATABASE MODELER Office Visit [facility] Health Orthopedics [address] [facility], [address] [address] [place] [address] [address] [phone] documented as of this encounter Visit Diagnoses Not on filedocumented in this encounter Care Teams Geomorphologist Relationship Specialty [place] [address] [address] [id number] PCP - General Family Medicine 05/29/16 07/13/17 Antonio Santillan MD [address] [place] [address] PCP - General Internal Medicine 07/14/17 02/08/18 Hiram Fontenot MD [address] [place] [phone] PCP - General 02/09/18 07/15/20 [place] [address] [address] [address] PCP - General Internal Medicine 10/08/20 07/11/24 Myrna Devi, PA-C [address] [address] PCP - Attributed-Sandeep [place] 10/13/22 07/02/23 Lavern Monozn [address] [place], [place] [id number] PCP - General Automobile Drivers 07/12/24 Indigo Curtis MD Orthopedic Surgery 04/14/12 Colton Hernández [place] [address] [place] [address] Orthopedic Surgery 10/21/13 [place] [address] [place] [address] Physical Medicine and Rehabilitation 09/22/18 documented as of this encounter
--- OUTSIDE RECORDS SUMMARY | 2024-11-29 13:37 | XMS_ITS | Continuity of Care Document ---
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 Name Role Phone Moffett OD, Isak Unavailable Unavailable Procedures Procedure Date Visual Field Examination(s) Optic Nerve Topography Optic Nerve Topography Eye Exam & Treatment Refraction Office/outpatient Visit, Est Optic Nerve Topography Optic Nerve Topography Visual Field Examination(s) Removal Of Skin Lesion No Charge Contact Lens Check CL Replacement - Vistakon Disp W/BW Soft [facility] Medical Eye Exam & Treatment Refraction No Charge Contact Lens Check CL Replacement - Vistakon Disp W/BW Soft [facility] No Charge Contact Lens Check No Charge Contact Lens Check No Charge Contact Lens Check Office/outpatient Visit, Est Visual Field Examination(s) Office/outpatient Visit, Est No Charge Contact Lens Check CL Replacement - Vistakon Disp W/BW Soft [facility] No Charge Contact Lens Check CL Replacement - Vistakon Disp W/BW Soft [facility] No Charge Contact Lens Check Advance Directives Directive Yes / No Effective Date File Name No Information Encounters Encounter Description Practice Location Reason(s) For Visit Diagnoses Date Provider Providers Copied on Encounter [facility], [address] [place] [address] [address], [place], [place], [id number], [place] tel:[phone] [facility] No Information 8-201 0 Moffett OD Isak. [address], [place], [place], [facility], . tel:[phone] Referring Provider: Isak Moffett OD A, [address] [place], [place] [address]ate [address], [place], [place], [facility]. tel:[phone] [facility], [address], [place], [place], [address], [place] tel:[phone] [facility] No Information 5-201 0 Moffett OD Isak. [address] [facility] [address], [place], [place], [facility], [place]. tel:[phone] Referring Provider: Isak Moffett OD A, [address] [place], [place] [address]ate [address], [place], [place], [facility]. tel:[phone] [facility], [address] [place] [address] [address], [place], [place], [address], [place] tel:[phone] [facility] No Information 8-201 0 Moffett OD Isak. [address] [place] [address] [address], [place], [place], [facility], [place]. tel:[phone] Office/outpat ient Visit, Est [facility], [address], [place], [place], [address], [place] tel:[phone] [facility] No Information 3-200 9 Moffett OD Isak. [address], [place], [place], [facility], [place]. tel:[phone] [facility], [address], [place], [place], [address], [place] tel:[phone] SEC [facility] No Information 7-200 9 Moffett OD Isak. [address] [place], [place] [address]ate Center , [address], [place], [place], [facility], . tel:[phone] Referring Provider: Isak Moffett OD A, [address] [place], [place] [address]ate [address], [place], [place], [facility]. tel:[phone] [facility] Eye [facility], [address] [place] [address] [address], [place], [place], [id number], tel:[phone] [facility] No Information 9-200 9 Moffett OD Isak. [address] [place], [place] [address]ate Center , [address], [place], [place], [facility], . tel:[phone] Referring Provider: Isak Moffett OD A, [address] [place], [place] [address]ate [address], [place], [place], [facility]. tel:[phone] [facility], [address] [place] [address] [address], [place], [place], [id number], tel:[phone] [facility] No Information 8-200 9 Miramontes Nitza. [address] [place], [place] [address]ate Center , [address], [place], [place], [facility], . tel:[phone] Referring Provider: Isak Moffett OD A, [address] [place], [place] [address]ate [address], [place], [facility]. tel:[phone] [facility], [address] [place] [address] [address], [place], [place], [address], [place] tel:[phone] [facility] [place] No Information 4-200 8 Moffett OD Isak. [address] [place], [place] [address], [place], [facility], [place]. tel:[phone] [facility], [address] [place] [address] [address], [place], [place], [address], [place] tel:[phone] [facility] No Information Dec-1 6-200 8 Moffett OD Isak. [address] , [address], [place], [address], [place]. tel:[phone] [facility], [address], [place], [place], [address], [place] tel:[phone] [facility] No Information Nov-1 4-200 8 Moffett OD Isak. [address] , [address], [place], [facility], [place]. tel:[phone] [facility], [address] [place] [address] [address], [place], [place], [address], [place] tel:[phone] [facility] No Information Oct-3 0-200 8 Moffett OD Isak. [address] , [address], [place], [facility], [place]. tel:[phone] [facility], [address] [place] [address] [address], [place], [place], [address], [place] tel:[phone] [facility] No Information Sep-1 8-200 8 Moffett OD Isak. [address] , [address], [place], [address], [place]. tel:[phone] [facility], [address] [place] [address] [address], [place], [place], [address], [place] tel:[phone] [facility] No Information Sep-1 2-200 8 Moffett OD Isak. [address] , [address], [place], [address], [place]. tel:[phone] Office/outpat ient Visit, Est [facility], [address] [place] [address] [address], [place], [place], [address], [place] tel:[phone] [facility] [place] No Information Real-1 8-200 8 Moffett OD Isak. [address] , [address], [place], [facility], [place]. tel:[phone] [facility], [address], [place], [place], [address], [place] tel:[phone] SEC [facility] No Information Dec-0 6-200 7 Moffett OD Isak. [address], [place], [facility], [place]. tel:[phone] Referring Provider: Isak Moffett OD A, [facility] [address], [place], [facility]. tel:[phone] Office/outpat ient Visit, [facility] [address], [place], [place], [address], [place] tel:[phone] SEC [facility] No Information Real-2 0-200 7 Moffett OD Isak. [address], [place], [facility], [place]. tel:[phone] [facility], [address] [place] [address] [address], [place], [place], [address], [place] tel:[phone] [facility] No Information Apr-2 4-200 7 Moffett OD Isak. [address], [place], [address], [place]. tel:[phone] [facility], [address], [place], [place], [address], [place] tel:[phone] [facility] No Information Apr-1 2-200 7 Moffett OD Isak. [address], [place], [address], [place]. tel:[phone] [facility], [address], [place], [place], [address], [place] tel:[phone] [facility] No Information Apr-0 3-200 7 Moffett OD Isak. [address] , [address], [place], [address], [place]. tel:[phone] Family History Family Member Type Diagnosis Age At Onset No Information Payers Payer name Insurance type Covered green party ID Authoriza tion(s) No Information Social History [...]
--- OUTSIDE RECORDS SUMMARY | 2024-11-29 13:37 | XMS_ITS | Clinical Summary ---
Author Organization [facility] Address [address] [place] [address] Care Team Providers Care Superintendent [employer] Name Role Phone Indigo Curtis MD Unavailable [phone] Colton Hernández MD Unavailable [phone] Huber Matos MD Unavailable [phone] Lavern Monzon Primary Care Provider [phone] Source Comments [facility],non-owned Affiliates and Associated Physician Practices is amultiple site organization consisting of ambulatory clinics and hospital sitesin [place], [place], [place] and [place]. This disclosure is being madepursuant to the Care Everywhere program and may not contain all information available regarding this patient. Last updated 18.[facility] Allergies Active Allergy Reactions Criticality Noted Date Comments Azelastine Other 08/27/2023 Nose bleeds Sulfamethoxazole W-Trimethoprim Unknown 04/13/2024 Benzocaine Skin Reactions 05/29/2016 Red swollen face Kdc:Benzoyl Peroxide+Benzyl Alcohol+Edetic Acid+Trolamine Rash Medium 03/30/2024 Cedarwood Oil Shortness of Breath High 08/27/2023 Celecoxib Elevated Blood Pressure,Skin Reactions,Swelling Medium 04/20/2024 Cyclobenzaprine Shortness of Breath High 08/27/2023 Doxycycline Nausea and/or Vomiting 04/28/2024 Patient notes nausea, skin crawling sensation, hot flashes and chills Dust Mite Extract Rhinitis 08/27/2023 Furosemide Rash Medium 05/11/2024 Gabapentin Psychiatric Medium 03/28/2024 Hydrogen Peroxide Rash Medium 04/13/2024 Ipratropium Lynn Palpitations 08/27/2023 Cephalexin Nausea and/or Vomiting 04/14/2012 Oral form Toradol Nausea and/or Vomiting 04/03/2011 Latex Other 04/14/2012 blisters Levofloxacin Nausea and/or Vomiting,Myalgias 04/14/2012 Menthol (Topical Analgesic) Palpitations Low 08/27/2023 Flushing, red swollen face Iefvuclp-Cycvtrigux-Wciol yxin Skin Reactions 08/27/2023 blisters Nystatin Rash Medium 10/21/2023 Nystatin (Topical) Rash Medium 10/21/2023 Ketorolac 04/14/2012 Biofreeze Palpitations 08/27/2023 Flushing, red swollen face Medications * Be aware that medications may not be up to date on this document. Alwaysverify current medications with the patient. latanoprost (XALATAN) 0.005 % ophthalmic solution 1 (one) drop at bedtime Active amLODIPine (NORVASC) 2.5 MG tablet Take 1 (one) tablet by mouth once daily 05/13/20 20 Active pravastatin (PRAVACHOL) 40 MG tablet Take 1 (one) tablet by mouth once daily 06/17/19 22 Active lisinopril (PRINIVIL; ZESTRIL) 40 MG tablet Take 1 (one) tablet by mouth once daily 12/06/19 22 Active albuterol HFA (Proventil; Ventolin; Proair) 108 (90 Base) MCG/ACT inhaler Inhale 2 (two) puffs by mouth every 6 hours as needed for Shortness of Breath Active Multiple Vitamins-Minera ls (CENTRUM SILVER 50+WOMEN PO) Take 1 tablet by mouth once daily Active carboxymethylce llulose sodium PF 0.5 % ophthalmic solution Instill 1 (one) drop into both eyes once daily as needed (dry eyes) Active Calcium Carb-Cholecalci ferol (CALCIUM 500 + D PO) 1 TAB(S) CHEWED 2 TIMES A DAY Active lidocaine (Lidoderm) 5 % patch Apply 1 (one) patch to skin once daily Apply patch to right side and back and remove after 12 hours. May reapply a new patch 12 hours later. Active magnesium hydroxide (Milk Of Magnesia) 400 MG/5ML suspension Take 15 mL by mouth as needed Active acetaminophen (Tylenol) 500 MG tablet Take 2 (two) tablets by mouth 3 times daily Maximum allowable Acetaminophen amount = 4 Grams (4000 mg) / 24 hours. 04/19/20 24 Active amoxicillin (Amoxil) 500 MG capsule Take 4 (four) capsules by mouth as needed 07/04/19 25 Active B Complex Vitamins (B COMPLEX PO) 08/24/19 25 Active levocetirizine (Xyzal) 5 MG tablet Take 1 (one) tablet by mouth once daily 09/01/19 25 Active methocarbamol (Robaxin) 500 MG tablet Take 2 (two) tablets by mouth 2 times daily as needed 07/08/19 25 Active ondansetron, disintegrating, (Zofran ODT) 4 MG tablet Take 1 (one) tablet by mouth every 6 hours as needed 07/25/19 25 Active cetirizine (ZYRTEC) 10 MG tablet Take 1 (one) tablet by mouth once daily Discontin ued(Tx Complete) fluticasone propionate (Flonase) 50 MCG/ACT nasal spray [place] 2 (two) sprays into each nostril once daily 025 Discontin ued(Tx Complete) Other Zyzal 5 mg QD Discontin ued(Tx Complete) oxyCODONE, immediate release, (Roxicodone) 5 MG tabletIndicatio ns:Status post reverse total replacement of right shoulder Take 1 (one) tablet to 2 (two) tablets by mouth every 4 hours as needed for Pain (Moderate or Severe Pain) 30 tablet 04/19/20 24 025 Discontin ued(Tx Complete) hydroCHLOROthia zide 12.5 MG 1 (one) tablet 2 times daily 05/25/20 24 025 Discontin ued(Tx Complete) mupirocin (Bactroban) 2 % ointment 05/06/20 24 025 Discontin ued(Tx Complete) Hospital, Clinic, or Other Facility Administered Medication Ordered Dose Route Frequency Start Date End Date Status triamcinolone acetonide (Kenalog-40) injection 40 mgIndications:Myofascial pain 40 mg IM ONCE 11/08/2024 11/08/2024 Ended lidocaine PF (Xylocaine MPF) 1 % injectionIndications:Myofas cial pain IM ONCE 11/08/2024 11/08/2024 Ended Active Problems Problem Noted Date Diagnosed Date Unspecified open wound, right lower leg, initial encounter 10/12/2024 Unspecified open wound of right hand, initial en counter 10/12/2024 Localized swelling, mass and lump, lower limb, b ilateral 10/12/2024 Encounter for screening mamm ogram for malignant neoplasm of breast 10/12/2024 Pure hyperglyceridemia 09/23/2024 Other specified disorders of bone density and structure, unspecified site 09/23/2024 Local infection of the skin and subcutaneous tissue, unspecified 09/23/2024 Impaired fasting glucose 09/23/2024 Hypo-osmolality and hyponatremia 09/23/2024 Chills (without fever) 09/23/2024 Chest pain, unspecified 09/23/2024 Primary open angle glaucoma (POAG) of both eyes, indeterminate stage 07/20/2024 Lymphedema 06/27/2024 Localized edema 06/01/2024 Chronic pain of left ankle 06/01/2024 Venous insufficiency 05/18/2024 Osteopenia 05/18/2024 Hyperlipidemia, unspecified 05/18/2024 History of colonic diverticulitis 05/18/2024 Frequent nosebleeds 05/18/2024 Essential (primary) hypertension 05/18/2024 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 [address] Huber Matos MD Lumbar facet arthropathy (Primary Dx); Synovial cyst of lumbar facet joint; Gait difficulty 11/15/2024 7:35 AM CDT - 11/15/2024 11:59 PM CDT Hospital Encounter [facility] [address] [place] [address] Huber Matos MD Discharge Disposition: Home or Self Care 11/15/2024 7:34 AM CDT Hospital Encounter [facility] [address] [place] [address] Huber Matos MD Discharge Disposition: Home or Self Care 11/15/2024 Travel 11/10/2024 Travel 11/08/2024 9:10 AM CDT Office Visit [facility] [address] [facility] [address] [place] [phone] Huber Matos MD Myofascial pain (Primary Dx); Lumbar facet arthropathy; Synovial cyst of lumbar facet joint; Gait difficulty; Trochanteric bursitis of both hips 10/12/2024 9:30 AM CDT Office Visit [facility] Orthopedics [id number] [place] [address], [facility] [address] [place] [address] Indigo Curtis MD Status post reverse total shoulder replacement, right (Primary Dx); Chronic right shoulder pain 10/12/2024 9:10 AM CDT Ancillary Procedure [facility] Orthopedics - Radiology [address] [place] [phone] Indigo Curtis MD Status post reverse total shoulder replacement, right; Chronic right shoulder pain 10/12/2024 Travel 10/07/2024 8:02 AM CDT - 10/07/2024 11:59 PM CDT Hospital Encounter [facility] [address] [place] [address] Nadeem Burrell MD Discharge Disposition: Home or Self Care 10/07/2024 8:02 AM CDT - 10/07/2024 11:59 PM CDT Hospital Encounter [facility] Pain Care [address] [place] [address] Nadeem Burrell MD Discharge Disposition: Home or Self Care 09/19/2024 9:20 AM CDT Office Visit [facility] Pain Care [address] [phone] Huber Matos MD Myofascial pain (Primary Dx); Lumbar facet arthropathy; Gait difficulty 09/19/2024 Travel from Last 3 Months Immunizations Immunization Administration Dates Next Due INFLUENZA VACCINE 04/23/2016 Social History Tobacco Use Types Packs/Day Years Used Date Smoking Tobacco: Never Smokeless Tobacco: Never Tobacco Cessation:Counseling Given: Not Answered Alcohol Use Standard Drinks/Week Comments Not Currently 0 (1 standard drink = 0.6 oz pur e alcohol) rare AUDIT-C Answer Date Recorded Q1: How often do you have a drink containing alcohol? Never 04/19/2024 Q2: How many drinks containi ng alcohol do you have on a typical day when you are drinking? Patient does not drink Q3: How often do you have si x or more drinks on one occasion? Never 04/19/2024 Overall Financial Resource Strain (CARDIA) Answe r Date Recorded How hard is it for you to pa y for the very basics like food, housing, medical care, and heating? Not hard at all 04/19/2024 PHQ-2 Answer Date Recorded Patient Health Questionnaire-2 Score 0 11/11/2024 [facility] - Occupational Stress Questionnaire Answer Date Recorded Do you feel stress - tense, restless, nervous, or anxious, or unable to sleep at night because your mind is troubled all the time - these days? Not at all 04/19/2024 Hunger Vital Sign Answer Date Recorded Within the past 12 months, y ou worried that your food would run out before you got the money to buy more. Never true 04/19/20 24 Within the past 12 months, t he food you bought just didn't last and you didn't have money to get more. Never true 04/19/2024 PRAPARE - Transportation Answer Date Re corded In the past 12 months, has l ack of transportation kept you from medical appointments or from getting medications? No 10/2023 In the past 12 months, has l ack of transportation kept you from meetings, work, or from getting things needed for daily living? No 04/19/2024 Housing Stability Vital Sign Answer Duncan e Recorded In the last 12 months, was t here a time when you were not able to pay the mortgage or rent on time? No 04/19/2024 In the past 12 months, how m any times have you moved where you were living? 1 04/19/2024 At any time in the past 12 m [facility], were you homeless or living in a fdc (including now)? No 04/19/2024 Comments Unknown Sex and Gender Information Value Date Recorded Sex Assigned at Not on file Legal Sex Female 2:16 PM [employer] Gender Identity Not on file Sexual Orientation Not on file Last Filed Vital Signs Vital Sign Reading Time Taken Comments Blood Pressure 143/58 11/15/2024 8:12 AM CDT Pulse 62 11/15/2024 8:12 AM CDT Temperature 36.5 C (97.7 F) 04/20/2024 7:48 AM [employer] Respiratory Rate 18 11/15/2024 8:12 AM CDT Oxygen Saturation 98% 11/15/2024 8:12 AM CDT Inhaled Oxygen Concentration - - Weight 83 kg (183 lb) 09/19/2024 9:28 AM CDT Height 157.5 cm (5' 2) 09/19/2024 9:28 AM CDT Body Mass Index 33.47 09/19/2024 9:28 AM CDT Plan of Treatment Upcoming Encounters Date Type Department Care Team (Late st Contact Info) Description 02/16/2025 9:45 AM CDT Office Visit [facility] Pain Care [address] [place] [address] [place] [address] [facility] [address] [place] [address] 05/08/2025 10:00 AM [employer] Office Visit [facility] Orthopedics [address] [facility], [address] [address] [place] [address] [address] [address] Health Maintenance Due Date Last Done Comments BONE DENSITY TESTING 1946 DTAP/TDAP/TD VACCINES (1 - Tdap) 1965 PNEUMOCOCCAL VACCINE 50+ (1 of 1 - PCV) 1996 ZOSTER VACCINE (1 of 2) 1996 Respiratory Syncytial Virus (RSV) Vaccine Pt: or over 60 yrs (1 - 1-dose 75+ series) 2021 COVID-19 VACCINE ( - season) 2024 MEDICARE AWV CALENDAR YEAR 2024 INFLUENZA VACCINE Completed 03/09/2024, , 07/16/2019, Additional history exists DEPRESSION SCREENING Completed 07/05/2024, 02/24/20 HEPATITIS C SCREENING Completed 10/17/2024 HEPATITIS B VACCINE Aged Out No longe r eligible based on patient's age to complete this topic HIB VACCINE Aged Out No longer eligi ble based on patient's age to complete this topic HPV VACCINE Aged Out No longer eligi ble based on patient's age to complete this topic MENINGOCOCCAL (Group B) VACCINE SHARED DECISION-MAKING Aged Out No longer eligible based on patient's age to complete this topic MENINGOCOCCAL GROUPS A/C/Y/W VACCINE Aged Out No longer eligible based on patient's age to complete this topic Medical Devices Implanted Type Area Ferry Boat Captain Device Identifier Shelf Expiration Date Model / Serial / Lot Bsplt Glnd 30mm Rsp Shldr P2 Strl Lf Implanted:Qty: 1 on 09/29/2023 by Indigo Curtis MD at [facility] Right: Shoulder [employer] 09/14/2029 508-32-204 / / [id number] Stem Hum 48mm 6mm Sm Shl Implanted:Qty: 1 on 09/29/2023 by Indigo Curtis MD at [facility] Right: Shoulder [employer] 03/07/2029 533-06-048 / / [id number] Head Glnd 32mm Rsp -4mm Ofst Shldr Rtn Implanted:Qty: 1 on 04/19/2024 by Indigo Curtis MD at [facility] Right: Shoulder [employer] 03/27/2030 508-32-103 / / [id number] Altivate Reverse Torx Peripheral Screw, 26mm Implanted:Qty: 1 on 04/19/2024 by Indigo Curtis MD at [facility] Right: Shoulder [employer] 02/17/2029 506-04-126 / / [id number] Altivate Reverse Rev Mod Central Screw, 8.0 X 40mm Implanted:Qty: 1 on 04/19/2024 by Indigo Curtis MD at [facility] Right: Shoulder [employer] 07/27/2028 508-80-040 / / [id number] Altivate Reverse Torx Peripheral Screw, 30mm Implanted:Qty: 1 on 04/19/2024 by Indigo Curtis MD at [facility] Right: Shoulder [employer] 10/14/2028 506-04-130 / / [id number] Altivate Reverse Torx Peripheral Screw, 18mm Implanted:Qty: 1 on 04/19/2024 by Indigo Curtis MD at [facility] Right: Shoulder [employer] 02/10/2029 506-04-118 / / [id number] Altivate Reverse Torx Peripheral Screw, 22mm Implanted:Qty: 1 on 04/19/2024 by Indigo Curtis MD at [facility] Right: Shoulder [employer] 09/13/2028 506-04-122 / / [id number] Revision Modular Baseplate And Taper Kit, 8.0mm Wedge Implanted:Qty: 1 on 04/19/2024 by Indigo Curtis MD at [facility] Right: Shoulder [employer] 08/31/2028 508-80-001 / / [id number] Ins Sckt 32mm Altivate Rvrs +4mm Sm Ntrl Implanted:Qty: 1 on 04/19/2024 by Indigo Curtis MD at [facility] Right: Shoulder [employer] 10/20/2027 509-02-432 / / [id number] Explanted Type Area Ferry Boat Captain Device Identifier Shelf Expiration Date Model / Serial / Lot Screw 5mm 18mm Shldr Lck Rsp Glnd Bsplt Implanted:Qty: 1 on 09/29/2023 by Indigo Curtis MD at [facility] Explanted:Qty: 1 on 04/19/2024 by Indigo Curtis MD at [facility] Right: Shoulder [employer] 06/10/2029 506-03-118 / / [id number] Screw 5mm 18mm Shldr Lck Rsp Glnd Bsplt Implanted:Qty: 1 on 09/29/2023 by Indigo Curtis MD at [facility] Explanted:Qty: 1 on 04/19/2024 by Indigo Curtis MD at [facility] Right: Shoulder [employer] 05/21/2029 506-03-118 / / [id number] Screw 5mm 26mm Shldr Lck Rsp Glnd Bsplt Implanted:Qty: 1 on 09/29/2023 by Indigo Curtis MD at [facility] Explanted:Qty: 1 on 04/19/2024 by Indigo Curtis MD at [facility] Right: Shoulder [employer] 05/18/2029 506-03-126 / / [id number] Screw 5mm 14mm Shldr Lck Rsp Glnd Bsplt Implanted:Qty: 1 on 09/29/2023 by Indigo Curtis MD at [facility] Explanted:Qty: 1 on 04/19/2024 by Indigo Curtis MD at [facility] Right: Shoulder [employer] 08/11/2029 506-03-114 / / [id number] Head Glnd 32mm Rsp -4mm Ofst Shldr Rtn Implanted:Qty: 1 on 09/29/2023 by Indigo Curtis MD at [facility] Explanted:Qty: 1 on 04/19/2024 by Indigo Curtis MD at [facility] Right: Shoulder [employer] 02/06/2029 508-32-103 / / [id number] Ins Sckt 32mm Altivate Rvrs +4mm Sm Implanted:Qty: 1 on 09/29/2023 by Indigo Curtis MD at [facility] Explanted:Qty: 1 on 04/19/2024 by Indigo Curtis MD at [facility] Right: Shoulder [employer] 07/01/2028 509-03-432 / / [id number] Procedures Procedure Name Priority Date/Time Associated Diagnosis Comments PAIN MANAGEMENT PROCEDURE TIME Routine 11/15/2024 8:06 AM CDT Lumbar spondylosis Lumbosacral spondylosis without myelopathy XR SHOULDER RIGHT 2VW OR MORE Routine 10/12/2024 9:19 AM CDT Status post reverse total shoulder replacement, right Chronic right shoulder pain from Last 3 Months Results * PAIN MANAGEMENT PROCEDURE TIME (11/15/2024 8:06 AM CDT) Anatomical Region Laterality Modality X-Ray Angiograph y Narrative 11/15/2024 8:51 AM CDT Huber Matos MD 11/15/2024 8:53 AM Right L4-5 Facet Joint Injection Atiya Pop Aguilera [id number] 11/15/2024 Allergies Allergies Allergen Reactions Latex Other blisters Cyclobenzaprine Shortness of Breath Keflex [Cephalexin] Nausea and/or Vomiting Oral form Levaquin [Levofloxacin] Nausea and/or Vomiting and Myalgias Toradol [Ketorolac] [place] [Cedarwood Oil] Shortness of Breath Nystatin (Topical) Rash Azelastine Other Nose bleeds Benzocaine Skin Reactions Red swollen face Dust Mite Extract Rhinitis Ipratropium Lynn Palpitations Ketorolac Tromethamine [Toradol] Nausea and/or Vomiting Neosporin Original [Euzxiwdz-Jhnqaluvlm-Aqroixuyl] Skin Reactions blisters X-Treme Freeze [Biofreeze] Palpitations Flushing, red swollen face Procedure: Right L4-5 Facet Joint Injection Under Fluoroscopy Indication for Procedure: Back pain/Facet Joint DJD/Facet Joint cyst M71.38 Informed Consent: After the patient, Atiya Aguilera, was informed of the risks and benefits of the procedure and all questions were answered, the consent was signed. Prep:Patient identified, proper procedure and site verified, marked by Dr. Jacob. In the oblique/ prone position, right L4-5 facet joint was identified under fluoroscopy and marked on the patient's skin. The skin was prepped in a routine sterile fashion using chloraprep. Responsible concrete pile driver operator not needed as the patient is not having sedation. Under pulsed fluoroscopy, a 22 gauge, 3 1/2 inch spinal needle was slowly inserted towards the right L4-5 Facet joint after 1 % lidocaine MPF was used to anesthetize the skin , subcutaneous tissue and the muscle overlying the area. Once the tip of the needle was in proper position, 0.5 ml of Kenalog 40 mg per ml and 1.0 ml of 1 % lidocaine was injected in a slow, incremental fashion after aspiration revealed no blood or CSF return. The needle was removed, the skin was cleaned, and ensured no bleeding was noted. Total Lidocaine : 4 ml Total Kenalog : 40mg The patient tolerated the procedure well without complications. The patient was taken to the recovery area and remained stable without complications. Vital signs stable. Injection site clean, dry, and intact. Post procedure instructions were given to the patient and follow up appointment was confirmed. The patient was discharged with information on how to reach the clinic at any time for questions or concerns. Patient ambulatory, denies complaints, DC to home. Patient survey given. Procedure codes: 00164 Pre VAS 7-8/10 Post VAS 5-6/10 Huber Matos MD Huber Matos MD DIAGNOSTIC IMAGING ORDERABLE S Final Result * XR Shoulder Right 2Vw or More (10/12/2024 9:19 AM CDT) Narrative [facility] [place] [address] - 10/12/2024 9:19 AM CDT Please see progress note in Epic for results. us Indigo Curtis MD DIAGNOSTIC IMAGING ORDERABL ES Final Result [facility] [address] from Last 3 Months Insurance [employer] MEDICARE [facility] Advance Directives Documents on File Type Date Recorded Patient Tissue Specialist Expl anation Adv Directive/Living Will/POA 09/02/2023 1:24 AM * Full Code (Latest Code Status on File) Date Activated Date Inactivated Comments 04/19/2024 1:09 PM 04/20/2024 1:57 PM Care Teams Superintendent [employer] Relationship Specialty Start Date End Date Lavern Monzon [address] [place] [address] PCP - General Crm Solution Architect 07/12/24 Indigo Curtis MD Orthopedic Surgery 04/14/12 Colton Hernán[place] [address] [place] [address] Orthopedic Surgery 10/21/13 [place] [address] [place] [address] Physical Medicine and Rehabilitation 09/22/18
== END 2024-11-29 13:00 | disposition home or self-care (01) ==
PROVIDERS: PCP Nurse Practitioner; Visit Provider Nurse Practitioner
DX: Z13.820 Encounter for screening for osteoporosis (principal); N95.8 Other specified menopausal and perimenopausal disorders; M85.852 Other specified disorders of bone density and structure, left thigh; M85.851 Other specified disorders of bone density and structure, right thigh
CPT/HCPCS: 77080

== ENCOUNTER 2024-12-18 20:21 | Emergency (ER) | payer MEDICARE, SELFPAY ==
[2024-12-18] VITALS (13 sets, daily range): BP systolic 153–165; BP diastolic 53–78; PULSE 62–68; RESP 12–21; TEMP 36.7–37.1; O2SAT 94–100
--- NOTE | ~2024-12-18 | CT_ITS ---
EXAMINATION: CTA chest abdomen pelvis DATE: 12/18/2024 21:26 INDICATION: chest pain, mid thoracic pain . TECHNIQUE: Computed tomography angiography of the chest, abdomen, and pelvis was performed with 100 m L Omnipaque-350 intravenous contrast in the arterial phase. Automated exposure control and iterative reconstruction technique were employed. The dose-length product was 1306.46 mGy-cm. COMPARISON: CT abdomen pelvis 03/18/2024 FINDINGS: CHEST: Thoracic aorta: No significant dilation. No dissection. Minimal arch calcification. Lung parenchyma and airways: Lungs and airways are clear. Thoracic inlet, axillae and chest wall: No thyroid or soft tissue mass. No axillary lymphadenopathy. Mediastinum: No mass or lymphadenopathy. Heart and pericardium: Normal heart size. No pericardial effusion. Coronary artery calcifications: Absent. Pleura: No effusion or mass. Thoracic bones: No acute osseous finding in the chest. Partially visualized, uncomplicated appearing right shoulder arthroplasty hardware. ABDOMEN/PELVIS: Liver: Normal. Biliary/Gallbladder: Gallbladder is absent. No bile duct dilation. Pancreas: 6 mm cysts in the pancreatic head and tail Spleen: Normal. Adrenals:No mass. Kidneys: No suspicious mass, obstructing stone, or hydronephrosis. GI tract: No small or large bowel dilation. Uncomplicated rectosigmoid anastomosis. Normal appendix. Diverticulosis without diverticulitis. Mesentery/Peritoneum: No ascites, mass, or free air. Retroperitoneum: No mass. Mild atherosclerotic calcifications of intra-abdominal arterial vessels. No dissection or aneurysm. No severe aortic branch vessel origin stenosis. Pelvis: Normal urinary bladder. Absent uterus. Bilateral ovaries not confidently identified. Soft Tissues: Midline abdominal hernia repair mesh. Abdominopelvic bones: No acute osseous finding in the abdomen/pelvis. Stable grade 1 anterolisthesis at L4-5. IMPRESSION: No aortic dissection or aneurysm. No acute process detected in the chest, abdomen, or pelvis. Multiple 6 mm pancreatic cysts. Recommend follow-up CT abdomen and pelvis with contrast in 2 years. Reviewed, dictated and finalized at location K.
--- NOTE | ~2024-12-18 | XR_ITS ---
EXAMINATION: XR chest 2V Exam Date/Time: 12/18/2024 21:08 CDT HISTORY: chest pain Comparison: 03/18/2024; CT chest abdomen pelvis 12/18/2024. RESULT: Lines, tubes, and devices: Partially visualized right shoulder arthroplasty hardware. Lungs and pleura: Clear. Cardiomediastinal silhouette: Stable. Other: No acute osseous or upper abdominal finding. IMPRESSION: No acute cardiopulmonary process. Reviewed, dictated and finalized at location K.
--- NOTE | 2024-12-18 20:23 | ECG_ITS ---
Test Date: 2024-12-18 20:38:50 Measurements Intervals [place] Rate: 66 P: 46 [place]: 148 QRS: 3 QRSD: 89 T: 34 QT: 379 QTc: 397 Interpretive Statements SINUS RHYTHM LOW QRS VOLTAGE IN PRECORDIAL LEADS [QRS DEFLECTION < 1.0 mV IN CHEST LEADS] Compared to ECG 03/18/2024 12:49:28 Low QRS voltage now present Ectopic atrial rhythm no longer present T-wave abnormality no longer present Electronically Signed On 12-19-2024 22:31:01 CDT by Lucrecia Parada M.D.
--- OUTSIDE RECORDS SUMMARY | 2024-12-18 20:23 | XMS_ITS | Encounter Summary ---
Author Organization [facility] Address [facility] [place] [address] Care Team Providers Care Finishing Range Feeder Name Role Phone Lavern Monzon NP Primary Care Provider [phone] Encounter Details Date Type Department Care Team (Late st Contact Info) Description 10/17/2024 MyChart Message Enc [facility] [address] [place], [place] [id number] Lavern Monzon NP [address] [place], [place] [id number] APPOINTMENTS Social History Tobacco Use Types Packs/Day Years Used Date Smoking Tobacco: Never Passive Smoke Exposure: Never Smokeless Tobacco: Never Alcohol Use Standard Drinks/Week Comments Not Currently 0 (1 standard drink = 0.6 oz pure alcohol) 2-3 beers/year; 1 glass of wine/year; 1 vodka tonic/year PHQ-2 Answer Date Recorded Patient Health Questionnaire-2 Score 1 06/17/2024 Comments No Sex and Gender Information Value Date Recorded Sex Assigned at Female 04/18/2024 4:24 PM SKIMMER REVERBERATORY Legal Sex Female 8:00 AM CDT Gender Identity Female 04/18/2024 4:24 PM SKIMMER REVERBERATORY Sexual Orientation Choose not to disclose 2024 7:30 AM CDT documented as of this encounter Plan of Treatment Upcoming Encounters Date Type Department Care Team (Late st Contact Info) Description 12/21/2024 8:20 AM CDT [facility] [address] [place] [address] Lavern Monzon CLEANING AND WASHING EQUIPMENT OPERATOR [address] [facility] [address] [place] [address] 01/23/2025 8:10 AM CDT Laboratory Only [facility] [place] [address] [place] [address] Lavern Monzon, CLEANING AND WASHING EQUIPMENT OPERATOR [address] [facility] [address] [place] [address] 04/19/2025 10:00 AM SKIMMER REVERBERATORY [facility] [place] [address] [facility] [address] [place] [address] Lavern Monzon NP [address] [facility] [address] [place] [address] 04/19/2025 10:30 AM SKIMMER REVERBERATORY [facility] [place] [address] [facility] [address] [place] [address] Lavern Monzon NP [address] [facility] [address] [place] [address] documented as of this encounter Visit Diagnoses Not on filedocumented in this encounter Care Teams Finishing Range Feeder Relationship Specialty Start Date End Date Lavern Monzon CLEANING AND WASHING EQUIPMENT OPERATOR [address] [place] [address] PCP - General NURSE PRACTITIONER 04/18/24 documented as of this encounter
--- OUTSIDE RECORDS SUMMARY | 2024-12-18 20:24 | XMS_ITS | Encounter Summary ---
Author Organization [facility] Address [facility] [place] [address] Care Team Providers Care Bad Cloth Checker Name Role Phone Lavern Monzon NP Primary Care Provider [phone] Encounter Details Date Type Department Care Team (Late st Contact Info) Description 05/19/2024 MyChart Message Enc [facility] [place] [address] [place], [place] [id number] Lavern Monzon NP [address] [place], [place] [phone] Testing Documents Social History Tobacco Use Types Packs/Day Years Used Date Smoking Tobacco: Never Passive Smoke Exposure: Never Smokeless Tobacco: Never Alcohol Use Standard Drinks/Week Comments Not Currently 0 (1 standard drink = 0.6 oz pure alcohol) 2-3 beers/year; 1 glass of wine/year; 1 vodka tonic/year Comments No Sex and Gender Information Value Date Recorded Sex Assigned at Female 04/18/2024 4:24 PM UNIT SECRETARY Legal Sex Female 8:00 AM CDT Gender Identity Female 04/18/2024 4:24 PM UNIT SECRETARY Sexual Orientation Choose not to disclose 2024 7:30 AM CDT documented as of this encounter Functional Status * Calculated C-SSRS Risk Score (Lifetime/Recent) Answer Date of Assessment Author Status No Risk Indicated 05/22/2024 1:16 PM UNIT SECRETARY Gina Telles RN Active * [place] Suicide Severity Rating Scale (Screener/Recent Self-Report) Question Answer Date of Assessment Author Status 1. Wish to be (Past 1 Month) No 05/22/2024 1:16 PM UNIT SECRETARY Gina Telles RN Activ e 2. Non-Specific Active Suicidal Thoughts (Past 1 Month) No 05/22/2024 1:16 PM UNIT SECRETARY Gina Telles RN Activ e 6. Suicidal Behavior (Lifetime) No 05/22/2024 1:16 PM Gina Lovell RN Activ e documented as of this encounter Plan of Treatment Upcoming Encounters Date Type Department Care Team (Late st Contact Info) Description 12/21/2024 8:20 AM CDT [facility] [address] [facility] [address] [place] [address] Lavern Monzon APPELLATE LAW CLERK [address] [facility] [address] [place] [address] 01/23/2025 8:10 AM CDT [facility] [place] [address] [place] [address] Lavern Monzon APPELLATE LAW CLERK [address] [facility] [address] [place] [address] 04/19/2025 10:00 AM UNIT SECRETARY [facility] [address] [facility] [address] [place] [address] Lavern Monzon APPELLATE LAW CLERK [address] [facility] [address] [place] [address] 04/19/2025 10:30 AM UNIT SECRETARY [facility] [address] [place] [address] Lavern Monzon, APPELLATE LAW CLERK [address] [facility] [address] [place] [address] documented as of this encounter Visit Diagnoses Not on filedocumented in this encounter Additional Health Concerns Infection Onset Date Last Indicated Resolved Time COVID-19 Rule Out 07/25/2024 07/25/2024 07/25/2024 11:57 AM UNIT SECRETARY Influenza - Seasonal 07/25/2024 07/25/2024 025 12:32 AM UNIT SECRETARY documented as of this encounter Care Teams Bad Cloth Checker Relationship Specialty Start Date End Date Lavern Monzon, APPELLATE LAW CLERK [address] [facility] [address] [place] [address] PCP - General NURSE PRACTITIONER 04/18/24 documented as of this encounter
--- OUTSIDE RECORDS SUMMARY | 2024-12-18 20:24 | XMS_ITS | Encounter Summary ---
Author Organization [facility] Address [facility] [place] [address] Care Team Providers Care Production Line Mechanic Name Role Phone Lavern Monzon NP Primary Care Provider [phone] Encounter Details Date Type Department Care Team (Late st Contact Info) Description 06/22/2024 [facility] [address] [place], [place] [id number] Lavern Monzon DATA GOVERNANCE ANALYST [address] [place], [place] [id number] refill Social History Tobacco Use Types Packs/Day Years [...] Sex Assigned at Female 04/18/2024 4:24 PM LADLE REPAIRMAN Legal Sex Female 8:00 AM CDT Gender Identity Female 04/18/2024 4:24 PM LADLE REPAIRMAN Sexual Orientation Choose not to disclose 2024 7:30 AM CDT documented as of this encounter Plan of Treatment Upcoming Encounters Date Type Department Care Team (Late st Contact Info) Description 12/21/2024 8:20 AM CDT [facility] [address] [place] [address] Lavern Monzon, DATA GOVERNANCE ANALYST [address] [facility] [address] [place] [address] 01/23/2025 8:10 AM CDT Laboratory [facility] [place] [address] [facility] [address] [place] [address] Lavern Monzon, DATA GOVERNANCE ANALYST [address] [facility] [address] [place] [address] 04/19/2025 10:00 AM LADLE REPAIRMAN [facility] [place] [address] [facility] [address] [place] [address] Lavern Monzon, DATA GOVERNANCE ANALYST [address] [facility] [address] [place] [address] 04/19/2025 10:30 AM LADLE REPAIRMAN [facility] [place] [address] [facility] [address] [place] [address] Lavern Monzon, DATA GOVERNANCE ANALYST [address] [facility] [address] [place] [address] documented as of this encounter Visit Diagnoses Not on filedocumented in this encounter Additional Health Concerns Infection Onset Date Last Indicated Resolved Time COVID-19 Rule Out 07/25/2024 07/25/2024 07/25/2024 11:57 AM LADLE REPAIRMAN Influenza - Seasonal 07/25/2024 07/25/2024 025 12:32 AM LADLE REPAIRMAN documented as of this encounter Care Teams Production Line Mechanic Relationship Specialty Start Date End Date Lavern Monzon, DATA GOVERNANCE ANALYST [address] [facility] [address] [place] [address] PCP - General NURSE PRACTITIONER 04/18/24 documented as of this encounter
--- OUTSIDE RECORDS SUMMARY | 2024-12-18 20:24 | XMS_ITS | Encounter Summary ---
Author Organization [facility] Address [address] [place] [address] Care Team Providers Care Drop Man Name Role Phone Lavern Monzon NP Primary Care Provider [phone] Encounter Details Date Type Department Care Team (Latest Contact Info) Description 06/03/2024 MyChart Message Enc [facility] [place] [address] [place] [address] Lavern Monzon, TREV [address] [place], [place] [address] Blood Pressure Medication Social History Tobacco Use Types Packs/Day Years Used Date Smoking Tobacco: Never Passive Smoke Exposure: Never Smokeless Tobacco: Never Alcohol Use Standard Drinks/Week Comments Not Currently 0 (1 standard drink = 0.6 oz pure alcohol) 2-3 beers/year; 1 glass of wine/year; 1 vodka tonic/year Comments No Sex and Gender Information Value Date Recorded Sex Assigned at Female 04/18/2024 4:24 PM DUB ROOM ENGINEER Legal Sex Female 8:00 AM CDT Gender Identity Female 04/18/2024 4:24 PM DUB ROOM ENGINEER Sexual Orientation Choose not to disclose 2024 7:30 AM CDT documented as of this encounter Plan of Treatment Upcoming Encounters Date Type Department Care Team (Late st Contact Info) Description 12/21/2024 8:20 AM CDT [facility] [place] [address] [place], [place] [address] Lavern Monzon, BELLY ROLLER [address] [place] [address] 01/23/2025 8:10 AM CDT Laboratory Only [facility] [place] [address] [place] [address] Lavern Monzon, BELLY ROLLER [address] [facility] [address] [place] [address] 04/19/2025 10:00 AM DUB ROOM ENGINEER [facility] [place] [address] [place] [address] Lavern Monzon, BELLY ROLLER [address] [facility] [address] [place] [address] 04/19/2025 10:30 AM DUB ROOM ENGINEER [facility] [place] [address] [place] [address] Lavern Monzon, BELLY ROLLER [address] [facility] [address] [place] [address] documented as of this encounter Visit Diagnoses Not on filedocumented in this encounter Additional Health Concerns Infection Onset Date Last Indicated Resolved Time COVID-19 Rule Out 07/25/2024 07/25/2024 07/25/2024 11:57 AM DUB ROOM ENGINEER Influenza - Seasonal 07/25/2024 07/25/2024 025 12:32 AM DUB ROOM ENGINEER documented as of this encounter Care Teams Drop Man Relationship Specialty Start Date End Date Lavern Monzon BELLY ROLLER [address] [place] [address] PCP - General NURSE PRACTITIONER 04/18/24 documented as of this encounter
--- OUTSIDE RECORDS SUMMARY | 2024-12-18 20:24 | XMS_ITS | Patient Health Record ---
Author Organization [facility] [email or web address] [place] ([address]) Address [address] [place] [address] Care Team Providers Care Gas Torch Solderer Name Role Phone Leah Barajas Primary Care Provider Caroline Tello Unavailable [phone] Allergies Allergen (clinical drug ingredient) Drug/Non Drug Allergy documented on EMR Reaction Allergy Type Onset Date Status KEFLEX (uncoded) unknown reaction Allergy Active PROLONG CONTACT TO LATEX (uncoded) Blisters on skin Allergy Active ketorolac TORADOL (uncoded) Unknown Allergy Ac tive azelastine Azelastine HCl epistaxis Drug Allergy A ctive menthol Biofreeze Palpitations; flushing Drug Allergy Active ipratropium Ipratropium [place] Palpitations ; flushing; red/swolen face Drug Allergy [...] review and pick correct strength-formula tion from [place] options. If intended option is not shown, discontinue and re-order from Quick Search* Active Pravastatin Sodium 40 MG 1 tab(s) orally once a day Active Latanoprost 0.005 % 1 gtt in each eye once a day (in the evening) Active Fluticasone Propionate 50 MCG/ACT 2 spray(s) in each nostril BID; Duration: 30 day(s) 08/30/2023 Active ALBUTEROL (EQV-PROAIR HFA) 90 MCG/INH 2 PUFF(S) INHALED EVERY 6 HOURS *Please review for potential replacement for e-prescription and drug interaction check* Active Lubricant Eye Drops - 1 GTT IN EACH EYE 4 TIMES A DAY *Please review and pick correct strength-formula tion from [place] options. If intended option is not shown, [...] review and pick correct strength-formula tion from [place] options. If intended option is not shown, discontinue and re-order from Quick Search* Not-Taking Levocetirizine Dihydrochloride 5 MG 1 tab(s) orally once a day (in the evening); Duration: 30 day(s) 08/30/2023 Active AMLODIPINE 2.5 mg [...] the evening); Duration: 30 day(s) 08/30/2023 Active FLUTICASONE NASAL 50 mcg/inh 2 spray(s) in each nostril BID; Duration: 30 day(s) 08/30/2023 Active NASAL WASHES N/A DIRECTED INTRANASALLY NEEDED; Duration: 30 *Please review for potential replacement for e-prescription and drug interaction check* Active PATANASE 665 mcg/inh 2 spray(s) intranasally 2 times a day; Duration: 30 day(s) Not-Taking Estradiol 0.5 MG 1 [...] review and pick correct strength-formula tion from [place] options. If intended option is not shown, [...] Active XYZAL 5 mg 1 tablet PO daily; Duration: 30 Not-Taking PANTOPRAZOLE 20 mg 1 tab(s) orally once a day Not-Taking ASPIR 81 81 mg 1 tab(s) orally once a day Not-Taking ESTRADIOL 0.5 mg 1 tab(s) orally once a day; Duration: 30 day(s) Not-Taking Immunizations Vaccine Route Administration Date Status Comme nts NOC Tdap Unknown 07/22/1965 Administered Portal Infor [facility] NOC Pneumovax 23 Unknown 01/19/2018 Refused NOC Fluzone Quadrivalent Unknown 08/25/2018 Refused Influenza Unknown 04/20/2017 Administered Portal Infor [facility] Flucelvax Unknown 03/17/2019 Refused Flucelvax Unknown 07/16/2019 [...] Status Risk Notes Problem Chronic allergic conjunctivitis (33859453) Other chronic allergic conjunctivitis (H10.45) Active confirmed Problem Allergic rhinitis caused by pollen (disorder) (86237242) Allergic rhinitis due to pollen (J30.1) Active confirmed Problem Allergic rhinitis (65513775) Other allergic rhinitis (J30.89) Active confirmed Problem Allergic contact dermatitis caused by drug in contact with skin (287426026) Allergic contact dermatitis due to drugs in contact with skin (L23.3) Active confirmed Problem Sunburn (394079141) Sunburn, unspecified (L55.9) Active confirmed Problem Allergic rhinitis caused by animal hair and dander (774423307070376) Allergic rhinitis due to animal (cat) (dog) hair and dander (J30.81) Active confirmed Problem Allergic contact dermatitis caused by chemical (2858696078608840 3) Allergic contact dermatitis due to other chemical products (L23.5) Active confirmed Problem Postnasal drip (21768949) Postnasal drip (R09.82) Active confirmed Problem Allergy status t o anesthetic agent status (Z88.4) Active confirmed Problem Drug allergy (883152620) Allergy status to other drugs, medicaments and biological substances status (Z88.8) Active confirmed Problem Allergy status t o analgesic agent (Z88.6) Active confirmed Plan Of Treatment No Information Insurance Providers Payer Name Payer Address Payer Phone Subscriber Number Group Number Insured Name Patient Relationship to Insured Coverage Start Date Coverage End Date [employer] [address] [place] [address] [phone] [id number] Ale Atiya Self - patient is the [...]
--- OUTSIDE RECORDS SUMMARY | 2024-12-18 20:24 | XMS_ITS | Encounter Summary ---
Author Organization [facility] Address [address] [place] [address] Care Team Providers Care Shirt Bander Name Role Phone Lavern Monzon NP Primary Care Provider [phone] Encounter Details Date Type Department Care Team (Late st Contact Info) Description 05/29/2024 MyChart Message Enc [facility] - [place] [address] [place], [place] [address] Lavern Monzon NP [address] [place], [place] [address] SPIRONOLACTONE Social History Tobacco Use Types Packs/Day Years Used Date Smoking Tobacco: Never Passive Smoke Exposure: Never Smokeless Tobacco: Never Alcohol Use Standard Drinks/Week Comments Not Currently 0 (1 standard drink = 0.6 oz pure alcohol) 2-3 beers/year; 1 glass of wine/year; 1 vodka tonic/year Comments No Sex and Gender Information Value Date Recorded Sex Assigned at Female 04/18/2024 4:24 PM RN BUILDING Legal Sex Female 8:00 AM CDT Gender Identity Female 04/18/2024 4:24 PM RN BUILDING Sexual Orientation Choose not to disclose 2024 7:30 AM CDT documented as of this encounter Plan of Treatment Upcoming Encounters Date Type Department Care Team (Late st Contact Info) Description 12/21/2024 8:20 AM CDT [facility] [place] [address] [place] [address] Laevrn Monzon, AGRICULTURAL EXTENSION SPECIALIST [address] [facility] [address] [place] [address] 01/23/2025 8:10 AM CDT Laboratory Only [facility] - [place] [address] [place] [address] Lavern Monzon, AGRICULTURAL EXTENSION SPECIALIST [address] [facility] [address] [place] [address] 04/19/2025 10:00 AM RN BUILDING [facility] [place] [address] [facility] [address] [place] [address] Lavern Monzon, AGRICULTURAL EXTENSION SPECIALIST [address] [facility] [address] [place] [address] 04/19/2025 10:30 AM RN BUILDING [facility] [place] [address] [place] [address] Lavern Monzon, AGRICULTURAL EXTENSION SPECIALIST [address] [facility] [address] [place] [address] documented as of this encounter Visit Diagnoses Not on filedocumented in this encounter Additional Health Concerns Infection Onset Date Last Indicated Resolved Time COVID-19 Rule Out 07/25/2024 07/25/2024 07/25/2024 11:57 AM RN BUILDING Influenza - Seasonal 07/25/2024 07/25/2024 025 12:32 AM RN BUILDING documented as of this encounter Care Teams Shirt Bander Relationship Specialty Start Date End Date Lavern Monzon AGRICULTURAL EXTENSION SPECIALIST [address] [place] [address] PCP - General NURSE PRACTITIONER 04/18/24 documented as of this encounter
--- OUTSIDE RECORDS SUMMARY | 2024-12-18 20:24 | XMS_ITS | Encounter Summary ---
Author Organization [facility] Address [facility] [place] [address] Care Team Providers Care Predatory Animal Hunter Name Role Phone Lavern Monzon NP Primary Care Provider [phone] Encounter Details Date Type Department Care Team (Latest Contact Info) Description 08/28/2024 MyChart Message Enc [facility] - [place] [address] [place], [place] [address] Lavern Monzon, RESEARCH SOFTWARE ENGINEER [address] [place], [place] [address] Wrist Pain, Hip Pain, Inside of Lips, Bone Density Social History Tobacco Use Types Packs/Day Years [...] Sex Assigned at Female 04/18/2024 4:24 PM AUTOMOBILE SERVICE STATION ATTENDANT Legal Sex Female 8:00 AM CDT Gender Identity Female 04/18/2024 4:24 PM AUTOMOBILE SERVICE STATION ATTENDANT Sexual Orientation Choose not to disclose 2024 7:30 AM CDT documented as of this encounter Plan of Treatment Upcoming Encounters Date Type Department Care Team (Late st Contact Info) Description 12/21/2024 8:20 AM CDT Office Visit [facility] - [place] [address] [place] [address] Lavern Monzon RESEARCH SOFTWARE ENGINEER [address] [place] [address] 01/23/2025 8:10 AM CDT Laboratory Only [facility] [place] [address] [place] [address] Lavern Monzon, RESEARCH SOFTWARE ENGINEER [address] [place] [address] 04/19/2025 10:00 AM AUTOMOBILE SERVICE STATION ATTENDANT [facility] [place] [address] [place] [address] Lvaern Monzon NP [address] [facility] [address] [place] [address] 04/19/2025 10:30 AM AUTOMOBILE SERVICE STATION ATTENDANT [facility] [place] [address] [place] [address] Lavern Monzon RESEARCH SOFTWARE ENGINEER [address] [facility] [address] [place] [address] documented as of this encounter Visit Diagnoses Not on filedocumented in this encounter Care Teams Predatory Animal Hunter Relationship Specialty Start Date End Date Lavern Monzon, RESEARCH SOFTWARE ENGINEER [address] [place] [address] PCP - General NURSE PRACTITIONER 04/18/24 documented as of this encounter
--- OUTSIDE RECORDS SUMMARY | 2024-12-18 20:24 | XMS_ITS | Encounter Summary ---
Author Organization [facility] Address [address] [facility] [place] [address] Care Team Providers Care Library Aide Name Role Phone Indigo Curtis MD Unavailable Colton Hernández MD Unavailable [phone] Ida Bailey MD Primary Care Provider [phone] Antonio Santillan MD Primary Care Provider [phone] Hiram Fontenot MD Primary Care Provider [phone] Huber Matos MD Unavailable [phone] Leah Barajas MD Primary Care Provider + [phone] Myrna Devi PA-C Unavailable [phone] Lavern Monzon Primary Care Provider [phone] Encounter Details Date Type Department Care Team (Late Contact Info) Description 11/13/2016 [facility] Out[facility] Visit [facility] [address] [address] Unknown, Provider Social History Tobacco Use Types Packs/Day Years Used Date Smoking Tobacco: Never Assessed Comments Unknown Sex and Gender Information Value Date Recorded Sex Assigned at Not on file Legal Sex Female 2:16 PM BROKERAGE OFFICE MANAGER Gender Identity Not on file Sexual Orientation Not on file documented as of this encounter Plan of Treatment Upcoming Encounters Date Type Department Care Team (Late Contact Info) Description 12/21/2024 3:40 PM CDT Office Visit [facility] [address] [facility], [address] [phone] [place] [address] [address] 02/16/2025 9:45 AM CDT Office Visit [facility] Pain Care [address] [place] [address] [place] [address] [id number] 05/08/2025 10:00 AM BROKERAGE OFFICE MANAGER Office Visit [facility] [address] [place] [address] [place] [address] [address] documented as of this encounter Visit Diagnoses Not on filedocumented in this encounter Care Teams Library Aide Relationship Specialty [place] [address] [id number] PCP - General Family Medicine 05/29/16 07/13/17 Antonio Santillan MD [address] [place] [address] PCP - General Internal Medicine 07/14/17 02/08/18 Hiram Fontenot MD [address] [place] [address] PCP - General 02/09/18 07/15/20 [place] [address] [address] PCP - General Internal Medicine 10/08/20 07/11/24 Myrna Devi PA-C [address] [facility] [address] [place] [address] [facility] 10/13/22 07/02/23 Lavern Monzon [address] [place] [address] PCP - General Casing Trimmer 07/12/24 Indigo Curtis MD Orthopedic Surgery 04/14/12 Colton Hernández [place] [address] [facility] [address] [place] [address] Orthopedic Surgery 10/21/13 [place] [address] [place] [address] Physical Medicine and Rehabilitation 09/22/18 documented as of this encounter
--- OUTSIDE RECORDS SUMMARY | 2024-12-18 20:24 | XMS_ITS | Encounter Summary ---
Author Organization [facility] Address Counts include 234 beds at the [facility] [place] [address] Care Team Providers Care Scientific Associate Name Role Phone Lavern Monzon NP Primary Care Provider [phone] Encounter Details Date Type Department Care Team (Late st Contact Info) Description 08/02/2024 MyChart Message Enc [facility] [place] [address] [place], [place] [address] Lavern Monzon FAN RUNNER [address] [place], [place] [address] MUCUS/PHLEGM Social History Tobacco Use Types Packs/Day Years [...] Sex Assigned at Female 04/18/2024 4:24 PM HUMAN RESOURCES PROFESSIONAL Legal Sex Female 8:00 AM CDT Gender Identity Female 04/18/2024 4:24 PM HUMAN RESOURCES PROFESSIONAL Sexual Orientation Choose not to disclose 2024 7:30 AM CDT documented as of this encounter Plan of Treatment Upcoming Encounters Date Type Department Care Team (Late st Contact Info) Description 12/21/2024 8:20 AM CDT Office Visit [facility] - [place] [address] [place] [address] Lavern Monzon, FAN RUNNER [address] [facility] [address] [place] [address] 01/23/2025 8:10 AM CDT Laboratory Only [facility] [place] [address] [facility] [address] [place] [address] Lavern Monzon, FAN RUNNER [address] [facility] [address] [place] [address] 04/19/2025 10:00 AM HUMAN RESOURCES PROFESSIONAL [facility] [place] [address] [facility] [address] [place] [address] Lavern Monzon NP [address] [facility] [address] [place] [address] 04/19/2025 10:30 AM HUMAN RESOURCES PROFESSIONAL [facility] [place] [address] [facility] [address] [place] [address] Lavern Monzon, FAN RUNNER [address] [facility] [address] [place] [address] documented as of this encounter Visit Diagnoses Not on filedocumented in this encounter Additional Health Concerns Infection Onset Date Last Indicated Resolved Time Influenza - Seasonal 07/25/2024 07/25/2024 025 12:32 AM HUMAN RESOURCES PROFESSIONAL documented as of this encounter Care Teams Scientific Associate Relationship Specialty Start Date End Date Lavern Monzon NP [address] [place] [address] PCP - General NURSE PRACTITIONER 04/18/24 documented as of this encounter
--- OUTSIDE RECORDS SUMMARY | 2024-12-18 20:24 | XMS_ITS | Continuity of Care Document ---
Author Organization [facility] Address [address] [facility] tiffanie Gray [address] [place] [address] Phone Care Team Providers Care Sewage Screen Operator Name Role Phone Moffett OD, Isak Unavailable Unavailable Procedures Procedure Date Visual Field Examination(s) Optic Nerve Topography Optic Nerve Topography Eye Exam & Treatment Refraction Office/outpatient Visit, Est Optic Nerve Topography Optic Nerve Topography Visual Field Examination(s) Removal Of Skin Lesion No Charge Contact Lens Check CL Replacement - Vistakon Disp W/BW Soft [facility] Medical Eye Exam & Treatment Refraction No Charge Contact Lens Check CL Replacement - Vistakon Disp W/BW Soft [facility] No Charge Contact Lens Check No Charge Contact Lens Check No Charge Contact Lens Check Office/outpatient Visit, Est Visual Field Examination(s) Office/outpatient Visit, Est No Charge Contact Lens Check CL Replacement - Vistakon Disp W/BW Soft [facility] No Charge Contact Lens Check CL Replacement - Vistakon Disp W/BW Soft [facility] No Charge Contact Lens Check Advance Directives Directive Yes / No Effective Date File Name No Information Encounters Encounter Description Practice Location Reason(s) For Visit Diagnoses Date Provider Providers Copied on Encounter [facility], [address] [place] [address] [address], [place], [place], [id number], [place] tel:[phone] [facility] No Information 8-201 0 Moffett OD Isak. [address] [facility] [address], [place], [place], [facility], . tel:[phone] Referring Provider: Isak Moffett OD A, [address] [place], [place] [address]ate [address], [place], [place], [facility]. tel:[phone] [facility], [address], [place], [place], [address], [place] tel:[phone] [facility] No Information 5-201 0 Moffett OD Isak. [address] [facility] [address], [address], [place], [facility], [place]. tel:[phone] Referring Provider: Isak Moffett OD A, [address] [place], [place] [address]ate [address], [place], [facility]. tel:[phone] [facility], [address] [place] [address] [address], [place], [place], [address], [place] tel:[phone] [facility] No Information 8-201 0 Moffett OD Isak. [address] [place] [address] [address], [address], [place], [facility], [place]. tel:[phone] Office/outpat ient Visit, Est [facility], [address], [place], [place], [address], [place] tel:[phone] [facility] No Information 3-200 9 Moffett OD Isak. [address] [facility] [address], [address], [place], [facility], [place]. tel:[phone] [facility], [address], [place], [place], [address], [place] tel:[phone] [facility] No Information 7-200 9 Moffett OD Isak. [address] [place], [place] [address]ate Center , [address], [place], [facility], . tel:[phone] Referring Provider: Isak Moffett OD A, [address] [place], [place] [address]ate [address], [place], [facility]. tel:[phone] [facility], [address] [place] [address] [address], [place], [place], [address], tel:[phone] [facility] No Information 9-200 9 Moffett OD Isak. [address] [place], [place] [address]ate Center , [address], [place], [facility], . tel:[phone] Referring Provider: Isak Moffett OD A, [address] [place], [place] [address]ate Center [address], [place], [facility]. tel:[phone] [facility], [address] [place] [address] [address], [place], [place], [address], tel:[phone] [facility] No Information 8-200 9 Miramontes Nitza. [address] [place], [place] [address]ate Center , [address], [place], [facility], . tel:[phone] Referring Provider: Isak Moffett OD A, [address] [place], [place] [address]ate Center [address], [place], [facility]. tel:[phone] [facility], [address] [place] [address] [address], [place], [place], [address], [place] tel:[phone] [facility] [place] No Information 4-200 8 Moffett OD Isak. [address] [place], [place] [address], [place], [facility], [place]. tel:[phone] [facility], [address] [place] [address] [address], [place], [place], [address], [place] tel:[phone] [facility] No Information Dec-1 6-200 8 Moffett OD Isak. [address] , [address], [place], [address], [place]. tel:[phone] [facility], [address], [place], [place], [address], [place] tel:[phone] [facility] No Information Nov-1 4-200 8 Moffett OD Isak. [address] , [address], [place], [facility], [place]. tel:[phone] [facility], [address] [place] [address] [address], [place], [place], [address], [place] tel:[phone] [facility] No Information Oct-3 0-200 8 Moffett OD Isak. [address] , [address], [place], [facility], [place]. tel:[phone] [facility], [address] [place] [address] [address], [place], [place], [address], [place] tel:[phone] [facility] No Information Sep-1 8-200 8 Moffett OD Isak. [address] , [address], [place], [address], [place]. tel:[phone] [facility], [address] [place] [address] [address], [place], [place], [address], [place] tel:[phone] [facility] No Information Sep-1 2-200 8 Moffett OD Isak. [address] , [address], [place], [address], [place]. tel:[phone] Office/outpat ient Visit, Est [facility], [address] [place] [address] [address], [place], [place], [address], [place] tel:[phone] [facility] [place] No Information Real-1 8-200 8 Moffett OD Isak. [address] , [address], [place], [facility], [place]. tel:[phone] [facility], [address], [place], [place], [address], [place] tel:[phone] [facility] No Information Dec-0 6-200 7 Moffett OD Isak. [address] [facility] [address], [address], [place], [facility], [place]. tel:[phone] Referring Provider: Isak Moffett OD A, [facility] [address], [place], [facility]. tel:[phone] Office/outpat ient Visit, [facility], [address], [place], [place], [address], [place] tel:[phone] [facility] No Information Real-2 0-200 7 Moffett OD Isak. [address] [facility] [address], [address], [place], [facility], [place]. tel:[phone] [facility], [address] [place] [address] [address], [place], [place], [address], [place] tel:[phone] [facility] No Information Apr-2 4-200 7 Moffett OD Isak. [address] [facility] [address], [address], [place], [address], [place]. tel:[phone] [facility], [address], [place], [place], [address], [place] tel:[phone] [facility] No Information Apr-1 2-200 7 Moffett OD Isak. [address] [facility] [address], [address], [place], [address], [place]. tel:[phone] [facility], [address], [place], [place], [address], [place] tel:[phone] [facility] No Information Apr-0 3-200 7 Moffett OD Isak. [address] , [address], [place], [address], [place]. tel:[phone] Family History Family Member Type Diagnosis Age [...]
--- OUTSIDE RECORDS SUMMARY | 2024-12-18 20:24 | XMS_ITS | Encounter Summary ---
Author Organization [facility] Address [facility] [place] [address] Care Team Providers Care Hospice Registered Nurse Name Role Phone Lavern Monzon NP Primary Care Provider [phone] Encounter Details Date Type Department Care Team (Late st Contact Info) Description 07/20/2024 MyChart Message Enc [facility] [address] [place], [place] [address] Lavern Monzon TEA BLENDER [address] [place], [place] [address] RSV Vaccination Social History Tobacco Use Types Packs/Day Years [...] Sex Assigned at Female 04/18/2024 4:24 PM SPORTS BOOKMAKER Legal Sex Female 8:00 AM CDT Gender Identity Female 04/18/2024 4:24 PM SPORTS BOOKMAKER Sexual Orientation Choose not to disclose 2024 7:30 AM CDT documented as of this encounter Plan of Treatment Upcoming Encounters Date Type Department Care Team (Late st Contact Info) Description 12/21/2024 8:20 AM CDT [facility] [address] [place] [address] Lavern Monzon, TEA BLENDER [address] [facility] [address] [place] [address] 01/23/2025 8:10 AM CDT Laboratory Only [facility] [place] [address] [facility] [address] [place] [address] Lavern Monzon, TEA BLENDER [address] [facility] [address] [place] [address] 04/19/2025 10:00 AM SPORTS BOOKMAKER [facility] [place] [address] [address] [facility] [address] [place] [address] Lavern Monzon, TEA BLENDER [address] [facility] [address] [place] [address] 04/19/2025 10:30 AM SPORTS BOOKMAKER [facility] [place] [address] [address] [facility] [address] [place] [address] Lavern Monzon, TEA BLENDER [address] [facility] [address] [place] [address] documented as of this encounter Visit Diagnoses Not on filedocumented in this encounter Additional Health Concerns Infection Onset Date Last Indicated Resolved Time COVID-19 Rule Out 07/25/2024 07/25/2024 07/25/2024 11:57 AM SPORTS BOOKMAKER Influenza - Seasonal 07/25/2024 07/25/2024 025 12:32 AM SPORTS BOOKMAKER documented as of this encounter Care Teams Hospice Registered Nurse Relationship Specialty Start Date End Date Lavern Monzon, TEA BLENDER [address] [facility] [address] [place] [address] PCP - General NURSE PRACTITIONER 04/18/24 documented as of this encounter
--- OUTSIDE RECORDS SUMMARY | 2024-12-18 20:24 | XMS_ITS | Encounter Summary ---
Author Organization [facility] Address [address] [place] [address] Care Team Providers Care Building Maintenance Engineer Name Role Phone Indigo Curtis MD Unavailable Colton Hernández MD Unavailable [phone] Ida Bailey MD Primary Care Provider [phone] Antonio Santillan MD Primary Care Provider [phone] Hiram Fontenot MD Primary Care Provider [phone] Huber Matos MD Unavailable [phone] Leah Barajas MD Primary Care Provider + [phone] Myrna Devi PA-C Unavailable [phone] Lavern Monzon Primary Care Provider [phone] Encounter Details Date Type Department Care Team (Late Contact Info) Description 09/29/2016 [facility] Orthopedics [address] [address] Unknown, Provider Social History Tobacco Use Types Packs/Day Years Used Date Smoking Tobacco: Never Assessed Comments Unknown Sex and Gender Information Value Date Recorded Sex Assigned at Not on file Legal Sex Female 2:16 PM ANALYST SALES Gender Identity Not on file Sexual Orientation Not on file documented as of this encounter Plan of Treatment Upcoming Encounters Date Type Department Care Team (Late Contact Info) Description 12/21/2024 3:40 PM CDT Office Visit [facility] Orthopedics [address] [facility], [address] [phone] [place] [address] [address] [address] 02/16/2025 9:45 AM CDT Office Visit [facility] Pain Care [address] [place] [address] [place] [address] [address] [id number] 05/08/2025 10:00 AM ANALYST SALES Office Visit [facility] Orthopedics [address] [place] [address] [place] [address] [address] [address] documented as of this encounter Visit Diagnoses Not on filedocumented in this encounter Care Teams Building Maintenance Engineer Relationship Specialty [place] [address] [address] [id number] PCP - General Family Medicine 05/29/16 07/13/17 Antonio Santillan MD [address] [place] [address] PCP - General Internal Medicine 07/14/17 02/08/18 Hiram Fontenot MD [address] [place] [address] PCP - General 02/09/18 07/15/20 [place] [address] [address] PCP - General Internal Medicine 10/08/20 07/11/24 Myrna Devi PA-C [address] [facility] [address] [place] [address] [facility] 10/13/22 07/02/23 Lavern Monzon [address] [place] [address] PCP - General Repeat Photocomposing Machine Operator 07/12/24 Indigo Curtis MD Orthopedic Surgery 04/14/12 Colton Hernández [place] [address] [facility] [address] [address] [place] [address] Orthopedic Surgery 10/21/13 [place] [address] [place] [address] Physical Medicine and Rehabilitation 09/22/18 documented as of this encounter
--- OUTSIDE RECORDS SUMMARY | 2024-12-18 20:24 | XMS_ITS | Encounter Summary ---
Author Organization [facility] Address [address] [facility] [place] [address] Care Team Providers Care Laundry Sorter Name Role Phone Indigo Curtis MD Unavailable [phone] Colton Hernández MD Unavailable [phone] Ida Bailey MD Primary Care Provider [phone] Antonio Santillan MD Primary Care Provider [phone] Hiram Fontenot MD Primary Care Provider [phone] Huber Matos MD Unavailable [phone] Leah Barajas MD Primary Care Provider + [phone] Myrna Devi PA-C Unavailable [phone] Lavern Monzon Primary Care Provider [phone] Encounter Details Date Type Department Care Team (Late Contact Info) Description 10/29/2016 [facility] Orthopedics [address] [address] Unknown, Provider Social History Tobacco Use Types Packs/Day Years Used Date Smoking Tobacco: Never Assessed Comments Unknown Sex and Gender Information Value Date Recorded Sex Assigned at Not on file Legal Sex Female 2:16 PM BUTADIENE CONVERTOR OPERATOR Gender Identity Not on file Sexual Orientation Not on file documented as of this encounter Plan of Treatment Upcoming Encounters Date Type Department Care Team (Late Contact Info) Description 12/21/2024 3:40 PM CDT Office Visit [facility] Orthopedics [address] [facility], [address] [phone] [place] [address] [address] [address] 02/16/2025 9:45 AM CDT Office Visit [facility] Pain Care [address] [place] [address] [place] [address] [address] [phone] 05/08/2025 10:00 AM BUTADIENE CONVERTOR OPERATOR Office Visit [facility] Orthopedics [address] [place] [address] [place] [address] [address] [address] documented as of this encounter Visit Diagnoses Not on filedocumented in this encounter Care Teams Laundry Sorter Relationship Specialty [place] [address] [address] [phone] PCP - General Family Medicine 05/29/16 07/13/17 Antonio Santillan MD [address] [place] [address] PCP - General Internal Medicine 07/14/17 02/08/18 Hiram Fontenot MD [address] [place] [address] PCP - General 02/09/18 07/15/20 [place] [address] [address] PCP - General Internal Medicine 10/08/20 07/11/24 Myrna Devi PA-C [address] [facility] [address] [place] [address] [facility] - [facility] 10/13/22 07/02/23 Lavern Monzon [address] [place] [address] PCP - General Interventional Technologist 07/12/24 Indigo Curtis MD Orthopedic Surgery 04/14/12 Colton Hernández [place] [address] [facility] [address] [address] [place] [address] Orthopedic Surgery 10/21/13 [place] [address] [place] [address] Physical Medicine and Rehabilitation 09/22/18 documented as of this encounter
--- OUTSIDE RECORDS SUMMARY | 2024-12-18 20:24 | XMS_ITS | Clinical Summary ---
Author Organization [facility] [employer] Address [address] [facility] [place] [address] Care Team Providers Care Senior Electrical Engineer Name Role Phone Indigo Curtis MD Unavailable Colton Hernández MD Unavailable [phone] Huber Matos MD Unavailable Lavern Monzon Primary Care Provider [phone] Source Comments [facility],non-owned Affiliates and Associated Physician Practices is amultiple site organization consisting of ambulatory clinics and hospital sitesin [place], [place], [place] and [place]. This disclosure is being madepursuant to the Care Everywhere program and may not contain all information available regarding this patient. Last updated 18.[facility] Allergies Active Allergy Reactions Criticality Noted Date [...] 03/28/2024 Hydrogen Peroxide Rash Medium 04/13/2024 Ipratropium Endeavor Palpitations 08/27/2023 Cephalexin Nausea and/or Vomiting 04/14/2012 Oral form Toradol Nausea and/or Vomiting 04/03/2011 Latex Other 04/14/2012 blisters Levofloxacin Nausea and/or Vomiting,Myalgias 04/14/2012 Menthol (Topical Analgesic) Palpitations Low 08/27/2023 Flushing, red swollen face Dqeezlbk-Pmuzytwmqz-Eiaij yxin Skin Reactions 08/27/2023 blisters Nystatin Rash [...] 1 (one) tablet by mouth once daily 0 Active pravastatin (PRAVACHOL) 40 MG tablet Take 1 (one) tablet by mouth once daily 2 Active lisinopril (PRINIVIL; ZESTRIL) 40 MG tablet Take 1 (one) tablet by mouth once daily 2 Active albuterol HFA (Proventil; Ventolin; Proair) 108 (90 Base) MCG/ACT inhaler Inhale 2 (two) puffs by mouth every 6 hours as needed for Shortness of Breath Active Multiple Vitamins-Car Sales Representative als (CENTRUM SILVER 50+WOMEN PO) Take 1 tablet by mouth once daily Active carboxymethylc ellulose sodium PF 0.5 % ophthalmic solution Instill 1 (one) drop into both eyes once daily as needed (dry eyes) Active Calcium Carb-Cholecalc iferol (CALCIUM 500 + D PO) 1 TAB(S) [...] 4 Grams (4000 mg) / 24 hours. 4 Active amoxicillin (Amoxil) 500 MG capsule Take 4 (four) capsules by mouth as needed 5 Active B Complex Vitamins (B COMPLEX PO) 5 Active levocetirizine (Xyzal) 5 MG tablet Take 1 (one) tablet by mouth once daily 5 Active methocarbamol (Robaxin) 500 MG tablet Take 2 (two) tablets by mouth 2 times daily as needed 5 Active ondansetron, disintegrating , (Zofran ODT) 4 MG tablet Take 1 (one) tablet by mouth every 6 hours as needed 5 Active Active Problems Problem Noted Date Diagnosed Date [...] post reverse total replacement of right s tungulder 04/19/2024 Sciatica 06/22/2023 Overview (10/12/2024): approximate date of onset; have been to physical therapy to remediate; pain has worsened Primary osteoarthritis of left knee 05/29/2016 Encounters Date Type Department Care Team Description 12/06/2024 9:20 AM CDT Office Visit [facility] Orthopedics [address] [place] [address] [address] [place] [address] Indigo Curtis MD Chronic right shoulder pain (Primary Dx); Status post reverse total shoulder replacement, right 12/06/2024 9:10 AM CDT Ancillary Procedure [facility] Orthopedics - Radiology [address] [place] [address] Indigo Curtis MD Chronic right shoulder pain 11/15/2024 7:45 AM CDT Office Visit [address] [place] [address] Huber Matos MD Lumbar facet arthropathy (Primary Dx); Synovial cyst of lumbar facet joint; Gait difficulty 11/15/2024 7:35 AM CDT - 11/15/2024 11:59 PM CDT Hospital Encounter [address] [address] Huber Matos MD Discharge Disposition: Home or Self Care 11/15/2024 7:34 AM CDT Hospital Encounter [address] [address] Huber Matos MD Discharge Disposition: Home or Self Care 11/15/2024 Travel 11/10/2024 Travel 11/08/2024 9:10 AM CDT Office Visit [address] [address] Huber Matos MD Myofascial pain (Primary Dx); Lumbar facet arthropathy; Synovial cyst of lumbar facet joint; Gait difficulty; Trochanteric bursitis of both hips 10/12/2024 9:30 AM CDT Office Visit [facility] Orthopedics [address] [facility] [address] [place] [address] Indigo Curtis MD Status post reverse total shoulder replacement, right (Primary Dx); Chronic right shoulder pain 10/12/2024 9:10 AM CDT Ancillary Procedure [facility] Orthopedics - Radiology [address] [place] [address] Indigo Curtis MD Status post reverse total shoulder replacement, right; Chronic right shoulder pain 10/12/2024 Travel 10/07/2024 8:02 AM CDT - 10/07/2024 11:59 PM CDT Hospital Encounter [facility] [address] [place] [address] Nadeem Burrell MD Discharge Disposition: Home or Self Care 10/07/2024 8:02 AM CDT - 10/07/2024 11:59 PM CDT Hospital Encounter [facility] [address] [place] [address] Nadeem Burrell MD Discharge Disposition: Home or Self Care 09/19/2024 9:20 AM CDT Office Visit [facility] Pain Care [address] [facility] [address] [place] [address] Huber Matos MD Myofascial pain (Primary Dx); [...] Date Recorded Patient Health Questionnaire-2 Score 0 12/15/2024 [facility] Occupat ional Health - Occupational Stress [...] any time in the past 12 m [facility], were you homeless or living in a snf (including now)? No 04/19/2024 Comments Unknown Sex and Gender Information Value Date Recorded Sex Assigned at Not on file Legal Sex Female 2:16 PM ARTIFICIAL FLOWERS DYER Gender Identity Not on file Sexual Orientation Not on file Last Filed Vital Signs Vital Sign Reading Time Taken Comments Blood Pressure 143/58 11/15/2024 8:12 AM CDT Pulse 62 11/15/2024 8:12 AM CDT Temperature 36.5 C (97.7 F) 04/20/2024 7:48 AM ARTIFICIAL FLOWERS DYER Respiratory Rate 18 11/15/2024 8:12 AM CDT Oxygen Saturation 98% 11/15/2024 8:12 AM CDT Inhaled Oxygen Concentration - - Weight 83 kg (183 lb) 09/19/2024 9:28 AM CDT Height 157.5 cm (5' 2) 09/19/2024 9:28 AM CDT Body Mass Index 33.47 09/19/2024 9:28 AM CDT Plan of Treatment Upcoming Encounters Date Type Department Care Team (Late st Contact Info) Description 12/21/2024 3:40 PM CDT Office Visit [facility] Health Orthopedics [address] [place] [phone] [place] [address] [address] 02/16/2025 9:45 AM CDT Office Visit [facility] Pain Care [address] [place] [address]. [place] [address] [place] [address] [address] [id number] 05/08/2025 10:00 AM ARTIFICIAL FLOWERS DYER Office Visit [facility] Health Orthopedics [address] [place] [address] [place] [address] [address] [address] Health Maintenance Due Date Last Done Comments BONE DENSITY TESTING 1946 DTAP/TDAP/TD VACCINES (1 - Tdap) 1965 PNEUMOCOCCAL VACCINE 50+ (1 of 1 - PCV) 1996 ZOSTER VACCINE (1 of 2) 1996 Respiratory Syncytial Virus (RSV) Vaccine Pt: or over 60 yrs (1 - 1-dose 75+ series) 2021 COVID-19 VACCINE (1 - 2023- season) 2024 MEDICARE AWV CALENDAR YEAR 2024 INFLUENZA VACCINE (#1) 2025 , 02/16/2020, 07/16/2019, Additional history exists DEPRESSION SCREENING Completed 07/05/2024, 02/24/20 24 HEPATITIS C SCREENING Completed 10/17/2024 HEPATITIS B [...] this topic Medical Devices Implanted Type Area Refinery Operator Crude Unit Device Identifier Shelf Expiration Date Model / Serial / Lot Bsplt Glnd 30mm Rsp Shldr P2 Strl Lf Implanted:Qty: 1 on 09/29/2023 by Indigo Curtis MD at [facility] Right: Shoulder [facility] Orthopedics 09/14/2029 508-32-204 / / [id number] Stem Hum 48mm 6mm Sm Shl Implanted:Qty: 1 on 09/29/2023 by Indigo Curtis MD at [facility] Right: Shoulder DJ Orthopedics 03/07/2029 533-06-048 / / [id number] Head Glnd 32mm Rsp -4mm Ofst Shldr Rtn Implanted:Qty: 1 on 04/19/2024 by Indigo Curtis MD at [facility] Right: Shoulder DJ Orthopedics 03/27/2030 508-32-103 / / [id number] Altivate Reverse Torx Peripheral Screw, 26mm Implanted:Qty: 1 on 04/19/2024 by Indigo Curtis MD at [facility] Right: Shoulder DJ Orthopedics 02/17/2029 506-04-126 / / [id number] Altivate Reverse Rev Mod Central Screw, 8.0 X 40mm Implanted:Qty: 1 on 04/19/2024 by Indigo Curtis MD at [facility] Right: Shoulder DJ Orthopedics 07/27/2028 508-80-040 / / [id number] Altivate Reverse Torx Peripheral Screw, 30mm Implanted:Qty: 1 on 04/19/2024 by Indigo Curtis MD at [facility] Right: Shoulder DJ Orthopedics 10/14/2028 506-04-130 / / [id number] Altivate Reverse Torx Peripheral Screw, 18mm Implanted:Qty: 1 on 04/19/2024 by Indigo Curtis MD at [facility] Right: Shoulder DJ Orthopedics 02/10/2029 506-04-118 / / [id number] Altivate Reverse Torx Peripheral Screw, 22mm Implanted:Qty: 1 on 04/19/2024 by Indigo Curtis MD at [facility] Right: Shoulder DJ Orthopedics 09/13/2028 506-04-122 / / [id number] Revision Modular Baseplate And Taper Kit, 8.0mm Wedge Implanted:Qty: 1 on 04/19/2024 by Indigo Curtis MD at [facility] Right: Shoulder DJ Orthopedics 08/31/2028 508-80-001 / / [id number] Ins Sckt 32mm Altivate Rvrs +4mm Sm Ntrl Implanted:Qty: 1 on 04/19/2024 by Indigo Curtis MD at [facility] Right: Shoulder DJ Orthopedics 10/20/2027 509-02-432 / / [id number] Explanted Type Area Refinery Operator Crude Unit Device Identifier Shelf Expiration Date Model / Serial / Lot Screw 5mm 18mm Shldr Lck Rsp Glnd Bsplt Implanted:Qty: 1 on 09/29/2023 by Indigo Curtis MD at [facility] Explanted:Qty: 1 on 04/19/2024 by Indigo Curtis MD at [facility] Right: Shoulder DJ Orthopedics 06/10/2029 506-03-118 / / [id number] Screw 5mm 18mm Shldr Lck Rsp Glnd Bsplt Implanted:Qty: 1 on 09/29/2023 by Indigo Curtis MD at [facility] Explanted:Qty: 1 on 04/19/2024 by Indigo Curtis MD at [facility] Right: Shoulder DJ Orthopedics 05/21/2029 506-03-118 / / [id number] Screw 5mm 26mm Shldr Lck Rsp Glnd Bsplt Implanted:Qty: 1 on 09/29/2023 by Indigo Curtis MD at [facility] Explanted:Qty: 1 on 04/19/2024 by Indigo Curtis MD at [facility] Right: Shoulder DJ Orthopedics 05/18/2029 506-03-126 / / [id number] Screw 5mm 14mm Shldr Lck Rsp Glnd Bsplt Implanted:Qty: 1 on 09/29/2023 by Indigo Curtis MD at [facility] Explanted:Qty: 1 on 04/19/2024 by Indigo Curtis MD at [facility] Right: Shoulder DJ Orthopedics 08/11/2029 506-03-114 / / [id number] Head Glnd 32mm Rsp -4mm Ofst Shldr Rtn Implanted:Qty: 1 on 09/29/2023 by Indigo Curtis MD at [facility] Explanted:Qty: 1 on 04/19/2024 by Indigo Curtis MD at [facility] Right: Shoulder DJ Orthopedics 02/06/2029 508-32-103 / / [id number] Ins Sckt 32mm Altivate Rvrs +4mm Sm Implanted:Qty: 1 on 09/29/2023 by Indigo Curtis MD at [facility] Explanted:Qty: 1 on 04/19/2024 by Indigo Curtis MD at [facility] Right: Shoulder DJ Orthopedics 07/01/2028 509-03-432 / / [id number] Procedures Procedure Name Priority Date/Time Associated Diagnosis Comments XR SHOULDER RIGHT 2VW OR MORE Routine 12/06/2024 9:13 AM CDT Chronic right shoulder pain PAIN MANAGEMENT PROCEDURE TIME Routine 11/15/2024 8:06 AM CDT Lumbar spondylosis Lumbosacral spondylosis without myelopathy XR SHOULDER RIGHT 2VW OR MORE Routine 10/12/2024 9:19 AM CDT Status post reverse total shoulder replacement, right Chronic right shoulder pain from Last 3 Months Results * XR Shoulder Right 2Vw or More (12/06/2024 9:13 AM CDT) Only the most recent of2 resultswithin the time period is included. Narrative [facility] ORTHOPEDIC [place] [address] - 12/06/2024 9:13 AM CDT Please see progress note in Epic for results. us Indigo Curtis MD DIAGNOSTIC IMAGING ORDERABL ES Final Result [facility] [address] * PAIN MANAGEMENT PROCEDURE TIME (11/15/2024 8:06 AM CDT) Anatomical Region Laterality Modality X-Ray Angiograph y Narrative 11/15/2024 8:51 AM CDT Huber Matos MD 11/15/2024 8:53 AM Right L4-5 Facet Joint Injection Atiya Aguilera [id number] 11/15/2024 Allergies Allergies Allergen Reactions Latex Other blisters Cyclobenzaprine Shortness of Breath Keflex [Cephalexin] Nausea and/or Vomiting Oral form Levaquin [Levofloxacin] Nausea and/or Vomiting and Myalgias Toradol [Ketorolac] [place] [[place]edarwood Oil] Shortness of Breath Nystatin (Topical) Rash Azelastine Other Nose bleeds Benzocaine Skin Reactions Red swollen face Dust Mite Extract Rhinitis Ipratropium Endeavor Palpitations Ketorolac Tromethamine [Toradol] Nausea and/or Vomiting Neosporin Original [Hvopegah-Odyvumeoxq-Nqgpdthaz] Skin Reactions blisters X-Treme Freeze [Biofreeze] Palpitations [...] a routine sterile fashion using chloraprep. Responsible special events driver not needed as the patient is not [...] to home. Patient survey given. Procedure codes: 45787 Pre VAS 7-8/10 Post VAS 5-6/10 Huber Matos MD Huber Matos MD DIAGNOSTIC IMAGING ORDERABLE S Final Result from Last 3 Months Insurance [employer] MEDICARE ADV AETNA MEDICARE ADV Advance Directives Documents on File Type Date Recorded Patient Financial Institution Branch Manager Expl anation Adv Directive/Living Will/POA 09/02/2023 1:24 AM * Full Code (Latest Code Status on File) Date Activated Date Inactivated Comments 04/19/2024 1:09 PM 04/20/2024 1:57 PM Care Teams Senior Electrical Engineer Relationship Specialty Start Date End Date Lavern Monzon [address] [place] [address] PCP - General Reinforcing Steel Machine Operator 07/12/24 Indigo Curtis MD Orthopedic Surgery 04/14/12 Colton Hernán[place] [address] [place] [address] Orthopedic Surgery 10/21/13 [place] [address] [place] [address] Physical Medicine and Rehabilitation 09/22/18
--- OUTSIDE RECORDS SUMMARY | 2024-12-18 20:24 | XMS_ITS | Encounter Summary ---
Author Organization [facility] Address [facility] [place] [address] Care Team Providers Care Land Acquisition Manager Name Role Phone Lavern Monzno NP Primary Care Provider [phone] Encounter Details Date Type Department Care Team (Latest Contact Info) Description 06/16/2024 MyChart Message Enc [facility] [place] [address] [place], [place] [phone] Lavern Monzon NP [address] [place], [place] [id number] TOMORROW'S APPOINTMENT Social History Tobacco Use Types Packs/Day Years [...] Sex Assigned at Female 04/18/2024 4:24 PM SEED CUTTER Legal Sex Female 8:00 AM CDT Gender Identity Female 04/18/2024 4:24 PM SEED CUTTER Sexual Orientation Choose not to disclose 2024 7:30 AM CDT documented as of this encounter Functional Status * Over the past 2 weeks, how often have you been bothered by any of the following problems? Question Answer Date of Assessment Author Status Little interest or pleasure in doing things Several days 06/17/2024 12:42 PM SEED CUTTER Alena Luciano MA Active Feeling down, depressed, or hopeless Not at all 06/17/2024 12:42 PM SEED CUTTER Alena Luciano MA Active Patient Health Questionnaire-2 Score 1 06/17/2024 12:42 PM SEED CUTTER Alena Luciano MA Active documented as of this encounter Plan of Treatment Upcoming Encounters Date Type Department Care Team (Late st Contact Info) Description 12/21/2024 8:20 AM CDT [facility] [place] [address] [place] [address] Lavern Monzon NP [address] [facility] [address] [place] [address] 01/23/2025 8:10 AM CDT Laboratory Only [facility] [place] [address] [facility] [address] [place] [address] Lavern Monzon, MACHINE GROUP LEADER [address] [facility] [address] [place] [address] 04/19/2025 10:00 AM SEED CUTTER Office Visit [facility] [place] [address] [place] [address] Lavern Monzon MACHINE GROUP LEADER [address] [facility] [address] [place] [address] 04/19/2025 10:30 AM SEED CUTTER Office Visit [facility] [place] [address] [place] [address] Lavern Monzon, MACHINE GROUP LEADER [address] [place] [address] documented as of this encounter Visit Diagnoses Not on filedocumented in this encounter Additional Health Concerns Infection Onset Date Last Indicated Resolved Time COVID-19 Rule Out 07/25/2024 07/25/2024 07/25/2024 11:57 AM SEED CUTTER Influenza - Seasonal 07/25/2024 07/25/2024 025 12:32 AM SEED CUTTER documented as of this encounter Care Teams Land Acquisition Manager Relationship Specialty Start Date End Date Lavern Monzon, MACHINE GROUP LEADER [address] [place] [address] PCP - General NURSE PRACTITIONER 04/18/24 documented as of this encounter
--- OUTSIDE RECORDS SUMMARY | 2024-12-18 20:24 | XMS_ITS | Encounter Summary ---
Author Organization [facility] Address [address] [place] [address] Care Team Providers Care Icu Registered Nurse Name Role Phone Indigo Curtis MD Unavailable Colton Hernández MD Unavailable [phone] Ida Bailey MD Primary Care Provider [phone] Antonio Santillan MD Primary Care Provider [phone] Hiram Fontenot MD Primary Care Provider [phone] uHber Matos MD Unavailable [phone] Leah Barajas MD Primary Care Provider + [phone] Myrna Devi PA-C Unavailable [phone] Lavern Monzon Primary Care Provider [phone] Encounter Details Date Type Department Care Team (Late Contact Info) Description 06/04/2017 [facility] Out[facility] Visit [facility] [address] [phone] Unknown, Provider Social History Tobacco Use Types Packs/Day Years Used Date Smoking Tobacco: Never Assessed Comments Unknown Sex and Gender Information Value Date Recorded Sex Assigned at Not on file Legal Sex Female 2:16 PM [employer] Gender Identity Not on file Sexual Orientation Not on file documented as of this encounter Plan of Treatment Upcoming Encounters Date Type Department Care Team (Late Contact Info) Description 12/21/2024 3:40 PM CDT Office Visit [facility] [address] [facility], [address] [phone] [place] [address] [address] [address] 02/16/2025 9:45 AM CDT Office Visit [facility] [address] [place] [phone] [place] [address] [id number] 05/08/2025 10:00 AM [employer] Office Visit [facility] [id number] [place] [phone] [place] [address] [address] documented as of this encounter Visit Diagnoses Not on filedocumented in this encounter Care Teams Icu Registered Nurse Relationship Specialty [place] [address] [id number] PCP - General Family Medicine 05/29/16 07/13/17 Anotnio Santillan MD [address] [place] [phone] PCP - General Internal Medicine 07/14/17 02/08/18 Hiram Fontenot MD [address] [place] [phone] PCP - General 02/09/18 07/15/20 [place] [address] [address] [address] PCP - General Internal Medicine 10/08/20 07/11/24 Myrna Devi PA-C [address] [facility] [address] [place] [address] PCP - [facility] 10/13/22 07/02/23 Lavern Monzon [address] [place] [address] PCP - General Registered Mail Clerk 07/12/24 Indigo uCrtis MD Orthopedic Surgery 04/14/12 Colton Hernán[place] [address] [facility] [address] [address] [place] [address] Orthopedic Surgery 10/21/13 [place] [address] [place] [address] Physical Medicine and Rehabilitation 09/22/18 documented as of this encounter
--- OUTSIDE RECORDS SUMMARY | 2024-12-18 20:24 | XMS_ITS | Clinical Summary ---
Author Organization [facility] Address [facility] [place] [address] Care Team Providers Care Software Applications Architect Name Role Phone Lavern Monzon RN DOCUMENTATION Primary Care Provider [phone] Allergies Active Allergy Reactions Criticality Noted Date Comments Azelastine Other (see comment) 08/27/2023 Nose bleeds Benzocaine Rash Low 05/29/2016 Red swollen face Bolivar Shortness of Breath High 08/27/2023 Celecoxib Other (see comment),Hives,Swelli ng Medium 04/20/2024 Cephalexin Nausea and Vomiting 04/14/2012 Oral form Cyclobenzaprine Shortness of Breath High 08/27/2023 Doxycycline Nausea and Vomiting 04/28/2024 Patient notes nausea, skin crawling sensation, hot flashes and chills Dust Mite Extract Runny Nose 08/27/2023 Ipratropium Palpitations Low 08/27/2023 Ketorolac Tromethamine Nausea and Vomiting 03/16 Furosemide Rash Low 05/18/2024 Latex Rash Low 04/14/2012 blisters Levofloxacin Myalgias,Nausea and Vomiting 04/14/2012 Menthol (Topical Analgesic) Palpitations Low 08/27/2023 Flushing, red swollen face Neomycin-Bacitracin Zn-Polymyx Rash Low 08/27/2023 blisters Nystatin Rash Medium 10/21/2023 Sulfamethoxazole-Trimeth oprim Unknown 04/13/2024 Medications carboxymethylcellu lose PF (REFRESH PLUS) 0.5 % ophthalmic solution Apply 1 drop to eye daily as needed. Active fluticasone propionate (FLONASE) 50 MCG/ACT nasal spray 2 sprays by Nasal route daily. Active latanoprost (XALATAN) 0.005 % ophthalmic solution 1 drop. Active acetaminophen (TYLENOL) 500 MG tablet Take 2 tablets (1,000 mg total) by mouth. 04/19/20 24 Active Multiple Vitamins-Minerals (CENTRUM ADULT OR) A ctive LYMPHEDEMA PUMP, DME,Indications:Lo calized edema Apply 1 Device topically 2 (two) times daily. 1 Device 1 06/17/19 25 Active methocarbamol (ROBAXIN) 500 MG tabletIndications: Chronic shoulder pain, unspecified laterality Take 2 tablets (1,000 mg total) by mouth 2 (two) times daily as needed. 120 tablet 1 07/08/19 25 Active ondansetron (ZOFRAN-ODT) 4 MG disintegrating tabletIndications: Nausea Take 1 tablet (4 mg total) by mouth every 6 (six) hours as needed for Nausea. 30 tablet 2 07/25/19 25 Active levocetirizine (XYZAL) 5 MG tablet Take 1 tablet (5 mg total) by mouth daily. 09/01/19 25 Active albuterol sulfate HFA 108 (90 Base) MCG/ACT inhalerIndications :Wheezing Inhale 2 puffs into the lungs every 6 (six) hours as needed. 18 g 1 09/27/19 25 Active hydroCHLOROthiazid e (MICROZIDE) 12.5 MG capsuleIndications :Localized edema TAKE 1 CAPSULE(12.5 MG) BY MOUTH TWICE DAILY 180 capsule 1 10/12/19 25 Active lisinopril (PRINIVIL) 40 MG tabletIndications: Primary hypertension TAKE 1 TABLET(40 MG) BY MOUTH DAILY 30 tablet 2 10/13/19 25 Active pravastatin (PRAVACHOL) 40 MG tabletIndications: Mixed hyperlipidemia TAKE 1 TABLET(40 MG) BY MOUTH DAILY 30 tablet 2 10/13/19 25 Active valACYclovir (VALTREX) 1 g tabletIndications: Fever blister Take 1 tab by mouth 2 times daily x 2 days for fever blisters. Use ROSEMARY at onset of symptoms. Repeat as needed 20 tablet 1 11/11/19 25 Active amLODIPine (NORVASC) 2.5 MG tabletIndications: Primary hypertension Take 1 tablet (2.5 mg total) by mouth daily. 30 tablet 1 11/25/19 25 Active amLODIPine (NORVASC) 2.5 MG tabletIndications: Primary hypertension TAKE 1 TABLET(2.5 MG) BY MOUTH DAILY 30 tablet 1 09/26/19 25 025 Discontin ued(Reord er) Active Problems Problem Noted Date Diagnosed Date H/O colectomy 10/17/2024 Hypo-osmolality and hyponatremia 09/23/2024 Impaired fasting glucose 09/23/2024 Other specified disorders of bone density and structure, unspecified site 09/23/2024 Pure hyperglyceridemia 09/23/2024 Primary open angle glaucoma (POAG) of both eyes, indeterminate stage 07/20/2024 DDD (degenerative disc disease), cervical 2024 Lymphedema 06/27/2024 Chronic pain of left ankle 06/01/2024 Localized edema 06/01/2024 Essential (primary) hypertension 05/18/2024 History of colonic diverticulitis 05/18/2024 Osteopenia, unspecified location 05/18/2024 Venous insufficiency 05/18/2024 Hyperlipidemia, unspecified 05/18/2024 Abnormal results of thyroid function studies 09/2023 Allergic rhinitis, unspecifi ed seasonality, unspecified trigger 05/18/2024 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 05/18/2024 Frequent nosebleeds 05/18/2024 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 04/19/2024 Primary osteoarthritis of left knee 05/29/2016 Resolved Problems Problem Noted Date Diagnosed Date Resolved Date Chest pain, unspecified 09/23/2024 05/0 10/2024 Chills (without fever) 09/23/202410/17 Encounter for screening for diseases of the blood and blood-forming organs and certain disorders involving the immune mechanism 09/23/2024 09/23/2024 Encounter for screening for other metabolic disorders 09/23/2024 09/23/2024 Encounter for screening for other suspected endocrine disorder 09/23/2024 09/23/2024 Encounter for screening mamm ogram for malignant neoplasm of breast 09/23/2024 09/26/2024 Local infection of the skin and subcutaneous tissue, unspecified 09/23/2024 10/17/2024 Localized swelling, mass and lump, lower limb, bilateral 09/23/2024 09/23/2024 Unspecified open wound of ri ght hand, initial encounter 09/23/2024 09/23/2024 Unspecified open wound, righ t lower leg, initial encounter 09/23/2024 09/23/2024 Encounters Date Type Department Care Team Description 12/09/2024 [facility] [place] [address] [facility] [address] [place] [address] Lavern Monzon, RN DOCUMENTATION BONE DENSITY GENERIC (SCAN ORDER) 11/29/2024 Scan [employer] SRVCS Scanned, Doc [facility] Bone Density Report (SCAN) 11/21/2024 MyChart Message Enc [place] [address] [facility] [address] [place] [address] Lavern Monzon, RN DOCUMENTATION LIP UNHEALED 11/10/2024 1:20 PM CDT Office Visit [place] [address] [place] [address] Lavern Monzon, RN DOCUMENTATION Mouth/Lip Problem 11/10/2024 MyChart Message Enc [place] [address] [facility] [address] [place] [address] Lavern Monzon, RN DOCUMENTATION BLOOD PRESSURE 11/10/2024 Travel 10/20/2024 MyChart Message [facility] [place] [address] [facility] [address] [place] [address] Lavern Monzon, RN DOCUMENTATION colonoscopy 10/19/2024 Results [facility] [place] [address] [place] [address] Lavern Monzon, RN DOCUMENTATION ENA2 (SSA & SSB), VITAMIN B-12, FOLIC ACID SERUM, Additional followed-up results: 8 10/18/2024 Telephone [facility] [place] [address] [facility] [address] [place] [address] Lavern Monzon, RN DOCUMENTATION Record Request 10/17/2024 8:00 AM CDT [facility] [address] [place] [address] Lavern Monzon, RN DOCUMENTATION Hypertension 10/17/2024 - 10/17/2024 11:59 PM CDT [facility] [address] [place] [address] Discharge Disposition: Home or Self Care (Routine Discharge) 10/17/2024 MyChart Message Enc [facility] [address] [facility] [address] [place] [address] Lavern Monzon, RN DOCUMENTATION APPOINTMENTS 10/17/2024 Orders Only [facility] [address] [facility] [address] [place] [address] Karen Tripathi MA 10/17/2024 Travel 10/13/2024 Patient Out[facility] [address] [place] [address] Lavern Monzon, TREV Pre-visit Gap Closure 09/23/2024 9:40 AM CDT [facility] [address] [facility] [address] [place] [address] Lavern Monzon, RN DOCUMENTATION Cough (Pt states she thinks she has a URI pt has had symptoms for 1 week . /Pt using OTC mucinex ); Congestion (/) 09/23/2024 Travel 09/19/2024 Scan [employer] INFO SRVCS Scanned, Doc Med Group from Last 3 Months Immunizations Immunization Administration Dates Next Due FLUAD (IIV, Trivalent, 0.5 M L Pre-filled Syringe) 03/23/2017 Fluzone High Dose (IIV, triv alent, 0.5mL) 03/09/2024,04/06/2019,04/08/2018,2015,03/19/2015 Fluzone High Dose - >Age 65 (Prefilled Syringe) 04/06/2023,03/11/2022,02/13/2021,2019 Influenza (Generic) 04/23/2016 Influenza Adult (Generic) 07/16/2019 PFIZER COVID-19 (12+) MRNA, LNP-S, PF, YANG-SUCROSE, 30 MCG/0.3 ML (COMIRNATY) 12/07/2023 Pneumococcal (Pneumovax 23) 04/12/2020 Pneumococcal (Prevnar 13) 04/06/2019 Rotavirus (Generic) 07/20/2024 Shingrix 02/04/2023,10/10/2022 Tdap (Generic) 03/23/2021 Family History Medical History Relation Comments Cancer Maternal Grandfather lung/deceas ed Early Hearing Loss Maternal Grandfather Heart Disease Maternal Grandfather Hypertension Maternal Grandmother heard attac k/ Arthritis Mother Depression Mother Hypertension Mother Stroke Mother Cancer Paternal Grandfather hodgkins/de ceased Cancer Paternal Grandmother colon/decea sed Relation Status Comments Maternal Grandfather Maternal Grandmother Mother Paternal Grandfather Paternal Grandmother Social History Tobacco Use Types Packs/Day Years Used Date Smoking Tobacco: Never Passive Smoke Exposure: Never Smokeless Tobacco: Never Tobacco Cessation:Counseling Given: No Alcohol Use Standard Drinks/Week Comments Not Currently 0 (1 standard drink = 0.6 oz pure alcohol) 2-3 beers/year; 1 glass of wine/year; 1 vodka tonic/year PHQ-2 Answer Date Recorded Patient Health Questionnaire-2 Score 1 06/17/2024 Comments No Sex and Gender Information Value Date Recorded Sex Assigned at Female 04/18/2024 4:24 PM TAXI DRIVER Legal Sex Female 8:00 AM CDT Gender Identity Female 04/18/2024 4:24 PM TAXI DRIVER Sexual Orientation Choose not to disclose 2024 7:30 AM CDT Last Filed Vital Signs Vital Sign Reading Time Taken Comments Blood Pressure 190/82 11/10/2024 3:46 PM CDT Pulse 61 11/10/2024 1:11 PM CDT Temperature 36.6 C (97.8 F) 11/10/2024 1:11 PM CDT Respiratory Rate 16 11/10/2024 1:11 PM CDT Oxygen Saturation 100% 11/10/2024 1:11 PM CDT Inhaled Oxygen Concentration - - Weight 87.1 kg (192 lb) 11/10/2024 1:11 PM CDT Height 157.5 cm (5' 2) 11/10/2024 1:11 PM CDT Body Mass Index 35.12 11/10/2024 1:11 PM CDT Plan of Treatment Upcoming Encounters Date Type Department Care Team (Late st Contact Info) Description 12/21/2024 8:20 AM CDT [facility] [place] [address] [place] [address] Lavern Monzon, TREV [address] [facility] [address] [place] [address] 01/23/2025 8:10 AM CDT Laboratory Only [facility] [place] [address] [facility] [address] [place] [address] Lavern Monzon, RN DOCUMENTATION [address] [facility] [address] [place] [address] 04/19/2025 10:00 AM TAXI DRIVER [facility] [place] [address] [facility] [address] [place] [address] Lavern Monzon, RN DOCUMENTATION [address] [facility] [address] [place] [address] 04/19/2025 10:30 AM TAXI DRIVER [facility] [address] [place] [address] Lavern Monzon, RN DOCUMENTATION [address] [facility] [address] [place] [address] Health Maintenance Due Date Last Done Comments Annual Medicare Wellness Visit 08/18/2011 RSV Immunization or 60+ Years (1 - 1-dose 75+ series) 2021 COVID-19 Vaccine ( season) 2025 03/09/2024, 12/07/2023, 05/19/2023, Additional history exists Postponed from 09/06/2024 (Patient Refused) DTaP, Tdap and Td Vaccines (2 - Td or Tdap) 03/23/2031 03/23/2021 Colorectal Cancer Screening Colonoscopy (10 Years) Discontinued 02/08/2018 Pneumococcal Vaccine: 50+ Years Completed 04/12/2020, 04/06/2019 Zoster Vaccines Completed 02/04/2023, 10/10/2022 PHQ-2 (Physician Posey) Completed 06/17/2024 Hepatitis C Completed 10/17/2024 Dexa Scan (General) Completed 11/29/2024, Meningococcal B Vaccine Aged Out No l onger eligible based on patient's age to complete this topic Meningococcal Vaccine Aged Out No sherlyn bill eligible based on patient's age to complete this topic RSV Immunizations Under 20 Months Aged Out No longer eligible based on patient's age to complete this topic Procedures Procedure Name Priority Date/Time Associated Diagnosis Comments BONE DENSITY GENERIC (SCAN ORDER) 11/29/2024 HEPATITIS C ANTIBODY Routine 10/17/2024 9:01 AM CDT Need for hepatitis C screening test ALBUMIN URINE RANDOM W/CREATININE Routine 10/17/2024 9:01 AM CDT Primary hypertension URINALYSIS, AUTO, COMPLETE Routine 10/17/2024 9:01 AM CDT Primary hypertension VITAMIN D, 25 OH Routine 10/17/2024 9:01 AM CDT Vitamin D deficiency TSH W/REFLEX Routine 10/17/2024 9:01 AM CDT Primary hypertension LIPID PANEL Routine 10/17/2024 9:01 AM CDT Primary hypertension COMPREHENSIVE METABOLIC PANEL Routine 10/17/2024 9:01 AM CDT Primary hypertension CBC W/DIFF AUTOMATED Routine 10/17/2024 9:01 AM CDT Primary hypertension FOLIC ACID SERUM Routine 10/17/2024 9:01 AM CDT Lip pain VITAMIN B-12 Routine 10/17/2024 9:00 AM CDT Lip pain ENA2 (SSA & SSB) Routine 10/17/2024 9:00 AM CDT Dry mouth XR CHEST PA+LAT Routine 09/23/2024 11:07 AM CDT Abnormal lung sounds COLONOSCOPY GENERIC (SCAN ORDER) 02/08/2018 from Last 3 Months or Most Recently Relevant to Health Maintenance Results * BONE DENSITY GENERIC (SCAN ORDER) (11/29/2024) Anatomical Region Laterality Modality Other 11/29/2024 us Doc [facility] Scanned SCANNING Final Resu lt * TSH W/REFLEX (10/17/2024 9:01 AM CDT) TSH 3.723 0.358 - 3.740 uIU/ML 10/17/2024 3:30 PM CDT [facility] 10/17/2024 9:01 AM CDT Lavern Monzon RN DOCUMENTATION LABORATORY Final Resul t [facility] [address] [place] [address], * (ABNORMAL) URINALYSIS (10/17/2024 9:01 AM CDT) COLOR (U) YELLOW 10/17/2024 3:32 PM CDT [facility] TRANSPARENCY CLOUDY(A) CLEAR 10/17/2024 3:32 PM CDT [facility] SPECIFIC GRAVITY (U) 1.010 1.003 - 1.040 10/17/2024 3:32 PM CDT [facility] U PH 8.0 5.0 - 9.0 10/17/2024 3:32 PM CDT [facility] PROTEIN RANDOM (U) NEGATIVE NEGATIVE 10/17/2024 3:32 PM CDT [facility] GLUCOSE (U) NEGATIVE NEGATIVE 10/17/2024 3:32 PM T [facility] KETONES MG/DL (U) NEGATIVE NEGATIVE 10/17/2024 3:32 PM T [facility] BILIRUBIN (U) NEGATIVE NEGATIVE 10/17/2024 3:32 PM T [facility] BLOOD (U) NEGATIVE NEGATIVE 10/17/2024 3:32 PM T [facility] UROBILINOGEN 0.2 0.0 - 2.0 EU/DL 10/17/2024 3:32 PM CDT [facility] NITRITES NEGATIVE NEGATIVE 10/17/2024 3:32 PM T [facility] LEUKOCYTES (U) NEGATIVE NEGATIVE 10/17/2024 3:32 PM CDT [facility] RBC/HPF 0-3 0 - 3 /HPF 10/17/2024 3:32 PM CDT [facility] WBC/HPF 0-3 0 - 3 /HPF 10/17/2024 3:32 PM CDT [facility] EPI/HPF 0-3 /HPF 10/17/2024 3:32 PM CDT [facility] BACTERIA (U) NONE SEEN NONE SEEN 10/17/2024 3:32 PM CDT [facility] AMORPHOUS SEDIMENT PRESENT 10/17/2024 3:32 PM CDT [facility] TRIPLE PHOSPHATE CRYSTALS PRESENT 10/17/2024 3:32 PM CDT [facility] URINE SPECIMEN OBTAINED BY CLEAN CATCH PROCEDURE / Unknown 10/17/2024 9:01 AM CDT Lavern Monzon RN DOCUMENTATION URINE ORDERABLES Final Resu lt Performing Organization Address [facility] Co de Phone Number [facility] [address] [place] [address], [place] [phone] * ALBUMIN/CREATININE RATIO, RANDOM URINE (10/17/2024 9:01 AM CDT) MICROALBUMIN (U) 7.8 <20 MG/L 10/18/19 3:54 PM CDT [facility] CREATININE RANDOM (U) 131.4 MG/DL 10/17/2024 3:54 PM CDT [facility] ALBUMIN/CREAT RATIO 5.9 <30 MG/G 10/17/2024 3:54 PM CDT [facility] URINE SPECIMEN / Unknown 10/17/2024 9:01 AM CDT Lavern Monzon NP URINE ORDERABLES Final Resu lt Performing Organization Address [facility] Co de Phone Number [facility] [address] [place] [address], [place] [phone] * (ABNORMAL) COMPREHENSIVE METABOLIC PANEL (10/17/2024 9:01 AM CDT) SODIUM S/P/B 134(L) 136 - 145 MMOL/L 10/17/2024 3:38 PM CDT [facility] Comment:RESULT VERIFIED POTASSIUM S/P/B 4.6 3.5 - 5.1 MMOL/L 10/17/2024 3:38 PM CDT [facility] CHLORIDE S/P/B 98 98 - 107 MMOL/L 10/17/2024 3:38 PM CDT [facility] CO2 32.8(H) 21 - 32 MMOL/L 10/17/2024 3:38 PM CDT [facility] Comment:RESULTS CONFIRMED-TE ST REPEATED GLUCOSE 96 70 - 99 MG/DL 10/17/2024 3:30 PM CDT [facility] BUN 14 7 - 18 MG/DL 10/17/2024 3:30 PM T [facility] CREATININE S/P/B 0.69 0.55 - 1.02 MG/DL 10/17/2024 3:30 PM CDT [facility] CALCIUM S/P/B 9.4 8.4 - 10.5 MG/DL 10/17/2024 3:30 PM T [facility] BILIRUBIN TOTAL S/P/B 0.6 0.2 - 1.0 MG/DL 10/17/2024 3:30 PM T [facility] ALKALINE PHOSPHATASE S/P/B 66 55 - 142 U/L 10/17/2024 3:30 PM T [facility] AST 11(L) 15 - 37 U/L 10/17/2024 3:30 PM T [facility] ALT 25 14 - 59 U/L 10/17/2024 3:30 PM T [facility] TOTAL PROTEIN S/P/B 6.5 6.4 - 8.2 G/DL 10/17/2024 3:30 PM T [facility] ALBUMIN S/P/B 3.4 3.4 - 5.0 G/DL 10/17/2024 3:30 PM T [facility] ANION GAP 3.2(L) 5 - 15 MMOL/L 10/17/2024 3:38 PM T [facility] Comment:REFERENCE RANGE NOT ESTABLISHED OSMOLALITY (CALC) 278 MOSM/KG 025 3:38 PM T [facility] Comment:REFERENCE RANGE NOT ESTABLISHED GFR ESTIMATE 89(L) >90 ML/MIN/1. 73 M2 10/17/2024 3:30 PM CDT [facility] GFR NOTES GFR REFERENCE S: 10/17/2024 3:30 PM T [facility] Comment: THE ESTIMATED GFR IS CALCULATED USING THE 2020 CKD-EPI EQUATION. THE FOLLOWING CATEGORIES FOR GRADING RENAL FUNCTION ARE RECOMMENDED BY THE INTERNATIONAL SOCIETY OF NEPHROLOGY (KDIGO 2012 CLINICAL PRACTICE GUIDELINE). G1,NORMAL OR HIGH: >89 ml/min/1.73 m2 G2,MILDLY DECREASED: 60-89 ml/min/1.73 m2 G3A,MILDLY TO MODERATELY DECREASED: 45-59 ml/min/1.73 m2 G3B,MODERATELY TO SEVERELY DECREASED: 30-44 ml/min/1.73 m2 G4,SEVERELY DECREASED: 15-29 ml/min/1.73 m2 G5,KIDNEY FAILURE: <15 ml/min/1.73 m2 10/17/2024 9:01 AM CDT us Lavern Monzon RN DOCUMENTATION LABORATORY Final Resul t [facility] [address] [place] [address], * LIPID PANEL (10/17/2024 9:01 AM CDT) CHOLESTEROL 179 <200 MG/DL 10/17/2024 3:30 PM CDT [facility] TRIGLYCERIDES 29 <150 MG/DL 10/17/2024 3:30 PM CDT [facility] HDL 103 >40 MG/DL 10/17/2024 3:30 PM CDT [facility] LDL-C 70 <100 MG/DL 10/17/2024 3:30 PM CDT [facility] VLDL CALCULATION 6 5 - 28 MG/DL 10/17/2024 3:30 PM CDT [facility] CHOL/HDL RATIO 1.7 0.0 - 4.0 10/17/2024 3:30 PM CDT [facility] LDL/HDL 0.7 0.41 - 2.13 10/17/2024 3:30 PM CDT [facility] NON HDL CHOLESTEROL 76 <140 MG/DL 10/17/2024 3:30 PM CDT [facility] 10/17/2024 9:01 AM CDT Lavern Monzon NP LABORATORY Final Resul t [facility] [address] [place] [address], [place] [phone] * HEPATITIS C ANTIBODY (10/17/2024 9:01 AM CDT) HEPATITIS C AB NON-REACTI VE NON-REACT DANNY 10/17/2024 8:01 PM CDT [facility] Comment: ANTIBODIES TO HCV NOT DETECTED. DOES NOT EXCLUDE THE POSSIBILITY OF EXPOSURE TO HCV. 10/17/2024 9:01 AM CDT us Lavern Monzon NP LABORATORY Final Resul t [facility] [address] [place] [address], [place] [phone] * FOLIC ACID SERUM (10/17/2024 9:01 AM CDT) FOLATE >20.0 8.6 - 58.9 NG/ML 10/18/2024 11:26 AM CDT [facility] 10/17/2024 9:01 AM CDT us Lavern Monzon NP LABORATORY Final Resul t [facility] [address] [place] [address], * (ABNORMAL) CBC W/DIFF AUTOMATED (10/17/2024 9:01 AM CDT) [facility] WBC 6.00 4.00 - 10.80 x10'3/uL 10/17/2024 2:51 PM CDT [facility] RBC 4.53 4.10 - 5.40 x10'6/uL 10/17/2024 2:51 PM CDT [facility] HGB 13.7 12.0 - 16.0 G/DL 10/17/2024 2:51 PM CDT [facility] HCT 41.8 36.0 - 47.0 % 10/17/2024 2:51 PM CDT [facility] MCV 92.3 78.0 - 100.0 FL 10/17/2024 2:51 PM CDT [facility] MCH 30.2 27.0 - 31.0 PG 10/17/2024 2:51 PM CDT [facility] MCHC 32.8(L) 33.0 - 36.0 G/DL 10/17/2024 2:51 PM CDT [facility] RDW 15.7(H) 11.5 - 14.5 % 10/17/2024 2:51 PM CDT [facility] PLT 224 150 - 350 x10'3/uL 10/17/2024 2:51 PM CDT [facility] MPV 10.1 7.4 - 10.4 FL 10/17/2024 2:51 PM CDT [facility] DIFFERENTIAL TYPE AUTOMATED DIFFERENTIAL 10/17/2024 2:51 PM T [facility] NEUTROPHILS % 67.8 % 10/17/2024 2:51 PM CDT [facility] LYMPHOCYTES % 20.8 % 10/17/2024 2:51 PM CDT [facility] MONOCYTES % 9.5 % 10/17/2024 2:51 PM CDT [facility] EOSINOPHILS % 1.0 % 10/17/2024 2:51 PM CDT [facility] BASOPHILS % 0.7 % 10/17/2024 2:51 PM CDT [facility] IMMATURE GRANS % 0.2 % 10/17/2024 2:51 PM CDT [facility] ABS. NEUTROPHILS 4.07 1.60 - 8.30 x10'3/uL 10/17/2024 2:51 PM CDT [facility] ABS. LYMPHOCYTES 1.25 0.80 - 4.70 x10'3/uL 10/17/2024 2:51 PM CDT [facility] ABS. MONOCYTES 0.57 0.00 - 1.50 x10'3/uL 10/17/2024 2:51 PM CDT [facility] ABS. EOSINOPHILS 0.06 0.00 - 0.40 x10'3/uL 10/17/2024 2:51 PM CDT [facility] ABS. BASOPHILS 0.04 0.00 - 0.20 x10'3/uL 10/17/2024 2:51 PM CDT [facility] ABS. IMMATURE GRANULOCYTES 0.01 0.00 - 0.03 x10'3/uL 10/17/2024 2:51 PM CDT [facility] 10/17/2024 9:01 AM CDT us Lavern Monzon NP LABORATORY Final Resul t [facility] [address] [place] [address], * VITAMIN D, 25 OH (10/17/2024 9:01 AM CDT) VITAMIN D 25 HYDROXY TOTAL S/P/B 57.2 30 - 100 NG/ML 10/17/2024 3:30 PM CDT [facility] Comment: DEFICIENT <20 INSUFFICIENT 20-30 SUFFICIENT 30-100 10/17/2024 9:01 AM CDT Lavern Monzon NP LABORATORY Final Resul t [facility] [address] [place] [address], [place] [phone] * ENA2 (SSA & SSB) (10/17/2024 9:00 AM CDT) SSA ANTIBODY <0.4 0.0 - 6.9 U/mL 10/19/2024 11:27 AM CDT [facility] Comment: NEGATIVE: <7 U/mL EQUIVOCAL: 7 to 10 u/mL POSITIVE: >10 U/mL SSA AND/OR SSB AUTOANTIBODIES ARE DETECTED IN 60% TO 90% OF PATIENTS WITH SJOGREN'S SYNDROME AND IN 20% TO 40% OF PATIENTS WITH SYSTEMIC LUPUS ERYTHEMATOSUS. SSB ANTIBODY <0.4 0.0 - 6.9 U/mL 10/19/2024 11:27 AM CDT [facility] Comment: NEGATIVE: <7 U/mL EQUIVOCAL: 7 to 10 u/mL POSITIVE: >10 U/mL SSA AND/OR SSB AUTOANTIBODIES ARE DETECTED IN 60% TO 90% OF PATIENTS WITH SJOGREN'S SYNDROME AND IN 20% TO 40% OF PATIENTS WITH SYSTEMIC LUPUS ERYTHEMATOSUS. 10/17/2024 9:00 AM CDT us Lavern Monzon NP LABORATORY Final Resul t [facility] [address] [place] [address], [place] [phone] [id number] * VITAMIN B-12 (10/17/2024 9:00 AM CDT) VITAMIN B12 S/P/B 955 245 - 986 PG/ML 10/17/2024 3:36 PM CDT [facility] 10/17/2024 9:00 AM CDT Lavern Monzon RN DOCUMENTATION LABORATORY Final Resul t [facility] [place] [address] [facility] [facility] [address] [place] [address], * XR CHEST PA+LAT (09/23/2024 11:07 AM CDT) Anatomical Region Laterality Modality Chest Radiographic Anastacia ging 09/23/2024 11:2 9 AM CDT Impressions 09/23/2024 11:29 AM CDT IMPRESSION: No acute findings Ordered By: LAVERN MONZON Interpreted By: Alejandro Miller MD, 09/23/2024 11:29 AM Narrative 09/23/2024 11:29 AM CDT [facility] [place] [address] 2 VIEWS OF THE CHEST Clinical history: Cough, wheezing Comparison: None 2 views of the chest demonstrate the cardiac silhouette to be normal in size and appearance. The pulmonary vessels appear normal. The Lungs are clear. No consolidations or effusions are seen. Procedure Note Alejandro Miller MD - 09/23/2024 [facility] [place] [address] 2 VIEWS OF THE CHEST Clinical history: Cough, wheezing Comparison: None 2 views of the chest demonstrate the cardiac silhouette to be normal insize and appearance. The pulmonary vessels appear normal. The Lungs areclear. No consolidations or effusions are seen. IMPRESSION: No acute findings Ordered By: LAVERN MONZON Interpreted By: Alejandro Miller MD, 09/23/2024 11:29 AM us Lavern Monzon NP GENERAL IMAGING Final Resul t * COLONOSCOPY GENERIC (SCAN ORDER) (02/08/2018) 02/08/2018 [facility] Scanned SCANNING Final Resu lt from Last 3 Months or Most Recently Relevant to Health Maintenance Insurance [employer] Care Teams Software Applications Architect Relationship Specialty Start Date End Date Lavern Monzon, RN DOCUMENTATION [address] [place] [address] PCP - General NURSE PRACTITIONER 04/18/24
--- OUTSIDE RECORDS SUMMARY | 2024-12-18 20:24 | XMS_ITS | Encounter Summary ---
Author Organization [facility] Address [facility] [place] [address] Care Team Providers Care Hydrogen Treater Name Role Phone Lavern Monzon NP Primary Care Provider +1 [phone] Encounter Details Date Type Department Care Team (Late st Contact Info) Description 11/21/2024 MyChart Message Enc [facility] [place] [address] [place], [place] [id number] Lavern Monzon HOUSING MANAGEMENT REPRESENTATIVE [address] [place], [place] [id number] LIP UNHEALED Social History Tobacco Use Types Packs/Day Years [...] Sex Assigned at Female 04/18/2024 4:24 PM ENGRAVER SIGNATURE Legal Sex Female 8:00 AM CDT Gender Identity Female 04/18/2024 4:24 PM ENGRAVER SIGNATURE Sexual Orientation Choose not to disclose 2024 7:30 AM CDT documented as of this encounter Plan of Treatment Upcoming Encounters Date Type Department Care Team (Late st Contact Info) Description 12/21/2024 8:20 AM CDT Office Visit [facility] [place] [address] [place] [address] Lavern Monzon HOUSING MANAGEMENT REPRESENTATIVE [address] [place] [address] 01/23/2025 8:10 AM CDT Laboratory Only [facility] [place] [address] [place] [address] Lavern Monzon, HOUSING MANAGEMENT REPRESENTATIVE [address] [facility] [address] [place] [address] 04/19/2025 10:00 AM ENGRAVER SIGNATURE [facility] [place] [address] [facility] [address] [place] [address] Lavern Monzon NP [address] [facility] [address] [place] [address] 04/19/2025 10:30 AM ENGRAVER SIGNATURE [facility] [place] [address] [facility] [address] [place] [address] Lavern Monzon NP [address] [facility] [address] [place] [address] documented as of this encounter Visit Diagnoses Not on filedocumented in this encounter Care Teams Hydrogen Treater Relationship Specialty Start Date End Date Lavern Monzon HOUSING MANAGEMENT REPRESENTATIVE [address] [place] [address] PCP - General NURSE PRACTITIONER 04/18/24 documented as of this encounter
--- OUTSIDE RECORDS SUMMARY | 2024-12-18 20:24 | XMS_ITS | Encounter Summary ---
Author Organization [facility] Address [facility] [place] [address] Care Team Providers Care Forestry Contractor Name Role Phone Lavern Monzon NP Primary Care Provider +1 [phone] Encounter Details Date Type Department Care Team (Late st Contact Info) Description 07/07/2024 MyChart [facility] [address] [place], [place] [address] Lavern Monzon AUTOMATIC GLOVE TURNER AND FORMER [address] [place], [place] [id number] SHOULDER UPDATE Social History Tobacco Use Types Packs/Day Years [...] Sex Assigned at Female 04/18/2024 4:24 PM FOREST MANAGER Legal Sex Female 8:00 AM CDT Gender Identity Female 04/18/2024 4:24 PM FOREST MANAGER Sexual Orientation Choose not to disclose 2024 7:30 AM CDT documented as of this encounter Plan of Treatment Upcoming Encounters Date Type Department Care Team (Late st Contact Info) Description 12/21/2024 8:20 AM CDT [facility] [address] [place] [address] Lavern Monzon, AUTOMATIC GLOVE TURNER AND FORMER [address] [facility] [address] [place] [address] 01/23/2025 8:10 AM CDT Laboratory Only [facility] [place] [address] [facility] [address] [place] [address] Lavern Monzon, AUTOMATIC GLOVE TURNER AND FORMER [address] [facility] [address] [place] [address] 04/19/2025 10:00 AM FOREST MANAGER [facility] [place] [address] [address] [facility] [address] [place] [address] Lavern Monzon, AUTOMATIC GLOVE TURNER AND FORMER [address] [facility] [address] [place] [address] 04/19/2025 10:30 AM FOREST MANAGER [facility] [place] [address] [address] [facility] [address] [place] [address] Lavern Monzon, AUTOMATIC GLOVE TURNER AND FORMER [address] [facility] [address] [place] [address] documented as of this encounter Visit Diagnoses Not on filedocumented in this encounter Additional Health Concerns Infection Onset Date Last Indicated Resolved Time COVID-19 Rule Out 07/25/2024 07/25/2024 07/25/2024 11:57 AM FOREST MANAGER Influenza - Seasonal 07/25/2024 07/25/2024 025 12:32 AM FOREST MANAGER documented as of this encounter Care Teams Forestry Contractor Relationship Specialty Start Date End Date Lavern Monzon, AUTOMATIC GLOVE TURNER AND FORMER [address] [facility] [address] [place] [address] PCP - General NURSE PRACTITIONER 04/18/24 documented as of this encounter
--- OUTSIDE RECORDS SUMMARY | 2024-12-18 20:24 | XMS_ITS | Encounter Summary ---
Author Organization [facility] Address [facility] [place] [address] Care Team Providers Care Therapeutic Consultant Name Role Phone Lavern Monzon NP Primary Care Provider +1 [phone] Encounter Details Date Type Department Care Team (Late st Contact Info) Description 11/10/2024 MyChart Message Enc [facility] [address] [place], [place] [address] Lavern oMnzon COTTON EXPERT [address] [place], [place] [address] BLOOD PRESSURE Social History Tobacco Use Types Packs/Day Years [...] Sex Assigned at Female 04/18/2024 4:24 PM INCIDENT COORDINATOR Legal Sex Female 8:00 AM CDT Gender Identity Female 04/18/2024 4:24 PM INCIDENT COORDINATOR Sexual Orientation Choose not to disclose 2024 7:30 AM CDT documented as of this encounter Plan of Treatment Upcoming Encounters Date Type Department Care Team (Late st Contact Info) Description 12/21/2024 8:20 AM CDT [facility] [address] [place] [address] Lavern Monzon COTTON EXPERT [address] [facility] [address] [place] [address] 01/23/2025 8:10 AM CDT Laboratory Only [facility] [place] [address] [place] [address] Lavern Monzon, COTTON EXPERT [address] [facility] [address] [place] [address] 04/19/2025 10:00 AM INCIDENT COORDINATOR [facility] [place] [address] [facility] [address] [place] [address] Lavern Monzon NP [address] [facility] [address] [place] [address] 04/19/2025 10:30 AM INCIDENT COORDINATOR [facility] [place] [address] [address] [facility] [address] [place] [address] Lavern Monzon NP [address] [facility] [address] [place] [address] documented as of this encounter Visit Diagnoses Not on filedocumented in this encounter Care Teams Therapeutic Consultant Relationship Specialty Start Date End Date Lavern Monzon COTTON EXPERT [address] [place] [address] PCP - General NURSE PRACTITIONER 04/18/24 documented as of this encounter
--- OUTSIDE RECORDS SUMMARY | 2024-12-18 20:24 | XMS_ITS ---
Author Organization [facility] [place] ([address]) Address [address] [place] [address] Care Team Providers Care Conservation Enforcement Officer Name Role Phone Leah Barajas Primary Care Provider UnavailCaroline Ellsworth Unavailable [phone] ZZ-Migration, Provider Unavailable Unavailab le Allergies Allergen (clinical drug ingredient) Drug/Non Drug Allergy documented on EMR Reaction Allergy Type Onset Date Status KEFLEX (uncoded) unknown reaction Allergy Active PROLONG CONTACT TO LATEX (uncoded) Blisters on skin Allergy Active ketorolac TORADOL (uncoded) Unknown Allergy Ac tive azelastine Azelastine HCl epistaxis Drug Allergy A ctive menthol Biofreeze Palpitations; flushing Drug Allergy Active ipratropium Ipratropium [place] Palpitations ; flushing; red/swolen face Drug Allergy [...] review and pick correct strength-formula tion from [employer] options. If intended option is not shown, [...] review and pick correct strength-formula tion from [employer] options. If intended option is not shown, [...] Active Encounters Encounter [facility] Date [facility] [address] [facility]/28[facility] Provider Ty Allergic rhinitis due to [...] * Atiya AGUILERA DDOB:1945 (79 yo F)Acc No.[id number]:11/28/2023 Patient: Berenice OYGESHFranchescacy D Provider: Aguilar Bates :1945 A ge:78 Y S ex:Female Date:11/28/2023 Address:[address] [place], [place] [id number] Pcp:Leah Barajas Subjective: * Chief Complaints: * 1 . [facility]. * Medical History: * Medications: T aking ALBUTEROL (EQV-PROAIR HFA) 90 MCG/INH AEROSOL 2 PUFF(S) INHALED EVERY 6 HOURS , Notes to Pharmacist: *Please review for potential replacement for e-prescription and drug interaction check*, Taking Lubricant Eye Drops - SOLUTION 1 GTT IN EACH EYE 4 TIMES A DAY , Notes to Pharmacist: *Please review and pick correct strength-formulation from [employer] options. If intended option is not shown, [...] review and pick correct strength- formulation from [employer] options. If intended option is not shown, [...] *Please review and pick correct strength-formulation from [employer] options. If intended option is not shown, [...] *Please review and pick correct strength-formulation from [employer] options. If intended option is not shown, discontinue and re-order from Quick Search* * Allergies: B iofreeze: Palpitations; flushing, PROLONG CONTACT TO LATEX: Blisters on skin, Neosporin: blisters - Allergy, Ipratropium [place]: Palpitations; flushing; red/swolen face, Azelastine HCl: epistaxis, TORADOL, levoFLOXacin: unknown reaction, KEFLEX: unknown reaction, Cyclobenzaprine: shortness of breath. Objective: * Vitals: Assessment: * Assessment: 1. A llergic rhinitis due to pollen - J30.1 (Primary) Plan: * Treatment: * Billing Information: * Visit Code: * Procedure Codes: * Electronic signature of Prov huseyin MORTON-Migration on 12/18/2024 at 08:24 PM CDT Sign off status: Pending * Provider: Aguilar eason Migration Date: 0 11/28/2023 Generated for Jaime nunes/Noel/Shiva on: 0 12/18/2024 08:24 PM CDT
--- OUTSIDE RECORDS SUMMARY | 2024-12-18 20:24 | XMS_ITS | Encounter Summary ---
Author Organization [facility] Address [facility] [place] [address] Care Team Providers Care Engine Test Cell Technician Name Role Phone Lavern Monzon NP Primary Care Provider +1 [phone] Encounter Details Date Type Department Care Team (Latest Contact Info) Description 12/09/2024 Results Follow-Up [facility] [address] [place], [place] [address] Lavern Monzon, TREV [address] [place] [address] BONE DENSITY GENERIC (SCAN ORDER) Social History Tobacco Use Types Packs/Day Years [...] Sex Assigned at Female 04/18/2024 4:24 PM BILINGUAL OPERATOR Legal Sex Female 8:00 AM CDT Gender Identity Female 04/18/2024 4:24 PM BILINGUAL OPERATOR Sexual Orientation Choose not to disclose 2024 7:30 AM CDT documented as of this encounter Plan of Treatment Upcoming Encounters Date Type Department Care Team (Late st Contact Info) Description 12/21/2024 8:20 AM CDT Office Visit [facility] [address] [place] [address] Lavern Monzon TRUCK UNLOADER [address] [place] [address] 01/23/2025 8:10 AM CDT Laboratory Only [facility] [place] [address] [place] [address] Lavern Monzon, TRUCK UNLOADER [address] [facility] [address] [place] [address] 04/19/2025 10:00 AM BILINGUAL OPERATOR [facility] [place] [address] [facility] [address] [place] [address] Lavern Monzon NP [address] [facility] [address] [place] [address] 04/19/2025 10:30 AM BILINGUAL OPERATOR [facility] [place] [address] [address] [facility] [address] [place] [address] Lavern Monzon NP [address] [facility] [address] [place] [address] documented as of this encounter Visit Diagnoses Not on filedocumented in this encounter Care Teams Engine Test Cell Technician Relationship Specialty Start Date End Date Lavern Monzon NP [address] [place] [address] PCP - General NURSE PRACTITIONER 04/18/24 documented as of this encounter
--- OUTSIDE RECORDS SUMMARY | 2024-12-18 20:24 | XMS_ITS | Encounter Summary ---
Author Organization [facility] Address [facility] [place] [address] Care Team Providers Care Professional Programmer Analyst Name Role Phone Lavern Monzon NP Primary Care Provider +1 [phone] Encounter Details Date Type Department Care Team (Latest Contact Info) Description 07/25/2024 MyChart Message Enc [facility] [place] [address] [place], [place] [address] Lavern Monzon, BIAS BINDING FOLDER [address] [place], [place] [address] Oseltamivir 75mg Capsules Qty: 10 Social History Tobacco Use Types Packs/Day Years [...] Sex Assigned at Female 04/18/2024 4:24 PM STATION MASTER Legal Sex Female 8:00 AM CDT Gender Identity Female 04/18/2024 4:24 PM STATION MASTER Sexual Orientation Choose not to disclose 2024 7:30 AM CDT documented as of this encounter Plan of Treatment Upcoming Encounters Date Type Department Care Team (Late st Contact Info) Description 12/21/2024 8:20 AM CDT [facility] [place] [address] [place] [address] Lavern Monzon, BIAS BINDING FOLDER [address] [facility] [address] [place] [address] 01/23/2025 8:10 AM CDT [facility] [place] [address] [place] [address] Lavern Monzon, BIAS BINDING FOLDER [address] [facility] [address] [place] [address] 04/19/2025 10:00 AM STATION MASTER [facility] [place] [address] [facility] [address] [place] [address] Lavern Monzon, BIAS BINDING FOLDER [address] [facility] [address] [place] [address] 04/19/2025 10:30 AM STATION MASTER [facility] [place] [address] [address] [facility] [address] [place] [address] Lavern Monzon BIAS BINDING FOLDER [address] [facility] [address] [place] [address] documented as of this encounter Visit Diagnoses Not on filedocumented in this encounter Additional Health Concerns Infection Onset Date Last Indicated Resolved Time COVID-19 Rule Out 07/25/2024 07/25/2024 07/25/2024 11:57 AM STATION MASTER Influenza - Seasonal 07/25/2024 07/25/2024 025 12:32 AM STATION MASTER documented as of this encounter Care Teams Professional Programmer Analyst Relationship Specialty Start Date End Date Lavern Monzon, BIAS BINDING FOLDER [address] [place] [address] PCP - General NURSE PRACTITIONER 04/18/24 documented as of this encounter
--- OUTSIDE RECORDS SUMMARY | 2024-12-18 20:24 | XMS_ITS | Encounter Summary ---
Author Organization [facility] Address [facility] [place] [address] Care Team Providers Care Sweatband Separator Name Role Phone Lavern Monzon NP Primary Care Provider [phone] Encounter Details Date Type Department Care Team (Latest Contact Info) Description 06/27/2024 MyChart Message [facility] [address] [place], [place] [address] Lavern Monzon, SOAKER [address] [place], [place] [address] 1-Lymphedema Therapy Social History Tobacco Use Types Packs/Day Years [...] Sex Assigned at Female 04/18/2024 4:24 PM ENVIRONMENTAL EPIDEMIOLOGIST Legal Sex Female 8:00 AM CDT Gender Identity Female 04/18/2024 4:24 PM ENVIRONMENTAL EPIDEMIOLOGIST Sexual Orientation Choose not to disclose 2024 7:30 AM CDT documented as of this encounter Plan of Treatment Upcoming Encounters Date Type Department Care Team (Late st Contact Info) Description 12/21/2024 8:20 AM CDT [facility] [address] [place] [address] Lavern Monzon, SOAKER [address] [facility] [address] [place] [address] 01/23/2025 8:10 AM CDT Laboratory [facility] [place] [address] [place] [address] Lavern Monzon, SOAKER [address] [facility] [address] [place] [address] 04/19/2025 10:00 AM ENVIRONMENTAL EPIDEMIOLOGIST [facility] [place] [address] [address] [facility] [address] [place] [address] Lavern Monzon, SOAKER [address] [facility] [address] [place] [address] 04/19/2025 10:30 AM ENVIRONMENTAL EPIDEMIOLOGIST [facility] [place] [address] [facility] [address] [place] [address] Lavern Monzon, SOAKER [address] [facility] [address] [place] [address] documented as of this encounter Visit Diagnoses Not on filedocumented in this encounter Additional Health Concerns Infection Onset Date Last Indicated Resolved Time COVID-19 Rule Out 07/25/2024 07/25/2024 07/25/2024 11:57 AM ENVIRONMENTAL EPIDEMIOLOGIST Influenza - Seasonal 07/25/2024 07/25/2024 025 12:32 AM ENVIRONMENTAL EPIDEMIOLOGIST documented as of this encounter Care Teams Sweatband Separator Relationship Specialty Start Date End Date Lavern Monzon SOAKER [address] [place] [address] PCP - General NURSE PRACTITIONER 04/18/24 documented as of this encounter
--- NOTE | 2024-12-18 20:47 | ED_ITS ---
HPI - Chest Pain General Chief Complaint: Chest Pain Stated Complaint: chest pain Time Seen by Provider: 12/18/24 20:34 History of Present Illness HPI narrative: 79-year-old female with history of hyperlipidemia and hypertension presents emergency department for midsternal chest pain that started at 6:00 p.m. today. Patient states around 5:30 p.m. she had [employer]inny[employer] ice cream. She was then sitting on her couch at 6:00 p.m. when she had pain develop in the center of her chest that she describes as a squeezing sensation. She states it was radiating up into her neck. She reported that the pain seemed to improve when she laid back and worse when she was standing upright. She denies exertional symptoms or shortness of breath. She does report associated diaphoresis. She denies cough. Has chronic congestion and trace lower extremity edema which is unchanged from baseline. She denies history of cardiac disease or stroke. She does admit to family history of cardiac disease. She does not smoke. Denies abdominal pain, numbness, weakness or tingling to extremities. She is also reporting midthoracic pain for the past 2 weeks that started after she was playing golf. Patient states she believes she is either is having bad indigestion or having a heart attack. Related Data Home Medications ?Medication ?Instructions ?Recorded ?Confirmed ?Last Taken ?Type amlodipine 2.5 mg tablet 2.5 mg PO DAILY 02/26/21 04/25/24 Unknown History hydrochlorothiazide 12.5 mg tablet 12.5 mg PO DAILY 02/26/21 04/25/24 06/01/23 History latanoprost 0.005 % eye drops 1 drp EACH EYE HS 02/26/21 04/25/24 06/01/23 History cetirizine 10 mg capsule (Wal-Zyr 10 mg PO DAILY 04/14/22 04/25/24 06/01/23 History (cetirizine)) lisinopril 40 mg tablet 40 mg PO DAILY 04/14/22 04/25/24 06/01/23 History pravastatin 40 mg tablet 40 mg PO HS 04/14/22 04/25/24 06/01/23 History acetaminophen 500 mg tablet 1,000 mg PO TID PRN Pain 05/15/23 04/25/24 06/01/23 History amoxicillin 500 mg tablet 2,000 mg PO ONCE PRN PROPHYLACTIC 05/15/23 04/25/24 06/01/23 History multivitamin with minerals-folic 1 tablet PO DAILY 05/15/23 04/25/24 06/01/23 History acid 80 mcg chewable tablet (Centrum Adult 50 Plus) psyllium husk 3.4 gram/5.4 gram 1 tsp PO DAILY 05/15/23 04/25/24 06/01/23 History oral powder (Metamucil) albuterol sulfate 90 mcg/actuation 2 puff inhalation Q4-6H PRN 04/25/24 04/25/24 Unknown History aerosol inhaler Shortness Of Breath ibuprofen 600 mg tablet 1,200 mg PO BID 04/25/24 04/25/24 Unknown History methocarbamol 500 mg tablet 500 mg PO BID PRN muscle spasms 04/25/24 04/25/24 Unknown History Allergies Allergy/AdvReac Type Severity Reaction Status Date / Time benzocaine Allergy Severe Swelling Verified 12/18/24 20:32 cedarwood Allergy Severe Difficulty Verified 12/18/24 20:32 Breathing bacitracin Allergy Intermediate Blister Verified 12/18/24 20:32 camphor Allergy Intermediate Heart Verified 12/18/24 20:32 fluttering latex Allergy Intermediate Blister Verified 09/14/24 09:18 menthol Allergy Intermediate Heart Verified 09/14/24 09:18 fluttering neomycin Allergy Intermediate HIVES Verified 09/14/24 09:18 polymyxin B Allergy Intermediate Blister Verified 09/14/24 09:18 cefadroxil Allergy Unknown Verified 09/14/24 09:25 doxycycline Allergy Unknown Verified 09/14/24 09:18 furosemide Allergy Rash Verified 09/14/24 09:25 azelastine AdvReac Severe Nose Bleeds Verified 09/14/24 09:18 cephalexin AdvReac Intermediate Nausea Verified 09/14/24 09:18 ipratropium AdvReac Intermediate Palpitation Verified 09/14/24 09:18 s ketorolac AdvReac Intermediate Nausea Verified 09/14/24 09:18 levofloxacin AdvReac Intermediate Nausea Verified 09/14/24 09:18 ofloxacin AdvReac Intermediate NAUSEA Verified 09/14/24 09:18 triamcinolone AdvReac Intermediate N/V Verified 09/14/24 09:18 Quinolones AdvReac Mild N/V Verified 09/14/24 09:18 celecoxib (From Celebrex) AdvReac Swelling Verified 09/14/24 09:18 sulfamethoxazole (From AdvReac Other Verified 09/14/24 09:18 Bactrim) trimethoprim (From Bactrim) AdvReac Other Verified 09/14/24 09:18 dust mites Allergy Severe Wheezing Uncoded 12/18/24 20:32 DURAPREP Allergy Intermediate RASH Uncoded 12/18/24 20:32 Review of Systems 2 Review of Systems: All systems reviewed & are unremarkable except as noted in HPI and below PMFSH Past Medical History Medical History Constipation Left lower quadrant pain Diverticulitis Stomach ulcer Hyperlipidemia Hypertension Seizure PVC (premature ventricular contraction) Surgical History Surgical History History of hysterectomy History of arthroscopic knee surgery History of cataract surgery History of colectomy History of laparoscopic cholecystectomy History of incisional hernia repair Multiple incisional hernia repairs - 10/1995, 06/2021, 04/2005, 06/2006, 07/2015 Family History Family History Mother Family history of arthritis Family history of anemia, Onset Age: 92 Depression, Onset Age: 92 Family history of mental disorder, Onset Age: 92 Hypertension, Onset Age: 92 Cerebrovascular accident, Onset Age: 92 Father Depression, Onset Age: 82 Family history of glaucoma, Onset Age: 82 Family history of dementia Grandparent Family history of cardiovascular disease Family history of malignant neoplasm Family history of lung cancer Family history of Hodgkin's lymphoma Carcinoma of colon Hypertension Sibling Patient's brother is in good health Family history of Parkinson's disease Social History Social History Smoking status: Never smoker Second hand tobacco smoke exposure: Yes Alcohol intake: current Substance use: never Substance use type: does not use Living arrangements: with family Occupation/Education: retired Spiritual care concerns: No Exam 2 Narrative: GENERAL: Well-appearing, well-nourished, and in no acute distress. HEAD: Normocephalic, atraumatic. EYES: PERRLA and EOMI. ENT: Nares clear, no rhinorrhea or epistaxis. Mucous membranes moist. NECK: Supple. CHEST: Clear to auscultation. No respiratory distress. HEART: Regular rate and rhythm. No murmur heard. Normal peripheral pulses. ABDOMEN: Soft, nontender, nondistended, normal active bowel sounds. No rebound, guarding or rigidity. No CVA tenderness EXTREMITIES: Normal range of motion. No edema. SKIN: Warm, dry, no rash. NEURO: No focal deficits. Alert and oriented x4. Cranial nerves 2-12 grossly intact. Strength 5/5 in BUE and BLE. Sensation intact throughout. Course Vital Signs Vital signs: Vital Signs Temperature 98.1 F 12/18/24 20:24 Pulse Rate 67 12/18/24 20:24 Respiratory Rate 21 H 12/18/24 20:24 Blood Pressure 153/78 H 12/18/24 20:24 Pulse Oximetry 100 12/18/24 20:24 Oxygen Delivery Room Air 12/18/24 20:24 Temperature 98.7 F 12/18/24 20:57 Pulse Rate 67 12/19/24 00:45 Respiratory Rate 12 12/19/24 00:45 Blood Pressure 165/53 H 12/18/24 23:15 Pulse Oximetry 97 12/19/24 00:45 Oxygen Delivery Room Air 12/18/24 20:57 MDM - Chest Pain MDM Narrative Medical decision making narrative: 79-year-old female with history of hypertension, hyperlipidemia presents to the emergency department for midsternal chest pain that started at 1800 while sitting on the couch, 30 minutes after eating Ank[employer]inny[employer] ice cream. Patient reports associated diaphoresis. Also complaining of midthoracic pain but believes this is been going on for several weeks and started after playing golf. Vital signs with blood pressure 153/78, otherwise unremarkable. Patient is resting in exam bed and is reporting improvement of her my evaluation. She is neurovascularly intact. EKG shows normal sinus rhythm with a rate of 66 ppm, normal NM interval, normal QRS duration, normal QTC, no ischemic changes. Repeat EKG is unchanged. Initial and 3 hour troponin are undetectable. Lab work shows no leukocytosis or anemia. Chemistries are unremarkable. Lipase is within normal limits. CTA chest, abdomen and pelvis ordered to rule out dissection which shows no aortic aneurysm or dissection. No acute process detected in the chest, abdomen or pelvis. There is multiple 6 mm pancreatic cyst with recommendations for CT abdomen and pelvis with contrast in 2 years. Patient updated on results. She received Protonix with resolution of symptoms. Heart score is 5. I did recommend admission given heart score and risk factors, however patient would like to go home. Shared decision making regarding disposition. She feels that her symptoms were due to indigestion. I did discuss that given her risk factors and heart score, I feel she would benefit from admission for further evaluation, however, she politely declined and states would like to go home. She voiced understanding of the risks of possible impending myocardial infarction and even . Will provide cardiology follow- up. Discussed strict ED return precautions. She is agreeable with the plan verbalized understanding. Discharged in stable condition. Lab Data 12/18/24 20:55 12/18/24 20:55 Labs: Lab Results 12/18/24 12/18/24 12/19/24 Range/Units 20:55 22:56 00:11 WBC 6.9 (4.5-10.0) K/mm3 RBC 4.45 (4.2-5.4) M/mm3 Hgb 13.5 (12.0-15.0) g/dL Hct 41.8 (37.0-47.0) % MCV 93.9 (80-100) fl MCH 30.3 (26-34) pg MCHC 32.3 (32-36) g/dl RDW 13.9 (11.5-14.5) % Plt Count 237 (150-375) k/mm3 MPV 9.1 (7.4-10.4) fl Immature Gran % (Auto) 0.3 (0-0.5) % Neut % (Auto) 67.6 (45.5-73.1) % Lymph % (Auto) 20.6 (18.3-44.2) % [place] % (Auto) 9.6 H (2.6-8.5) % Eos % (Auto) 1.2 (0-4.4) % Baso % (Auto) 0.7 (0.2-1.2) % Lymph # (Auto) 1.41 (0.9-3.2) K/mm3 [place] # (Auto) 0.7 H (0.1-0.6) K/mm3 Eos # (Auto) 0.1 (0-0.3) K/mm3 Baso # (Auto) 0.1 (0.0-0.1) K/mm3 Abs Immat Gran (auto) 0.02 (0.00-0.031) K/mm3 Absolute Neuts (auto) 4.6 (1.3-6.7) K/mm3 Absolute Nucleated RBC 0.000 (0.0-0.012) K/mm3 Nucleated RBC % 0.0 (0.0-0.2) % PT 12.3 (11.1-14.7) Seconds INR 0.9 APTT 29.0 (22.3-36.8) Seconds Sodium 134 L (137-145) mmol/L Potassium 4.1 (3.4-5.0) mmol/L Chloride 98 (98-107) mmol/L Carbon Dioxide 31 H (22-30) mmol/L Anion Gap 5 (4-12) mmol/L BUN 15 (7-17) mg/dL Creatinine 0.78 (0.7-1.0) mg/dL Estim Creat Clear Calc 52 ml/min Estimated GFR > 60 (59 - ) Glucose 99 (65-110) mg/dL Calcium 9.8 (8.4-10.2) mg/dL Total Bilirubin < 0.1 L (0.2-1.3) mg/dL AST 27 (14-36) U/L ALT 20 (6-35) U/L Alkaline Phosphatase 53 (38-126) U/L Troponin I < 0.012 < 0.012 < 0.012 (0.000-0.034) ng/mL NT-Pro-B Natriuret Pep 88 (19.9-100) pg/mL Total Protein 6.5 (6.3-8.2) g/dL Albumin 3.7 (3.5-5.1) g/dL Lipase 111 (23-300) U/L Discharge Plan Discharge Clinical Impression: Cyst of pancreas Chest pain Qualifiers: Chest pain type: unspecified Qualified Code(s): R07.9 - Chest pain, unspecified Patient Disposition: Home Condition: Stable Instructions: Antibiotic Form, Chest Pain (ED) Additional Instructions: Your evaluated in the emergency department for chest pain. I did offer admission however you declined and stated he would like to go home. Please follow-up closely with the data systems analyst. Incidentally were found have multiple 6 mm pancreatic cyst. Please follow-up with primary care provider regarding this as he will need repeat CT scan of her abdomen and pelvis with contrast in 2 years. Return to the emergency department if you develop chest pain, shortness of breath or other concerning symptoms. Patient Language: [place] Prescriptions: No Action lisinopril 40 mg tablet 40 mg PO DAILY pravastatin 40 mg tablet 40 mg PO HS Wal-Zyr (cetirizine) 10 mg capsule 10 mg PO DAILY latanoprost 0.005 % drops 1 drp EACH EYE HS amlodipine 2.5 mg tablet 2.5 mg PO DAILY hydrochlorothiazide 12.5 mg tablet 12.5 mg PO DAILY amoxicillin 500 mg Tablet 2,000 mg PO ONCE PRN (Reason: PROPHYLACTIC) Patient Comments: PRIOR TO DENTAL PROCEDURES Rx Instructions: before dental procedures Metamucil 3.4 gram/5.4 gram Powder 1 tsp PO DAILY Rx Instructions: mix into at least 4 oz water or juice before administering Centrum Adult 50 Plus 80 mcg Tablet,Chewable 1 tablet PO DAILY acetaminophen 500 mg tablet 1,000 mg PO TID PRN (Reason: Pain) lidocaine 5 % adhesive patch,medicated 1 patch topical DAILY Qty: 30 0RF Rx Instructions: leave on most painful area for up to 12 hrs methocarbamol 500 mg Tablet 500 mg PO BID PRN (Reason: muscle spasms) Rx Instructions: take 1-2 tablets by mouth BID PRN muscle spasms ibuprofen 600 mg Tablet 1,200 mg PO BID albuterol sulfate 90 mcg/actuation Hfa Aerosol Inhaler 2 puff INHALATION Q4-6H PRN (Reason: Shortness Of Breath) sodium,potassium,mag sulfates [Suprep Bowel Prep Kit] 17.5-3.13-1.6 gram recon soln See Rx Instructions PO .COMPLEX Qty: 354 0RF Rx Instructions: TAKE DIRECTED Follow-up/Referrals: Eugenio Gomez MD [Physician] - Na,Lavern Bridges APRN [Primary Care Provider] - Quality HEART score for chest pain patients History: moderately suspicious ECG: normal Age: > or = to 65 years Risk factors: > or = to 3 risk factors of atherosclerotic disease Troponin: < or = to 1x normal limit Heart score: 5
[2024-12-18] MEDS: ASPIRIN 81 MG CHEWABLE TABLET 324 MG PO (21:01)
[2024-12-18] MEDS: PANTOPRAZOLE SODIUM IV 40 MG VIAL IV PUSH (21:02)
[2024-12-18 21:04] LABS: Hematocrit 41.8 % (37.0-47.0); Hemoglobin 13.5 g/dL (12.0-15.0); Immature Granulocyte Percent A 0.3 % (0-0.5); Lymphocytes Absolute Auto 1.41 K/mm3 (0.9-3.2); Mean Corpuscular HGB Conc 32.3 g/dl (32-36); Mean Corpuscular Hemoglobin 30.3 pg (26-34); Mean Corpuscular Volume 93.9 fl (80-100); Nucleated Red Blood Cells Absolute Auto 0.000 K/mm3 (0.0-0.012); Nucleated Red Blood Cells Perc 0.0 % (0.0-0.2); Platelet Count Result 237 k/mm3 (150-375); Red Blood Count 4.45 M/mm3 (4.2-5.4); White Blood Count 6.9 K/mm3 (4.5-10.0)
--- OUTSIDE RECORDS SUMMARY | 2024-12-18 21:08 | XMS_ITS | Encounter Summary ---
Author Organization [facility] Address [facility] [place] [address] Care Team Providers Care Land Appraiser Name Role Phone Lavern Monzon NP Primary Care Provider [phone] Encounter Details Date Type Department Care Team (Late st Contact Info) Description 11/10/2024 MyChart Message [facility] [place] [address] [place], [place] [id number] Lavern Monzon DIALS INSPECTOR [address] [place], [place] [id number] BLOOD PRESSURE Social History Tobacco Use Types [...] Sex Assigned at Female 04/18/2024 4:24 PM EXPRESS MANAGER Legal Sex Female 8:00 AM CDT Gender Identity Female 04/18/2024 4:24 PM EXPRESS MANAGER Sexual Orientation Choose not to disclose 2024 7:30 AM CDT documented as of this encounter Plan of Treatment Upcoming Encounters Date Type Department Care Team (Late st Contact Info) Description 12/21/2024 8:20 AM CDT [facility] [address] [place] [address] Lavern Monzon DIALS INSPECTOR [address] [facility] [address] [place] [address] 01/23/2025 8:10 AM CDT Laboratory Only [facility] [place] [address] [place] [address] Lavern Monzon, DIALS INSPECTOR [address] [facility] [address] [place] [address] 04/19/2025 10:00 AM EXPRESS MANAGER [facility] [place] [phone] [facility] [address] [place] [address] Lavern Monzon NP [address] [facility] [address] [place] [address] 04/19/2025 10:30 AM EXPRESS MANAGER [facility] [place] [address] [address] [facility] [address] [place] [address] Lavern Monzon NP [address] [facility] [address] [place] [address] documented as of this encounter Visit Diagnoses Not on filedocumented in this encounter Care Teams Land Appraiser Relationship Specialty Start Date End Date Lavern Monzon DIALS INSPECTOR [address] [place] [address] PCP - General NURSE PRACTITIONER 04/18/24 documented as of this encounter
--- OUTSIDE RECORDS SUMMARY | 2024-12-18 21:08 | XMS_ITS | Encounter Summary ---
Author Organization [facility] Address [facility] [place] [address] Care Team Providers Care Well Driller Name Role Phone Lavern Monzon NP Primary Care Provider [phone] Encounter Details Date Type Department Care Team (Latest Contact Info) Description 07/25/2024 MyChart Message Enc [facility] [place] [address] [place], [place] [id number] Lavern Monzon, MENTAL HEALTH UNIT LEAD PSYCHOLOGIST [address] [place], [place] [id number] Oseltamivir 75mg Capsules Qty: 10 Social History [...] Sex Assigned at Female 04/18/2024 4:24 PM DEMO COORDINATOR Legal Sex Female 8:00 AM CDT Gender Identity Female 04/18/2024 4:24 PM DEMO COORDINATOR Sexual Orientation Choose not to disclose 2024 7:30 AM CDT documented as of this encounter Plan of Treatment Upcoming Encounters Date Type Department Care Team (Late st Contact Info) Description 12/21/2024 8:20 AM CDT [facility] [place] [address] [place] [address] Lavern Monzon, MENTAL HEALTH UNIT LEAD PSYCHOLOGIST [address] [facility] [address] [place] [address] 01/23/2025 8:10 AM CDT Laboratory Only [facility] [place] [address] [place] [address] Lavern Monzon, MENTAL HEALTH UNIT LEAD PSYCHOLOGIST [address] [facility] [address] [place] [address] 04/19/2025 10:00 AM DEMO COORDINATOR [facility] [place] [id number] [facility] [address] [place] [address] Lavern Monzon, MENTAL HEALTH UNIT LEAD PSYCHOLOGIST [address] [facility] [address] [place] [address] 04/19/2025 10:30 AM DEMO COORDINATOR [facility] [place] [address] [address] [facility] [address] [place] [address] Lavern Monzon MENTAL HEALTH UNIT LEAD PSYCHOLOGIST [address] [facility] [address] [place] [address] documented as of this encounter Visit Diagnoses Not on filedocumented in this encounter Additional Health Concerns Infection Onset Date Last Indicated Resolved Time COVID-19 Rule Out 07/25/2024 07/25/2024 07/25/2024 11:57 AM DEMO COORDINATOR Influenza - Seasonal 07/25/2024 07/25/2024 025 12:32 AM DEMO COORDINATOR documented as of this encounter Care Teams Well Driller Relationship Specialty Start Date End Date Lavern Monzon, MENTAL HEALTH UNIT LEAD PSYCHOLOGIST [address] [place] [address] PCP - General NURSE PRACTITIONER 04/18/24 documented as of this encounter
--- OUTSIDE RECORDS SUMMARY | 2024-12-18 21:08 | XMS_ITS | Encounter Summary ---
Author Organization [facility] Address [facility] [place] [address] Care Team Providers Care Arbor Press Operator Name Role Phone Lavern Monzon NP Primary Care Provider [phone] Encounter Details Date Type Department Care Team (Late st Contact Info) Description 08/02/2024 MyChart Message Enc [facility] [place] [address] [place], [place] [id number] Lavern Monzon DRIER FEEDER [address] [place], [place] [id number] MUCUS/PHLEGM Social History Tobacco Use Types Packs/Day [...] Sex Assigned at Female 04/18/2024 4:24 PM OVEN LABORER Legal Sex Female 8:00 AM CDT Gender Identity Female 04/18/2024 4:24 PM OVEN LABORER Sexual Orientation Choose not to disclose 2024 7:30 AM CDT documented as of this encounter Plan of Treatment Upcoming Encounters Date Type Department Care Team (Late st Contact Info) Description 12/21/2024 8:20 AM CDT Office Visit [facility] - [place] [id number] [place] [address] Lavern Monzon, DRIER FEEDER [address] [facility] [address] [place] [address] 01/23/2025 8:10 AM CDT Laboratory Only [facility] [place] [address] [facility] [address] [place] [address] Lavern Monzon, DRIER FEEDER [address] [facility] [address] [place] [address] 04/19/2025 10:00 AM OVEN LABORER [facility] [place] [address] [address] [facility] [address] [place] [address] Lavern Monzon NP [address] [facility] [address] [place] [address] 04/19/2025 10:30 AM OVEN LABORER [facility] [place] [address] [address] [facility] [address] [place] [address] Lavern Monzon, DRIER FEEDER [address] [facility] [address] [place] [address] documented as of this encounter Visit Diagnoses Not on filedocumented in this encounter Additional Health Concerns Infection Onset Date Last Indicated Resolved Time Influenza - Seasonal 07/25/2024 07/25/2024 025 12:32 AM OVEN LABORER documented as of this encounter Care Teams Arbor Press Operator Relationship Specialty Start Date End Date Lavern Monzon NP [address] [place] [address] PCP - General NURSE PRACTITIONER 04/18/24 documented as of this encounter
--- OUTSIDE RECORDS SUMMARY | 2024-12-18 21:08 | XMS_ITS | Encounter Summary ---
Author Organization [facility] Address [facility] [place] [address] Care Team Providers Care Back Filler Operator Name Role Phone Lavern Monzon NP Primary Care Provider [phone] Encounter Details Date Type Department Care Team (Late st Contact Info) Description 07/07/2024 MyChart Message [facility] [place] [address] [place], [place] [id number] Lavern Monzon EDUCATION COUNSELOR [address] [place], [place] [id number] SHOULDER UPDATE Social History Tobacco Use Types [...] Sex Assigned at Female 04/18/2024 4:24 PM AUDIO VISUAL TECHNICIAN Legal Sex Female 8:00 AM CDT Gender Identity Female 04/18/2024 4:24 PM AUDIO VISUAL TECHNICIAN Sexual Orientation Choose not to disclose 2024 7:30 AM CDT documented as of this encounter Plan of Treatment Upcoming Encounters Date Type Department Care Team (Late st Contact Info) Description 12/21/2024 8:20 AM CDT [facility] [address] [place] [address] Lavern Monzon, EDUCATION COUNSELOR [address] [facility] [address] [place] [address] 01/23/2025 8:10 AM CDT Laboratory Only [facility] - [place] [address] [facility] [address] [place] [address] Lavern Monzon, EDUCATION COUNSELOR [address] [facility] [address] [place] [address] 04/19/2025 10:00 AM AUDIO VISUAL TECHNICIAN [facility] - [place] [address] [address] [facility] [address] [place] [address] Lavern Monzon, EDUCATION COUNSELOR [address] [facility] [address] [place] [address] 04/19/2025 10:30 AM AUDIO VISUAL TECHNICIAN [facility] - [place] [address] [facility] [address] [place] [address] Lavern Monzon, EDUCATION COUNSELOR [address] [facility] [address] [place] [address] documented as of this encounter Visit Diagnoses Not on filedocumented in this encounter Additional Health Concerns Infection Onset Date Last Indicated Resolved Time COVID-19 Rule Out 07/25/2024 07/25/2024 07/25/2024 11:57 AM AUDIO VISUAL TECHNICIAN Influenza - Seasonal 07/25/2024 07/25/2024 025 12:32 AM AUDIO VISUAL TECHNICIAN documented as of this encounter Care Teams Back Filler Operator Relationship Specialty Start Date End Date Lavern Monzon, EDUCATION COUNSELOR [address] [facility] [address] [place] [address] PCP - General NURSE PRACTITIONER 04/18/24 documented as of this encounter
--- OUTSIDE RECORDS SUMMARY | 2024-12-18 21:08 | XMS_ITS | Encounter Summary ---
Author Organization [facility] Address [address] [facility] [place] [address] Care Team Providers Care Computed Tomography Technician Name Role Phone Indigo Curtis MD Unavailable Colton Hernández MD Unavailable [phone] Ida Bailey MD Primary Care Provider [phone] Antonio Santillan MD Primary Care Provider [phone] Hiram Fontenot MD Primary Care Provider [phone] Huber Matos MD Unavailable [phone] Leah Barajas MD Primary Care Provider + [phone] Myrna Devi PA-C Unavailable [phone] Lavern Monzon Primary Care Provider [phone] Encounter Details Date Type Department Care Team (Late Contact Info) Description 09/29/2016 [facility] Visit [facility] Orthopedics [address] [address] Unknown, Provider Social History Tobacco Use Types Packs/Day Years Used Date Smoking Tobacco: Never Assessed Comments Unknown Sex and Gender Information Value Date Recorded Sex Assigned at Not on file Legal Sex Female 2:16 PM VAMP SEAMER Gender Identity Not on file Sexual Orientation Not on file documented as of this encounter Plan of Treatment Upcoming Encounters Date Type Department Care Team (Late Contact Info) Description 12/21/2024 3:40 PM CDT Office Visit [facility] Orthopedics [address] [facility], [address] [phone] [place] [address] [address] 02/16/2025 9:45 AM CDT Office Visit [facility] Pain Care [address] [place] [address] [place] [address] [id number] 05/08/2025 10:00 AM VAMP SEAMER Office Visit [facility] Orthopedics [address] [place] [address] [place] [address] [address] [address] documented as of this encounter Visit Diagnoses Not on filedocumented in this encounter Care Teams Computed Tomography Technician Relationship Specialty [place] [address] [id number] PCP - General Family Medicine 05/29/16 07/13/17 Antonio Santillan MD [address] [place] [address] PCP - General Internal Medicine 07/14/17 02/08/18 Hiram Fontenot MD [address] [place] [address] PCP - General 02/09/18 07/15/20 [place] [address] [address] [address] PCP - General Internal Medicine 10/08/20 07/11/24 Myrna Devi PA-C [address] [facility] [address] [place] [address] [facility] 10/13/22 07/02/23 Lavern Monzon [address] [place] [address] PCP - General Hand Drawer In 07/12/24 Indigo Curtis MD Orthopedic Surgery 04/14/12 Colton Hernández [place] [address] [facility] [address] [address] [place] [address] Orthopedic Surgery 10/21/13 [place] [address] [place] [address] Physical Medicine and Rehabilitation 09/22/18 documented as of this encounter
--- OUTSIDE RECORDS SUMMARY | 2024-12-18 21:08 | XMS_ITS | Encounter Summary ---
Author Organization [facility] Address [facility] access hospital[address] [place] [address] Care Team Providers Care Cement Car Dumper Name Role Phone Lavern Monzon NP Primary Care Provider [phone] Encounter Details Date Type Department Care Team (Latest Contact Info) Description 12/09/2024 Results Follow-Up [facility] [address] [place], [place] [phone] Lavern Monzon, TREV [address] [place] [address] BONE DENSITY GENERIC (SCAN ORDER) Social History [...] Sex Assigned at Female 04/18/2024 4:24 PM RADIOLOGIC THERAPIST Legal Sex Female 8:00 AM CDT Gender Identity Female 04/18/2024 4:24 PM RADIOLOGIC THERAPIST Sexual Orientation Choose not to disclose 2024 7:30 AM CDT documented as of this encounter Plan of Treatment Upcoming Encounters Date Type Department Care Team (Late st Contact Info) Description 12/21/2024 8:20 AM CDT Office Visit [facility] [address] [place] [address] Lavern Monzon TOOL CHECKER [address] [place] [address] 01/23/2025 8:10 AM CDT Laboratory Only [facility] Medical [facility] [place] [address] [place] [address] Lavern Monzon, TOOL CHECKER [address] [facility] [address] [place] [address] 04/19/2025 10:00 AM RADIOLOGIC THERAPIST [facility] [place] [address] [facility] [address] [place] [address] Lavern Monzon NP [address] [facility] [address] [place] [address] 04/19/2025 10:30 AM RADIOLOGIC THERAPIST [facility] [place] [address] [facility] [address] [place] [address] Lavern Monzon NP [address] [facility] [address] [place] [address] documented as of this encounter Visit Diagnoses Not on filedocumented in this encounter Care Teams Cement Car Dumper Relationship Specialty Start Date End Date Lavern Monzon NP [address] [place] [address] PCP - General NURSE PRACTITIONER 04/18/24 documented as of this encounter
--- OUTSIDE RECORDS SUMMARY | 2024-12-18 21:08 | XMS_ITS | Clinical Summary ---
Author Organization [facility] [employer] Address [address] [facility] [place] [address] Care Team Providers Care Heat Treater Head Name Role Phone Indigo Curtis MD Unavailable [phone] Colton Hernández MD Unavailable [phone] Huber Matos MD Unavailable [phone] Lavern Monzon Primary Care Provider [phone] Source Comments [facility],non-owned Affiliates and Associated Physician Practices is amultiple site organization consisting of ambulatory clinics and hospital sitesin [place], [place], [place] and [place]. This disclosure is being madepursuant to the Care Everywhere program and may not contain all information available regarding this patient. Last updated 18.[facility] Allergies Active Allergy Reactions Criticality Noted Date [...] 03/28/2024 Hydrogen Peroxide Rash Medium 04/13/2024 Ipratropium [place] Palpitations 08/27/2023 Cephalexin Nausea and/or Vomiting 04/14/2012 Oral form Toradol Nausea and/or Vomiting 04/03/2011 Latex Other 04/14/2012 blisters Levofloxacin Nausea and/or Vomiting,Myalgias 04/14/2012 Menthol (Topical Analgesic) Palpitations Low 08/27/2023 Flushing, red swollen face Gafkpzre-Jncfwcgatn-Nkbzw yxin Skin Reactions 08/27/2023 blisters Nystatin Rash [...] needed for Shortness of Breath Active Multiple Vitamins-Channeler Outsole als (CENTRUM SILVER 50+WOMEN PO) Take 1 [...] Description 12/06/2024 9:20 AM CDT Office Visit [facility] Orthopedics [address] [place] [address] [address] [place] [address] Indigo Curtis MD Chronic right shoulder pain (Primary Dx); Status post reverse total shoulder replacement, right 12/06/2024 9:10 AM CDT Ancillary Procedure [facility] Orthopedics - Radiology [address] [place] [phone] Indigo Curtis MD Chronic right shoulder pain 11/15/2024 7:45 AM CDT Office Visit [address] [place] [address] Huber Matos MD Lumbar facet arthropathy (Primary Dx); Synovial cyst of lumbar facet joint; Gait difficulty 11/15/2024 7:35 AM CDT - 11/15/2024 11:59 PM CDT Hospital Encounter [address] [address] Huber Matos MD Discharge Disposition: Home or Self Care 11/15/2024 7:34 AM CDT Hospital Encounter [address] [address] Huber Matos MD Discharge Disposition: Home or Self Care 11/15/2024 Travel 11/10/2024 Travel 11/08/2024 9:10 AM CDT Office Visit [address] [address] Huber Matos MD Myofascial pain (Primary Dx); Lumbar facet arthropathy; Synovial cyst of lumbar facet joint; Gait difficulty; Trochanteric bursitis of both hips 10/12/2024 9:30 AM CDT Office Visit [facility] Orthopedics [address] [facility] [address] [place] [address] Indigo Curtis MD Status post reverse total shoulder replacement, right (Primary Dx); Chronic right shoulder pain 10/12/2024 9:10 AM CDT Ancillary Procedure [facility] Orthopedics - Radiology [address] [place] [address] Indigo Curtis MD Status post reverse total shoulder replacement, right; Chronic right shoulder pain 10/12/2024 Travel 10/07/2024 8:02 AM CDT - 10/07/2024 11:59 PM CDT Hospital Encounter [facility] [address] [place] [address] Nadeem Burrell MD Discharge Disposition: Home or Self Care 10/07/2024 8:02 AM CDT - 10/07/2024 11:59 PM CDT Hospital Encounter [facility] [address] [place] [address] Nadeem Burrell MD Discharge Disposition: Home or Self Care 09/19/2024 9:20 AM CDT Office Visit [facility] Pain Care [address] [facility] [address] [place] [address] Huber Matos MD Myofascial pain (Primary Dx); [...] Recorded Patient Health Questionnaire-2 Score 0 12/15/2024 [facility] - Occupational Stress [...] any time in the past 12 m [facility], were you homeless or living in a custodial (including now)? No 04/19/2024 Comments Unknown Sex and Gender Information Value Date Recorded Sex Assigned at Not on file Legal Sex Female 2:16 PM LAND MEASURER Gender Identity Not on file Sexual Orientation Not on file Last Filed Vital Signs Vital Sign Reading Time Taken Comments Blood Pressure 143/58 11/15/2024 8:12 AM CDT Pulse 62 11/15/2024 8:12 AM CDT Temperature 36.5 C (97.7 F) 04/20/2024 7:48 AM LAND MEASURER Respiratory Rate 18 11/15/2024 8:12 AM CDT [...] Description 12/21/2024 3:40 PM CDT Office Visit [facility] Health Orthopedics [address] [place] [phone] [place] [address] [address] [address] 02/16/2025 9:45 AM CDT Office Visit [facility] Pain Care [address] [place] [address]. [place] [address] [place] [address] [address] [id number] 05/08/2025 10:00 AM LAND MEASURER Office Visit [facility] Health Orthopedics [address] [place] [address] [place] [address] [address] [address] Health Maintenance Due Date Last [...] this topic Medical Devices Implanted Type Area Air Plant Engineer Device Identifier Shelf Expiration Date Model / Serial / Lot Bsplt Glnd 30mm Rsp Shldr P2 Strl Lf Implanted:Qty: 1 on 09/29/2023 by Indigo Curtis MD at [facility] Right: Shoulder [employer] 09/14/2029 508-32-204 / / [id number] Stem Hum 48mm 6mm Sm Shl Implanted:Qty: 1 on 09/29/2023 by Indigo Curtis MD at [facility] Right: Shoulder [employer] 03/07/2029 533-06-048 / / [id number] Head Glnd 32mm Rsp -4mm Ofst Shldr Rtn Implanted:Qty: 1 on 04/19/2024 by Indigo Curtis MD at [facility] Right: Shoulder [employer] Orthopedics 03/27/2030 508-32-103 / / [id number] Altivate Reverse Torx Peripheral Screw, 26mm Implanted:Qty: 1 on 04/19/2024 by Indigo Curtis MD at [facility] Right: Shoulder [employer] Orth[employer]ics 02/17/2029 506-04-126 / / [id number] Altivate Reverse Rev Mod Central Screw, 8.0 X 40mm Implanted:Qty: 1 on 04/19/2024 by Indigo Curtis MD at [facility] Right: Shoulder [employer] Orthopedics 07/27/2028 508-80-040 / / [id number] Altivate Reverse Torx Peripheral Screw, 30mm Implanted:Qty: 1 on 04/19/2024 by Indigo Curtis MD at [facility] Right: Shoulder DJ Orthopedics 10/14/2028 506-04-130 / / [id number] Altivate Reverse Torx Peripheral Screw, 18mm Implanted:Qty: 1 on 04/19/2024 by Indigo Curtis MD at [facility] Right: Shoulder DJ Orthopedics 02/10/2029 506-04-118 / / [id number] Altivate Reverse Torx Peripheral Screw, 22mm Implanted:Qty: 1 on 04/19/2024 by Indigo Curtis MD at [facility] Right: Shoulder DJ Orthopedics 09/13/2028 506-04-122 / / [id number] Revision Modular Baseplate And Taper Kit, 8.0mm Wedge Implanted:Qty: 1 on 04/19/2024 by Indigo Curtis MD at [facility] Right: Shoulder DJ Orthopedics 08/31/2028 508-80-001 / / [id number] Ins Sckt 32mm Altivate Rvrs +4mm Sm Ntrl Implanted:Qty: 1 on 04/19/2024 by Indigo Curtis MD at [facility] Right: Shoulder DJ Orthopedics 10/20/2027 509-02-432 / / [id number] Explanted Type Area Air Plant Engineer Device Identifier Shelf Expiration Date Model / Serial / Lot Screw 5mm 18mm Shldr Lck Rsp Glnd Bsplt Implanted:Qty: 1 on 09/29/2023 by Indigo Curtis MD at [facility] Explanted:Qty: 1 on 04/19/2024 by Indigo Curtis MD at [facility] Right: Shoulder DJ Orthopedics 06/10/2029 506-03-118 / / [id number] Screw 5mm 18mm Shldr Lck Rsp Glnd Bsplt Implanted:Qty: 1 on 09/29/2023 by Indigo Curtis MD at [facility] Explanted:Qty: 1 on 04/19/2024 by Indigo Curtis MD at [facility] Right: Shoulder DJ Orthopedics 05/21/2029 506-03-118 / / [id number] Screw 5mm 26mm Shldr Lck Rsp Glnd Bsplt Implanted:Qty: 1 on 09/29/2023 by Indigo Curtis MD at [facility] Explanted:Qty: 1 on 04/19/2024 by Indigo Curtis MD at [facility] Right: Shoulder DJ Orthopedics 05/18/2029 506-03-126 / / [id number] Screw 5mm 14mm Shldr Lck Rsp Glnd Bsplt Implanted:Qty: 1 on 09/29/2023 by Indigo Curtis MD at [facility] Explanted:Qty: 1 on 04/19/2024 by Indigo Curtis MD at [facility] Right: Shoulder DJ Orthopedics 08/11/2029 506-03-114 / / [id number] Head Glnd 32mm Rsp -4mm Ofst Shldr Rtn Implanted:Qty: 1 on 09/29/2023 by Indigo Curtis MD at [facility] Explanted:Qty: 1 on 04/19/2024 by Indigo Curtis MD at [facility] Right: Shoulder DJ Orthopedics 02/06/2029 508-32-103 / / [id number] Ins Sckt 32mm Altivate Rvrs +4mm Sm Implanted:Qty: 1 on 09/29/2023 by Indigo Curtis MD at [facility] Explanted:Qty: 1 on 04/19/2024 by Indigo Curtis MD at [facility] Right: Shoulder DJ Orthopedics 07/01/2028 509-03-432 / / [id number] Procedures Procedure Name Priority Date/Time Associated Diagnosis [...] resultswithin the time period is included. Narrative [facility] ORTHOPEDIC [address] - 12/06/2024 9:13 AM CDT Please see progress note in Epic for results. us Indigo Curtis MD DIAGNOSTIC IMAGING ORDERABL ES Final Result [facility] [address] * PAIN MANAGEMENT PROCEDURE TIME (11/15/2024 8:06 AM CDT) Anatomical Region Laterality Modality X-Ray Angiograph y Narrative 11/15/2024 8:51 AM CDT Huber Matos MD 11/15/2024 8:53 AM Right L4-5 Facet Joint Injection Atiya Aguilera [id number] 11/15/2024 Allergies Allergies Allergen Reactions Latex Other blisters Cyclobenzaprine Shortness of Breath Keflex [Cephalexin] Nausea and/or Vomiting Oral form Levaquin [Levofloxacin] Nausea and/or Vomiting and Myalgias Toradol [Ketorolac] Orchard [Cedarwood Oil] Shortness of Breath Nystatin (Topical) Rash Azelastine Other Nose bleeds Benzocaine Skin Reactions Red swollen face Dust Mite Extract Rhinitis Ipratropium [place] Palpitations Ketorolac Tromethamine [Toradol] Nausea and/or Vomiting Neosporin Original [Fqkzmfgt-Wkvokputmg-Precafjei] Skin Reactions blisters X-Treme Freeze [Biofreeze] Palpitations [...] a routine sterile fashion using chloraprep. 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 Patient survey given. Procedure codes: 09893 Pre VAS 7-8/10 Post VAS 5-6/10 Huber Matos MD Huber Matos MD DIAGNOSTIC IMAGING ORDERABLE S Final Result from Last 3 Months Insurance [employer] MEDICARE ADV AETNA MEDICARE ADV Advance Directives Documents on File Type Date Recorded Patient Np Expl anation Adv Directive/Living Will/POA 09/02/2023 1:24 AM * Full Code (Latest Code Status on File) Date Activated Date Inactivated Comments 04/19/2024 1:09 PM 04/20/2024 1:57 PM Care Teams Heat Treater Head Relationship Specialty Start Date End Date Lavern Monzon [address] [place] [address] PCP - General Senior Risk Manager 07/12/24 Indigo Curtis MD Orthopedic Surgery 04/14/12 Colton Hernán[place] [address] [address] [place] [address] Orthopedic Surgery 10/21/13 [place] [address] [address] [place] [address] Physical Medicine and Rehabilitation 09/22/18
--- OUTSIDE RECORDS SUMMARY | 2024-12-18 21:08 | XMS_ITS | Encounter Summary ---
Author Organization [facility] Address [facility] [place] [address] Care Team Providers Care Seasonal Sales Associate Name Role Phone Lavern Monzon NP Primary Care Provider [phone] Encounter Details Date Type Department Care Team (Late st Contact Info) Description 07/20/2024 MyChart Message Enc [facility] [address] [place], [place] [id number] Lavern Monzon ONCOLOGY NURSE [address] [place], [place] [id number] RSV Vaccination Social History Tobacco Use Types [...] Sex Assigned at Female 04/18/2024 4:24 PM ADMISSIONS MANAGER Legal Sex Female 8:00 AM CDT Gender Identity Female 04/18/2024 4:24 PM ADMISSIONS MANAGER Sexual Orientation Choose not to disclose 2024 7:30 AM CDT documented as of this encounter Plan of Treatment Upcoming Encounters Date Type Department Care Team (Late st Contact Info) Description 12/21/2024 8:20 AM CDT [facility] [address] [place] [address] Lavern Monzon, ONCOLOGY NURSE [address] [facility] [address] [place] [address] 01/23/2025 8:10 AM CDT Laboratory Only [facility] [place] [address] [facility] [address] [place] [address] Lavern Monzon, ONCOLOGY NURSE [address] [facility] [address] [place] [address] 04/19/2025 10:00 AM ADMISSIONS MANAGER [facility] [place] [address] [address] [facility] [address] [place] [address] Lavern Monzon, ONCOLOGY NURSE [address] [facility] [address] [place] [address] 04/19/2025 10:30 AM ADMISSIONS MANAGER [facility] [place] [address] [address] [facility] [address] [place] [address] Lavern Monzon, ONCOLOGY NURSE [address] [facility] [address] [place] [address] documented as of this encounter Visit Diagnoses Not on filedocumented in this encounter Additional Health Concerns Infection Onset Date Last Indicated Resolved Time COVID-19 Rule Out 07/25/2024 07/25/2024 07/25/2024 11:57 AM ADMISSIONS MANAGER Influenza - Seasonal 07/25/2024 07/25/2024 025 12:32 AM ADMISSIONS MANAGER documented as of this encounter Care Teams Seasonal Sales Associate Relationship Specialty Start Date End Date Lavern Monzon, ONCOLOGY NURSE [address] [facility] [address] [place] [address] PCP - General NURSE PRACTITIONER 04/18/24 documented as of this encounter
--- OUTSIDE RECORDS SUMMARY | 2024-12-18 21:08 | XMS_ITS | Encounter Summary ---
Author Organization [facility] Address [facility] [place] [address] Care Team Providers Care Human Services Supervisor Name Role Phone Lavern Monzon NP Primary Care Provider [phone] Encounter Details Date Type Department Care Team (Late st Contact Info) Description 11/21/2024 MyChart Message [facility] [address] [place], [place] [id number] Lavern Monzon METROLOGY MANAGER [address] [place], [place] [address] LIP UNHEALED Social History Tobacco Use Types [...] Sex Assigned at Female 04/18/2024 4:24 PM EMERGENCY MEDICINE SPECIALIST Legal Sex Female 8:00 AM CDT Gender Identity Female 04/18/2024 4:24 PM EMERGENCY MEDICINE SPECIALIST Sexual Orientation Choose not to disclose 2024 7:30 AM CDT documented as of this encounter Plan of Treatment Upcoming Encounters Date Type Department Care Team (Late st Contact Info) Description 12/21/2024 8:20 AM CDT Office Visit [facility] [place] [address] [place] [address] Lavern Monzon METROLOGY MANAGER [address] [place] [address] 01/23/2025 8:10 AM CDT Laboratory Only [facility] [place] [address] [place] [address] Lavern Monozn, METROLOGY MANAGER [address] [facility] [address] [place] [address] 04/19/2025 10:00 AM EMERGENCY MEDICINE SPECIALIST [facility] [place] [address] [facility] [address] [place] [address] Lavern Monzon NP [address] [facility] [address] [place] [address] 04/19/2025 10:30 AM EMERGENCY MEDICINE SPECIALIST [facility] [place] [address] [address] [facility] [address] [place] [address] Lavern Monzon NP [address] [facility] [address] [place] [address] documented as of this encounter Visit Diagnoses Not on filedocumented in this encounter Care Teams Human Services Supervisor Relationship Specialty Start Date End Date Lavern Monzon METROLOGY MANAGER [address] [place] [address] PCP - General NURSE PRACTITIONER 04/18/24 documented as of this encounter
--- OUTSIDE RECORDS SUMMARY | 2024-12-18 21:08 | XMS_ITS | Encounter Summary ---
Author Organization [facility] Address [address] [place] [address] Care Team Providers Care Barrel Handler Name Role Phone Indigo Curtis MD Unavailable Colton Hernández MD Unavailable [phone] Ida Bailey MD Primary Care Provider [phone] Antonio Santillan MD Primary Care Provider [phone] Hiram Fontenot MD Primary Care Provider [phone] Huber Matos MD Unavailable [phone] Leah Barajas MD Primary Care Provider + [phone] Myrna Devi PA-C Unavailable [phone] Lavern Monzon Primary Care Provider [phone] Encounter Details Date Type Department Care Team (Late Contact Info) Description 10/29/2016 [facility] Out[facility] Visit [facility] [address] [address] Unknown, Provider Social History Tobacco Use Types Packs/Day Years Used Date Smoking Tobacco: Never Assessed Comments Unknown Sex and Gender Information Value Date Recorded Sex Assigned at Not on file Legal Sex Female 2:16 PM ROLL CAPPER Gender Identity Not on file Sexual Orientation Not on file documented as of this encounter Plan of Treatment Upcoming Encounters Date Type Department Care Team (Late Contact Info) Description 12/21/2024 3:40 PM CDT Office Visit [facility] [address] [facility], [address] [phone] [place] [address] [address] [address] 02/16/2025 9:45 AM CDT Office Visit [facility] [address] [place] [phone] [place] [address] [id number] 05/08/2025 10:00 AM ROLL CAPPER Office Visit [facility] [id number] [place] [phone] [place] [address] [address] documented as of this encounter Visit Diagnoses Not on filedocumented in this encounter Care Teams Barrel Handler Relationship Specialty [place] [address] [id number] PCP - General Family Medicine 05/29/16 07/13/17 Antonio Santillan MD [address] [place] [phone] PCP - General Internal Medicine 07/14/17 02/08/18 Hiram Fontenot MD [address] [place] [address] PCP - General 02/09/18 07/15/20 [place] [address] [address] [address] PCP - General Internal Medicine 10/08/20 07/11/24 Myrna Devi PA-C [address] [facility] [address] [place] [address] [facility] - [facility] 10/13/22 07/02/23 Lavern Monzon [address] [place] [address] PCP - General Marketing/Sales Person 07/12/24 Indigo Curtis MD Orthopedic Surgery 04/14/12 Colton Hernández [place] [address] [address] [address] [place] [address] Orthopedic Surgery 10/21/13 [place] [address] [place] [address] Physical Medicine and Rehabilitation 09/22/18 documented as of this encounter
--- OUTSIDE RECORDS SUMMARY | 2024-12-18 21:08 | XMS_ITS | Clinical Summary ---
Author Organization [facility] Address Critical access hospital[address] [place] [address] Care Team Providers Care Industrial Automation Specialist Name Role Phone Lavern Monzon HARDWARE SUPPLIES SALES REPRESENTATIVE Primary Care Provider [phone] Allergies Active Allergy Reactions Criticality Noted Date Comments Azelastine Other (see comment) 08/27/2023 Nose bleeds Benzocaine Rash Low 05/29/2016 Red swollen face [place] Shortness of Breath High 08/27/2023 Celecoxib Other [...] Department Care Team Description 12/09/2024 Results [facility] [place] [address] [address] [facility] [address] [place] [address] Lavern Monzon, HARDWARE SUPPLIES SALES REPRESENTATIVE BONE DENSITY GENERIC (SCAN ORDER) 11/29/2024 Scan Athlete Builder SRVCS Scanned, Doc [facility] Bone Density Report (SCAN) 11/21/2024 MyChart Message Enc [place] [address] [address] [facility] [address] [place] [address] Lavern Monzon, HARDWARE SUPPLIES SALES REPRESENTATIVE LIP UNHEALED 11/10/2024 1:20 PM CDT Office Visit [place] [address] [place] [address] Lavern Monzon, HARDWARE SUPPLIES SALES REPRESENTATIVE Mouth/Lip Problem 11/10/2024 MyChart Message Enc [place] [address] [address] [facility] [address] [place] [address] Lavern Monzon, HARDWARE SUPPLIES SALES REPRESENTATIVE BLOOD PRESSURE 11/10/2024 Travel 10/20/2024 [facility] Message [facility] [place] [address] [address] [facility] [address] [place] [address] Lavern Monzon, HARDWARE SUPPLIES SALES REPRESENTATIVE colonoscopy 10/19/2024 Results [facility] [place] [address] [facility] [address] [place] [address] Lavern Monzon, HARDWARE SUPPLIES SALES REPRESENTATIVE ENA2 (SSA & SSB), VITAMIN B-12, FOLIC ACID SERUM, Additional followed-up results: 8 10/18/2024 Telephone [facility] [place] [address] [address] [facility] [address] [place] [address] Lavern Monzon, HARDWARE SUPPLIES SALES REPRESENTATIVE Record Request 10/17/2024 8:00 AM CDT [facility] [place] [facility] [place] [address] [place] [address] Lavern Monzon, HARDWARE SUPPLIES SALES REPRESENTATIVE Hypertension 10/17/2024 - 10/17/2024 11:59 PM CDT Hospital En[facility] [address] [place] [address] Discharge Disposition: Home or Self Care (Routine Discharge) 10/17/2024 MyChart Message Enc [facility] [facility] [place] [address] [facility] [address] [place] [address] Lavern Monzon, HARDWARE SUPPLIES SALES REPRESENTATIVE APPOINTMENTS 10/17/2024 Orders Only [facility] [facility] [place] [address] [facility] [address] [place] [address] Karen Tripathi MA 10/17/2024 Travel 10/13/2024 Patient Outreach [facility] [place] [facility] [place] [address] [place] [address] Lavern Monzon, TREV Pre-visit Gap Closure 09/23/2024 9:40 AM CDT [facility] [address] [facility] [address] [place] [address] Lavern Monzon, HARDWARE SUPPLIES SALES REPRESENTATIVE Cough (Pt states she thinks she has a URI pt has had symptoms for 1 week . /Pt using OTC mucinex ); Congestion (/) 09/23/2024 Travel 09/19/2024 Scan ScanNano INFO SRVCS Scanned, Doc [facility] from [...] Sex Assigned at Female 04/18/2024 4:24 PM RESIDENTIAL DIRECTOR Legal Sex Female 8:00 AM CDT Gender Identity Female 04/18/2024 4:24 PM RESIDENTIAL DIRECTOR Sexual Orientation Choose not to disclose 2024 [...] Description 12/21/2024 8:20 AM CDT [facility] [place] [address] [place] [address] Lavern Monzon, TREV [address] [facility] [address] [place] [address] 01/23/2025 8:10 AM CDT Laboratory Only [facility] [place] [facility] [place] [id number] [facility] [address] [place] [address] Lavern Monzon, HARDWARE SUPPLIES SALES REPRESENTATIVE [address] [facility] [address] [place] [address] 04/19/2025 10:00 AM RESIDENTIAL DIRECTOR [facility] [place] [address] [facility] [address] [place] [address] Lavern Monzon, HARDWARE SUPPLIES SALES REPRESENTATIVE [address] [facility] [address] [place] [address] 04/19/2025 10:30 AM RESIDENTIAL DIRECTOR [facility] [place] [facility] [place] [address] [place] [address] Lavern Monzon, HARDWARE SUPPLIES SALES REPRESENTATIVE [address] [facility] [address] [place] [address] Health Maintenance Due Date Last Done Comments [...] Zoster Vaccines Completed 02/04/2023, 10/10/2022 PHQ-2 (Physician [place]) Completed 06/17/2024 Hepatitis C Completed 10/17/2024 Dexa [...] - 3.740 uIU/ML 10/17/2024 3:30 PM CDT [facility] 10/17/2024 9:01 AM CDT Lavern Monzon HARDWARE SUPPLIES SALES REPRESENTATIVE LABORATORY Final Resul t [facility] [address] [place] [address], * (ABNORMAL) URINALYSIS (10/17/2024 9:01 AM CDT) COLOR (U) YELLOW 10/17/2024 3:32 PM CDT [facility] TRANSPARENCY CLOUDY(A) CLEAR 10/17/2024 3:32 PM CDT [facility] SPECIFIC GRAVITY (U) 1.010 1.003 - 1.040 10/17/2024 3:32 PM CDT [facility] U PH 8.0 5.0 - 9.0 10/17/2024 3:32 PM CDT [facility] PROTEIN RANDOM (U) NEGATIVE NEGATIVE 10/17/2024 3:32 PM CDT [facility] GLUCOSE (U) NEGATIVE NEGATIVE 10/17/2024 3:32 PM T [facility] KETONES MG/DL (U) NEGATIVE NEGATIVE 10/17/2024 3:32 PM T [facility] BILIRUBIN (U) NEGATIVE NEGATIVE 10/17/2024 3:32 PM T [facility] BLOOD (U) NEGATIVE NEGATIVE 10/17/2024 3:32 PM T [facility] UROBILINOGEN 0.2 0.0 - 2.0 EU/DL 10/17/2024 3:32 PM CDT [facility] NITRITES NEGATIVE NEGATIVE 10/17/2024 3:32 PM T [facility] LEUKOCYTES (U) NEGATIVE NEGATIVE 10/17/2024 3:32 PM CDT [facility] RBC/HPF 0-3 0 - 3 /HPF 10/17/2024 3:32 PM CDT [facility] WBC/HPF 0-3 0 - 3 /HPF 10/17/2024 3:32 PM CDT [facility] EPI/HPF 0-3 /HPF 10/17/2024 3:32 PM CDT [facility] BACTERIA (U) NONE SEEN NONE SEEN 10/17/2024 3:32 PM CDT [facility] AMORPHOUS SEDIMENT PRESENT 10/17/2024 3:32 PM CDT [facility] TRIPLE PHOSPHATE CRYSTALS PRESENT 10/17/2024 3:32 PM CDT [facility] URINE SPECIMEN OBTAINED BY CLEAN CATCH PROCEDURE / Unknown 10/17/2024 9:01 AM CDT Lavern Monzon HARDWARE SUPPLIES SALES REPRESENTATIVE URINE ORDERABLES Final Resu lt Performing Organization Address [facility] Co de Phone Number [facility] [address] [place] [address], [place] [phone] * ALBUMIN/CREATININE RATIO, RANDOM URINE (10/17/2024 9:01 AM CDT) MICROALBUMIN (U) 7.8 <20 MG/L 10/18/19 3:54 PM CDT [facility] CREATININE RANDOM (U) 131.4 MG/DL 10/17/2024 3:54 PM CDT [facility] ALBUMIN/CREAT RATIO 5.9 <30 MG/G 10/17/2024 3:54 PM CDT [facility] URINE SPECIMEN / Unknown 10/17/2024 9:01 AM CDT Lavern Monzon NP URINE ORDERABLES Final Resu lt Performing Organization Address [facility] Co de Phone Number [facility] [address] [place] [address], [place] [phone] * (ABNORMAL) COMPREHENSIVE METABOLIC PANEL (10/17/2024 9:01 AM CDT) SODIUM S/P/B 134(L) 136 - 145 MMOL/L 10/17/2024 3:38 PM CDT [facility] Comment:RESULT VERIFIED POTASSIUM S/P/B 4.6 3.5 - 5.1 MMOL/L 10/17/2024 3:38 PM CDT [facility] CHLORIDE S/P/B 98 98 - 107 MMOL/L 10/17/2024 3:38 PM CDT [facility] CO2 32.8(H) 21 - 32 MMOL/L 10/17/2024 3:38 PM CDT [facility] Comment:RESULTS CONFIRMED-TE ST REPEATED GLUCOSE 96 70 - 99 MG/DL 10/17/2024 3:30 PM CD[facility] BUN 14 7 - 18 MG/DL 10/17/2024 3:30 PM [address] [facility] CREATININE S/P/B 0.69 0.55 - 1.02 MG/DL 10/17/2024 3:30 PM CD[address] [facility] CALCIUM S/P/B 9.4 8.4 - 10.5 MG/DL 10/17/2024 3:30 PM T [facility] BILIRUBIN TOTAL S/P/B 0.6 0.2 - 1.0 MG/DL 10/17/2024 3:30 PM T [facility] ALKALINE PHOSPHATASE S/P/B 66 55 - 142 U/L 10/17/2024 3:30 PM T [facility] AST 11(L) 15 - 37 U/L 10/17/2024 3:30 PM T [facility] ALT 25 14 - 59 U/L 10/17/2024 3:30 PM T [facility] TOTAL PROTEIN S/P/B 6.5 6.4 - 8.2 G/DL 10/17/2024 3:30 PM T [facility] ALBUMIN S/P/B 3.4 3.4 - 5.0 G/DL 10/17/2024 3:30 PM T [facility] ANION GAP 3.2(L) 5 - 15 MMOL/L 10/17/2024 3:38 PM T [facility] Comment:REFERENCE RANGE NOT ESTABLISHED OSMOLALITY (CALC) 278 MOSM/KG 025 3:38 PM T [facility] Comment:REFERENCE RANGE NOT ESTABLISHED GFR ESTIMATE 89(L) >90 ML/MIN/1. 73 M2 10/17/2024 3:30 PM CDT [facility] GFR NOTES GFR REFERENCE S: 10/17/2024 3:30 PM T [facility] Comment: THE ESTIMATED GFR IS CALCULATED USING [...] 10/17/2024 9:01 AM CDT us Lavern Monzon HARDWARE SUPPLIES SALES REPRESENTATIVE LABORATORY Final Resul t [facility] [address] [place] [address], * LIPID PANEL (10/17/2024 9:01 AM CDT) CHOLESTEROL 179 <200 MG/DL 10/17/2024 3:30 PM CDT [facility] TRIGLYCERIDES 29 <150 MG/DL 10/17/2024 3:30 PM CDT [facility] HDL 103 >40 MG/DL 10/17/2024 3:30 PM CDT [facility] LDL-C 70 <100 MG/DL 10/17/2024 3:30 PM CDT [facility] VLDL CALCULATION 6 5 - 28 MG/DL 10/17/2024 3:30 PM CDT [facility] CHOL/HDL RATIO 1.7 0.0 - 4.0 10/17/2024 3:30 PM CDT [facility] LDL/HDL 0.7 0.41 - 2.13 10/17/2024 3:30 PM CDT [facility] NON HDL CHOLESTEROL 76 <140 MG/DL 10/17/2024 3:30 PM CDT [facility] 10/17/2024 9:01 AM CDT Lavern Monzon NP LABORATORY Final Resul t [facility] [address] [place] [address], [place] [phone] * HEPATITIS C ANTIBODY (10/17/2024 9:01 AM CDT) HEPATITIS C AB NON-REACTI VE NON-REACT DANNY 10/17/2024 8:01 PM CDT [facility] Comment: ANTIBODIES TO HCV NOT DETECTED. DOES NOT EXCLUDE THE POSSIBILITY OF EXPOSURE TO HCV. 10/17/2024 9:01 AM CDT us Lavern Monzon NP LABORATORY Final Resul t [facility] [address] [place] [address], [place] [phone] * FOLIC ACID SERUM (10/17/2024 9:01 AM CDT) FOLATE >20.0 8.6 - 58.9 NG/ML 10/18/2024 11:26 AM CDT [facility] 10/17/2024 9:01 AM CDT us Lavern Monzon NP LABORATORY Final Resul t [facility] [address] [place] [address], * (ABNORMAL) CBC W/DIFF AUTOMATED (10/17/2024 9:01 AM CDT) [facility] WBC 6.00 4.00 - 10.80 x10'3/uL 10/17/2024 2:51 PM CDT [facility] RBC 4.53 4.10 - 5.40 x10'6/uL 10/17/2024 2:51 PM CDT [facility] HGB 13.7 12.0 - 16.0 G/DL 10/17/2024 2:51 PM CDT [facility] HCT 41.8 36.0 - 47.0 % 10/17/2024 2:51 PM CDT [facility] MCV 92.3 78.0 - 100.0 FL 10/17/2024 2:51 PM CDT [facility] MCH 30.2 27.0 - 31.0 PG 10/17/2024 2:51 PM CDT [facility] MCHC 32.8(L) 33.0 - 36.0 G/DL 10/17/2024 2:51 PM CDT [facility] RDW 15.7(H) 11.5 - 14.5 % 10/17/2024 2:51 PM CDT [facility] PLT 224 150 - 350 x10'3/uL 10/17/2024 2:51 PM CDT [facility] MPV 10.1 7.4 - 10.4 FL 10/17/2024 2:51 PM CDT [facility] DIFFERENTIAL TYPE AUTOMATED DIFFERENTIAL 10/17/2024 2:51 PM T [facility] NEUTROPHILS % 67.8 % 10/17/2024 2:51 PM CDT [facility] LYMPHOCYTES % 20.8 % 10/17/2024 2:51 PM CDT [facility] MONOCYTES % 9.5 % 10/17/2024 2:51 PM CDT [facility] EOSINOPHILS % 1.0 % 10/17/2024 2:51 PM CDT [facility] BASOPHILS % 0.7 % 10/17/2024 2:51 PM CDT [facility] IMMATURE GRANS % 0.2 % 10/17/2024 2:51 PM CDT [facility] ABS. NEUTROPHILS 4.07 1.60 - 8.30 x10'3/uL 10/17/2024 2:51 PM CDT [facility] ABS. LYMPHOCYTES 1.25 0.80 - 4.70 x10'3/uL 10/17/2024 2:51 PM CDT [facility] ABS. MONOCYTES 0.57 0.00 - 1.50 x10'3/uL 10/17/2024 2:51 PM CDT [facility] ABS. EOSINOPHILS 0.06 0.00 - 0.40 x10'3/uL 10/17/2024 2:51 PM CDT [facility] ABS. BASOPHILS 0.04 0.00 - 0.20 x10'3/uL 10/17/2024 2:51 PM CDT [facility] ABS. IMMATURE GRANULOCYTES 0.01 0.00 - 0.03 x10'3/uL 10/17/2024 2:51 PM CDT [facility] 10/17/2024 9:01 AM CDT us Lavern Monzon NP LABORATORY Final Resul t [facility] [address] [place] [address], * VITAMIN D, 25 [place] (10/17/2024 9:01 AM CDT) VITAMIN D 25 HYDROXY TOTAL S/P/B 57.2 30 - 100 NG/ML 10/17/2024 3:30 PM CDT [facility] Comment: DEFICIENT <20 INSUFFICIENT 20-30 SUFFICIENT 30-100 10/17/2024 9:01 AM CDT Lavern Monzon NP LABORATORY Final Resul t [facility] [address] [place] [address], [place] [phone] * ENA2 (SSA & SSB) (10/17/2024 9:00 AM CDT) SSA ANTIBODY <0.4 0.0 - 6.9 U/mL 10/19/2024 11:27 AM CDT [facility] Comment: NEGATIVE: <7 U/mL EQUIVOCAL: 7 to 10 u/mL POSITIVE: >10 U/mL SSA AND/OR SSB AUTOANTIBODIES ARE DETECTED IN 60% TO 90% OF PATIENTS WITH SJOGREN'S SYNDROME AND IN 20% TO 40% OF PATIENTS WITH SYSTEMIC LUPUS ERYTHEMATOSUS. SSB ANTIBODY <0.4 0.0 - 6.9 U/mL 10/19/2024 11:27 AM CDT [facility] Comment: NEGATIVE: <7 U/mL EQUIVOCAL: 7 to 10 u/mL POSITIVE: >10 U/mL SSA AND/OR SSB AUTOANTIBODIES ARE DETECTED IN 60% TO 90% OF PATIENTS WITH SJOGREN'S SYNDROME AND IN 20% TO 40% OF PATIENTS WITH SYSTEMIC LUPUS ERYTHEMATOSUS. 10/17/2024 9:00 AM CDT us Lavern Monzon NP LABORATORY Final Resul t [facility] [address] [place] [address], [place] [phone] * VITAMIN B-12 (10/17/2024 9:00 AM CDT) VITAMIN B12 S/P/B 446 961 - 986 PG/ML 10/17/2024 3:36 PM CDT [facility] 10/17/2024 9:00 AM CDT Lavern Monzon HARDWARE SUPPLIES SALES REPRESENTATIVE LABORATORY Final Resul t [facility] [address] [facility] [place] [address], * XR CHEST PA+LAT (09/23/2024 11:07 AM CDT) Anatomical Region Laterality Modality Chest Radiographic Anastacia ging 09/23/2024 11:2 9 AM CDT Impressions 09/23/2024 11:29 AM CDT IMPRESSION: No acute findings Ordered By: LAVERN MONZON Interpreted By: Alejandro Miller MD, 09/23/2024 11:29 AM Narrative 09/23/2024 11:29 AM CDT [facility] [place] [address] 2 VIEWS OF THE CHEST Clinical history: Cough, wheezing Comparison: None 2 views of the chest demonstrate the cardiac silhouette to be normal in size and appearance. The pulmonary vessels appear normal. The Lungs are clear. No consolidations or effusions are seen. Procedure Note Alejandro Miller MD - 09/23/2024 [facility] [place] [address] 2 VIEWS OF THE CHEST Clinical history: [...] to Health Maintenance Insurance [employer] Care Teams Industrial Automation Specialist Relationship Specialty Start Date End Date Lavern Monzon, HARDWARE SUPPLIES SALES REPRESENTATIVE [address] [place] [address] PCP - General NURSE PRACTITIONER 04/18/24
--- OUTSIDE RECORDS SUMMARY | 2024-12-18 21:08 | XMS_ITS | Encounter Summary ---
Author Organization [facility] Address [facility] [place] [address] Care Team Providers Care Detacher Name Role Phone Lavern Monzon NP Primary Care Provider [phone] Encounter Details Date Type Department Care Team (Late st Contact Info) Description 10/17/2024 MyChart Message Enc [facility] [address] [place], [place] [id number] Lavern Monzon NP [address] [place], [place] [id number] APPOINTMENTS Social History Tobacco Use Types Packs/Day [...] Sex Assigned at Female 04/18/2024 4:24 PM TRANSVERSE ABDOMINAL MUSCLE NURSE Legal Sex Female 8:00 AM CDT Gender Identity Female 04/18/2024 4:24 PM TRANSVERSE ABDOMINAL MUSCLE NURSE Sexual Orientation Choose not to disclose 2024 7:30 AM CDT documented as of this encounter Plan of Treatment Upcoming Encounters Date Type Department Care Team (Late st Contact Info) Description 12/21/2024 8:20 AM CDT [facility] [address] [place] [address] Lavern Monzon STEAK TENDERIZER MACHINE [address] [facility] [address] [place] [address] 01/23/2025 8:10 AM CDT Laboratory Only [facility] [place] [address] [place] [address] Lavern Monzon, STEAK TENDERIZER MACHINE [address] [facility] [address] [place] [address] 04/19/2025 10:00 AM TRANSVERSE ABDOMINAL MUSCLE NURSE [facility] [place] [id number] [facility] [address] [place] [address] Lavern Monzon NP [address] [facility] [address] [place] [address] 04/19/2025 10:30 AM TRANSVERSE ABDOMINAL MUSCLE NURSE [facility] [place] [address] [address] [facility] [address] [place] [address] Lavern Monzon NP [address] [facility] [address] [place] [address] documented as of this encounter Visit Diagnoses Not on filedocumented in this encounter Care Teams Detacher Relationship Specialty Start Date End Date Lavern Monzon STEAK TENDERIZER MACHINE [address] [place] [address] PCP - General NURSE PRACTITIONER 04/18/24 documented as of this encounter
--- OUTSIDE RECORDS SUMMARY | 2024-12-18 21:08 | XMS_ITS | Encounter Summary ---
Author Organization [facility] Address [address] [facility] [place] [address] Care Team Providers Care Clay Stain Mixer Name Role Phone Indigo Curtis MD Unavailable [phone] Colton Hernández MD Unavailable [phone] Ida Bailey MD Primary Care Provider [phone] Antonio Santillan MD Primary Care Provider [phone] Hiram Fontenot MD Primary Care Provider [phone] Huber Matos MD Unavailable [phone] Leah Barajas MD Primary Care Provider + [phone] Myrna Devi PA-C Unavailable [phone] Lavern Monzon Primary Care Provider [phone] Encounter Details Date Type Department Care Team (Late Contact Info) Description 11/13/2016 [facility] Orthopedics [address] [address] Unknown, Provider Social History Tobacco Use Types Packs/Day Years Used Date Smoking Tobacco: Never Assessed Comments Unknown Sex and Gender Information Value Date Recorded Sex Assigned at Not on file Legal Sex Female 2:16 PM AUDITOR/QUALITY Gender Identity Not on file Sexual Orientation Not on file documented as of this encounter Plan of Treatment Upcoming Encounters Date Type Department Care Team (Late Contact Info) Description 12/21/2024 3:40 PM CDT Office Visit [facility] Orthopedics [address] [facility], [address] [phone] [place] [address] [address] 02/16/2025 9:45 AM CDT Office Visit [facility] Pain Care [id number] [place] [address] [place] [address] [address] [id number] 05/08/2025 10:00 AM AUDITOR/QUALITY Office Visit [facility] Orthopedics [address] [place] [address] [place] [address] [address] documented as of this encounter Visit Diagnoses Not on filedocumented in this encounter Care Teams Clay Stain Mixer Relationship Specialty [place] [address] [address] [id number] PCP - General Family Medicine 05/29/16 07/13/17 Antonio Santillan MD [address] [place] [address] PCP - General Internal Medicine 07/14/17 02/08/18 Hiram Fontenot MD [address] [place] [address] PCP - General 02/09/18 07/15/20 [place] [address] [address] [address] PCP - General Internal Medicine 10/08/20 07/11/24 Myrna Devi PA-C [address] [facility] [address] [place] [address] [facility] 10/13/22 07/02/23 Lavern Monzon [address] [place] [address] PCP - General Filleter 07/12/24 Indigo Curtis MD Orthopedic Surgery 04/14/12 Colton Hernán[place] [address] [facility] [address] [address] [place] [address] Orthopedic Surgery 10/21/13 [place] [address] [place] [address] Physical Medicine and Rehabilitation 09/22/18 documented as of this encounter
--- OUTSIDE RECORDS SUMMARY | 2024-12-18 21:08 | XMS_ITS | Encounter Summary ---
Author Organization [facility] Address [address] [facility] [place] [address] Care Team Providers Care Electromechanical Technologist Name Role Phone Indigo Curtis MD Unavailable [phone] Colton Hernández MD Unavailable [phone] Ida Bailey MD Primary Care Provider [phone] Antonio Santillan MD Primary Care Provider [phone] Hiram Fontenot MD Primary Care Provider [phone] Huber Matos MD Unavailable [phone] Leah Barajas MD Primary Care Provider + [phone] Myrna Devi PA-C Unavailable [phone] Lavern Monzon Primary Care Provider [phone] Encounter Details Date Type Department Care Team (Late Contact Info) Description 06/04/2017 [facility] Orthopedics [address] [address] Unknown, Provider Social History Tobacco Use Types Packs/Day Years Used Date Smoking Tobacco: Never Assessed Comments Unknown Sex and Gender Information Value Date Recorded Sex Assigned at Not on file Legal Sex Female 2:16 PM SAP FUNCTIONAL ANALYST Gender Identity Not on file Sexual Orientation Not on file documented as of this encounter Plan of Treatment Upcoming Encounters Date Type Department Care Team (Late Contact Info) Description 12/21/2024 3:40 PM CDT Office Visit [facility] Orthopedics [address] [facility], [address] [phone] [place] [address] [address] [address] 02/16/2025 9:45 AM CDT Office Visit [facility] Pain Care [address] [place] [phone] [place] [address] [address] [id number] 05/08/2025 10:00 AM SAP FUNCTIONAL ANALYST Office Visit [facility] Orthopedics [address] [place] [address] [place] [address] [address] [address] documented as of this encounter Visit Diagnoses Not on filedocumented in this encounter Care Teams Electromechanical Technologist Relationship Specialty [place] [address] [address] [phone] PCP - General Family Medicine 05/29/16 07/13/17 Antonio Santillan MD [address] [place] [address] PCP - General Internal Medicine 07/14/17 02/08/18 Hiram Fontenot MD [address] [place] [address] PCP - General 02/09/18 07/15/20 [place] [address] [address] [address] PCP - General Internal Medicine 10/08/20 07/11/24 Myrna Devi PA-C [address] [facility] [address] [place] [address] [facility] 10/13/22 07/02/23 Lavern Monzon [address] [place] [address] PCP - General Sql Programmer Analyst 07/12/24 Indigo Curtis MD Orthopedic Surgery 04/14/12 Colton Hernández [place] [address] [facility] [address] [place] [address] Orthopedic Surgery 10/21/13 [place] [address] [address] [place] [address] Physical Medicine and Rehabilitation 09/22/18 documented as of this encounter
--- OUTSIDE RECORDS SUMMARY | 2024-12-18 21:08 | XMS_ITS | Encounter Summary ---
Author Organization [facility] Address [facility] [place] [address] Care Team Providers Care Foil Cutter Name Role Phone Lavern Monzon NP Primary Care Provider [phone] Encounter Details Date Type Department Care Team (Latest Contact Info) Description 08/28/2024 MyChart Message Enc [facility] - [place] [address] [place], [place] [id number] Lavern Monzon, BED OPERATOR [address] [place], [place] [phone] Wrist Pain, Hip Pain, Inside of Lips, [...] Sex Assigned at Female 04/18/2024 4:24 PM THERMAL MOLDER Legal Sex Female 8:00 AM CDT Gender Identity Female 04/18/2024 4:24 PM THERMAL MOLDER Sexual Orientation Choose not to disclose 2024 7:30 AM CDT documented as of this encounter Plan of Treatment Upcoming Encounters Date Type Department Care Team (Late st Contact Info) Description 12/21/2024 8:20 AM CDT Office Visit [facility] [place] [address] [place] [address] Lavern Monzon BED OPERATOR [address] [place] [address] 01/23/2025 8:10 AM CDT [facility] [place] [address] [place] [address] Lavern Monzon, BED OPERATOR [address] [place] [address] 04/19/2025 10:00 AM THERMAL MOLDER [facility] [place] [address] [place] [address] Lavern Monzon NP [address] [facility] [address] [place] [address] 04/19/2025 10:30 AM THERMAL MOLDER [facility] [place] [address] [place] [address] Lavern Monzon BED OPERATOR [address] [facility] [address] [place] [address] documented as of this encounter Visit Diagnoses Not on filedocumented in this encounter Care Teams Foil Cutter Relationship Specialty Start Date End Date Lavern Monzon, BED OPERATOR [address] [place] [address] PCP - General NURSE PRACTITIONER 04/18/24 documented as of this encounter
--- OUTSIDE RECORDS SUMMARY | 2024-12-18 21:09 | XMS_ITS | Encounter Summary ---
Author Organization [facility] Address [facility] [place] [address] Care Team Providers Care Desktop Analyst Name Role Phone Lavern Monzon NP Primary Care Provider [phone] Encounter Details Date Type Department Care Team (Late st Contact Info) Description 06/22/2024 [facility] [place] [address] [place], [place] [phone] Lavern Monzon CLINICAL APPEALS RN [address] [place], [place] [phone] refill Social History Tobacco Use Types Packs/Day [...] Sex Assigned at Female 04/18/2024 4:24 PM CABINETMAKER SUPERVISOR Legal Sex Female 8:00 AM CDT Gender Identity Female 04/18/2024 4:24 PM CABINETMAKER SUPERVISOR Sexual Orientation Choose not to disclose 2024 7:30 AM CDT documented as of this encounter Plan of Treatment Upcoming Encounters Date Type Department Care Team (Late st Contact Info) Description 12/21/2024 8:20 AM CDT [facility] [address] [place] [address] Lavern Monzon, CLINICAL APPEALS RN [address] [facility] [address] [place] [address] 01/23/2025 8:10 AM CDT Laboratory Only [facility] [place] [facility] [place] [address] [facility] [address] [place] [address] Lavern Monzon, CLINICAL APPEALS RN [address] [facility] [address] [place] [address] 04/19/2025 10:00 AM CABINETMAKER SUPERVISOR [facility] [place] [facility] [place] [address] [address] [facility] [address] [place] [address] Lavern Monzon, CLINICAL APPEALS RN [address] [facility] [address] [place] [address] 04/19/2025 10:30 AM CABINETMAKER SUPERVISOR [facility] [place] [facility] [place] [address] [address] [facility] [address] [place] [address] Lavern Monzon, CLINICAL APPEALS RN [address] [facility] [address] [place] [address] documented as of this encounter Visit Diagnoses Not on filedocumented in this encounter Additional Health Concerns Infection Onset Date Last Indicated Resolved Time COVID-19 Rule Out 07/25/2024 07/25/2024 07/25/2024 11:57 AM CABINETMAKER SUPERVISOR Influenza - Seasonal 07/25/2024 07/25/2024 025 12:32 AM CABINETMAKER SUPERVISOR documented as of this encounter Care Teams Desktop Analyst Relationship Specialty Start Date End Date Lavern Monzon, CLINICAL APPEALS RN [address] [facility] [address] [place] [address] PCP - General NURSE PRACTITIONER 04/18/24 documented as of this encounter
--- OUTSIDE RECORDS SUMMARY | 2024-12-18 21:09 | XMS_ITS | Encounter Summary ---
Author Organization [facility] Address [facility] [place] [address] Care Team Providers Care Natural Science Curator Name Role Phone Lavern Monzon NP Primary Care Provider [phone] Encounter Details Date Type Department Care Team (Latest Contact Info) Description 06/16/2024 MyChart Message Enc [facility] Multispecialty Care - [place] [address] [place], [place] [address] Lavern Monzon NP [address] [place], [place] [phone] TOMORROW'S APPOINTMENT Social History Tobacco Use Types [...] Sex Assigned at Female 04/18/2024 4:24 PM AUTOMOTIVE POWER ELECTRONICS ENGINEER Legal Sex Female 8:00 AM CDT Gender Identity Female 04/18/2024 4:24 PM AUTOMOTIVE POWER ELECTRONICS ENGINEER Sexual Orientation Choose not to disclose 2024 7:30 AM CDT documented as of this encounter Functional Status * Over the past 2 weeks, how often have you been bothered by any of the following problems? Question Answer Date of Assessment Author Status Little interest or pleasure in doing things Several days 06/17/2024 12:42 PM AUTOMOTIVE POWER ELECTRONICS ENGINEER Alena Luciano MA Active Feeling down, depressed, or hopeless Not at all 06/17/2024 12:42 PM AUTOMOTIVE POWER ELECTRONICS ENGINEER Alena Luciano MA Active Patient Health Questionnaire-2 Score 1 06/17/2024 12:42 PM AUTOMOTIVE POWER ELECTRONICS ENGINEER Alena Luciano MA Active documented as of this encounter Plan of Treatment Upcoming Encounters Date Type Department Care Team (Late st Contact Info) Description 12/21/2024 8:20 AM CDT [facility] [place] [address] [place] [address] Lavern Monzon NP [address] [facility] [address] [place] [address] 01/23/2025 8:10 AM CDT Laboratory Only [facility] [place] [address] [facility] [address] [place] [address] Lavern Monzon, CARD ASSEMBLER [address] [facility] [address] [place] [address] 04/19/2025 10:00 AM AUTOMOTIVE POWER ELECTRONICS ENGINEER [facility] [place] [address] [place] [address] Lavern Monzon CARD ASSEMBLER [address] [facility] [address] [place] [address] 04/19/2025 10:30 AM AUTOMOTIVE POWER ELECTRONICS ENGINEER Office [facility] [place] [address] [place] [address] Lavern Monzon, CARD ASSEMBLER [address] [place] [address] documented as of this encounter Visit Diagnoses Not on filedocumented in this encounter Additional Health Concerns Infection Onset Date Last Indicated Resolved Time COVID-19 Rule Out 07/25/2024 07/25/2024 07/25/2024 11:57 AM AUTOMOTIVE POWER ELECTRONICS ENGINEER Influenza - Seasonal 07/25/2024 07/25/2024 025 12:32 AM AUTOMOTIVE POWER ELECTRONICS ENGINEER documented as of this encounter Care Teams Natural Science Curator Relationship Specialty Start Date End Date Lavern Monzon, CARD ASSEMBLER [address] [place] [address] PCP - General NURSE PRACTITIONER 04/18/24 documented as of this encounter
--- OUTSIDE RECORDS SUMMARY | 2024-12-18 21:09 | XMS_ITS | Continuity of Care Document ---
Author Organization [employer] [facility] Address [address] [facility] tiffanie Gray [address] [place] [phone] Phone Care Team Providers Care Insole Department Worker Name Role Phone Moffett OD, Isak Unavailable Unavailable Procedures Procedure Date Visual Field Examination(s) Optic Nerve Topography Optic Nerve Topography Eye Exam & Treatment Refraction Office/outpatient Visit, Est Optic Nerve Topography Optic Nerve Topography Visual Field Examination(s) Removal Of Skin Lesion No Charge Contact Lens Check CL Replacement - Vist[facility] Disp W/BW Soft [facility] Medical Eye Exam & Treatment Refraction No Charge Contact Lens Check CL Replacement - [facility] Disp W/BW [facility] No Charge Contact Lens Check No Charge Contact Lens Check No Charge Contact Lens Check Office/outpatient Visit, Est Visual Field Examination(s) Office/outpatient Visit, Est No Charge Contact Lens Check CL Replacement - Vist[facility] Disp W/BW [facility] No Charge Contact Lens Check CL Replacement - [facility]ist[facility] Disp W/BW [facility] No Charge Contact Lens Check Advance Directives Directive Yes / No Effective Date File Name No Information Encounters Encounter Description Practice Location Reason(s) For Visit Diagnoses Date Provider Providers Copied on Encounter [facility], [id number] [place] [address] [address], [place], [place], [id number], [place] tel:[phone] [facility] No Information 8-201 0 Moffett OD Isak. [address] [facility] [address], [address], [place], [place], [facility], . tel:[phone] Referring Provider: Isak Moffett OD A, [address] [place], [place] [address]ate [address], [place], [place], [facility]. tel:[phone] [facility], [address], [place], [place], [address], [place] tel:[phone] [facility] No Information 5-201 0 Moffett OD Isak. [address] [facility] [address], [address], [place], [facility], [place]. tel:[phone] Referring Provider: Isak Moffett OD A, [address] [place], [place] [address]ate [address], [place], [facility]. tel:[phone] [facility], [address] [place] [address] [address], [place], [place], [id number], [place] tel:[phone] [facility] No Information 8-201 0 Moffett OD Isak. [address] [place] [address] [address], [address], [place], [facility], [place]. tel:[phone] Office/outpat ient Visit, Est [facility], [address], [place], [place], [address], [place] tel:[phone] [facility] No Information 3-200 9 Moffett OD Isak. [address] [facility] [address], [address], [place], [facility], [place]. tel:[phone] [facility], [address], [place], [place], [address], [place] tel:[phone] [facility] No Information 7-200 9 Moffett OD Isak. [address] [place], [place] [address]ate Center , [address], [place], [facility], . tel:[phone] Referring Provider: Isak Moffett OD A, [address] [place], [place] [address]ate [address], [place], [facility]. tel:[phone] [facility], [address] [place] [address] [address], [place], [place], [address], tel:[phone] [facility] No Information 9-200 9 Moffett OD Isak. [address] [place], [place] [address]ate Center , [address], [place], [facility], . tel:[phone] Referring Provider: Isak Moffett OD A, [address] [place], [place] [address]ate Center [address], [place], [facility]. tel:[phone] [facility], [address] [place] [address] [address], [place], [place], [address], tel:[phone] [facility] No Information 8-200 9 Miramontes Nitza. [address] [place], [place] [address]ate Center , [address], [place], [facility], . tel:[phone] Referring Provider: Isak Moffett OD A, [address] [place], [place] [address]ate Center [address], [place], [facility]. tel:[phone] [facility], [address] [place] [address] [address], [place], [place], [address], [place] tel:[phone] [facility] [place] No Information 4-200 8 Moffett OD Isak. [address] [place], [place] [address], [place], [facility], [place]. tel:[phone] [facility], [address] [place] [address] [address], [place], [place], [address], [place] tel:[phone] [facility] No Information Dec-1 6-200 8 Moffett OD Isak. [address] , [address], [place], [address], [place]. tel:[phone] [facility], [address], [place], [place], [address], [place] tel:[phone] [facility] No Information Nov-1 4-200 8 Moffett OD Isak. [address] , [address], [place], [facility], [place]. tel:[phone] [facility], [address] [place] [address] [address], [place], [place], [address], [place] tel:[phone] [facility] No Information Oct-3 0-200 8 Moffett OD Isak. [address] , [address], [place], [facility], [place]. tel:[phone] [facility], [address] [place] [address] [address], [place], [place], [address], [place] tel:[phone] [facility] No Information Sep-1 8-200 8 Moffett OD Isak. [address] , [address], [place], [address], [place]. tel:[phone] [facility], [address] [place] [address] [address], [place], [place], [address], [place] tel:[phone] [facility] No Information Sep-1 2-200 8 Moffett OD Isak. [address] , [address], [place], [address], [place]. tel:[phone] Office/outpat ient Visit, Est [facility], [address] [place] [address] [address], [place], [place], [address], [place] tel:[phone] [facility] [place] No Information Real-1 8-200 8 Moffett OD Isak. [address] , [address], [place], [facility], [place]. tel:[phone] [facility], [address], [place], [place], [address], [place] tel:[phone] [facility] No Information Dec-0 6-200 7 Moffett OD Isak. [address] [facility] [address], [address], [place], [facility], [place]. tel:[phone] Referring Provider: Isak Moffett OD A, [facility] [address], [place], [facility]. tel:[phone] Office/outpat ient Visit, [facility] [address], [place], [place], [address], [place] tel:[phone] [facility] No Information Real-2 0-200 7 Moffett OD Isak. [address] [facility] [address], [address], [place], [facility], [place]. tel:[phone] [facility], [address] [place] [address] [address], [place], [place], [address], [place] tel:[phone] [facility] No Information Apr-2 4-200 7 Moffett OD Isak. [address] [facility] [address], [address], [place], [address], [place]. tel:[phone] [facility], [address], [place], [place], [address], [place] tel:[phone] [facility] No Information Apr-1 2-200 7 Moffett OD Isak. [address] [facility] [address], [address], [place], [address], [place]. tel:[phone] [facility], [address], [place], [place], [address], [place] tel:[phone] [facility] No Information Apr-0 3-200 7 Moffett OD Isak. [address] , [address], [place], [address], [place]. tel:[phone] Family History Family Member Type Diagnosis Age At Onset No Information Payers Payer name Insurance type Covered alliance party ID Authoriza tion(s) No Information Social [...]
--- OUTSIDE RECORDS SUMMARY | 2024-12-18 21:09 | XMS_ITS | Encounter Summary ---
Author Organization [facility] Address [address] [place] [address] Care Team Providers Care Police Liaison Name Role Phone Lavern Monzon NP Primary Care Provider [phone] Encounter Details Date Type Department Care Team (Late st Contact Info) Description 05/29/2024 MyChart Message Enc [facility] [place] [address] [place], [place] [id number] Lavern Monzon NP [address] [place], [place] [id number] SPIRONOLACTONE Social History Tobacco Use Types Packs/Day Years Used Date Smoking Tobacco: Never Passive Smoke Exposure: Never Smokeless Tobacco: Never Alcohol Use Standard Drinks/Week Comments Not Currently 0 (1 standard drink = 0.6 oz pure alcohol) 2-3 beers/year; 1 glass of wine/year; 1 vodka tonic/year Comments No Sex and Gender Information Value Date Recorded Sex Assigned at Female 04/18/2024 4:24 PM ELECTRICAL WIRER Legal Sex Female 8:00 AM CDT Gender Identity Female 04/18/2024 4:24 PM ELECTRICAL WIRER Sexual Orientation Choose not to disclose 2024 7:30 AM CDT documented as of this encounter Plan of Treatment Upcoming Encounters Date Type Department Care Team (Late st Contact Info) Description 12/21/2024 8:20 AM CDT [facility] [place] [address] [place] [address] Lavern Monzon, OPERATION AGENT [address] [facility] [address] [place] [address] 01/23/2025 8:10 AM CDT Laboratory Only [facility] [place] [address] [place] [address] Lavern Monzon, OPERATION AGENT [address] [facility] [address] [place] [address] 04/19/2025 10:00 AM ELECTRICAL WIRER [facility] [place] [address] [facility] [address] [place] [address] Lavern Monzon, OPERATION AGENT [address] [facility] [address] [place] [address] 04/19/2025 10:30 AM ELECTRICAL WIRER [facility] [place] [address] [place] [address] Lavern Monzon, OPERATION AGENT [address] [facility] [address] [place] [address] documented as of this encounter Visit Diagnoses Not on filedocumented in this encounter Additional Health Concerns Infection Onset Date Last Indicated Resolved Time COVID-19 Rule Out 07/25/2024 07/25/2024 07/25/2024 11:57 AM ELECTRICAL WIRER Influenza - Seasonal 07/25/2024 07/25/2024 025 12:32 AM ELECTRICAL WIRER documented as of this encounter Care Teams Police Liaison Relationship Specialty Start Date End Date Lavern Monzon OPERATION AGENT [address] [place] [address] PCP - General NURSE PRACTITIONER 04/18/24 documented as of this encounter
--- OUTSIDE RECORDS SUMMARY | 2024-12-18 21:09 | XMS_ITS | Encounter Summary ---
Author Organization [facility] Address [facility] [place] [address] Care Team Providers Care Inspector Fibrous Wallboard Name Role Phone Lavern Monzon NP Primary Care Provider [phone] Encounter Details Date Type Department Care Team (Latest Contact Info) Description 06/27/2024 MyChart Message Enc [facility] [place] [address] [place], [place] [id number] Lavern Monzon, ANIMAL CRUELTY INVESTIGATION SUPERVISOR [address] [place], [place] [id number] 1-Lymphedema Therapy Social History Tobacco Use Types [...] Sex Assigned at Female 04/18/2024 4:24 PM MERCURY CELL CLEANER Legal Sex Female 8:00 AM CDT Gender Identity Female 04/18/2024 4:24 PM MERCURY CELL CLEANER Sexual Orientation Choose not to disclose 2024 7:30 AM CDT documented as of this encounter Plan of Treatment Upcoming Encounters Date Type Department Care Team (Late st Contact Info) Description 12/21/2024 8:20 AM CDT [facility] [address] [place] [address] Lavern Monzon, ANIMAL CRUELTY INVESTIGATION SUPERVISOR [address] [facility] [address] [place] [address] 01/23/2025 8:10 AM CDT Laboratory Only [facility] [place] [address] [place] [address] Lavern Monzon, ANIMAL CRUELTY INVESTIGATION SUPERVISOR [address] [facility] [address] [place] [address] 04/19/2025 10:00 AM MERCURY CELL CLEANER [facility] [place] [address] [facility] [address] [place] [address] Lavern Monzon, ANIMAL CRUELTY INVESTIGATION SUPERVISOR [address] [facility] [address] [place] [address] 04/19/2025 10:30 AM MERCURY CELL CLEANER [facility] [place] [address] [facility] [address] [place] [address] Lavern Monzon, ANIMAL CRUELTY INVESTIGATION SUPERVISOR [address] [facility] [address] [place] [address] documented as of this encounter Visit Diagnoses Not on filedocumented in this encounter Additional Health Concerns Infection Onset Date Last Indicated Resolved Time COVID-19 Rule Out 07/25/2024 07/25/2024 07/25/2024 11:57 AM MERCURY CELL CLEANER Influenza - Seasonal 07/25/2024 07/25/2024 025 12:32 AM MERCURY CELL CLEANER documented as of this encounter Care Teams Inspector Fibrous Wallboard Relationship Specialty Start Date End Date Lavern Monzon ANIMAL CRUELTY INVESTIGATION SUPERVISOR [address] [place] [address] PCP - General NURSE PRACTITIONER 04/18/24 documented as of this encounter
--- OUTSIDE RECORDS SUMMARY | 2024-12-18 21:09 | XMS_ITS | Encounter Summary ---
Author Organization [facility] Address [address] [place] [address] Care Team Providers Care Inventory Audit Clerk Name Role Phone Lavern Monzon NP Primary Care Provider [phone] Encounter Details Date Type Department Care Team (Latest Contact Info) Description 06/03/2024 MyChart Message Enc [facility] [place] [address] [place] [address] Lavern Monzon, TREV [address] [place], [place] [id number] Blood Pressure Medication Social History Tobacco Use Types Packs/Day Years Used Date Smoking Tobacco: Never Passive Smoke Exposure: Never Smokeless Tobacco: Never Alcohol Use Standard Drinks/Week Comments Not Currently 0 (1 standard drink = 0.6 oz pure alcohol) 2-3 beers/year; 1 glass of wine/year; 1 vodka tonic/year Comments No Sex and Gender Information Value Date Recorded Sex Assigned at Female 04/18/2024 4:24 PM INDIRECT SALES EXEC Legal Sex Female 8:00 AM CDT Gender Identity Female 04/18/2024 4:24 PM INDIRECT SALES EXEC Sexual Orientation Choose not to disclose 2024 7:30 AM CDT documented as of this encounter Plan of Treatment Upcoming Encounters Date Type Department Care Team (Late st Contact Info) Description 12/21/2024 8:20 AM CDT Office Visit [facility] [place] [address] [place], [place] [id number] Lavern Monzon, REPERTOIRE MANAGER [address] [place] [address] 01/23/2025 8:10 AM CDT Laboratory Only [facility] [place] [address] [place] [address] Lavern Monzon, REPERTOIRE MANAGER [address] [facility] [address] [place] [address] 04/19/2025 10:00 AM INDIRECT SALES EXEC [facility] [place] [address] [place] [address] Lavern Monzon, REPERTOIRE MANAGER [address] [facility] [address] [place] [address] 04/19/2025 10:30 AM INDIRECT SALES EXEC [facility] [place] [address] [place] [address] Lavern Monzon, REPERTOIRE MANAGER [address] [facility] [address] [place] [address] documented as of this encounter Visit Diagnoses Not on filedocumented in this encounter Additional Health Concerns Infection Onset Date Last Indicated Resolved Time COVID-19 Rule Out 07/25/2024 07/25/2024 07/25/2024 11:57 AM INDIRECT SALES EXEC Influenza - Seasonal 07/25/2024 07/25/2024 025 12:32 AM INDIRECT SALES EXEC documented as of this encounter Care Teams Inventory Audit Clerk Relationship Specialty Start Date End Date Lavern Monzon REPERTOIRE MANAGER [address] [place] [address] PCP - General NURSE PRACTITIONER 04/18/24 documented as of this encounter
--- OUTSIDE RECORDS SUMMARY | 2024-12-18 21:09 | XMS_ITS | Encounter Summary ---
Author Organization [facility] Address [facility] [place] [address] Care Team Providers Care Roughing Mill Operator Name Role Phone Lavern Monzon NP Primary Care Provider +1 [phone] Encounter Details Date Type Department Care Team (Late st Contact Info) Description 05/19/2024 MyChart Message Enc [facility] [place] [address] [place], [place] [address] Lavern Monzon NP [address] [place], [place] [id number] Testing Documents Social History Tobacco Use Types Packs/Day Years Used Date Smoking Tobacco: Never Passive Smoke Exposure: Never Smokeless Tobacco: Never Alcohol Use Standard Drinks/Week Comments Not Currently 0 (1 standard drink = 0.6 oz pure alcohol) 2-3 beers/year; 1 glass of wine/year; 1 vodka tonic/year Comments No Sex and Gender Information Value Date Recorded Sex Assigned at Female 04/18/2024 4:24 PM ASSISTANT QUALITY MANAGER Legal Sex Female 8:00 AM CDT Gender Identity Female 04/18/2024 4:24 PM ASSISTANT QUALITY MANAGER Sexual Orientation Choose not to disclose 2024 7:30 AM CDT documented as of this encounter Functional Status * Calculated C-SSRS Risk Score (Lifetime/Recent) Answer Date of Assessment Author Status No Risk Indicated 05/22/2024 1:16 PM ASSISTANT QUALITY MANAGER Gina Telles RN Active * [place] Suicide Severity Rating Scale (Screener/Recent Self-Report) Question Answer Date of Assessment Author Status 1. Wish to be (Past 1 Month) No 05/22/2024 1:16 PM ASSISTANT QUALITY MANAGER Gina Telles RN Activ e 2. Non-Specific Active Suicidal Thoughts (Past 1 Month) No 05/22/2024 1:16 PM ASSISTANT QUALITY MANAGER Gina Telles RN Activ e 6. Suicidal Behavior (Lifetime) No 05/22/2024 1:16 PM Gina Lovell RN Activ e documented as of this encounter Plan of Treatment Upcoming Encounters Date Type Department Care Team (Late st Contact Info) Description 12/21/2024 8:20 AM CDT [facility] [address] [facility] [address] [place] [address] Lavern Monzon ANTIQUE JEWELRY REPAIRER [address] [facility] [address] [place] [address] 01/23/2025 8:10 AM CDT [facility] [place] [address] [place] [address] Lavern Monzon ANTIQUE JEWELRY REPAIRER [address] [facility] [address] [place] [address] 04/19/2025 10:00 AM ASSISTANT QUALITY MANAGER [facility] [address] [facility] [address] [place] [address] Lavern Monzon ANTIQUE JEWELRY REPAIRER [address] [facility] [address] [place] [address] 04/19/2025 10:30 AM ASSISTANT QUALITY MANAGER [facility] [address] [place] [address] Lavern Monzon, ANTIQUE JEWELRY REPAIRER [address] [facility] [address] [place] [address] documented as of this encounter Visit Diagnoses Not on filedocumented in this encounter Additional Health Concerns Infection Onset Date Last Indicated Resolved Time COVID-19 Rule Out 07/25/2024 07/25/2024 07/25/2024 11:57 AM ASSISTANT QUALITY MANAGER Influenza - Seasonal 07/25/2024 07/25/2024 025 12:32 AM ASSISTANT QUALITY MANAGER documented as of this encounter Care Teams Roughing Mill Operator Relationship Specialty Start Date End Date Lavern Monzon, ANTIQUE JEWELRY REPAIRER [address] [facility] [address] [place] [address] PCP - General NURSE PRACTITIONER 04/18/24 documented as of this encounter
[2024-12-18 21:16] LABS: Alanine Aminotransferase 20 U/L (6-35); Albumin Level 3.7 g/dL (3.5-5.1); Alkaline Phosphatase 53 U/L (38-126); Anion Gap 5 mmol/L (4-12); Aspartate Amino Transferase 27 U/L (14-36); Bilirubin,Total < 0.1 mg/dL (0.2-1.3); Blood Urea Nitrogen 15 mg/dL (7-17); Calcium 9.8 mg/dL (8.4-10.2); Carbon Dioxide 31 mmol/L (22-30); Chloride 98 mmol/L (98-107); Estimated CRCL calculation 52 ml/min; Estimated Glomerular Filt Rate > 60; Glucose 99 mg/dL (65-110); INR 0.9; Lipase 111 U/L (23-300); Potassium 4.1 mmol/L (3.4-5.0); Prothrombin Time 12.3 Seconds (11.1-14.7); Sodium 134 mmol/L (137-145); Total Protein 6.5 g/dL (6.3-8.2)
[2024-12-18 21:17] LABS: Partial Thromboplastin Time 29.0 Seconds (22.3-36.8)
[2024-12-18 21:24] LABS: NT Pro B Type Natriuretic Pept 88 pg/mL (19.9-100)
[2024-12-18 21:26] LABS: Troponin I < 0.012 ng/mL (0.000-0.034)
--- NOTE | 2024-12-18 22:47 | ECG_ITS ---
Test Date: 2024-12-18 22:58:28 Measurements Intervals [place] Rate: 58 P: 45 LA: 146 QRS: 18 QRSD: 81 T: 52 QT: 395 QTc: 389 Interpretive Statements SINUS BRADYCARDIA LOW QRS VOLTAGE IN PRECORDIAL LEADS [QRS DEFLECTION < 1.0 mV IN CHEST LEADS] Compared to ECG 12/18/2024 20:38:50 Sinus rhythm no longer present Electronically Signed On 12-19-2024 22:28:52 CDT by Lucrecia Parada M.D.
[2024-12-18 23:27] LABS: Troponin I < 0.012 ng/mL (0.000-0.034)
[2024-12-19 00:02] VITALS: PULSE 60; RESP 15; O2SAT 97
[2024-12-19 00:15] VITALS: PULSE 65; RESP 22
[2024-12-19 00:30] VITALS: PULSE 64; RESP 18
[2024-12-19 00:43] LABS: Troponin I < 0.012 ng/mL (0.000-0.034)
[2024-12-19 00:45] VITALS: PULSE 67; RESP 12; O2SAT 97
== END 2024-12-19 01:05 | disposition home or self-care (01) ==
PROVIDERS: Emergency Medicine; Emergency Provider Physician Assistant; PCP Nurse Practitioner
DX: R07.9 Chest pain, unspecified (principal); K86.2 Cyst of pancreas
CPT/HCPCS: 36415; 71046; 71275; 74174; 80053; 83690; 83880; 84484; 85025; 85610; 85730; 93005; 96374; 99284; A9270; J2470; Q9967

== ENCOUNTER 2025-01-26 07:48 | Outpatient (CLI) | payer MEDICARE, SELFPAY ==
--- NOTE | ~2025-01-26 | MM_ITS ---
EXAMINATION: MM screening afua BI w raymon HISTORY: Screening TECHNIQUE: Craniocaudal and mediolateral oblique 3-D tomosynthesis images were obtained and synthetic 2-D images were generated. CAD analysis was submitted and interpreted. COMPARISON: Comparison to multiple prior studies sequentially, with oldest reviewed study dated 06/30. BREAST PARENCHYMAL COMPOSITION: Not Dense: The breasts are almost entirely fatty. FINDINGS: There is no evidence of suspicious mass, calcification, or architectural distortion to sugg est malignancy in either breast. There has been no suspicious interval change. IMPRESSION: 1. No mammographic evidence of malignancy. 2. Recommend routine screening mammography in one year. BI-RADS Category 1: Negative Reviewed, dictated and finalized at location A.
--- OUTSIDE RECORDS SUMMARY | 2025-01-26 07:53 | XMS_ITS | Encounter Summary ---
Author Organization [facility] Address [address] [place] [address] Care Team Providers Care Sole Molder Name Role Phone Indigo Curtis MD Unavailable Colton Hernández MD Unavailable [phone] Ida Bailey MD Primary Care Provider [phone] Antonio Santillan MD Primary Care Provider [phone] Hiram Fontenot MD Primary Care Provider [phone] Huber Matos MD Unavailable [phone] Leah Barajas MD Primary Care Provider + [phone] Myrna Devi PA-C Unavailable [phone] Lavern Monzon Primary Care Provider [phone] Encounter Details Date Type Department Care Team (Late Contact Info) Description 06/04/2017 [facility] Outpatient Visit [facility] Orthopedics [address] [place] [address] Unknown, Provider Social History Tobacco Use Types Packs/Day Years Used Date Smoking Tobacco: Never Assessed Comments Unknown Sex and Gender Information Value Date Recorded Sex Assigned at Not on file Legal Sex Female 2:16 PM OTOLARYNGOLOGY REP Gender Identity Not on file Sexual Orientation Not on file documented as of this encounter Plan of Treatment Upcoming Encounters Date Type Department Care Team (Late Contact Info) Description 02/16/2025 9:45 AM CDT Office Visit [facility] [address] [facility] [address] [facility] [place] [phone] [place] [address] [address] [address] 05/08/2025 10:00 AM OTOLARYNGOLOGY REP Office Visit [facility] Health Orthopedics [address] [facility], [address] [address] [place] [address] [id number] documented as of this encounter Visit Diagnoses Not on filedocumented in this encounter Care Teams Sole Molder Relationship Specialty [place] [address] [address] [id number] PCP - General Family Medicine 05/29/16 07/13/17 Antonio Santillan MD [address] [place] [address] PCP - General Internal Medicine 07/14/17 02/08/18 Hiram Fontenot MD [address] [place] [phone] PCP - General 02/09/18 07/15/20 [place] [address] [address] [address] PCP - General Internal Medicine 10/08/20 07/11/24 Myrna Devi, PA-C [address] [address] PCP - Attributed-[place]ep [place] 10/13/22 07/02/23 Lavern Monzon [address] [place], [place] [phone] PCP - General School Health Assistant 07/12/24 Indigo Curtis MD Orthopedic Surgery 04/14/12 Colton Hernández [place] [address] [place] [address] Orthopedic Surgery 10/21/13 [place] [address] [place] [address] Physical Medicine and Rehabilitation 09/22/18 documented as of this encounter
--- OUTSIDE RECORDS SUMMARY | 2025-01-26 07:53 | XMS_ITS | Encounter Summary ---
Author Organization [facility] Address [facility] [place] [address] Care Team Providers Care Bi Solutions Architect Name Role Phone Lavern Monzon NP Primary Care Provider [phone] Encounter Details Date Type Department Care Team (Latest Contact Info) Description 08/28/[address] [facility] [place] [address] [place], [place] [address] Lavern Monzon, ANALYTICAL MANAGER [address] [place], [place] [phone] Wrist Pain, Hip Pain, Inside of Lips, [...] Sex Assigned at Female 04/18/2024 4:24 PM WIND SITE MANAGER Legal Sex Female 8:00 AM CDT Gender Identity Female 04/18/2024 4:24 PM WIND SITE MANAGER Sexual Orientation Choose not to disclose 2024 7:30 AM CDT documented as of this encounter Plan of Treatment Upcoming Encounters Date Type Department Care Team (Late st Contact Info) Description 04/03/2025 9:45 AM CDT Office Visit [facility] [address] [place] [address] Edgar Ruiz MD [facility], [address] [place] [address] 04/19/2025 10:00 AM WIND SITE MANAGER [facility] [place] [address] [facility] [address] [place] [address] Lavern Monzon NP [address] [facility] [address] [place] [address] 04/19/2025 10:30 AM WIND SITE MANAGER [facility] [place] [address] [facility] [address] [place] [address] Lavern Monzon NP [address] [facility] [address] [place] [address] documented as of this encounter Visit Diagnoses Not on filedocumented in this encounter Care Teams Bi Solutions Architect Relationship Specialty Start Date End Date Lavern Monzon NP [address] [facility] [address] [place] [address] PCP - General NURSE PRACTITIONER 04/18/24 documented as of this encounter
--- OUTSIDE RECORDS SUMMARY | 2025-01-26 07:53 | XMS_ITS | Encounter Summary ---
Author Organization [facility] Address [facility] [place] [address] Care Team Providers Care Raking Machine Operator Name Role Phone Lavern Monzon NP Primary Care Provider [phone] Encounter Details Date Type Department Care Team (Late st Contact Info) Description 10/17/2024 MyChart Message Enc [facility] [place] [address] [place], [place] [phone] Lavern Monzon NP [address] [place], [place] [phone] APPOINTMENTS Social History Tobacco Use Types Packs/Day [...] Sex Assigned at Female 04/18/2024 4:24 PM RIVER BOAT CAPTAIN Legal Sex Female 8:00 AM CDT Gender Identity Female 04/18/2024 4:24 PM RIVER BOAT CAPTAIN Sexual Orientation Choose not to disclose 2024 7:30 AM CDT documented as of this encounter Plan of Treatment Upcoming Encounters Date Type Department Care Team (Late st Contact Info) Description 04/03/2025 9:45 AM CDT Office Visit [facility] [address] [place] [address] Edgar Ruiz MD [facility], [address] [place] [address] 04/19/2025 10:00 AM RIVER BOAT CAPTAIN [facility] [place] [address] [facility] [address] [place] [address] Lavern Monzon NP [address] [facility] [address] [place] [address] 04/19/2025 10:30 AM RIVER BOAT CAPTAIN Office Visit [facility] [place] [address] [facility] [address] [place] [address] Lavern Monzon NP [address] [place] [address] [address] [place] [address] documented as of this encounter Visit Diagnoses Not on filedocumented in this encounter Care Teams Raking Machine Operator Relationship Specialty Start Date End Date Lavern Monzon NP [facility] [facility] [address] [place] [address] PCP - General NURSE PRACTITIONER 04/18/24 documented as of this encounter
--- OUTSIDE RECORDS SUMMARY | 2025-01-26 07:53 | XMS_ITS | Encounter Summary ---
Author Organization [facility] Address [facility] [place] [address] Care Team Providers Care Renovation Plant Supervisor Name Role Phone Lavern Monzon NP Primary Care Provider [phone] Encounter Details Date Type Department Care Team (Late st Contact Info) Description 07/20/2024 MyChart Message Enc [facility] - [place] [address] [place], [place] [phone] Lavern Monzon CRUSHER WET GROUND MICA [address] [place], [place] [phone] RSV Vaccination Social History Tobacco Use Types [...] Sex Assigned at Female 04/18/2024 4:24 PM WEB MARKETING SPECIALIST Legal Sex Female 8:00 AM CDT Gender Identity Female 04/18/2024 4:24 PM WEB MARKETING SPECIALIST Sexual Orientation Choose not to disclose 2024 7:30 AM CDT documented as of this encounter Plan of Treatment Upcoming Encounters Date Type Department Care Team (Late st Contact Info) Description 04/03/2025 9:45 AM CDT Office Visit [facility] [address] [place] [address] Edgar Ruiz MD [facility], [address] [place] [address] 04/19/2025 10:00 AM WEB MARKETING SPECIALIST Office Visit [facility] [place] [address] [facility] [address] [place] [address] Lavern Monzon NP [address] [facility] [address] [place] [address] 04/19/2025 10:30 AM WEB MARKETING SPECIALIST [facility] [place] [address] [facility] [address] [place] [address] Lavern Monzon NP [address] [facility] [address] [place] [address] documented as of this encounter Visit Diagnoses Not on filedocumented in this encounter Additional Health Concerns Infection Onset Date Last Indicated Resolved Time COVID-19 Rule Out 07/25/2024 07/25/2024 07/25/2024 11:57 AM WEB MARKETING SPECIALIST Influenza - Seasonal 07/25/2024 07/25/2024 025 12:32 AM WEB MARKETING SPECIALIST documented as of this encounter Care Teams Renovation Plant Supervisor Relationship Specialty Start Date End Date Lavern Monzon NP [address] [facility] [address] [place] [address] PCP - General NURSE PRACTITIONER 04/18/24 documented as of this encounter
--- OUTSIDE RECORDS SUMMARY | 2025-01-26 07:53 | XMS_ITS | Patient Health Record ---
Author Organization [facility] [employer] [place] ([address]) Address [address] [place] [address] Care Team Providers Care Endoscopy Support Specialist Name Role Phone Leah Barajas Primary Care Provider Caroline Tello Unavailable [phone] Allergies Allergen (clinical drug ingredient) Drug/Non Drug Allergy documented on EMR Reaction Allergy Type Onset Date Status KEFLEX (uncoded) unknown reaction Allergy Active PROLONG CONTACT TO LATEX (uncoded) Blisters on skin Allergy Active ketorolac TORADOL (uncoded) Unknown Allergy Ac tive azelastine Azelastine HCl epistaxis Drug Allergy A ctive menthol Biofreeze Palpitations; flushing Drug Allergy Active ipratropium Ipratropium [place]bridge Palpitations ; flushing; red/swolen face Drug Allergy [...] review and pick correct strength-formula tion from [employer]tri[employer] options. If intended option is not shown, [...] review and pick correct strength-formula tion from [employer]tri[employer] options. If intended option is not shown, [...] review and pick correct strength-formula tion from [employer]tri[employer] options. If intended option is not shown, [...] review and pick correct strength-formula tion from [employer] options. If intended option is not shown, [...] Vaccine Route Administration Date Status Comme nts DTaP < 7 y/o Unknown [birth year]1947 Administered Portal Inf ormation NOC Pneumovax 23 Unknown 01/19/2018 Refused NOC Tdap Unknown 07/22/1965 Administered Portal Infor mation Influenza Unknown 04/20/2017 Administered Portal Infor mation NOC Fluzone Quadrivalent Unknown 08/25/2018 Refused Flucelvax Unknown 03/17/2019 Refused Flucelvax Unknown 07/16/2019 Administered Social History Tobacco Use: Social History Observation Description Date Details (start date - stop date) Never Smoker NA - NA Smoking Smart Form: Question Answer Notes Are you a: never smoker Problems Problem Type SNOMED Code ICD Code Onset Dates Problem Status W/U Status Risk Notes Problem Chronic allergic conjunctivitis (97262050) Other chronic allergic conjunctivitis (H10.45) Active confirmed Problem Allergic rhinitis caused by pollen (disorder) (12243171) Allergic rhinitis due to pollen (J30.1) Active confirmed Problem Allergic rhinitis (38457016) Other allergic rhinitis (J30.89) Active confirmed Problem Allergic contact dermatitis caused by drug in contact with skin (304170975) Allergic contact dermatitis due to drugs in contact with skin (L23.3) Active confirmed Problem Sunburn (194930638) Sunburn, unspecified (L55.9) Active confirmed Problem Allergic rhinitis caused by animal hair and dander (977043875871331) Allergic rhinitis due to animal (cat) (dog) hair and dander (J30.81) Active confirmed Problem Allergic contact dermatitis caused by chemical (3603515100577664 3) Allergic contact dermatitis due to other chemical products (L23.5) Active confirmed Problem Postnasal drip (84180997) Postnasal drip (R09.82) Active confirmed Problem Allergy status t o anesthetic agent status (Z88.4) Active confirmed Problem Drug allergy (058132705) Allergy status to other drugs, medicaments and biological substances status (Z88.8) Active confirmed Problem Allergy status t o analgesic agent (Z88.6) Active confirmed Plan Of Treatment No Information Insurance Providers Payer Name Payer Address Payer Phone Subscriber Number Group Number Insured Name Patient Relationship to Insured Coverage Start Date Coverage End Date [employer] [address] [place] [address] [phone] [id number] Atiya Aguilera Self - patient is the insured 4 [...]
--- OUTSIDE RECORDS SUMMARY | 2025-01-26 07:53 | XMS_ITS | Encounter Summary ---
Author Organization [facility] Address [address] [facility] [place] [address] Care Team Providers Care Scouring Machine Operator Name Role Phone Indigo Curtis MD Unavailable Colton Hernández MD Unavailable [phone] Ida Bailey MD Primary Care Provider [phone] Antonio Santillan MD Primary Care Provider [phone] Hiram Fontenot MD Primary Care Provider [phone] Huber Matos MD Unavailable [phone] Leah Barajas MD Primary Care Provider + [phone] Myrna Devi PA-C Unavailable [phone] Lavern Monzon Primary Care Provider [phone] Encounter Details Date Type Department Care Team (Late Contact Info) Description 09/29/2016 [facility] Outpatient Visit [facility] Orthopedics [address] [place] [phone] Unknown, Provider Social History Tobacco Use Types Packs/Day Years Used Date Smoking Tobacco: Never Assessed Comments Unknown Sex and Gender Information Value Date Recorded Sex Assigned at Not on file Legal Sex Female 2:16 PM PRESBYTERIAN CLERGY Gender Identity Not on file Sexual Orientation Not on file documented as of this encounter Plan of Treatment Upcoming Encounters Date Type Department Care Team (Late Contact Info) Description 02/16/2025 9:45 AM CDT Office Visit [facility] [address] [facility] [address] [facility] [address] [place] [address] [address] 05/08/2025 10:00 AM PRESBYTERIAN CLERGY Office Visit [facility] Health Orthopedics [address] [facility], [address] [address] [place] [address] [address] [phone] documented as of this encounter Visit Diagnoses Not on filedocumented in this encounter Care Teams Scouring Machine Operator Relationship Specialty [place] [address] [address] [phone] PCP - General Family Medicine 05/29/16 07/13/17 Antonio Santillan MD [address] [place] [address] PCP - General Internal Medicine 07/14/17 02/08/18 Hiram Fontenot MD [address] [place] [phone] PCP - General 02/09/18 07/15/20 [place] [address] [address] PCP - General Internal Medicine 10/08/20 07/11/24 Myrna Devi, PA-C [address] [address] PCP - Attributed-Sandeep [place] 10/13/22 07/02/23 Lavern Monzon [address] [place], [place] [phone] PCP - General Halfway House Counselor 07/12/24 Indigo Curtis MD Orthopedic Surgery 04/14/12 Colton Hernández [place] [address] [place] [address] Orthopedic Surgery 10/21/13 [place] [address] [place] [address] Physical Medicine and Rehabilitation 09/22/18 documented as of this encounter
--- OUTSIDE RECORDS SUMMARY | 2025-01-26 07:53 | XMS_ITS | Clinical Summary ---
Author Organization [facility] Cream Style Address [address] [facility] [place] [address] Care Team Providers Care Physician Representative Name Role Phone Indigo Curtis MD Unavailable Colton Hernández MD Unavailable [phone] Huber Matos MD Unavailable [phone] Lavern Monzon Primary Care Provider [phone] Source Comments [facility],non-owned Affiliates and Associated Physician Practices is amultiple site organization consisting of ambulatory clinics and hospital sitesin [place], [place], [place] and [place]. This disclosure is being madepursuant to the Care Everywhere program and may not contain all information available regarding this patient. Last updated 18.[facility] Allergies Active Allergy Reactions Criticality Noted Date [...] 03/28/2024 Hydrogen Peroxide Rash Medium 04/13/2024 Ipratropium [place] Palpitations 08/27/2023 Cephalexin Nausea and/or Vomiting 04/14/2012 Oral form Toradol Nausea and/or Vomiting 04/03/2011 Latex Other 04/14/2012 blisters Levofloxacin Nausea and/or Vomiting,Myalgias 04/14/2012 Menthol (Topical Analgesic) Palpitations Low 08/27/2023 Flushing, red swollen face Iieqwogu-Eoyakujnyl-Wapcm yxin Skin Reactions 08/27/2023 blisters Nystatin Rash [...] needed for Shortness of Breath Active Multiple Vitamins-Wanaque als (CENTRUM SILVER 50+WOMEN PO) Take 1 [...] every 6 hours as needed 5 Active valACYclovir (Valtrex) 1 GM tablet Take 1 tab by mouth 2 times daily x 2 days for fever blisters. Use ROSEMARY at onset of symptoms. Repeat as needed 5 Active hydroCHLOROthi azide (Microzide) 12.5 MG capsule 5 Active Active Problems Problem Noted Date [...] Encounters Date Type Department Care Team Description 12/21/2024 3:00 PM CDT Office Visit [facility] Orthopedics [address] [facility] [address] [place] [address] Indigo Curtis MD Chronic right shoulder pain (Primary Dx); Status post reverse total shoulder replacement, right; Myofascial pain; Tendinitis of right shoulder; Arthritis of right acromioclavicular joint 12/06/2024 9:20 AM CDT Office Visit [facility] Orthopedics [address] [facility] [address] [place] [phone] Indigo Curtis MD Chronic right shoulder pain (Primary Dx); Status post reverse total shoulder replacement, right 12/06/2024 9:10 AM CDT Ancillary Procedure [facility] Orthopedics - Radiology [address] [place] [phone] Indigo Curtis MD Chronic right shoulder pain 11/15/2024 7:45 AM CDT Office Visit [facility] Pain Care [address] [phone] Huber Matos MD Lumbar facet arthropathy (Primary Dx); Synovial cyst of lumbar facet joint; Gait difficulty 11/15/2024 7:35 AM CDT - 11/15/2024 11:59 PM CDT Hospital Encounter [facility] Pain Care [address] [place] [address] Huber Matos MD Discharge Disposition: Home or Self Care 11/15/2024 7:34 AM CDT Hospital Encounter [facility] Health Pain Care [address] [place] [address] Huber Matos MD Discharge Disposition: Home or Self Care 11/15/2024 Travel 11/10/2024 Travel 11/08/2024 9:10 AM CDT Office Visit [facility] Health Pain Care [address] [phone] Huber Matos MD Myofascial pain (Primary Dx); Lumbar facet arthropathy; Synovial cyst of lumbar facet joint; Gait difficulty; Trochanteric bursitis of both hips from Last 3 Months Immunizations Immunization Administration [...] Date Recorded Patient Health Questionnaire-2 Score 0 12/21/2024 [facility] [place] of Occupat ional Health - Occupational Stress [...] any time in the past [facility], were you homeless or living in a residential (including now)? No 04/19/2024 Comments Unknown Sex and Gender Information Value Date Recorded Sex Assigned at Not on file Legal Sex Female 2:16 PM DUMPSTER OPERATOR Gender Identity Not on file Sexual Orientation Not on file Last Filed Vital Signs Vital Sign Reading Time Taken Comments Blood Pressure 143/58 11/15/2024 8:12 AM CDT Pulse 62 11/15/2024 8:12 AM CDT Temperature 36.5 C (97.7 F) 04/20/2024 7:48 AM DUMPSTER OPERATOR Respiratory Rate 18 11/15/2024 8:12 AM CDT [...] Description 02/16/2025 9:45 AM CDT Office Visit [facility] Pain Care [address] [place] [address] [place] [address] [address] 05/08/2025 10:00 AM DUMPSTER OPERATOR Office Visit [facility] Health Orthopedics [address] [facility], [address] [address] [place] [address] [facility] [address] [place] [address] Health Maintenance Due Date Last Done [...] CALENDAR YEAR 2024 INFLUENZA VACCINE (#1) 2025 4, 02/16/2020, 07/16/2019, Additional history exists DEPRESSION SCREENING [...] this topic Medical Devices Implanted Type Area Radiator Fitter Device Identifier Shelf Expiration Date Model / Serial / Lot Bsplt Glnd 30mm Rsp Shldr P2 Strl Lf Implanted:Qty: 1 on 09/29/2023 by Indigo Curtis MD at [facility] Right: Shoulder [employer] 09/14/2029 508-32-204 / / [id number] Stem Hum 48mm 6mm Sm Shl Implanted:Qty: 1 on 09/29/2023 by Indigo Curtis MD at [facility] Right: Shoulder [employer] 03/07/2029 533-06-048 / / [id number] Head Glnd 32mm Rsp -4mm Ofst Shldr Rtn Implanted:Qty: 1 on 04/19/2024 by Indigo Curtis MD at [facility] Right: Shoulder [employer] 03/27/2030 508-32-103 / / [id number] Altivate Reverse Torx Peripheral Screw, 26mm Implanted:Qty: 1 on 04/19/2024 by Indigo Curtis MD at [facility] Right: Shoulder [employer] 02/17/2029 506-04-126 / / [id number] Altivate Reverse Rev Mod Central Screw, 8.0 X 40mm Implanted:Qty: 1 on 04/19/2024 by Indigo Curtis MD at [facility] Right: Shoulder [employer] 07/27/2028 508-80-040 / / [id number] Altivate Reverse Torx Peripheral Screw, 30mm Implanted:Qty: 1 on 04/19/2024 by Indigo Curtis MD at [facility] Right: Shoulder [employer] 10/14/2028 506-04-130 / / [id number] Altivate Reverse Torx Peripheral Screw, 18mm Implanted:Qty: 1 on 04/19/2024 by Indigo Curtis MD at [facility] Right: Shoulder [employer] 02/10/2029 506-04-118 / / [id number] Altivate Reverse Torx Peripheral Screw, 22mm Implanted:Qty: 1 on 04/19/2024 by Indigo Curtis MD at [facility] Right: Shoulder [employer] 09/13/2028 506-04-122 / / [id number] Revision Modular Baseplate And Taper Kit, 8.0mm Wedge Implanted:Qty: 1 on 04/19/2024 by Indigo Curtis MD at [facility] Right: Shoulder [employer] 08/31/2028 508-80-001 / / [id number] Ins Sckt 32mm Altivate Rvrs +4mm Sm Ntrl Implanted:Qty: 1 on 04/19/2024 by Indigo Curtis MD at [facility] Right: Shoulder [employer] 10/20/2027 509-02-432 / / [id number] Explanted Type Area Radiator Fitter Device Identifier Shelf Expiration Date Model / Serial / Lot Screw 5mm 18mm Shldr Lck Rsp Glnd Bsplt Implanted:Qty: 1 on 09/29/2023 by Indigo Curtis MD at [facility] Explanted:Qty: 1 on 04/19/2024 by Indigo Curtis MD at [facility] Right: Shoulder [employer] 06/10/2029 506-03-118 / / [id number] Screw 5mm 18mm Shldr Lck Rsp Glnd Bsplt Implanted:Qty: 1 on 09/29/2023 by Indigo Curtis MD at [facility] Explanted:Qty: 1 on 04/19/2024 by Indigo Curtis MD at [facility] Right: Shoulder [employer] 05/21/2029 506-03-118 / / [id number] Screw 5mm 26mm Shldr Lck Rsp Glnd Bsplt Implanted:Qty: 1 on 09/29/2023 by Indigo Curtis MD at [facility] Explanted:Qty: 1 on 04/19/2024 by Indigo Curtis MD at [facility] Right: Shoulder [employer] 05/18/2029 506-03-126 / / [id number] Screw 5mm 14mm Shldr Lck Rsp Glnd Bsplt Implanted:Qty: 1 on 09/29/2023 by Indigo Curtis MD at [facility] Explanted:Qty: 1 on 04/19/2024 by Indigo Curtis MD at [facility] Right: Shoulder [employer] 08/11/2029 506-03-114 / / [id number] Head Glnd 32mm Rsp -4mm Ofst Shldr Rtn Implanted:Qty: 1 on 09/29/2023 by Indigo Curtis MD at [facility] Explanted:Qty: 1 on 04/19/2024 by Indigo Curtis MD at [facility] Right: Shoulder [employer] 02/06/2029 508-32-103 / / [id number] Ins Sckt 32mm Altivate Rvrs +4mm Sm Implanted:Qty: 1 on 09/29/2023 by Indigo Curtis MD at [facility] Explanted:Qty: 1 on 04/19/2024 by Indigo Curtis MD at [facility] Right: Shoulder [employer] 07/01/2028 509-03-432 / / [id number] Procedures Procedure Name Priority Date/Time Associated Diagnosis Comments XR SHOULDER RIGHT 2VW OR MORE Routine 12/06/2024 9:13 AM CDT Chronic right shoulder pain PAIN MANAGEMENT PROCEDURE TIME Routine 11/15/2024 8:06 AM CDT Lumbar spondylosis Lumbosacral spondylosis without myelopathy from Last 3 Months Results * XR Shoulder Right 2Vw or More (12/06/2024 9:13 AM CDT) Narrative [facility] [address] - 12/06/2024 9:13 AM CDT Please see progress note in Epic for results. us Indigo Curtis MD DIAGNOSTIC IMAGING ORDERABL ES Final Result [facility] [place] [address] * PAIN MANAGEMENT PROCEDURE TIME (11/15/2024 8:06 AM CDT) Anatomical Region Laterality Modality X-Ray Angiograph y Narrative 11/15/2024 8:51 AM Huber Gillespie MD 11/15/2024 8:53 AM Right L4-5 Facet Joint Injection Atiya Aguilera [id number] 11/15/2024 Allergies Allergies Allergen Reactions Latex Other blisters Cyclobenzaprine Shortness of Breath Keflex [Cephalexin] Nausea and/or Vomiting Oral form Levaquin [Levofloxacin] Nausea and/or Vomiting and Myalgias Toradol [Ketorolac] [place] [Cedarwood Oil] Shortness of Breath Nystatin (Topical) Rash Azelastine Other Nose bleeds Benzocaine Skin Reactions Red swollen face Dust Mite Extract Rhinitis Ipratropium [place] Palpitations Ketorolac Tromethamine [Toradol] Nausea and/or Vomiting Neosporin Original [Eezrmmle-Vwblvrubfi-Eadrjwsyd] Skin Reactions blisters X-Treme Freeze [Biofreeze] Palpitations [...] a routine sterile fashion using chloraprep. 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 Patient survey given. Procedure codes: 79042 Pre VAS 7-8/10 Post VAS 5-6/10 Huber Matos MD Huber Matos MD DIAGNOSTIC IMAGING ORDERABLE S Final Result from Last 3 Months Insurance AETNA MEDICARE ADV AETNA MEDICARE ADV Advance Directives Documents on File Type Date Recorded Patient Indoor Sports Centre Manager Expl anation Adv Directive/Living Will/POA 09/02/2023 1:24 AM * Full Code (Latest Code Status on File) Date Activated Date Inactivated Comments 04/19/2024 1:09 PM 04/20/2024 1:57 PM Care Teams Physician Representative Relationship Specialty Start Date End Date NaAndrésLavern Yuliana [address] [place] [address] PCP - General Binder And Wrapper Packer 07/12/24 Indigo Curtis MD Orthopedic Surgery 04/14/12 Colton Hernán[place] [address] [place], [place] [id number] Orthopedic Surgery 10/21/13 [place] [address] [place] [address] Physical Medicine and Rehabilitation 09/22/18
--- OUTSIDE RECORDS SUMMARY | 2025-01-26 07:53 | XMS_ITS | Encounter Summary ---
Author Organization [facility] Address [facility] [place] [address] Care Team Providers Care Power System Operator Name Role Phone Lavern Monzon NP Primary Care Provider [phone] Encounter Details Date Type Department Care Team (Latest Contact Info) Description 07/25/2024 MyChart Message Enc [facility] Medical Group Mult[facility] - [place] [address] [place], [place] [address] Lavern Monzon, PUBLIC RELATIONS MANAGER [address] [place], [place] [address] Oseltamivir 75mg Capsules Qty: 10 Social History [...] Sex Assigned at Female 04/18/2024 4:24 PM CERTIFIED LACTATION COUNSELOR Legal Sex Female 8:00 AM CDT Gender Identity Female 04/18/2024 4:24 PM CERTIFIED LACTATION COUNSELOR Sexual Orientation Choose not to disclose 2024 7:30 AM CDT documented as of this encounter Plan of Treatment Upcoming Encounters Date Type Department Care Team (Late st Contact Info) Description 04/03/2025 9:45 AM CDT Office Visit [facility] [address] [place] [address] Edgar Ruiz MD Three [facility], [address] [place] [address] 04/19/2025 10:00 AM CERTIFIED LACTATION COUNSELOR [facility] [place] [address] [place] [address] Lavern Monzon NP [address] [facility] [address] [place] [address] 04/19/2025 10:30 AM CERTIFIED LACTATION COUNSELOR [facility] [place] [address] [facility] [address] [place] [address] Lavern Monzon NP [address] [facility] [address] [place] [address] documented as of this encounter Visit Diagnoses Not on filedocumented in this encounter Additional Health Concerns Infection Onset Date Last Indicated Resolved Time COVID-19 Rule Out 07/25/2024 07/25/2024 07/25/2024 11:57 AM CERTIFIED LACTATION COUNSELOR Influenza - Seasonal 07/25/2024 07/25/2024 025 12:32 AM CERTIFIED LACTATION COUNSELOR documented as of this encounter Care Teams Power System Operator Relationship Specialty Start Date End Date Lavern Monzon NP [address] [place] [address] PCP - General NURSE PRACTITIONER 04/18/24 documented as of this encounter
--- OUTSIDE RECORDS SUMMARY | 2025-01-26 07:53 | XMS_ITS | Encounter Summary ---
Author Organization [facility] Address [facility] [place] [address] Care Team Providers Care Drug And Alcohol Treatment Specialist Name Role Phone Lavern Monzon NP Primary Care Provider [phone] Encounter Details Date Type Department Care Team (Late st Contact Info) Description 07/07/2024 MyChart Message Enc [facility] Medical Group Multispecialty Care - [place] [address] [place], [place] [address] Lavern Monzon VOCATIONAL REHAB CONSULTANT [address] [place], [place] [id number] SHOULDER UPDATE Social History Tobacco Use Types [...] Sex Assigned at Female 04/18/2024 4:24 PM HARVEST WORKER Legal Sex Female 8:00 AM CDT Gender Identity Female 04/18/2024 4:24 PM HARVEST WORKER Sexual Orientation Choose not to disclose 2024 7:30 AM CDT documented as of this encounter Plan of Treatment Upcoming Encounters Date Type Department Care Team (Late st Contact Info) Description 04/03/2025 9:45 AM CDT Office Visit [facility] [address] [place] [address] Edgar Ruiz MD [facility], [address] [place] [address] 04/19/2025 10:00 AM HARVEST WORKER Office Visit [facility] [place] [address] [facility] [address] [place] [address] Lavern Monzon NP [address] [facility] [address] [place] [address] 04/19/2025 10:30 AM HARVEST WORKER [facility] [place] [address] [facility] [address] [place] [address] Lavern Monzon NP [address] [facility] [address] [place] [address] documented as of this encounter Visit Diagnoses Not on filedocumented in this encounter Additional Health Concerns Infection Onset Date Last Indicated Resolved Time COVID-19 Rule Out 07/25/2024 07/25/2024 07/25/2024 11:57 AM HARVEST WORKER Influenza - Seasonal 07/25/2024 07/25/2024 025 12:32 AM HARVEST WORKER documented as of this encounter Care Teams Drug And Alcohol Treatment Specialist Relationship Specialty Start Date End Date Lavern Monzon NP [address] [facility] [address] [place] [address] PCP - General NURSE PRACTITIONER 04/18/24 documented as of this encounter
--- OUTSIDE RECORDS SUMMARY | 2025-01-26 07:53 | XMS_ITS | Encounter Summary ---
Author Organization [facility] Address [address] [facility] [place] [address] Care Team Providers Care Straightener And Aligner Name Role Phone Indigo Curtis MD Unavailable [phone] Colton Hernández MD Unavailable [phone] Ida Bailey MD Primary Care Provider [phone] Antonio Santillan MD Primary Care Provider [phone] Hiram Fontenot MD Primary Care Provider [phone] Huber Matos MD Unavailable [phone] Leah Barajas MD Primary Care Provider [phone] Myrna Devi PA-C Unavailable [phone] Lavern Monzon Primary Care Provider [phone] Encounter Details Date Type Department Care Team (Late Contact Info) Description 10/29/2016 [facility] Outpatient Visit [facility] Orthopedics [address] [place] [address] Unknown, Provider Social History Tobacco Use Types Packs/Day Years Used Date Smoking Tobacco: Never Assessed Comments Unknown Sex and Gender Information Value Date Recorded Sex Assigned at Not on file Legal Sex Female 2:16 PM ACCOUNTS RECEIVABLE MANAGER Gender Identity Not on file Sexual Orientation Not on file documented as of this encounter Plan of Treatment Upcoming Encounters Date Type Department Care Team (Late Contact Info) Description 02/16/2025 9:45 AM CDT Office Visit [facility] [address] [facility] [address] [facility] [place] [address] [place] [address] [address] [address] 05/08/2025 10:00 AM ACCOUNTS RECEIVABLE MANAGER Office Visit [facility] Health Orthopedics [address] [facility], [address] [address] [place] [address] [address] [id number] documented as of this encounter Visit Diagnoses Not on filedocumented in this encounter Care Teams Straightener And Aligner Relationship Specialty [place] [address] [id number] PCP - General Family Medicine 05/29/16 07/13/17 Antonio Santillan MD [address] [place] [address] PCP - General Internal Medicine 07/14/17 02/08/18 Hiram Fontenot MD [address] [place] [id number] PCP - General 02/09/18 07/15/20 [place] [address] [address] PCP - General Internal Medicine 10/08/20 07/11/24 Myrna Devi, PA-C [address] [address] PCP - Attributed-Sandeep [place] 10/13/22 07/02/23 Lavern Monzon [address] [place], [place] [phone] PCP - General Crew Trainer 07/12/24 Indigo Curtis MD Orthopedic Surgery 04/14/12 Colton Hernán[place] [address] [place] [address] Orthopedic Surgery 10/21/13 [place] [address] [place] [address] Physical Medicine and Rehabilitation 09/22/18 documented as of this encounter
--- OUTSIDE RECORDS SUMMARY | 2025-01-26 07:54 | XMS_ITS | Encounter Summary ---
Author Organization [facility] Address [facility] [place] [address] Care Team Providers Care Esl Instructional Assistant Name Role Phone Lavern Monzon NP Primary Care Provider [phone] Encounter Details Date Type Department Care Team (Late st Contact Info) Description 06/22/2024 MyChart Message Enc [facility] Medical Group Multispecialty Care - [place] [address] [place], [place] [phone] Lavern Monzon FAMILY LAW LEGAL ASSISTANT [address] [place], [place] [id number] refill Social History Tobacco Use Types Packs/Day [...] Sex Assigned at Female 04/18/2024 4:24 PM CHURCH WORKER Legal Sex Female 8:00 AM CDT Gender Identity Female 04/18/2024 4:24 PM CHURCH WORKER Sexual Orientation Choose not to disclose 2024 7:30 AM CDT documented as of this encounter Plan of Treatment Upcoming Encounters Date Type Department Care Team (Late st Contact Info) Description 04/03/2025 9:45 AM CDT Office Visit [facility] [address] [place] [address] Edgar Ruiz MD [facility], [address] [place] [address] 04/19/2025 10:00 AM CHURCH WORKER Office Visit [facility] [place] [address] [facility] [address] [place] [address] Lavern Monzon NP [address] [facility] [address] [place] [address] 04/19/2025 10:30 AM CHURCH WORKER [facility] [place] [address] [facility] [address] [place] [address] Lavern Monzon NP [address] [facility] [address] [place] [address] documented as of this encounter Visit Diagnoses Not on filedocumented in this encounter Additional Health Concerns Infection Onset Date Last Indicated Resolved Time COVID-19 Rule Out 07/25/2024 07/25/2024 07/25/2024 11:57 AM CHURCH WORKER Influenza - Seasonal 07/25/2024 07/25/2024 025 12:32 AM CHURCH WORKER documented as of this encounter Care Teams Esl Instructional Assistant Relationship Specialty Start Date End Date Lavern Monzon NP [address] [facility] [address] [place] [address] PCP - General NURSE PRACTITIONER 04/18/24 documented as of this encounter
--- OUTSIDE RECORDS SUMMARY | 2025-01-26 07:54 | XMS_ITS | Encounter Summary ---
Author Organization [facility] Address Critical access hospital[address] [place] [address] Care Team Providers Care Piano Instructor Name Role Phone Lavern Monzon NP Primary Care Provider [phone] Encounter Details Date Type Department Care Team (Latest Contact Info) Description 06/27/2024 MyChart Message Enc [facility] Medical Group Multispecialty Care - [place] [address] [place], [place] [phone] Lavern Monzon, BIRD KEEPER [address] [place], [place] [phone] 1-Lymphedema Therapy Social History Tobacco Use Types [...] Sex Assigned at Female 04/18/2024 4:24 PM TRANSFORMER INSPECTOR Legal Sex Female 8:00 AM CDT Gender Identity Female 04/18/2024 4:24 PM TRANSFORMER INSPECTOR Sexual Orientation Choose not to disclose 2024 7:30 AM CDT documented as of this encounter Plan of Treatment Upcoming Encounters Date Type Department Care Team (Late st Contact Info) Description 04/03/2025 9:45 AM CDT Office Visit [facility] [address] [place] [address] Edgar Ruiz MD Three [facility], [address] [place] [address] 04/19/2025 10:00 AM TRANSFORMER INSPECTOR [facility] [place] [address] [facility] [address] [place] [address] Lavern Monzon NP [address] [facility] [address] [place] [address] 04/19/2025 10:30 AM TRANSFORMER INSPECTOR [facility] [place] [address] [facility] [address] [place] [address] Lavern Monzon NP [address] [facility] [address] [place] [address] documented as of this encounter Visit Diagnoses Not on filedocumented in this encounter Additional Health Concerns Infection Onset Date Last Indicated Resolved Time COVID-19 Rule Out 07/25/2024 07/25/2024 07/25/2024 11:57 AM TRANSFORMER INSPECTOR Influenza - Seasonal 07/25/2024 07/25/2024 025 12:32 AM TRANSFORMER INSPECTOR documented as of this encounter Care Teams Piano Instructor Relationship Specialty Start Date End Date Lavern Monzon NP [address] [place] [address] PCP - General NURSE PRACTITIONER 04/18/24 documented as of this encounter
--- OUTSIDE RECORDS SUMMARY | 2025-01-26 07:54 | XMS_ITS | Encounter Summary ---
Author Organization [facility] Address [address] [place] [address] Care Team Providers Care Ad Trafficker Name Role Phone Lavern Monzon NP Primary Care Provider [phone] Encounter Details Date Type Department Care Team (Latest Contact Info) Description 06/03/2024 MyChart Message Enc [facility] Mult[facility]ialty Care - [place] [address] [place], [place] [id number] Lavern Monzon NP [address] [place], [place] [id number] Blood Pressure Medication Social History Tobacco Use Types Packs/Day Years Used Date Smoking Tobacco: Never Passive Smoke Exposure: Never Smokeless Tobacco: Never Alcohol Use Standard Drinks/Week Comments Not Currently 0 (1 standard drink = 0.6 oz pure alcohol) 2-3 beers/year; 1 glass of wine/year; 1 vodka tonic/year Comments No Sex and Gender Information Value Date Recorded Sex Assigned at Female 04/18/2024 4:24 PM INTERACTIVE MEDIA DIRECTOR Legal Sex Female 8:00 AM CDT Gender Identity Female 04/18/2024 4:24 PM INTERACTIVE MEDIA DIRECTOR Sexual Orientation Choose not to disclose 2024 7:30 AM CDT documented as of this encounter Plan of Treatment Upcoming Encounters Date Type Department Care Team (Late st Contact Info) Description 04/03/2025 9:45 AM CDT Office Visit [facility] [address] [place], [place] [id number] Edgar Ruiz MD Three [facility] [address] [place] [address] 04/19/2025 10:00 AM INTERACTIVE MEDIA DIRECTOR Office Visit [facility] Medical [facility] Multispecialty Care - [place] [address] [place] [address] Lavern Monzon, JACK SETTER [address] [facility] [address] [place] [address] 04/19/2025 10:30 AM INTERACTIVE MEDIA DIRECTOR [facility] [place] [address] [place] [address] Lavern Monzon JACK SETTER [address] [facility] [address] [place] [address] documented as of this encounter Visit Diagnoses Not on filedocumented in this encounter Additional Health Concerns Infection Onset Date Last Indicated Resolved Time COVID-19 Rule Out 07/25/2024 07/25/2024 07/25/2024 11:57 AM INTERACTIVE MEDIA DIRECTOR Influenza - Seasonal 07/25/2024 07/25/2024 025 12:32 AM INTERACTIVE MEDIA DIRECTOR documented as of this encounter Care Teams Ad Trafficker Relationship Specialty Start Date End Date Lavern Monzon NP [address] [place] [address] PCP - General NURSE PRACTITIONER 04/18/24 documented as of this encounter
--- OUTSIDE RECORDS SUMMARY | 2025-01-26 07:54 | XMS_ITS | Encounter Summary ---
Author Organization [facility] Address [address] [place] [address] Care Team Providers Care Rail Car Welder Name Role Phone Lavern Monzon NP Primary Care Provider [phone] Encounter Details Date Type Department Care Team (Latest Contact Info) Description 12/29/2024 MyChart Message Enc [facility] Mult[facility]pecialty Care - [place] [address] [place], [place] [id number] Lavern Monzon, SPECIAL OFFICER [address] [place], [place] [id number] REFERRAL FOR CT ABD+PEL w/ & w/our contrast Social History Tobacco Use Types Packs/Day Years [...] Sex Assigned at Female 04/18/2024 4:24 PM ALARM ADJUSTER Legal Sex Female 8:00 AM CDT Gender Identity Female 04/18/2024 4:24 PM ALARM ADJUSTER Sexual Orientation Choose not to disclose 2024 7:30 AM CDT documented as of this encounter Plan of Treatment Upcoming Encounters Date Type Department Care Team (Late st Contact Info) Description 04/03/2025 9:45 AM CDT Office Visit [facility] [address] [place] [address] Edgar Ruiz MD Three [facility], [address] [place] [address] 04/19/2025 10:00 AM ALARM ADJUSTER [facility] [place] [address] [facility] [address] [place] [address] Lavern Monzon NP [address] [facility] [address] [place] [address] 04/19/2025 10:30 AM ALARM ADJUSTER [facility] [place] [address] [facility] [address] [place] [address] Lavern Monzon NP [address] [facility] [address] [place] [address] documented as of this encounter Visit Diagnoses Not on filedocumented in this encounter Care Teams Rail Car Welder Relationship Specialty Start Date End Date Lavern Monzon NP [address] [facility] [address] [place] [address] PCP - General NURSE PRACTITIONER 04/18/24 documented as of this encounter
--- OUTSIDE RECORDS SUMMARY | 2025-01-26 07:54 | XMS_ITS | Encounter Summary ---
Author Organization [facility] Address [address] [facility] [place] [address] Care Team Providers Care Industrial Economics Professor Name Role Phone Indigo Curtis MD Unavailable Colton Hernández MD Unavailable [phone] Ida Bailey MD Primary Care Provider [phone] Antonio Santillan MD Primary Care Provider [phone] Hiram Fontenot MD Primary Care Provider [phone] Huber Matos MD Unavailable [phone] Leah Barajas MD Primary Care Provider + [phone] Myrna Devi PA-C Unavailable [phone] Lavern Monzon Primary Care Provider [phone] Encounter Details Date Type Department Care Team (Late Contact Info) Description 11/13/2016 SS Outpatient Visit [facility] Orthoped[facility] [address] [place] [phone] Unknown, Provider Social History Tobacco Use Types Packs/Day Years Used Date Smoking Tobacco: Never Assessed Comments Unknown Sex and Gender Information Value Date Recorded Sex Assigned at Not on file Legal Sex Female 2:16 PM CARETAKER GROUNDS Gender Identity Not on file Sexual Orientation Not on file documented as of this encounter Plan of Treatment Upcoming Encounters Date Type Department Care Team (Late Contact Info) Description 02/16/2025 9:45 AM CDT Office Visit [facility] [address] [facility] [address] [facility] [place] [phone] [place] [address] [address] 05/08/2025 10:00 AM CARETAKER GROUNDS Office Visit [facility] [address] [facility], [address] [phone] [place] [address] [id number] documented as of this encounter Visit Diagnoses Not on filedocumented in this encounter Care Teams Industrial Economics Professor Relationship Specialty [place] [address] [id number] PCP - General Family Medicine 05/29/16 07/13/17 Antonio Santillan MD [address] [place] [address] PCP - General Internal Medicine 07/14/17 02/08/18 Hiram Fontenot MD [address] [place] [phone] PCP - General 02/09/18 07/15/20 [place] [address] [address] PCP - General Internal Medicine 10/08/20 07/11/24 Myrna Devi, PA-C [address] [address] PCP - Attributed-Sandeep MS 10/13/22 07/02/23 Lavern Monzon [address] [place], [place] [phone] PCP - General Saw Tailer 07/12/24 Indigo Curtis MD Orthopedic Surgery 04/14/12 Colton Hernández [place] [address] [place] [address] Orthopedic Surgery 10/21/13 [place] [address] [place] [address] Physical Medicine and Rehabilitation 09/22/18 documented as of this encounter
--- OUTSIDE RECORDS SUMMARY | 2025-01-26 07:54 | XMS_ITS | Encounter Summary ---
Author Organization [facility] Address [address] [place] [address] Care Team Providers Care Wheat Farmer Name Role Phone Lavern Monzon NP Primary Care Provider [phone] Encounter Details Date Type Department Care Team (Late st Contact Info) Description 05/29/2024 MyChart Message Enc [facility] Medical Group Multispecialty Care - [place] [address] [place], [place] [address] Lavern Monzon NP [address] [place], [place] [address] SPIRONOLACTONE Social History Tobacco Use Types Packs/Day Years Used Date Smoking Tobacco: Never Passive Smoke Exposure: Never Smokeless Tobacco: Never Alcohol Use Standard Drinks/Week Comments Not Currently 0 (1 standard drink = 0.6 oz pure alcohol) 2-3 beers/year; 1 glass of wine/year; 1 vodka tonic/year Comments No Sex and Gender Information Value Date Recorded Sex Assigned at Female 04/18/2024 4:24 PM HEEL MOLDER Legal Sex Female 8:00 AM CDT Gender Identity Female 04/18/2024 4:24 PM HEEL MOLDER Sexual Orientation Choose not to disclose 2024 7:30 AM CDT documented as of this encounter Plan of Treatment Upcoming Encounters Date Type Department Care Team (Late st Contact Info) Description 04/03/2025 9:45 AM CDT Office Visit [facility] [address] [place], [place] [phone] Edgar Ruiz MD Three [facility], [address] [place] [address] 04/19/2025 10:00 AM HEEL MOLDER Office Visit [facility] Medical [facility] Care - [place] [address] [place] [address] Lavern Monzon, POWERTRAIN DESIGN ENGINEER [address] [facility] [address] [place] [address] 04/19/2025 10:30 AM HEEL MOLDER [facility] [place] [address] [place] [address] Lavern Monzon POWERTRAIN DESIGN ENGINEER [address] [facility] [address] [place] [address] documented as of this encounter Visit Diagnoses Not on filedocumented in this encounter Additional Health Concerns Infection Onset Date Last Indicated Resolved Time COVID-19 Rule Out 07/25/2024 07/25/2024 07/25/2024 11:57 AM HEEL MOLDER Influenza - Seasonal 07/25/2024 07/25/2024 025 12:32 AM HEEL MOLDER documented as of this encounter Care Teams Wheat Farmer Relationship Specialty Start Date End Date Lavern Monzon NP [address] [place] [address] PCP - General NURSE PRACTITIONER 04/18/24 documented as of this encounter
--- OUTSIDE RECORDS SUMMARY | 2025-01-26 07:54 | XMS_ITS | Encounter Summary ---
Author Organization [facility] Address [facility] [place] [address] Care Team Providers Care Order To Delivery Supervisor Name Role Phone Lavern Monzon NP Primary Care Provider [phone] Encounter Details Date Type Department Care Team (Latest Contact Info) Description 06/16/2024 MyChart Message Enc [facility] Medical Group Multispecialty Care - [place] [address] [place], [place] [address] Lavern Monzon NP [address] [place], [place] [address] TOMORROW'S APPOINTMENT Social History Tobacco Use Types [...] Sex Assigned at Female 04/18/2024 4:24 PM SUPERVISOR PUBLIC MESSAGE SERVICE Legal Sex Female 8:00 AM CDT Gender Identity Female 04/18/2024 4:24 PM SUPERVISOR PUBLIC MESSAGE SERVICE Sexual Orientation Choose not to disclose 2024 7:30 AM CDT documented as of this encounter Functional Status * Over the past 2 weeks, how often have you been bothered by any of the following problems? Question Answer Date of Assessment Author Status Little interest or pleasure in doing things Several days 06/17/2024 12:42 PM SUPERVISOR PUBLIC MESSAGE SERVICE Alena Luciano MA Active Feeling down, depressed, or hopeless Not at all 06/17/2024 12:42 PM SUPERVISOR PUBLIC MESSAGE SERVICE Alena Luciano MA Active Patient Health Questionnaire-2 Score 1 06/17/2024 12:42 PM SUPERVISOR PUBLIC MESSAGE SERVICE Alena Luciano MA Active documented as of this encounter Plan of Treatment Upcoming Encounters Date Type Department Care Team (Late st Contact Info) Description 04/03/2025 9:45 AM CDT Office Visit [facility] [address] [place] [address] Edgar Ruiz MD [facility], [address] [place] [address] 04/19/2025 10:00 AM SUPERVISOR PUBLIC MESSAGE SERVICE [facility] [place] [address] [place] [address] Lavern Monzon NP [address] [place] [address] 04/19/2025 10:30 AM SUPERVISOR PUBLIC MESSAGE SERVICE [facility] [place] [address] [place] [address] Lavern Monzon NP [address] [facility] [address] [place] [address] documented as of this encounter Visit Diagnoses Not on filedocumented in this encounter Additional Health Concerns Infection Onset Date Last Indicated Resolved Time COVID-19 Rule Out 07/25/2024 07/25/2024 07/25/2024 11:57 AM SUPERVISOR PUBLIC MESSAGE SERVICE Influenza - Seasonal 07/25/2024 07/25/2024 025 12:32 AM SUPERVISOR PUBLIC MESSAGE SERVICE documented as of this encounter Care Teams Order To Delivery Supervisor Relationship Specialty Start Date End Date Lavern Monzon NP [address] [place] [address] PCP - General NURSE PRACTITIONER 04/18/24 documented as of this encounter
--- OUTSIDE RECORDS SUMMARY | 2025-01-26 07:54 | XMS_ITS | Encounter Summary ---
Author Organization [facility] Address [facility] [place] [address] Care Team Providers Care Gauge And Weigh Machine Adjuster Name Role Phone Lavern Monzon NP Primary Care Provider [phone] Encounter Details Date Type Department Care Team (Latest Contact Info) Description 01/23/2025 Results Follow-Up [facility] Medical Group Multispecialty Care - [place] [address] [place], [place] [address] Lavern Monzon NP [address] [place] [address] BASIC METABOLIC PANEL Social History Tobacco Use Types Packs/Day Years [...] Sex Assigned at Female 04/18/2024 4:24 PM DIRECTOR SPEECH Legal Sex Female 8:00 AM CDT Gender Identity Female 04/18/2024 4:24 PM DIRECTOR SPEECH Sexual Orientation Choose not to disclose 2024 7:30 AM CDT documented as of this encounter Plan of Treatment Upcoming Encounters Date Type Department Care Team (Late st Contact Info) Description 04/03/2025 9:45 AM CDT Office Visit [facility] [address] [place] [address] Edgar Ruiz MD [facility], [address] [place] [address] 04/19/2025 10:00 AM DIRECTOR SPEECH [facility] [place] [id number] [facility] [address] [place] [address] Lavern Monzon NP [address] [facility] [address] [place] [address] 04/19/2025 10:30 AM DIRECTOR SPEECH Office Visit [facility] [place] [id number] [facility] [address] [place] [address] aLvern Monzon NP [address] [place] [address] [address] [place] [address] documented as of this encounter Visit Diagnoses Not on filedocumented in this encounter Care Teams Gauge And Weigh Machine Adjuster Relationship Specialty Start Date End Date Lavern Monzon NP [facility] [facility] [address] [place] [address] PCP - General NURSE PRACTITIONER 04/18/24 documented as of this encounter
--- OUTSIDE RECORDS SUMMARY | 2025-01-26 07:54 | XMS_ITS | Clinical Summary ---
Author Organization [facility] Address [address] [place] [id number] Care Team Providers Care Musician Instrumental Name Role Phone Lavern Monzon AIR LIFT OPERATOR Primary Care Provider [phone]- [phone] Allergies Active Allergy Reactions Criticality Noted Date Comments Azelastine Other (see comment) 08/27/2023 Nose bleeds Benzocaine Rash Low 05/29/2016 Red swollen face [place] Shortness of Breath High 08/27/2023 Celecoxib Other [...] Medium 10/21/2023 Sulfamethoxazole-Trimeth oprim Unknown 04/13/2024 Medications carboxymethylcell ulose PF (REFRESH PLUS) 0.5 % ophthalmic solution Apply 1 drop to eye daily as needed. Active fluticasone propionate (FLONASE) 50 MCG/ACT nasal spray 2 sprays by Nasal route daily. Active latanoprost (XALATAN) 0.005 % ophthalmic solution 1 drop. Active acetaminophen (TYLENOL) 500 MG tablet Take 2 tablets (1,000 mg total) by mouth. 04/19/20 24 Active Multiple Vitamins-Minerals (CENTRUM ADULT OR) Active LYMPHEDEMA PUMP, DME,Indications:L ocalized edema Apply 1 Device topically 2 (two) times daily. 1 Device 1 06/17/19 25 Active methocarbamol (ROBAXIN) 500 MG tabletIndications :Chronic shoulder pain, unspecified laterality Take 2 tablets (1,000 mg total) by mouth 2 (two) times daily as needed. 120 tablet 1 07/08/19 25 Active ondansetron (ZOFRAN-ODT) 4 MG disintegrating tabletIndications :Nausea Take 1 tablet (4 mg total) by mouth every 6 (six) hours as needed for Nausea. 30 tablet 2 07/25/19 25 Active levocetirizine (XYZAL) 5 MG tablet Take 1 tablet (5 mg total) by mouth daily. 09/01/19 25 Active albuterol sulfate HFA 108 (90 Base) MCG/ACT inhalerIndication s:Wheezing Inhale 2 puffs into the lungs every 6 (six) hours as needed. 18 g 1 09/27/19 25 Active hydroCHLOROthiazi de (MICROZIDE) 12.5 MG capsuleIndication s:Localized edema TAKE 1 CAPSULE(12.5 MG) BY MOUTH TWICE DAILY 180 capsule 1 10/12/19 25 Active valACYclovir (VALTREX) 1 g tabletIndications :Fever blister Take 1 tab by mouth 2 times daily x 2 days for fever blisters. Use ROSEMARY at onset of symptoms. Repeat as needed 20 tablet 1 11/11/19 25 Active lisinopril (PRINIVIL) 40 MG tabletIndications :Primary hypertension TAKE 1 TABLET(40 MG) BY MOUTH DAILY 30 tablet 2 12/31/19 25 Active pravastatin (PRAVACHOL) 40 MG tabletIndications :Mixed hyperlipidemia Take 1 tablet (40 mg total) by mouth daily. 30 tablet 2 01/03/20 25 Active amLODIPine (NORVASC) 2.5 MG tabletIndications :Primary hypertension TAKE 1 TABLET(2.5 MG) BY MOUTH DAILY 30 tablet 1 01/25/20 25 Active lisinopril (PRINIVIL) 40 MG tabletIndications :Primary hypertension TAKE 1 TABLET(40 MG) BY MOUTH DAILY 30 tablet 2 10/13/19 25 2024 Discontinued pravastatin (PRAVACHOL) 40 MG tabletIndications :Mixed hyperlipidemia TAKE 1 TABLET(40 MG) BY MOUTH DAILY 30 tablet 2 10/13/19 25 2024 Discontinued(R eorder) amLODIPine (NORVASC) 2.5 MG tabletIndications :Primary hypertension Take 1 tablet (2.5 mg total) by mouth daily. 30 tablet 1 11/25/19 25 2024 Discontinued(R eorder) Active Problems Problem Noted Date Diagnosed Date Pancreatic cyst (HHS/HCC) 12/21/2024 Atherosclerosis of arteries 12/21/2024 H/O colectomy 10/17/2024 Hypo-osmolality and hyponatremia 09/23/2024 [...] Encounters Date Type Department Care Team Description 01/23/2025 8:10 AM CDT Laboratory Only [facility] [place] [address] [facility] [address] [place] [address] Lavern Monzon AIR LIFT OPERATOR 01/23/2025 Results Follow-Up [facility] [address] [facility] [address] [place] [address] Lavern Monzon, TREV BASIC METABOLIC PANEL 01/23/2025 MyChart Message Enc [facility] [address] [facility] [address] [place] [address] ABD/PEL W/WO CONTRAST 01/23/2025 Travel 01/12/2025 2:25 PM CDT - 01/12/2025 11:59 PM CDT Hospital Encounter [facility] [address] [place] [address] Lavern Monzon, TREV Discharge Disposition: Home or Self Care (Routine Discharge) 01/12/2025 Travel 01/11/2025 Results [facility] [place] [address] [address] [address] [place] [address] Lavern Monzon, AIR LIFT OPERATOR STRESS TEST ONLY, EXERCISE 01/10/2025 10:51 AM CDT - 01/10/2025 11:59 PM CDT Hospital Encounter [facility] Non Invasive Cardiology [address] [place] [place] [address] Lavern Monzon, AIR LIFT OPERATOR Danay Campuzano MD Discharge Disposition: Home or Self Care (Routine Discharge) 01/10/2025 Travel 01/09/2025 MyChart Message Enc [facility] Mult[facility]pecialty Care - [place] [id number] [place] [address] Lavern Monzon, AIR LIFT OPERATOR Refill a Prescription Previously Prescribed by Dr. Barajas 01/02/2025 Scan HEALTH INFO SRVCS Scanned, Doc Med [facility] 12/29/2024 My[facility] [place] [facility] [place] [address] [place] [address] Lavern Monzon, AIR LIFT OPERATOR CT ABD/PEL WWO CON APPOINTMENT 12/29/2024 MyChart Message [facility] [place] [facility] [place] [address] [facility] [address] [place] [address] Lavern Monzon, AIR LIFT OPERATOR COLONOSCOPY REFERRAL 12/29/2024 MyChart Message [facility] [place] [facility] [place] [address] [facility] [address] [place] [address] Lavern Monzon, AIR LIFT OPERATOR REFERRAL FOR CT ABD+PEL w/ & w/our contrast 12/22/2024 MyChart Message [facility] [place] [facility] [place] [address] [facility] [address] [place] [address] Lavern Monzon, AIR LIFT OPERATOR ANOTHER ORDER 12/22/2024 MyChart Message [facility] Multispecialty [facility] [place] [facility] [place] [address] [address] [address] [place] [address] Lavern Monzon, AIR LIFT OPERATOR BASIC METABOLIC PANEL 12/21/2024 8:20 AM CDT Office Visit [facility] [place] [address] [place] [address] Lavern Monzon, AIR LIFT OPERATOR Bone Density Results; ER F/U ([place] 12/19/2024 ; chest pain) 12/21/2024 MyChart Message Enc [facility] [place] [address] [place] [address] Lavern Monzon, AIR LIFT OPERATOR SCHEDULING 12/21/2024 MyChart Message Enc [facility] - [place] [address] [place] [address] Lavern Monzon, AIR LIFT OPERATOR VITAMINS 12/21/2024 Travel 12/19/2024 MyChart Message Enc [facility] Mult[facility]pec[facility]ty [facility] [place] [facility] [place] [address] [place] [address] Lavern Monzon, AIR LIFT OPERATOR MORE SCOTT REPORTS 12/19/2024 MyChart Message Enc [facility] - [place] [address] [place] [address] Lavern Monzon, AIR LIFT OPERATOR MORE [employer] 12/19/2024 MyChart Message Enc [facility] [place] [address] [place] [address] Lavern Monzon, AIR LIFT OPERATOR MORE [employer] RE[employer]TS 12/19/2024 MyChart Message Enc [facility] - [place] [address] [place] [address] Lavern Monzon, AIR LIFT OPERATOR December 18 Visit to [facility] 12/18/2024 Scan [facility] INFO SRVCS Scanned, Doc Med [facility] Image (SCAN); Lab (SCAN); CT (SCAN); ECG (SCAN) 12/09/2024 Results Follow-Up [facility] - [place] [address] [place] [address] Lavern Monzon, AIR LIFT OPERATOR BONE DENSITY GENERIC (SCAN ORDER) 11/29/2024 Scan [facility] INFO SRVCS Scanned, Doc [facility] Bone Density Report (SCAN) 11/21/2024 MyChart Message Enc [facility] [place] [address] [place] [address] Lavern Monzon, AIR LIFT OPERATOR LIP UNHEALED 11/10/2024 1:20 PM CDT Office Visit [facility] - [place] [address] [place] [address] Lavern Monzon, AIR LIFT OPERATOR Mouth/Lip Problem 11/10/2024 MyChart Message Enc [facility] [place] [facility] [place] [address] [place] [address] Lavern Monzon, AIR LIFT OPERATOR BLOOD PRESSURE 11/10/2024 Travel from Last 3 Months Immunizations Immunization [...] 03/23/2021 Family History Medical History Relation Comments Mental Health Brother Hypertension Father Unsure of age fi rst noticed Mental Health Father Cancer Maternal Grandfather lung/deceas ed Early Hearing Loss Maternal Grandfather Heart Disease Maternal Grandfather Hypertension Maternal Grandmother heard attac k/ Arthritis Mother Depression Mother Hypertension Mother Stroke Mother Cancer Paternal Grandfather hodgkins/de ceased Cancer Paternal Grandmother colon/decea sed Relation Status Comments Brother Father Maternal Grandfather Maternal Grandmother Mother Paternal Grandfather [...] Sex Assigned at Female 04/18/2024 4:24 PM CORE COMPOSER FEEDER Legal Sex Female 8:00 AM CDT Gender Identity Female 04/18/2024 4:24 PM CORE COMPOSER FEEDER Sexual Orientation Choose not to disclose 2024 7:30 AM CDT Last Filed Vital Signs Vital Sign Reading Time Taken Comments Blood Pressure 120/66 12/21/2024 8:32 AM CDT man ual Pulse 68 12/21/2024 8:15 AM CDT Temperature 36 C (96.8 F) 12/21/2024 8:15 AM CDT Respiratory Rate 16 11/10/2024 1:11 PM CDT Oxygen Saturation 97% 12/21/2024 8:15 AM CDT Inhaled Oxygen Concentration - - Weight 88 kg (194 lb) 12/21/2024 8:15 AM CDT Height 157.5 cm (5' 2) 12/21/2024 8:15 AM CDT Body Mass Index 35.48 12/21/2024 8:15 AM CDT Plan of Treatment Upcoming Encounters Date Type Department Care Team (Late st Contact Info) Description 04/03/2025 9:45 AM CDT Office Visit [facility] [place] [address] Edgar Ruiz MD [facility] [address] [place] [address] 04/19/2025 10:00 AM CORE COMPOSER FEEDER Office Visit [facility] - [place] [address] [place] [address] Lavern Monzon AIR LIFT OPERATOR [address] [place] [address] 04/19/2025 10:30 AM CORE COMPOSER FEEDER [facility] [place] [address] [place] [address] Lavern Monzon AIR LIFT OPERATOR [address] [place] [address] Health Maintenance Due Date Last Done Comments [...] Zoster Vaccines Completed 02/04/2023, 10/10/2022 PHQ-2 (Physician [facility]) Completed 06/17/2024 Hepatitis C Completed 10/17/2024 Dexa Scan (General) Completed 11/29/2024, 11/29/2024, 10/17/2021 Meningococcal B Vaccine Aged Out No l onger eligible based on patient's age to complete this topic Meningococcal Vaccine Aged Out No sherlyn bill eligible based on patient's age to complete this topic RSV Immunizations Under 20 Months Aged Out No longer eligible based on patient's age to complete this topic Procedures Procedure Name Priority Date/Time Associated Diagnosis Comments COLLECTION VENOUS BLOOD VENIPUNCTURE Routine 01/23/2025 8:16 AM CDT Venous insufficiency BASIC METABOLIC PANEL Routine 01/23/2025 8:03 AM CDT Hyponatremia STRESS TEST ONLY, EXERCISE Routine 01/10/2025 2:33 PM CDT Substernal chest pain CT GENERIC 12/18/2024 CT GENERIC 12/18/2024 ECG GENERIC (SCAN ORDER) 12/18/2024 OUTSIDE LAB (SCAN ORDER) 12/18/2024 OUTSIDE LAB (SCAN ORDER) 12/18/2024 OUTSIDE PT/INR (SCAN ORDER) 12/18/2024 OUTSIDE LAB (SCAN ORDER) 12/18/2024 OUTSIDE LAB (SCAN ORDER) 12/18/2024 OUTSIDE LAB (SCAN ORDER) 12/18/2024 IMAGE GENERIC 12/18/2024 BONE DENSITY GENERIC (SCAN ORDER) 11/29/2024 BONE DENSITY GENERIC (SCAN ORDER) 11/29/2024 HEPATITIS C ANTIBODY Routine 10/17/2024 9:01 AM CDT Need for hepatitis C screening test COLONOSCOPY GENERIC (SCAN ORDER) 02/08/2018 from Last 3 Months or Most Recently Relevant to Health Maintenance Results * (ABNORMAL) BASIC METABOLIC PANEL (01/23/2025 8:03 AM CDT) [facility] SODIUM S/P/B 142 136 - 145 MMOL/L 01/23/2025 3:04 PM CDT [facility] POTASSIUM S/P/B 4.3 3.5 - 5.1 MMOL/L 01/23/2025 3:04 PM CDT [facility] CHLORIDE S/P/B 104 98 - 107 MMOL/L 01/23/2025 3:04 PM CDT [facility] CO2 30.9 21 - 32 MMOL/L 01/23/2025 3:04 PM CDT [facility] GLUCOSE 97 70 - 99 MG/DL 01/23/2025 3:04 PM CDT [facility] BUN 13 7 - 18 MG/DL 01/23/2025 3:04 PM CDT [facility] CREATININE S/P/B 0.80 0.55 - 1.02 MG/DL 01/23/2025 3:04 PM T [facility] CALCIUM S/P/B 9.6 8.4 - 10.5 MG/DL 01/23/2025 3:04 PM CDT [facility] ANION GAP 7.1 5 - 15 MMOL/L 01/23/2025 3:04 PM CDT [facility] Comment:REFERENCE RANGE NOT ESTABLISHED OSMOLALITY (CALC) 294 MOSM/KG 025 3:04 PM T [facility] Comment:REFERENCE RANGE NOT ESTABLISHED GFR ESTIMATE 75(L) >90 ML/MIN/1. 73 M2 01/23/2025 3:04 PM CDT [facility] GFR NOTES GFR REFERENCE S: 01/23/2025 3:04 PM CDT [facility] Comment: THE ESTIMATED GFR IS CALCULATED [...] ml/min/1.73 m2 G5,KIDNEY FAILURE: <15 ml/min/1.73 m2 01/23/2025 8:03 AM CDT us Lavern Monzon NP LABORATORY Final [facility] [address] [place] [address], * STRESS TEST ONLY, EXERCISE (01/10/2025 2:33 PM CDT) 01/10/2025 2:33 PM CDT Narrative [facility] RAD - 01/10/2025 10:50 PM CDT STRESS TEST TRACING ONLY Pat.Name: ATIYA AGUILERA Pat.ID: [id number] .Date: 01/10/2025 Refer.MD: Lavern Monzon NP Exam Time: 2:33:00 PM Study Type:VIRAL NC STRESS TEST TRACING ONLY Height: 62 in Weight: 194 lb BSA: 1.89 m2 Age: 3 1945,79Y Sex: F Pat. Stat.:Outpatient Reason for Study:Chest pain, Evaluation of known CAD, Edema, Jaw pain, Neck pain History / Clinical:Dyslipidemia, Hypertension, Hypothyroidism Procedures: Regular Stress Test Race: W Surgery: None Medications:Albuterol, Amlodipine, Lisinopril, Robaxin, Pravastatin ++++++++++++++++++++++++++++++++++++ SUMMARY: ++++++++++++++++++++++++++++++++++++ Stress conclusion: 1. Clinically negative. 2. Electrocardiographically negative treadmill test for ischemia. Frequent PVCs noted. 3. Adequate exercise capacity. 4. Blood pressure response was normal. 5. Qiu Treadmill Score is 6, which indicates low risk. ++++++++++++++++++++++++++++++++++++ STRESS: ++++++++++++++++++++++++++++++++++++ Baseline Vital Signs: Baseline ECG: Normal sinus rhythm HR: 72 bmp Rest BP: 158/71 Treadmill Test Protocol: Jose Carlos Duration: 06:00 min:sec Max. Workload (METS): 7.1 Stress Test Results: Max HR: 131 bmp Target HR: 142 bmp % Target: 92 % Max BP: 158/71 Max RPP: [id number] O2 sat: 100 % Symptoms and Complications: Reason for Stopping Test: Shortness of breath, Dyspnea Stress Induced Symptoms: Shortness of breath Complications: None ECG Findings: Sinus tachycardia, Frequent PVC's <Electronic Signature> 01/10/2025 10:50 PM Edgar Ruiz M.D. Procedure Note Edgar Ruiz MD - 01/10/2025 STRESS TEST TRACING ONLY Pat.Name: ATIYA AGUILERA Pat.ID: [id number] St.Date: 01/10/2025 Refer.MD: Lavern Monzon NP Exam Time: 2:33:00 PM Study Type:VIRAL [place] STRESS TEST TRACING ONLY Height: 62 in Weight: 194 lb BSA: 1.89 m2 Age: 4 1945,79Y Sex: F Pat. Stat.:Outpatient Reason for Study:Chest pain, Evaluation of known CAD, Edema, Jaw pain, Neck pain History / Clinical:Dyslipidemia, Hypertension, Hypothyroidism Procedures: Regular Stress Test Race: W Surgery: None Medications:Albuterol, Amlodipine, Lisinopril, Robaxin, Pravastatin ++++++++++++++++++++++++++++++++++++ SUMMARY: ++++++++++++++++++++++++++++++++++++ Stress conclusion: 1. Clinically negative. 2. Electrocardiographically negative treadmill test for ischemia. Frequent PVCs noted. 3. Adequate exercise capacity. 4. Blood pressure response was normal. 5. Qiu Treadmill Score is 6, which indicates low risk. ++++++++++++++++++++++++++++++++++++ STRESS: ++++++++++++++++++++++++++++++++++++ Baseline Vital Signs: Baseline ECG: Normal sinus rhythm HR: 72 bmp Rest BP: 158/71 Treadmill Test Protocol: Jose Carlos Duration: 06:00 min:sec Max. Workload (METS): 7.1 Stress Test Results: Max HR: 131 bmp Target HR: 142 bmp % Target: 92 % Max BP: 158/71 Max RPP: [id number] O2 sat: 100 % Symptoms and Complications: Reason for Stopping Test: Shortness of breath, Dyspnea Stress Induced Symptoms: Shortness of breath Complications: None ECG Findings: Sinus tachycardia, Frequent PVC's <Electronic Signature> 01/10/2025 10:50 PM Edgar Ruiz M.D. Result [facility] Lavern Monzon NP CV CARDIAC SERVICES ORDERAB LES Final Result [facility] RAD * CT GENERIC (12/18/2024) Only the most recent of2 resultswithin the time period is included. Anatomical Region Laterality Modality Other 12/18/2024 Result [facility] Scanned SCANNING Final Resu lt * ECG GENERIC (SCAN ORDER) (12/18/2024) 12/18/2024 Result [facility] Scanned SCANNING Final Resu lt * OUTSIDE PT/INR (SCAN ORDER) (12/18/2024) 12/18/2024 Result [facility] Scanned SCANNING Final Resu lt * OUTSIDE LAB (SCAN ORDER) (12/18/2024) Only the most recent of5 resultswithin the time period is included. 12/18/2024 Result [facility] Scanned SCANNING Final Resu lt * IMAGE GENERIC (12/18/2024) Anatomical Region Laterality Modality Other 12/18/2024 [facility] Scanned SCANNING Final Resu lt * BONE DENSITY GENERIC (SCAN ORDER) (11/29/2024) Only the most recent of2 resultswithin the time period is included. Anatomical Region Laterality Modality Other 11/29/2024 [facility] Scanned SCANNING Final Resu lt * HEPATITIS C ANTIBODY (10/17/2024 9:01 AM CDT) HEPATITIS C AB NON-REACTI VE NON-REACT DANNY 10/17/2024 8:01 PM CDT [facility] Comment: ANTIBODIES TO HCV NOT DETECTED. DOES NOT EXCLUDE THE POSSIBILITY OF EXPOSURE TO HCV. 10/17/2024 9:01 AM CDT Result [facility] Lavern Monzon AIR LIFT OPERATOR LABORATORY Final Resul t [facility] [address] [place] [address], [id number] * COLONOSCOPY GENERIC (SCAN ORDER) (02/08/2018) 02/08/2018 [facility] Scanned SCANNING Final Resu lt from Last 3 Months or Most Recently Relevant to Health Maintenance Insurance [employer] Care Teams Musician Instrumental Relationship Specialty Start Date End Date Lavern Monzon, AIR LIFT OPERATOR [address] [place] [address] PCP - General NURSE PRACTITIONER 04/18/24
--- OUTSIDE RECORDS SUMMARY | 2025-01-26 07:54 | XMS_ITS | Encounter Summary ---
Author Organization [facility] Address Critical access hospital[address] [place] [address] Care Team Providers Care Park Worker Name Role Phone Lavern Monzon NP Primary Care Provider [phone] Encounter Details Date Type Department Care Team (Latest Contact Info) Description 12/19/2024 MyChart Message Enc [facility] Multispecialty Care - [place] [address] [place], [place] [address] Lavern Monzon, [employer] DIRECTOR [address] [place], [place] [id number] December 18 Visit to [facility] Social History Tobacco Use Types Packs/Day Years [...] Sex Assigned at Female 04/18/2024 4:24 PM SOUND ART INSTRUCTOR Legal Sex Female 8:00 AM CDT Gender Identity Female 04/18/2024 4:24 PM SOUND ART INSTRUCTOR Sexual Orientation Choose not to disclose 2024 7:30 AM CDT documented as of this encounter Plan of Treatment Upcoming Encounters Date Type Department Care Team (Late st Contact Info) Description 04/03/2025 9:45 AM CDT Office Visit [facility] [address] [place] [address] Edgar Ruiz MD [address] [facility], [address] [place] [address] 04/19/2025 10:00 AM SOUND ART INSTRUCTOR [facility] [place] [address] [place] [address] Lavern Monzon NP [address] [facility] [address] [place] [address] 04/19/2025 10:30 AM SOUND ART INSTRUCTOR [facility] [place] [address] [place] [address] Lavern Monzon NP [address] [place] [address] [address] [place] [address] documented as of this encounter Visit Diagnoses Not on filedocumented in this encounter Care Teams Park Worker Relationship Specialty Start Date End Date Lavern Monzon NP [address] [facility] [address] [place] [address] PCP - General NURSE PRACTITIONER 04/18/24 documented as of this encounter
--- OUTSIDE RECORDS SUMMARY | 2025-01-26 07:54 | XMS_ITS | Encounter Summary ---
Author Organization [facility] Address [facility] [place] [address] Care Team Providers Care Therapeutic Dietitian Name Role Phone Lavern Monzon NP Primary Care Provider [phone] Encounter Details Date Type Department Care Team (Latest Contact Info) Description 12/29/2024 MyChart Message Enc [facility] Multispecialty Care - [place] [address] [place], [place] [id number] Lavern Monzon, DIRECTOR SURGICAL [address] [place], [place] [id number] CT ABD/PEL WWO CON APPOINTMENT Social History Tobacco Use Types Packs/Day [...] Sex Assigned at Female 04/18/2024 4:24 PM WOODENWARE ASSEMBLER Legal Sex Female 8:00 AM CDT Gender Identity Female 04/18/2024 4:24 PM WOODENWARE ASSEMBLER Sexual Orientation Choose not to disclose 2024 7:30 AM CDT documented as of this encounter Plan of Treatment Upcoming Encounters Date Type Department Care Team (Late st Contact Info) Description 04/03/2025 9:45 AM CDT Office Visit [facility] [address] [place] [address] Edgar Ruiz MD [address] [facility], [address] [place] [address] 04/19/2025 10:00 AM WOODENWARE ASSEMBLER [facility] [place] [address] [facility] [address] [place] [address] Lavern Monzon NP [address] [facility] [address] [place] [address] 04/19/2025 10:30 AM WOODENWARE ASSEMBLER [facility] [place] [address] [facility] [address] [place] [address] Lavern Monzon NP [facility] [facility] [address] [place] [address] documented as of this encounter Visit Diagnoses Not on filedocumented in this encounter Care Teams Therapeutic Dietitian Relationship Specialty Start Date End Date Lavern Monzon NP [address] [facility] [address] [place] [address] PCP - General NURSE PRACTITIONER 04/18/24 documented as of this encounter
--- OUTSIDE RECORDS SUMMARY | 2025-01-26 07:54 | XMS_ITS | Encounter Summary ---
Author Organization [facility] Address [facility] [place] [address] Care Team Providers Care Energy Administrator Name Role Phone Lavern Monzon NP Primary Care Provider +1 [phone] Encounter Details Date Type Department Care Team (Latest Contact Info) Description 12/19/2024 MyChart Message Enc [facility] Medical Group Multispecialty Care - [place] [address] [place], [place] [id number] Lavern Monzon, INVESTMENT REPRESENTATIVE [address] [place], [place] [id number] SANGITA DILLARD REPORTS Social History Tobacco Use Types Packs/Day Years [...] Sex Assigned at Female 04/18/2024 4:24 PM CONDUIT CLEANER Legal Sex Female 8:00 AM CDT Gender Identity Female 04/18/2024 4:24 PM CONDUIT CLEANER Sexual Orientation Choose not to disclose 2024 7:30 AM CDT documented as of this encounter Plan of Treatment Upcoming Encounters Date Type Department Care Team (Late st Contact Info) Description 04/03/2025 9:45 AM CDT Office Visit [facility] [address] [place] [address] Edgar Ruiz MD [facility] [facility], [address] [place] [address] 04/19/2025 10:00 AM CONDUIT CLEANER [facility] [place] [id number] [facility] [address] [place] [address] Lavern Monzon NP [address] [facility] [address] [place] [address] 04/19/2025 10:30 AM CONDUIT CLEANER [facility] [place] [id number] [facility] [address] [place] [address] Lavern Monzon NP [address] [place] [address] [address] [place] [address] documented as of this encounter Visit Diagnoses Not on filedocumented in this encounter Care Teams Energy Administrator Relationship Specialty Start Date End Date Lavern Monzon NP On license of [facility] [facility] [address] [place] [address] PCP - General NURSE PRACTITIONER 04/18/24 documented as of this encounter
--- OUTSIDE RECORDS SUMMARY | 2025-01-26 07:54 | XMS_ITS | Encounter Summary ---
Author Organization [facility] Address [facility] [place] [address] Care Team Providers Care Fire Engine Operator Name Role Phone Lavern Monzon NP Primary Care Provider +1- [phone] Encounter Details Date Type Department Care Team (Late st Contact Info) Description 11/10/2024 MyChart Message Enc [facility] Medical Group Multispecialty Care - [place] [address] [place], [place] [address] Lavern Monzon SHAREPOINT APPLICATION DEVELOPER [address] [place], [place] [id number] BLOOD PRESSURE Social History Tobacco Use Types [...] Sex Assigned at Female 04/18/2024 4:24 PM MICROARRAY OPERATIONS VICE PRESIDENT Legal Sex Female 8:00 AM CDT Gender Identity Female 04/18/2024 4:24 PM MICROARRAY OPERATIONS VICE PRESIDENT Sexual Orientation Choose not to disclose 2024 7:30 AM CDT documented as of this encounter Plan of Treatment Upcoming Encounters Date Type Department Care Team (Late st Contact Info) Description 04/03/2025 9:45 AM CDT Office Visit [facility] [address] [place] [address] Edgar Ruiz MD [facility], [address] [place] [address] 04/19/2025 10:00 AM MICROARRAY OPERATIONS VICE PRESIDENT [facility] [place] [phone] [facility] [address] [place] [address] Lavern Monzon NP [address] [facility] [address] [place] [address] 04/19/2025 10:30 AM MICROARRAY OPERATIONS VICE PRESIDENT [facility] [place] [address] [facility] [address] [place] [address] Lavern Monzon NP [address] [place] [address] [address] [place] [address] documented as of this encounter Visit Diagnoses Not on filedocumented in this encounter Care Teams Fire Engine Operator Relationship Specialty Start Date End Date Lavern Monzon NP [facility] [facility] [address] [place] [address] PCP - General NURSE PRACTITIONER 04/18/24 documented as of this encounter
--- OUTSIDE RECORDS SUMMARY | 2025-01-26 07:54 | XMS_ITS | Encounter Summary ---
Author Organization [facility] Address [facility] [place] [address] Care Team Providers Care Mixer Crane Operator Name Role Phone Lavern Monzon NP Primary Care Provider +1 [phone] Encounter Details Date Type Department Care Team (Latest Contact Info) Description 01/11/2025 Results Follow-Up [facility] Medical Group Multispecialty Care - [place] [address] [facility] [address] [place], [place] [address] Lavern Monzon, HYBRID TESTER [address] [place] [address] STRESS TEST ONLY, EXERCISE Social History Tobacco Use Types Packs/Day Years [...] Sex Assigned at Female 04/18/2024 4:24 PM POWER AND RECOVERY SUPERINTENDENT Legal Sex Female 8:00 AM CDT Gender Identity Female 04/18/2024 4:24 PM POWER AND RECOVERY SUPERINTENDENT Sexual Orientation Choose not to disclose 2024 7:30 AM CDT documented as of this encounter Plan of Treatment Upcoming Encounters Date Type Department Care Team (Late st Contact Info) Description 04/03/2025 9:45 AM CDT Office Visit [facility] [address] [place] [address] Edgar Ruiz MD [facility], [address] [place] [address] 04/19/2025 10:00 AM POWER AND RECOVERY SUPERINTENDENT [facility] [place] [address] [facility] [address] [place] [address] Lavern Monzon NP [facility] [facility] [address] [place] [address] 04/19/2025 10:30 AM POWER AND RECOVERY SUPERINTENDENT [facility] [place] [address] [facility] [address] [place] [address] Lavern Monzon NP [address] [place] [address] [address] [place] [address] documented as of this encounter Visit Diagnoses Not on filedocumented in this encounter Care Teams Mixer Crane Operator Relationship Specialty Start Date End Date Lavern Monzon NP [facility] [facility] [address] [place] [address] PCP - General NURSE PRACTITIONER 04/18/24 documented as of this encounter
--- OUTSIDE RECORDS SUMMARY | 2025-01-26 07:54 | XMS_ITS | Encounter Summary ---
Author Organization [facility] Address [facility] [place] [address] Care Team Providers Care Tube Drawer Name Role Phone Lavern Monzon NP Primary Care Provider +1- [phone] Encounter Details Date Type Department Care Team (Late st Contact Info) Description 12/21/2024 MyChart Message Enc [facility] Medical Group Multispecialty Care - [place] [address] [place], [place] [id number] Lavern Monzon BRIEFCASE SEWER [address] [place], [place] [address] VITAMINS Social History Tobacco Use Types Packs/Day Years [...] Sex Assigned at Female 04/18/2024 4:24 PM YARD COORDINATOR Legal Sex Female 8:00 AM CDT Gender Identity Female 04/18/2024 4:24 PM YARD COORDINATOR Sexual Orientation Choose not to disclose 2024 7:30 AM CDT documented as of this encounter Plan of Treatment Upcoming Encounters Date Type Department Care Team (Late st Contact Info) Description 04/03/2025 9:45 AM CDT Office Visit [facility] [address] [place] [address] Edgar Ruiz MD [facility], [address] [place] [address] 04/19/2025 10:00 AM YARD COORDINATOR [facility] [place] [address] [facility] [address] [place] [address] Lavern Monzon NP [address] [facility] [address] [place] [address] 04/19/2025 10:30 AM YARD COORDINATOR Office [facility] [place] 472[address] [facility] [address] [place] [address] Lavern Monzon NP [address] [place] [address] [address] [place] [address] documented as of this encounter Visit Diagnoses Not on filedocumented in this encounter Care Teams Tube Drawer Relationship Specialty Start Date End Date Lavern Monzon NP [facility] [facility] [address] [place] [address] PCP - General NURSE PRACTITIONER 04/18/24 documented as of this encounter
--- OUTSIDE RECORDS SUMMARY | 2025-01-26 07:54 | XMS_ITS | Encounter Summary ---
Author Organization [facility] Address [facility] [place] [address] Care Team Providers Care Game Designer Name Role Phone Lavern Monzon NP Primary Care Provider +1 [phone] Encounter Details Date Type Department Care Team (Latest Contact Info) Description 01/23/2025 MyChart Message Enc [facility] Medical Group Multispecialty Care - [place] [address] [place], [place] [address] Lavern Monzon, BULB INSPECTOR [address] [place], [place] [id number] CT ABD/PEL W/WO CONTRAST Social History Tobacco Use Types Packs/Day Years [...] Sex Assigned at Female 04/18/2024 4:24 PM SACK MAKER Legal Sex Female 8:00 AM CDT Gender Identity Female 04/18/2024 4:24 PM SACK MAKER Sexual Orientation Choose not to disclose 2024 7:30 AM CDT documented as of this encounter Plan of Treatment Upcoming Encounters Date Type Department Care Team (Late st Contact Info) Description 04/03/2025 9:45 AM CDT Office Visit [facility] [address] [place] [address] Edgar Ruiz MD [address] [facility], [address] [place] [address] 04/19/2025 10:00 AM SACK MAKER [facility] [place] [address] [facility] [address] [place] [address] Lavern Monzon NP [address] [facility] [address] [place] [address] 04/19/2025 10:30 AM SACK MAKER [facility] [place] [address] [facility] [address] [place] [address] Lavern Monzon NP [facility] [facility] [address] [place] [address] documented as of this encounter Visit Diagnoses Not on filedocumented in this encounter Care Teams Game Designer Relationship Specialty Start Date End Date Lavern Monzon NP [address] [facility] [address] [place] [address] PCP - General NURSE PRACTITIONER 04/18/24 documented as of this encounter
--- OUTSIDE RECORDS SUMMARY | 2025-01-26 07:54 | XMS_ITS | Encounter Summary ---
Author Organization [facility] Address [facility] [place] [address] Care Team Providers Care Senior Publications Specialist Name Role Phone Lavern Monzon NP Primary Care Provider +1 [phone] Encounter Details Date Type Department Care Team (Latest Contact Info) Description 12/09/2024 Results Follow-Up [facility] Medical Group Multispecialty Care - [place] [address] [place], [place] [address] Lavern Monzon, TREV [address] [place] [address] BONE DENSITY GENERIC (SCAN ORDER) Social History [...] Assigned at Female 04/18/2024 4:24 PM SPORTS MEDIA Legal Sex Female 8:00 AM CDT Gender Identity Female 04/18/2024 4:24 PM SPORTS MEDIA Sexual Orientation Choose not to disclose 2024 7:30 AM CDT documented as of this encounter Plan of Treatment Upcoming Encounters Date Type Department Care Team (Late st Contact Info) Description 04/03/2025 9:45 AM CDT Office Visit [facility] [address] [place] [address] Edgar Ruiz MD Three [facility], [address] [place] [address] 04/19/2025 10:00 AM SPORTS MEDIA [facility] [place] [address] [facility] [address] [place] [address] Lavern Monzon NP [address] [facility] [address] [place] [address] 04/19/2025 10:30 AM SPORTS MEDIA [facility] - [place] [address] [facility] [address] [place] [address] Lavern Monzon NP [address] [place] [address] [address] [place] [address] documented as of this encounter Visit Diagnoses Not on filedocumented in this encounter Care Teams Senior Publications Specialist Relationship Specialty Start Date End Date Lavern Monzon NP [address] [facility] [address] [place] [address] PCP - General NURSE PRACTITIONER 04/18/24 documented as of this encounter
--- OUTSIDE RECORDS SUMMARY | 2025-01-26 07:54 | XMS_ITS | Encounter Summary ---
Author Organization [facility] Address [facility] [place] [address] Care Team Providers Care Marketing Traffic Coordinator Name Role Phone Lavern Monzon NP Primary Care Provider +1 [phone] Encounter Details Date Type Department Care Team (Latest Contact Info) Description 12/19/2024 MyChart Message Enc [facility] Medical Group Multispecialty Care - [place] [address] [place], [place] [address] Lavern Monzon, FACILITIES OPERATIONS TECHNICIAN [address] [place], [place] [address] SANGITA DILLARD REPORTS Social History Tobacco Use [...] Assigned at Female 04/18/2024 4:24 PM ELECTRICAL MAINTENANCE MECHANIC Legal Sex Female 8:00 AM CDT Gender Identity Female 04/18/2024 4:24 PM ELECTRICAL MAINTENANCE MECHANIC Sexual Orientation Choose not to disclose 2024 7:30 AM CDT documented as of this encounter Plan of Treatment Upcoming Encounters Date Type Department Care Team (Late st Contact Info) Description 04/03/2025 9:45 AM CDT Office Visit [facility] [address] [place] [address] Edgar Ruiz MD [facility], [address] [place] [address] 04/19/2025 10:00 AM ELECTRICAL MAINTENANCE MECHANIC [facility] [place] [address] [facility] [address] [place] [address] Lavern Monzon NP [address] [facility] [address] [place] [address] 04/19/2025 10:30 AM ELECTRICAL MAINTENANCE MECHANIC [facility] [place] [address] [facility] [address] [place] [address] Lavern Monzon NP [address] [place] [address] [address] [place] [address] documented as of this encounter Visit Diagnoses Not on filedocumented in this encounter Care Teams Marketing Traffic Coordinator Relationship Specialty Start Date End Date Lavern Monzon NP [facility] [facility] [address] [place] [address] PCP - General NURSE PRACTITIONER 04/18/24 documented as of this encounter
--- OUTSIDE RECORDS SUMMARY | 2025-01-26 07:54 | XMS_ITS | Encounter Summary ---
Author Organization [facility] Address [facility]6 [place] [address] Care Team Providers Care Filling Machine Operator Name Role Phone Lavern Monzon NP Primary Care Provider +1- [phone] Encounter Details Date Type Department Care Team (Latest Contact Info) Description 01/02/2025 Scan [facility] Scanned, Doc Med Group Social History Tobacco Use Types Packs/Day Years [...] Sex Assigned at Female 04/18/2024 4:24 PM HARDWARE DEVELOPER Legal Sex Female 8:00 AM CDT Gender Identity Female 04/18/2024 4:24 PM HARDWARE DEVELOPER Sexual Orientation Choose not to disclose 2024 7:30 AM CDT documented as of this encounter Plan of Treatment Upcoming Encounters Date Type Department Care Team (Late st Contact Info) Description 04/03/2025 9:45 AM CDT Office Visit [facility] [address] [place] [address] Edgar Ruiz MD [facility], [address] [place] [address] 04/19/2025 10:00 AM HARDWARE DEVELOPER Office Visit [facility] - [place] [address] [place] [address] Lavern Monzon NP [address] [facility] [address] [place] [address] 04/19/2025 10:30 AM HARDWARE DEVELOPER [facility] [place] [address] [facility] [address] [place] [address] Lavern Monzon NP [address] [facility] [address] [place] [address] documented as of this encounter Visit Diagnoses Not on filedocumented in this encounter Care Teams Filling Machine Operator Relationship Specialty Start Date End Date Lavern Monzon NP [address] [facility] [address] [place] [address] PCP - General NURSE PRACTITIONER 04/18/24 documented as of this encounter
--- OUTSIDE RECORDS SUMMARY | 2025-01-26 07:54 | XMS_ITS | Encounter Summary ---
Author Organization [facility] Address [facility] [place] [address] Care Team Providers Care Cage Manager Name Role Phone Lavern Monzon NP Primary Care Provider +1- [phone] Encounter Details Date Type Department Care Team (Late st Contact Info) Description 05/19/2024 MyChart Message Enc [facility] Medical Group Multispecialty Care - [place] [address] [place], [place] [address] Lavern Monzon NP [address] [place], [place] [id number] Testing Documents Social History Tobacco Use Types Packs/Day Years Used Date Smoking Tobacco: Never Passive Smoke Exposure: Never Smokeless Tobacco: Never Alcohol Use Standard Drinks/Week Comments Not Currently 0 (1 standard drink = 0.6 oz pure alcohol) 2-3 beers/year; 1 glass of wine/year; 1 vodka tonic/year Comments No Sex and Gender Information Value Date Recorded Sex Assigned at Female 04/18/2024 4:24 PM CAMPUS POLICE OFFICER Legal Sex Female 8:00 AM CDT Gender Identity Female 04/18/2024 4:24 PM CAMPUS POLICE OFFICER Sexual Orientation Choose not to disclose 2024 7:30 AM CDT documented as of this encounter Functional Status * Calculated C-SSRS Risk Score (Lifetime/Recent) Answer Date of Assessment Author Status No Risk Indicated 05/22/2024 1:16 PM CAMPUS POLICE OFFICER Gina Telles RN Active * [place] Suicide Severity Rating Scale (Screener/Recent Self-Report) Question Answer Date of Assessment Author Status 1. Wish to be (Past 1 Month) No 05/22/2024 1:16 PM CAMPUS POLICE OFFICER Gina Telles RN Activ e 2. Non-Specific Active Suicidal Thoughts (Past 1 Month) No 05/22/2024 1:16 PM CAMPUS POLICE OFFICER Gina Telles RN Activ e 6. Suicidal Behavior (Lifetime) No 05/22/2024 1:16 PM CAMPUS POLICE OFFICER Gina Telles RN Activ e documented as of this encounter Plan of Treatment Upcoming Encounters Date Type Department Care Team (Late st Contact Info) Description 04/03/2025 9:45 AM CDT Office Visit [facility] [address] [place] [address] Edgar Ruiz MD [facility], [address] [place] [address] 04/19/2025 10:00 AM CAMPUS POLICE OFFICER [facility] [place] [address] [facility] [address] [place] [address] Lavern Monzon ARBORIST REPRESENTATIVE [address] [facility] [address] [place] [address] 04/19/2025 10:30 AM CAMPUS POLICE OFFICER [facility] [place] [address] [facility] [address] [place] [address] Lavern Monzon ARBORIST REPRESENTATIVE [address] [facility] [address] [place] [address] documented as of this encounter Visit Diagnoses Not on filedocumented in this encounter Additional Health Concerns Infection Onset Date Last Indicated Resolved Time COVID-19 Rule Out 07/25/2024 07/25/2024 07/25/2024 11:57 AM CAMPUS POLICE OFFICER Influenza - Seasonal 07/25/2024 07/25/2024 025 12:32 AM CAMPUS POLICE OFFICER documented as of this encounter Care Teams Cage Manager Relationship Specialty Start Date End Date Lavern Monzon, ARBORIST REPRESENTATIVE [address] [facility] [address] [place] [address] PCP - General NURSE PRACTITIONER 04/18/24 documented as of this encounter
--- OUTSIDE RECORDS SUMMARY | 2025-01-26 07:54 | XMS_ITS ---
Author Organization [facility] [place] ([address]) Address [address] [place] [address] Care Team Providers Care Powerhouse Mechanic Name Role Phone Leah Barajas Primary Care Provider UnavailCaroline Ellsworth Unavailable [phone] ZZ-Migration, Provider Unavailable Unavailab le Allergies Allergen (clinical drug ingredient) Drug/Non Drug Allergy documented on EMR Reaction Allergy Type Onset Date Status KEFLEX (uncoded) unknown reaction Allergy Active PROLONG CONTACT TO LATEX (uncoded) Blisters on skin Allergy Active ketorolac TORADOL (uncoded) Unknown Allergy Ac tive azelastine Azelastine HCl epistaxis Drug Allergy A ctive menthol Biofreeze Palpitations; flushing Drug Allergy Active ipratropium Ipratropium Austin Palpitations ; flushing; red/swolen face Drug Allergy [...] review and pick correct strength-formula tion from [employer] options. If intended option is not shown, [...] review and pick correct strength-formula tion from [employer] options. If intended option is not shown, [...] Active Encounters [facility] Date [facility] [address] [facility]28/[facility] Provider Ty Allergic rhinitis due to [...] * Atiya AGUILERA DDOB:1945 (79 yo F)Acc No.[id number]:11/28/2023 Patient: Berenice YOGESHFranchescacy D Provider: Aguilar Bates :1945 A ge:78 Y S ex:Female Date:11/28/2023 Address:[address] [place], [place] [id number] Pcp:Leah Barajas Subjective: * Chief Complaints: * 1 . [facility] * Medical History: * Medications: T aking ALBUTEROL (EQV-PROAIR HFA) 90 MCG/INH AEROSOL 2 PUFF(S) INHALED EVERY 6 HOURS , Notes to Pharmacist: *Please review for potential replacement for e-prescription and drug interaction check*, Taking Lubricant Eye Drops - SOLUTION 1 GTT IN EACH EYE 4 TIMES A DAY , Notes to Pharmacist: *Please review and pick correct strength-formulation from [employer] options. If intended option is not shown, [...] review and pick correct strength- formulation from [employer] options. If intended option is not shown, [...] *Please review and pick correct strength-formulation from [employer] options. If intended option is not shown, [...] *Please review and pick correct strength-formulation from [employer] options. If intended option is not shown, discontinue and re-order from [employer]* * Allergies: B iofreeze: Palpitations; flushing, PROLONG CONTACT TO LATEX: Blisters on skin, Neosporin: blisters - Allergy, Ipratropium Austin: Palpitations; flushing; red/swolen face, Azelastine HCl: epistaxis, TORADOL, levoFLOXacin: unknown reaction, KEFLEX: unknown reaction, Cyclobenzaprine: shortness of breath. Objective: * Vitals: Assessment: * Assessment: 1. A llergic rhinitis due to pollen - J30.1 (Primary) Plan: * Treatment: * Billing Information: * Visit Code: * Procedure Codes: * Electronic signature of Prov huseyin MORTON-Migration on 01/26/2025 at 07:53 AM CDT Sign off status: Pending * Provider: Aguilar eason Migration Date: 0 11/28/2023 Generated for Jaime nunes/Noel/Shiva on: 0 01/26/2025 07:53 AM CDT
--- OUTSIDE RECORDS SUMMARY | 2025-01-26 07:54 | XMS_ITS | Encounter Summary ---
Author Organization [facility] Address [facility] [place] [address] Care Team Providers Care Industrial Electrical Technician Name Role Phone Lavern Monzon NP Primary Care Provider [phone] Encounter Details Date Type Department Care Team (Latest Contact Info) Description 01/09/2025 MyChart Message Enc [facility] Medical Group Multispec[facility]ty Care - [place] [address] [place], [place] [id number] Lavern Monzon, PHOTO MASK PATTERN GENERATOR [address] [place], [place] [id number] Refill a Prescription Previously Prescribed by Dr. Barajas Social History Tobacco Use Types Packs/Day Years [...] Sex Assigned at Female 04/18/2024 4:24 PM PRAWN TRAWLER HAND Legal Sex Female 8:00 AM CDT Gender Identity Female 04/18/2024 4:24 PM PRAWN TRAWLER HAND Sexual Orientation Choose not to disclose 2024 7:30 AM CDT documented as of this encounter Plan of Treatment Upcoming Encounters Date Type Department Care Team (Late st Contact Info) Description 04/03/2025 9:45 AM CDT Office Visit [facility] [address] [place] [address] Edgar Ruiz MD Three [facility], [address] [place] [address] 04/19/2025 10:00 AM PRAWN TRAWLER HAND [facility] [place] [address] [facility] [address] [place] [address] Lavern Monzon NP [address] [facility] [address] [place] [address] 04/19/2025 10:30 AM PRAWN TRAWLER HAND [facility] [place] [address] [facility] [address] [place] [address] Lavern Monzon NP [address] [facility] [address] [place] [address] documented as of this encounter Visit Diagnoses Not on filedocumented in this encounter Care Teams Industrial Electrical Technician Relationship Specialty Start Date End Date Lavern Monzon NP [address] [facility] [address] [place] [address] PCP - General NURSE PRACTITIONER 04/18/24 documented as of this encounter
--- OUTSIDE RECORDS SUMMARY | 2025-01-26 07:54 | XMS_ITS | Encounter Summary ---
Author Organization [facility] Address [facility] [place] [address] Care Team Providers Care Client Associate Name Role Phone Lavern Monzon NP Primary Care Provider [phone] Encounter Details Date Type Department Care Team (Late st Contact Info) Description 11/21/2024 MyChart Message Enc [facility] Medical Group Multispecialty Care - [place] [address] [place], [place] [address] Lvaern Monzon ACOUSTICAL INSTALLER [address] [place], [place] [address] LIP UNHEALED Social History Tobacco Use Types [...] Sex Assigned at Female 04/18/2024 4:24 PM NOTCHING MACHINE OPERATOR Legal Sex Female 8:00 AM CDT Gender Identity Female 04/18/2024 4:24 PM NOTCHING MACHINE OPERATOR Sexual Orientation Choose not to disclose 2024 7:30 AM CDT documented as of this encounter Plan of Treatment Upcoming Encounters Date Type Department Care Team (Late st Contact Info) Description 04/03/2025 9:45 AM CDT Office Visit [facility] [address] [place] [address] Edgar Ruiz MD Three [facility], [address] [place] [address] 04/19/2025 10:00 AM NOTCHING MACHINE OPERATOR [facility] [place] [address] [address] [facility] [address] [place] [address] Lavern Monzon NP [address] [facility] [address] [place] [address] 04/19/2025 10:30 AM NOTCHING MACHINE OPERATOR [facility] [place] [address] [address] [place] [address] Lavern Monzon NP [address] [place] [address] [address] [place] [address] documented as of this encounter Visit Diagnoses Not on filedocumented in this encounter Care Teams Client Associate Relationship Specialty Start Date End Date Lavern Monzon NP [facility] [facility] [address] [place] [address] PCP - General NURSE PRACTITIONER 04/18/24 documented as of this encounter
--- OUTSIDE RECORDS SUMMARY | 2025-01-26 07:54 | XMS_ITS | Encounter Summary ---
Author Organization [facility] Address [facility] hospital[address] [place] [address] Care Team Providers Care Running Instructor Name Role Phone Lavern Monzon NP Primary Care Provider [phone] Encounter Details Date Type Department Care Team (Latest Contact Info) Description 12/19/2024 MyChart Message Enc [facility] Medical Group Multispecialty Care - [place] [address] [place], [place] [address] Lavern Monzon, FILM DEVELOPING MACHINE OPERATOR [address] [place], [place] [id number] SANGITA DILLARD REPORTS Social History Tobacco Use [...] Sex Assigned at Female 04/18/2024 4:24 PM REDUCING SALON ATTENDANT Legal Sex Female 8:00 AM CDT Gender Identity Female 04/18/2024 4:24 PM REDUCING SALON ATTENDANT Sexual Orientation Choose not to disclose 2024 7:30 AM CDT documented as of this encounter Plan of Treatment Upcoming Encounters Date Type Department Care Team (Late st Contact Info) Description 04/03/2025 9:45 AM CDT Office Visit [facility] [address] [place] [address] Edgar Ruiz MD [facility], [address] [place] [address] 04/19/2025 10:00 AM REDUCING SALON ATTENDANT [facility] [place] [address] [facility] [address] [place] [address] Lavern Monzon NP [address] [facility] [address] [place] [address] 04/19/2025 10:30 AM REDUCING SALON ATTENDANT [facility] [place] [address] [facility] [address] [place] [address] Lavern Monzon NP [address] [place] [address] [address] [place] [address] documented as of this encounter Visit Diagnoses Not on filedocumented in this encounter Care Teams Running Instructor Relationship Specialty Start Date End Date Lavern Monzon NP [facility] [facility] [address] [place] [address] PCP - General NURSE PRACTITIONER 04/18/24 documented as of this encounter
--- OUTSIDE RECORDS SUMMARY | 2025-01-26 07:54 | XMS_ITS | Encounter Summary ---
Author Organization [facility] Address [facility] [place] [address] Care Team Providers Care Perpetual Inventory Clerk Name Role Phone Lavern Monzon NP Primary Care Provider [phone] Encounter Details Date Type Department Care Team (Late st Contact Info) Description 08/02/2024 MyChart Message Enc [facility] Medical Group Multispecialty Care - [place] [address] [place], [place] [address] Lavern Monzon BOXING PROMOTER [address] [place], [place] [id number] MUCUS/PHLEGM Social History Tobacco Use Types Packs/Day [...] Sex Assigned at Female 04/18/2024 4:24 PM FRICTION WELDING MACHINE OPERATOR Legal Sex Female 8:00 AM CDT Gender Identity Female 04/18/2024 4:24 PM FRICTION WELDING MACHINE OPERATOR Sexual Orientation Choose not to disclose 2024 7:30 AM CDT documented as of this encounter Plan of Treatment Upcoming Encounters Date Type Department Care Team (Late st Contact Info) Description 04/03/2025 9:45 AM CDT Office Visit [facility] [address] [place] [address] Edgar Ruiz MD Three [facility], [address] [place] [address] 04/19/2025 10:00 AM FRICTION WELDING MACHINE OPERATOR Office Visit [facility] [place] [address] [facility] [address] [place] [address] Lavern Monzon NP [address] [facility] [address] [place] [address] 04/19/2025 10:30 AM FRICTION WELDING MACHINE OPERATOR [facility] [place] [address] [facility] [address] [place] [address] Lavern Monzon NP [facility] [address] [facility] [address] [place] [address] documented as of this encounter Visit Diagnoses Not on filedocumented in this encounter Additional Health Concerns Infection Onset Date Last Indicated Resolved Time Influenza - Seasonal 07/25/2024 07/25/2024 025 12:32 AM FRICTION WELDING MACHINE OPERATOR documented as of this encounter Care Teams Perpetual Inventory Clerk Relationship Specialty Start Date End Date Lavern Monzon NP [address] [facility] [address] [place] [address] PCP - General NURSE PRACTITIONER 04/18/24 documented as of this encounter
--- OUTSIDE RECORDS SUMMARY | 2025-01-26 07:54 | XMS_ITS | Continuity of Care Document ---
Author Organization [facility] [place] [address] [facility] tiffanie Gray [address] [place] [phone] Phone Care Team Providers Care Overhauler Bus Truck Name Role Phone Moffett OD, Iska Unavailable Unavailable Procedures Procedure Date Visual Field Examination(s) Optic Nerve Topography Optic Nerve Topography Eye Exam & Treatment Refraction Office/outpatient Visit, Est Optic Nerve Topography Optic Nerve Topography Visual Field Examination(s) Removal Of Skin Lesion No Charge Contact Lens Check CL Replacement - Vistakon Disp W/BW Soft [facility] Medical Eye Exam & Treatment Refraction No Charge Contact Lens Check CL Replacement - Vistakon Disp W/BW Soft [facility] No Charge Contact Lens Check No Charge Contact Lens Check No Charge Contact Lens Check Office/outpatient Visit, Est Visual Field Examination(s) Office/outpatient Visit, Est No Charge Contact Lens Check CL Replacement - Vistakon Disp W/BW Soft [facility] No Charge Contact Lens Check CL Replacement - Vistakon Disp W/BW Soft [facility] No Charge Contact Lens Check Advance Directives Directive Yes / No Effective Date File Name No Information Encounters Encounter Description Practice Location Reason(s) For Visit Diagnoses Date Provider Providers Copied on Encounter [facility], [id number] [place] [address] [address], [place], [place], [id number], [place] tel:[phone] [facility] No Information 8-201 0 Moffett OD Isak. [address], [place], [place], [facility], . tel:[phone] Referring Provider: Isak Moffett OD A, [address] [place], [place] [address]ate [address], [place], [place], [facility]. tel:[phone] [facility], [address], [place], [place], [id number], [place] tel:[phone] [facility] No Information 5-201 0 Moffett OD Isak. [address] [facility] [address], [place], [facility], [place]. tel:[phone] Referring Provider: Isak Moffett OD A, [address] [place], [place] [address], [place], [facility]. tel:[phone] [facility], [address] [place] [address] [address], [place], [place], [id number], [place] tel:[phone] [facility] No Information 8-201 0 Moffett OD Isak. [address] [place] [address] [address], [place], [facility], [place]. tel:[phone] Office/outpat ient Visit, Est [facility], [address], [place], [place], [id number], [place] tel:[phone] [facility] No Information 3-200 9 Moffett OD Isak. [address], [address], [place], [facility], [place]. tel:[phone] [facility], [address], [place], [place], [id number], [place] tel:[phone] [facility] No Information 7-200 9 Moffett OD Isak. [address] [place], [place] [address]ate Center , [address], [place], [facility], . tel:[phone] Referring Provider: Isak Moffett OD A, [address] [place], [place] [address]ate [address], [place], [place], [facility]. tel:[phone] [facility] Eye [facility], [address] [place] [address] [address], [place], [place], [id number], tel:[phone] [facility] No Information 9-200 9 Moffett OD Isak. [address] [place], [place] [address]ate Center , [address], [place], [facility], . tel:[phone] Referring Provider: Isak Moffett OD A, [address] [place], [place] [address]ate Center [address], [place], [place], [facility]. tel:[phone] [facility] Eye [facility], [address] [place] [address] [address], [place], [place], [id number], tel:[phone] [facility] No Information 8-200 9 Miramontes Nitza. [address] [place], [place] [address]ate Center , [address], [place], [facility], . tel:[phone] Referring Provider: Isak Moffett OD A, [address] [place], [place] [address]ate Center [address], [place], [place], [facility]. tel:[phone] [facility] Eye [facility], [address] [place] [address] [address], [place], [place], [id number], [place] tel:[phone] [facility] [place] No Information 4-200 8 Moffett OD Isak. [address] [place], [place] [address], [place], [facility], [place]. tel:[phone] [facility] Eye [facility], [address] [place] [address] [address], [place], [place], [id number], [place] tel:[phone] [facility] No Information Dec-1 6-200 8 Moffett OD Isak. [address] , [address], [place], [address], [place]. tel:[phone] [facility] Eye [facility], [address], [place], [place], [address], [place] tel:[phone] [facility] No Information Nov-1 4-200 8 Moffett OD Isak. [address] , [address], [place], [facility], [place]. tel:[phone] [facility] Eye [facility], [address] [place] [address] [address], [place], [place], [id number], [place] tel:[phone] [facility] No Information Oct-3 0-200 8 Moffett OD Isak. [address] , [address], [place], [facility], [place]. tel:[phone] [facility] Eye [facility], [address] [place] [address] [address], [place], [place], [id number], [place] tel:[phone] [facility] No Information Sep-1 8-200 8 Moffett OD Isak. [address] , [address], [place], [address], [place]. tel:[phone] [facility] Eye [facility], [address] [place] [address] [address], [place], [place], [address], [place] tel:[phone] [facility] No Information Sep-1 2-200 8 Moffett OD Isak. [address] , [address], [place], [address], [place]. tel:[phone] Office/outpat ient Visit, Est [facility], [address] [place] [address] [address], [place], [place], [address], [place] tel:[phone] [facility] [place] No Information Real-1 8-200 8 Moffett OD Isak. [address] , [address], [place], [facility], [place]. tel:[phone] [facility] Eye [facility], [address], [place], [place], [address], [place] tel:[phone] SEC [facility] No Information Dec-0 6-200 7 Moffett OD Isak. [address], [place], [facility], [place]. tel:[phone] Referring Provider: Isak Moffett OD A, [facility] [address], [place], [facility]. tel:[phone] Office/outpat ient Visit, [facility] [address], [place], [place], [id number], [place] tel:[phone] SEC [facility] No Information Real-2 0-200 7 Moffett OD Isak. [address], [place], [facility], [place]. tel:[phone] [facility] Eye [facility], [address] [place] [address] [address], [place], [place], [address], [place] tel:[phone] [facility] No Information Apr-2 4-200 7 Moffett OD Isak. [address], [address], [place], [address], [place]. tel:[phone] [facility], [address], [place], [place], [address], [place] tel:[phone] [facility] No Information Apr-1 2-200 7 Moffett OD Isak. [address], [address], [place], [address], [place]. tel:[phone] [facility] Eye [facility], [address], [place], [place], [address], [place] tel:[phone] [facility] No Information Apr-0 3-200 7 Moffett OD Isak. [address] , [address], [place], [address], [place]. tel:[phone] Family History Family Member Type Diagnosis Age [...]
== END 2025-01-26 07:49 | disposition home or self-care (01) ==
LOC: ANHIMG 07:51
PROVIDERS: PCP Nurse Practitioner; Visit Provider Nurse Practitioner
DX: Z12.31 Encounter for screening mammogram for malignant neoplasm of breast (principal)
CPT/HCPCS: 77063; 77067

== ENCOUNTER 2025-03-15 08:56 | Emergency (ER) | payer MEDICARE, SELFPAY ==
--- OUTSIDE RECORDS SUMMARY | 2009-12-10 08:15 | XMS_ITS | Continuity of Care Document ---
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 No Charge Contact Lens Check No Charge Contact Lens Check No Charge Contact Lens Check Office/outpatient Visit, Est Visual Field Examination(s) Office/outpatient Visit, Est No Charge Contact Lens Check CL Replacement - Vistakon Disp W/BW Soft [facility] No Charge Contact Lens Check CL Replacement - Vistakon Disp W/BW Soft [facility] No Charge Contact Lens Check Advance Directives Directive Yes / No Effective Date File Name No Information Encounters Encounter Description Practice Location Reason(s) For Visit Diagnoses Date Provider Providers Copied on Encounter [facility], [address] [place] [address] [address], [place], [place], [address], [place] tel:[phone] [facility] No Information 8-201 0 Moffett OD Isak. [address] [facility] [address], [place], [place], [facility], . tel:[phone] Referring Provider: Isak Moffett OD A, [address] [place], [place] [address]ate [address], [place], [facility]. tel:[phone] [facility], [address], [place], [place], [address], [place] tel:[phone] [facility] No Information 5-201 0 Moffett OD Isak. [address] [facility] [address], [address], [place], [facility], [place]. tel:[phone] Referring Provider: Isak Moffett OD A, [address] [place], [place] [address]ate [address], [place], [facility]. tel:[phone] [facility], [address] [place] [address] [address], [place], [place], [address], [place] tel:[phone] [facility] No Information 8-201 0 Moffett OD Isak. [address] [place] [address] [address], [address], [place], [facility], [place]. tel:[phone] Office/outpat ient Visit, Est [facility], [address], [place], [place], [address], [place] tel:[phone] [facility] No Information 3-200 9 Moffett OD Isak. [address] [facility] [address], [address], [place], [facility], [place]. tel:[phone] [facility], [address], [place], [place], [address], [place] tel:[phone] [facility] No Information 7-200 9 Moffett OD Isak. [address] [place], [place] [address] , [address], [place], [facility], . tel:[phone] Referring Provider: Isak Moffett OD A, [address] [place], [place] [address], [place], [facility]. tel:[phone] [facility], [address] [place] [address] [address], [place], [place], [address], tel:[phone] [facility] No Information 9-200 9 Moffett OD Isak. [address] [place], [place] [address]ate [address] , [address], [place], [facility], . tel:[phone] Referring Provider: Isak Moffett OD A, [address] [place], [place] [address], [place], [facility]. tel:[phone] [facility], [address] [place] [address] [address], [place], [place], [address], tel:[phone] [facility] No Information 8-200 9 Miramontes Nitza. [address] [place], [place] [address] , [address], [place], [facility], . tel:[phone] Referring Provider: Isak Moffett OD A, [address] [place], [place] [address], [place], [facility]. tel:[phone] [facility], [address] [place] [address] [address], [place], [place], [address], [place] tel:[phone] [facility] [place] No Information 4-200 8 Moffett OD Isak. [address] [place], [place] [address], [place], [facility], [place]. tel:[phone] [facility], [address] [place] [address] [address], [place], [place], [address], [place] tel:[phone] [facility] No Information Dec-1 6-200 8 Moffett OD Isak. [address] , [address], [place], [address], [place]. tel:[phone] [facility], [address], [place], [place], [address], [place] tel:[phone] [facility] No Information Nov-1 4-200 8 Moffett OD Isak. [address] , [address], [place], [facility], [place]. tel:[phone] [facility], [address] [place] [address] [address], [place], [place], [address], [place] tel:[phone] [facility] No Information Oct-3 0-200 8 Moffett OD Isak. [address] , [address], [place], [facility], [place]. tel:[phone] [facility], [address] [place] [address] [address], [place], [place], [address], [place] tel:[phone] [facility] No Information Sep-1 8-200 8 Moffett OD Isak. [address] , [address], [place], [address], [place]. tel:[phone] [facility], [address] [place] [address] [address], [place], [place], [address], [place] tel:[phone] [facility] No Information Sep-1 2-200 8 Moffett OD Isak. [address] , [address], [place], [address], [place]. tel:[phone] Office/outpat ient Visit, Est [facility], [address] [place] [address] [address], [place], [place], [address], [place] tel:[phone] [facility] [place] No Information Real-1 8-200 8 Moffett OD Isak. [address] , [address], [place], [facility], [place]. tel:[phone] [facility], [address], [place], [place], [address], [place] tel:[phone] [facility] No Information Dec-0 6-200 7 Moffett OD Isak. [address] [facility] [address], [address], [place], [facility], [place]. tel:[phone] Referring Provider: Isak Moffett OD A, [facility] [address], [place], [facility]. tel:[phone] Office/outpat ient Visit, [facility] [address], [place], [place], [address], [place] tel:[phone] [facility] No Information Real-2 0-200 7 Moffett OD Isak. [address] [facility] [address], [address], [place], [facility], [place]. tel:[phone] [facility], [address] [place] [address] [address], [place], [place], [address], [place] tel:[phone] [facility] No Information Apr-2 4-200 7 Moffett OD Isak. [address] [facility] [address], [address], [place], [address], [place]. tel:[phone] [facility], [address], [place], [place], [address], [place] tel:[phone] [facility] No Information Apr-1 2-200 7 Moffett OD Isak. [address] [facility] [address], [address], [place], [address], [place]. tel:[phone] [facility], [address], [place], [place], [address], [place] tel:[phone] [facility] No Information Apr-0 3-200 7 Moffett OD Isak. [address] , [address], [place], [address], [place]. tel:[phone] Family History Family Member Type Diagnosis Age At Onset No Information Payers Payer name Insurance type Covered libertarian ID Authoriza tion(s) No Information Social History [...]
--- OUTSIDE RECORDS SUMMARY | 2023-11-28 16:30 | XMS_ITS ---
Author Organization [facility] ([id number]) Address [address] [place] [address] Care Team Providers Care Kayak Maker Name Role Phone Leah Barajas Primary Care Provider UnavailCaroline Ellsworth Unavailable [phone] ZZ-Migration, Provider Unavailable Unavailab le Allergies Allergen (clinical drug ingredient) Drug/Non Drug Allergy documented on EMR Reaction Allergy Type Onset Date Status KEFLEX (uncoded) unknown reaction Allergy Active PROLONG CONTACT TO LATEX (uncoded) Blisters on skin Allergy Active ketorolac TORADOL (uncoded) Unknown Allergy Ac tive azelastine Azelastine HCl epistaxis Drug Allergy A ctive menthol Biofreeze Palpitations; flushing Drug Allergy Active ipratropium Ipratropium Deal Palpitations ; flushing; red/swolen face Drug Allergy Active levofloxacin levoFLOXacin unknown reaction Drug Allergy Active Neosporin blisters Drug Allergy Active cyclobenzaprine Cyclobenzaprine shortness of breath Drug Allergy Active REASON FOR VISIT Multum To Medispan Conversion Encounter Medications Medication SIG (Take, Route, Frequency, Duration) Notes Start Date End Date Status Xyzal Allergy 24HR 5 MG 1 tablet PO daily; Duration: 30 Not-Taking Patanase 665 MCG/INH 2 SPRAY(S) INTRANASALLY 2 TIMES A DAY; Duration: 30 DAY(S) *Please review and pick correct strength-formula tion from Medispan options. If intended option is not shown, discontinue and re-order from Quick Search* Not-Taking Levocetirizine Dihydrochloride 5 MG 1 tab(s) orally once a day (in the evening); Duration: 30 day(s) 08/30/2023 Active NASAL WASHES N/A DIRECTED INTRANASALLY NEEDED; Duration: 30 *Please review for potential replacement for e-prescription and drug interaction check* Active Fluticasone Propionate 50 MCG/ACT 2 spray(s) in each nostril BID; Duration: 30 day(s) 08/30/2023 Active ESTROPIPATE 0.75 MG 1 TAB(S) ORALLY ONCE A DAY *Please review for potential replacement for e-prescription and drug interaction check* Not-Taking Estradiol 0.5 MG 1 tab(s) orally once a day; Duration: 30 day(s) Not-Taking Pantoprazole Sodium 20 MG 1 tab(s) orally once a day Not-Taking Aspirin 81 MG 1 tab(s) orally once a day Not-Taking NASAL WASHES N/A DIRECTED INTRANASALLY NEEDED *Please review for potential replacement for e-prescription and drug interaction check* Not-Taking hydroCHLOROthiazide 12.5 MG 1 cap(s) orally once a day Active amLODIPine Besylate 2.5 MG 1 tab(s) orally once a day Active ZyrTEC Allergy 10 MG 1 tab(s) orally once a day Active Vitamin D3 125 MCG (5000 UT) 1 cap(s) orally once a day Not-Taking Calcium 500+D 500 MG-400 INTL UNITS 1 TAB(S) CHEWED 2 TIMES A DAY *Please review and pick correct strength-formula tion from [employer] options. If intended option is not shown, discontinue and re-order from Quick Search* Not-Taking Lisinopril 40 MG 1 tab(s) orally once a day Active CENTRUM ADULT MULTIGUMMIES MULTIPLE VITAMINS WITH MINERALS 1 TAB(S) CHEWED ONCE A DAY *Please review for potential replacement for e-prescription and drug interaction check* Active Milk of Magnesia 1200 MG/15 ML 15 ML ORALLY 3 TIMES A DAY *Please review and pick correct strength-formula tion from [employer] options. If intended option is not shown, discontinue and re-order from Quick Search* Active Pravastatin Sodium 40 MG 1 tab(s) orally once a day Active Latanoprost 0.005 % 1 gtt in each eye once a day (in the evening) Active ALBUTEROL (EQV-PROAIR HFA) 90 MCG/INH 2 PUFF(S) INHALED EVERY 6 HOURS *Please review for potential replacement for e-prescription and drug interaction check* Active Lubricant Eye Drops - 1 GTT IN EACH EYE 4 TIMES A DAY *Please review and pick correct strength-formula tion from Medispan options. If intended option is not shown, discontinue and re-order from Quick Search* Active Encounters Encounter Location Date [facility] [address] 11/28/2023 Provider Ty Allergic rhinitis due to pollen J30.1 Assessments Encounter Date Diagnosis (ICD Code) Assessment Notes Treatment Notes Treatment Clinical Notes Section Notes 11/28/2023 Allergic rhinitis due to pollen (ICD-10 - J30.1) Plan Of Treatment Medication Medication Name Sig Start Date Stop Date Notes Levocetirizine Dihydrochloride 5 MG 1 tab(s) orally once a day (in the evening); Duration: 30 day(s) 08/30/2023 NASAL WASHES N/A DIRECTED INTRANASALLY NEEDED; Duration: 30 *Please review for potential replacement for e-prescription and drug interaction check* Fluticasone Propionate 50 MCG/ACT 2 spray(s) in each nostril BID; Duration: 30 day(s) 08/30/2023 Progress Notes * Atiya AGUILERA DDOB:1945 (79 yo F)Acc No.[id number]:11/28/2023 Patient: Berenice YOGESHFranchescacy D Provider: Aguilar Bates :1945 A ge:78 Y S ex:Female Date:11/28/2023 Address:[address] [place], [place] [id number] Pcp:Leah Barajas Subjective: * Chief Complaints: * [facility] . [facility] * Medical History: * Medications: T aking ALBUTEROL (EQV-PROAIR HFA) 90 MCG/INH AEROSOL 2 PUFF(S) INHALED EVERY 6 HOURS , Notes to Pharmacist: *Please review for potential replacement for e-prescription and drug interaction check*, Taking Lubricant Eye Drops - SOLUTION 1 GTT IN EACH EYE 4 TIMES A DAY , Notes to Pharmacist: *Please review and pick correct strength-formulation from [employer] options. If intended option is not shown, discontinue and re-order from Quick Search*, Taking CENTRUM ADULT MULTIGUMMIES MULTIPLE VITAMINS WITH MINERALS TABLET, CHEWABLE 1 TAB(S) CHEWED ONCE A DAY , Notes to Pharmacist: *Please review for potential replacement for e-prescription and drug interaction check*, Taking Milk of Magnesia 1200 MG/15 ML LIQUID 15 ML ORALLY 3 TIMES A DAY , Notes to Pharmacist: *Please review and pick correct strength- formulation from [employer] options. If intended option is not shown, discontinue and re-order from Quick Search*, Taking Pravastatin Sodium 40 MG Tablet 1 tab(s) orally once a day , Taking Latanoprost 0.005 % Solution 1 gtt in each eye once a day (in the evening) , Taking Lisinopril 40 MG Tablet 1 tab(s) orally once a day , Taking hydroCHLOROthiazide 12.5 MG Capsule 1 cap(s) orally once a day , Taking amLODIPine Besylate 2.5 MG Tablet 1 tab(s) orally once a day , Taking ZyrTEC Allergy 10 MG Tablet 1 tab(s) orally once a day , Not-Taking/PRN Vitamin D3 125 MCG (5000 UT) Capsule 1 cap(s) orally once a day , Not-Taking/PRN Calcium 500+D 500 MG-400 INTL UNITS TABLET, CHEWABLE 1 TAB(S) CHEWED 2 TIMES A DAY , Notes to Pharmacist: *Please review and pick correct strength-formulation from [employer] options. If intended option is not shown, discontinue and re-order from Quick Search*, Not-Taking/PRN NASAL WASHES N/A 1 QUART OF STERILIZED TAP WATER OR DISTILLED WATER, 1 TSP NACL, 1 PINCH OF BAKING SODA DIRECTED INTRANASALLY NEEDED , Notes to Pharmacist: *Please review for potential replacement for e-prescription and drug interaction check*, Not-Taking/PRN Estradiol 0.5 MG Tablet 1 tab(s) orally once a day , Not-Taking/PRN Pantoprazole Sodium 20 MG Tablet Delayed Release 1 tab(s) orally once a day , Not-Taking/PRN Aspirin 81 MG Tablet Delayed Release 1 tab(s) orally once a day , Not-Taking/PRN ESTROPIPATE 0.75 MG TABLET 1 TAB(S) ORALLY ONCE A DAY , Notes to Pharmacist: *Please review for potential replacement for e-prescription and drug interaction check*, Not-Taking/PRN Xyzal Allergy 24HR 5 MG Tablet 1 tablet PO daily , Not-Taking/PRN Patanase 665 MCG/INH SPRAY 2 SPRAY(S) INTRANASALLY 2 TIMES A DAY , Notes to Pharmacist: *Please review and pick correct strength-formulation from SigFigspan options. If intended option is not shown, discontinue and re-order from Quick Search* * Allergies: B iofreeze: Palpitations; flushing, PROLONG CONTACT TO LATEX: Blisters on skin, Neosporin: blisters - Allergy, Ipratropium Deal: Palpitations; flushing; red/swolen face, Azelastine HCl: epistaxis, TORADOL, levoFLOXacin: unknown reaction, KEFLEX: unknown reaction, Cyclobenzaprine: shortness of breath. Objective: * Vitals: Assessment: * Assessment: 1. A llergic rhinitis due to pollen - J30.1 (Primary) Plan: * Treatment: * Billing Information: * Visit Code: * Procedure Codes: * Electronic signature of Prov huseyin MORTON-Migration on 03/15/2025 at 09:20 AM CDT Sign off status: Pending * Provider: Aguilar eason Migration Date: 0 11/28/2023 Generated for Jaime nunes/Noel/Shiva on: 1 09:20 AM CDT
--- NOTE | ~2025-03-15 | CT_ITS ---
EXAMINATION: CT brain wo tracy, 03/15/2025 10:10 CDT HISTORY: hallucinations, covid COMPARISON: No comparisons available. Technique: Axial images obtained of the brain without contrast. One or more of the following dose reduction techniques were used: automated exposure control, adjustment of the mA and/or kV according to patient size, use of iterative reconstruction technique. Findings: No acute infarct or parenchymal hemorrhage. No abnormal mass or mass effect. No midline shift. No extra-axial fluid collections. No hydrocephalus. Mastoid air cells unremarkable. Sinuses and orbits unremarkable. No acute fracture. No significant facial or scalp soft tissue swelling evident. No radiopaque foreign body is seen. Impression: 1.No acute intracranial abnormality. Reviewed, dictated and finalized at location P. Impression: 1.No acute intracranial abnormality.
--- NOTE | ~2025-03-15 | XR_ITS ---
EXAMINATION: XR chest 2V, 03/15/2025 10:18 CDT HISTORY: covid, cough, weakness COMPARISON: No comparisons available. Technique: 2 views obtained. Findings: The lungs are clear, no effusion. No pneumothorax. Heart is normal size. Mediastinal and hilar contours are within normal limits. Bony thorax no acute abnormality. Impression: No acute cardiopulmonary abnormality. Reviewed, dictated and finalized at location P. Impression: No acute cardiopulmonary abnormality.
[2025-03-15 09:02] VITALS: BP 157/73; PULSE 65; RESP 12; O2SAT 98
[2025-03-15 09:20] VITALS: RESP 12
--- OUTSIDE RECORDS SUMMARY | 2025-03-15 09:21 | XMS_ITS | Clinical Summary ---
Author Organization [facility] Address [address] [place] [address] Care Team Providers Care Wrapper Opener Name Role Phone Indigo Curtis MD Unavailable [phone] Colton Hernández MD Unavailable [phone] Huber Matos MD Unavailable [phone] Lavern Monzon Primary Care Provider [phone] Source Comments [facility],non-owned Affiliates and Associated Physician Practices is amultiple site organization consisting of ambulatory clinics and hospital sitesin [place], [place], [place] and [place]. This disclosure is being madepursuant to the Care Everywhere program and may not contain all information available regarding this patient. Last updated 18.[facility] Allergies Active Allergy Reactions Criticality Noted [...] 03/28/2024 Hydrogen Peroxide Rash Medium 04/13/2024 Ipratropium [employer] Palpitations 08/27/2023 Cephalexin Nausea and/or Vomiting 04/14/2012 Oral form Toradol Nausea and/or Vomiting 04/03/2011 Latex Other 04/14/2012 blisters Levofloxacin Nausea and/or Vomiting,Myalgias 04/14/2012 Menthol (Topical Analgesic) Palpitations Low 08/27/2023 Flushing, red swollen face Ykcnbrwm-Fzgdcbiwnb-Ghvbu yxin Skin Reactions 08/27/2023 blisters Nystatin Rash [...] needed for Shortness of Breath Active Multiple Vitamins-Ripley als (CENTRUM SILVER 50+WOMEN PO) Take 1 [...] post reverse total replacement of right s amrita 04/19/2024 Sciatica 06/22/2023 Overview (10/12/2024): approximate date of onset; have been to physical therapy to remediate; pain has worsened Primary osteoarthritis of left knee 05/29/2016 Encounters Date Type Department Care Team Description 02/28/2025 Travel 02/16/2025 Travel 02/07/2025 Telephone [facility] [address] [place] [address] Mary Jane Pérez Scheduling 02/01/2025 2:45 PM CDT Office Visit [facility] [address] [place] [address], [address] [place] [address] Myrna Devi PA-C Status post reverse total shoulder replacement, right (Primary Dx) 02/01/2025 2:40 PM CDT Ancillary Procedure [facility] - Radiology [address] [place] [address] Myrna Devi PA-C Status post reverse total shoulder replacement, right 12/21/2024 3:00 PM CDT Office Visit [facility] [address] [place] [address], [address] [place] [address] Indigo Curtis MD Chronic right shoulder pain (Primary Dx); Status post reverse total shoulder replacement, right; Myofascial pain; Tendinitis of right shoulder; Arthritis of right acromioclavicular joint from Last 3 Months Immunizations Immunization Administration [...] Date Recorded Patient Health Questionnaire-2 Score 0 03/09/2025 [facility] Occupat ional Health - Occupational Stress [...] any time in the past 12 m [facility], were you homeless or living in a residential (including now)? No 04/19/2024 Comments Unknown Sex and Gender Information Value Date Recorded Sex Assigned at Not on file Legal Sex Female 2:16 PM GLUER Gender Identity Not on file Sexual Orientation Not on file Last Filed Vital Signs Vital Sign Reading Time Taken Comments Blood Pressure 143/58 11/15/2024 8:12 AM CDT Pulse 62 11/15/2024 8:12 AM CDT Temperature 36.5 C (97.7 F) 04/20/2024 7:48 AM GLUER Respiratory Rate 18 11/15/2024 8:12 AM CDT Oxygen Saturation 98% 11/15/2024 8:12 AM CDT Inhaled Oxygen Concentration - - Weight 83 kg (183 lb) 09/19/2024 9:28 AM CDT Height 157.5 cm (5' 2) 09/19/2024 9:28 AM CDT Body Mass Index 33.47 09/19/2024 9:28 AM CDT Plan of Treatment Upcoming Encounters Date Type Department Care Team (Late st Contact Info) Description 04/05/2025 9:45 AM CDT Office Visit [facility] [address] [place] [address]. [place] [address] [place] [address] [address] 05/03/2025 10:50 AM GLUER Office Visit [facility] Health Orthopedics [address] [place] [address] [place] [address] [address] [address] Health Maintenance Due Date Last Done Comments BONE DENSITY TESTING 1945 DTAP/TDAP/TD VACCINES (1 - Tdap) 1965 PNEUMOCOCCAL VACCINE 50+ (1 of 1 - PCV) 1996 ZOSTER VACCINE (1 of 2) 1996 Respiratory Syncytial Virus (RSV) Vaccine Pt: or over 60 yrs (1 - 1-dose 75+ series) 2021 MEDICARE AWV CALENDAR YEAR 2024 COVID-19 VACCINE ( season) 2025 04/02/2022, 11/04/2021, 03/09/2021, Additional history exists INFLUENZA VACCINE (#1) 2025 4, 02/16/2020, 07/16/2019, [...] this topic Medical Devices Implanted Type Area Senior Data Quality Analyst Device Identifier Shelf Expiration Date Model / Serial / Lot Bsplt Glnd 30mm Rsp Shldr P2 Strl Lf Implanted:Qty: 1 on 09/29/2023 by Indigo Curtis MD at [facility] Right: Shoulder [employer] 09/14/2029 508-32-204 / / [id number] Stem Hum 48mm 6mm Sm Shl Implanted:Qty: 1 on 09/29/2023 by Idnigo Curtis MD at [facility] Right: Shoulder [employer] 03/07/2029 533-06-048 / / [id number] Head Glnd 32mm Rsp -4mm Ofst Shldr Rtn Implanted:Qty: 1 on 04/19/2024 by Indigo Curtis MD at [facility] Right: Shoulder [employer] [facility] 03/27/2030 508-32-103 / / [id number] Altivate Reverse Torx Peripheral Screw, 26mm Implanted:Qty: 1 on 04/19/2024 by Indigo Curtis MD at [facility] Right: Shoulder [employer] [facility] 02/17/2029 506-04-126 / / [id number] Altivate Reverse Rev Mod Central Screw, 8.0 X 40mm Implanted:Qty: 1 on 04/19/2024 by Indigo Curtis MD at [facility] Right: Shoulder [employer] [facility] 07/27/2028 508-80-040 / / [id number] Altivate Reverse Torx Peripheral Screw, 30mm Implanted:Qty: 1 on 04/19/2024 by Indigo Curtis MD at [facility] Right: Shoulder [employer] [facility] 10/14/2028 506-04-130 / / [id number] Altivate Reverse Torx Peripheral Screw, 18mm Implanted:Qty: 1 on 04/19/2024 by Indigo Curtis MD at [facility] Right: Shoulder [employer] [facility] 02/10/2029 506--118 / / [id number] Altivate Reverse Torx Peripheral Screw, 22mm Implanted:Qty: 1 on 04/19/2024 by Indigo Curtis MD at [facility] Right: Shoulder [facility] 09/13/2028 506-04-122 / / [id number] Revision Modular Baseplate And Taper Kit, 8.0mm Wedge Implanted:Qty: 1 on 04/19/2024 by Indigo Curtis MD at [facility] Right: Shoulder [employer] [facility] 08/31/2028 508-80-001 / / [id number] Ins Sckt 32mm Altivate Rvrs +4mm Sm Ntrl Implanted:Qty: 1 on 04/19/2024 by Indigo Curtis MD at [facility] Right: Shoulder [employer] [facility] 10/20/2027 509-02-432 / / [id number] Explanted Type Area Senior Data Quality Analyst Device Identifier Shelf Expiration Date Model / Serial / Lot Screw 5mm 18mm Shldr Lck Rsp Glnd Bsplt Implanted:Qty: 1 on 09/29/2023 by Indigo Curtis MD at [facility] Explanted:Qty: 1 on 04/19/2024 by Indigo Curtis MD at [facility] Right: Shoulder [employer] [facility] 06/10/2029 506-03-118 / / [id number] Screw 5mm 18mm Shldr Lck Rsp Glnd Bsplt Implanted:Qty: 1 on 09/29/2023 by Indigo Curtis MD at [facility] Explanted:Qty: 1 on 04/19/2024 by Indigo Curits MD at [facility] Right: Shoulder [employer] [facility] 05/21/2029 506-03-118 / / [id number] Screw 5mm 26mm Shldr Lck Rsp Glnd Bsplt Implanted:Qty: 1 on 09/29/2023 by Indigo Curtis MD at [facility] Explanted:Qty: 1 on 04/19/2024 by Indigo Curtis MD at [facility] Right: Shoulder [employer] [facility] 05/18/2029 506-03-126 / / [id number] Screw 5mm 14mm Shldr Lck Rsp Glnd Bsplt Implanted:Qty: 1 on 09/29/2023 by Indigo Curtis MD at [facility] Explanted:Qty: 1 on 04/19/2024 by Indigo Curtis MD at [facility] Right: Shoulder [employer] [facility] 08/11/2029 506-03-114 / / [id number] Head Glnd 32mm Rsp -4mm Ofst Shldr Rtn Implanted:Qty: 1 on 09/29/2023 by Indigo Curtis MD at [facility] Explanted:Qty: 1 on 04/19/2024 by Indigo Curtis MD at [facility] Right: Shoulder [employer] [facility] 02/06/2029 508-32-103 / / [id number] Ins Sckt 32mm Altivate Rvrs +4mm Sm Implanted:Qty: 1 on 09/29/2023 by Indigo Curtis MD at [facility] Explanted:Qty: 1 on 04/19/2024 by Indigo Curtis MD at [facility] Right: Shoulder [employer] [facility] 07/01/2028 509-03-[facility] / / [id number] Procedures Procedure Name Priority Date/Time Associated Diagnosis Comments XR SHOULDER RIGHT 2VW OR MORE Routine 02/01/2025 2:49 PM CDT Status post reverse total shoulder replacement, right from Last 3 Months Results * XR Shoulder Right 2Vw or More (02/01/2025 2:49 PM CDT) Narrative [facility] [address] - 02/01/2025 2:49 PM CDT Please see progress note in Epic for results. us Myrna Devi PA-C DIAGNOSTIC IMAGING ORDERABLE S Final Result [facility] [place] [address] from Last 3 Months Insurance AETNA MEDICARE ADV AETNA MEDICARE ADV Advance Directives Documents on File Type Date Recorded Patient Brain Wave Technician Expl anation Adv Directive/Living Will/POA 09/02/2023 1:24 AM * Full Code (Latest Code Status on File) Date Activated Date Inactivated Comments 04/19/2024 1:09 PM 04/20/2024 1:57 PM Care Teams Wrapper Opener Relationship Specialty Start Date End Date Lavern Monzon [address] [place] [address] PCP - General Windrower Operator 07/12/24 Indigo Curtis MD Orthopedic Surgery 04/14/12 Colton Hernán[place] [address] [place] [address] Orthopedic Surgery 10/21/13 [place] [address] [place] [address] Physical Medicine and Rehabilitation 09/22/18
--- OUTSIDE RECORDS SUMMARY | 2025-03-15 09:21 | XMS_ITS | Patient Health Record ---
Author Organization [facility] ([address]) Address [address] [place] [address] Care Team Providers Care Protection Consultant Name Role Phone Leah Barajas Primary Care Provider Caroline Tello Unavailable [phone] Allergies Allergen (clinical drug ingredient) Drug/Non Drug Allergy documented on EMR Reaction Allergy Type Onset Date Status KEFLEX (uncoded) unknown reaction Allergy Active PROLONG CONTACT TO LATEX (uncoded) Blisters on skin Allergy Active ketorolac TORADOL (uncoded) Unknown Allergy Ac tive azelastine Azelastine HCl epistaxis Drug Allergy A ctive menthol Biofreeze Palpitations; flushing Drug Allergy Active ipratropium Ipratropium [place] Palpitations ; flushing; red/swolen face Drug Allergy [...] review and pick correct strength-formula tion from [employer] options. If intended option is not shown, [...] review and pick correct strength-formula tion from [employer] options. If intended option is not shown, [...] review and pick correct strength-formula tion from [employer] options. If intended option is not shown, [...] review and pick correct strength-formula tion from [employer] options. If intended option is not shown, [...] Status Risk Notes Problem Chronic allergic conjunctivitis (23401333) Other chronic allergic conjunctivitis (H10.45) Active confirmed Problem Allergic rhinitis caused by pollen (disorder) (37285591) Allergic rhinitis due to pollen (J30.1) Active confirmed Problem Allergic rhinitis (01468271) Other allergic rhinitis (J30.89) Active confirmed Problem Allergic contact dermatitis caused by drug in contact with skin (374779004) Allergic contact dermatitis due to drugs in contact with skin (L23.3) Active confirmed Problem Sunburn (149147857) Sunburn, unspecified (L55.9) Active confirmed Problem Allergic rhinitis caused by animal hair and dander (096637469277995) Allergic rhinitis due to animal (cat) (dog) hair and dander (J30.81) Active confirmed Problem Allergic contact dermatitis caused by chemical (1765318757548733 3) Allergic contact dermatitis due to other chemical products (L23.5) Active confirmed Problem Postnasal drip (85054984) Postnasal drip (R09.82) Active confirmed Problem Allergy status t o anesthetic agent status (Z88.4) Active confirmed Problem Drug allergy (693019120) Allergy status to other drugs, medicaments and biological substances status (Z88.8) Active confirmed Problem Allergy status t o analgesic agent (Z88.6) Active confirmed Plan Of Treatment No Information Insurance Providers Payer Name Payer Address Payer Phone Subscriber Number Group Number Insured Name Patient Relationship to Insured Coverage Start Date Coverage End Date A[employer] Medicare [address] [place] [phone] [id number] Atiya Aguilera Self - patient is the [...]
--- OUTSIDE RECORDS SUMMARY | 2025-03-15 09:21 | XMS_ITS | Encounter Summary ---
Author Organization [facility] Address [address] [facility] [place] [address] Care Team Providers Care Flight Information Expediter Name Role Phone Indigo Curtis MD Unavailable [phone] Colton Hernández MD Unavailable [phone] Ida Bailey MD Primary Care Provider [phone] Antonio Santillan MD Primary Care Provider [phone] Hiram Fontenot MD Primary Care Provider [phone] Huber Matos MD Unavailable [phone] Leah Barajas MD Primary Care Provider [phone] Myrna Devi PA-C Unavailable [phone] Lavern Monzon Primary Care Provider [phone] Encounter Details Date Type Department Care Team (Late Contact Info) Description 09/29/2016 [facility] Outpatient Visit [facility] Orthopedics [address] [place] [address], [address] [address] Unknown, Provider Social History Tobacco Use Types Packs/Day Years Used Date Smoking Tobacco: Never Assessed Comments Unknown Sex and Gender Information Value Date Recorded Sex Assigned at Not on file Legal Sex Female 2:16 PM REFERENCE SERVICES HEAD Gender Identity Not on file Sexual Orientation Not on file documented as of this encounter Plan of Treatment Upcoming Encounters Date Type Department Care Team (Late Contact Info) Description 04/05/2025 9:45 AM CDT Office Visit [facility] [address] [facility] [address] [facility] [place] [address] [place] [address] [address] [address] 05/03/2025 10:50 AM REFERENCE SERVICES HEAD Office Visit [facility] Health Orthopedics [address] [facility], [address] [address] [place] [address] [address] [address] documented as of this encounter Visit Diagnoses Not on filedocumented in this encounter Care Teams Flight Information Expediter Relationship Specialty [place] [address] [address] PCP - General Family Medicine 05/29/16 07/13/17 Antonio Santillan MD [address] [place] [address] PCP - General Internal Medicine 07/14/17 02/08/18 Hiram Fontenot MD [address] [place] [address] PCP - General 02/09/18 07/15/20 [place] [address] [address] PCP - General Internal Medicine 10/08/20 07/11/24 Myrna Devi, PA-C [address] [address] PCP - Attributed-Sandeep [place] 10/13/22 07/02/23 Lavern Monzon [address] [place] [address] PCP - General Photographic Hand Developer 07/12/24 Indigo Curtis MD Orthopedic Surgery 04/14/12 Colton Hernández [place] [address] [place] [address] Orthopedic Surgery 10/21/13 [place] [address] [place] [address] Physical Medicine and Rehabilitation 09/22/18 documented as of this encounter
--- OUTSIDE RECORDS SUMMARY | 2025-03-15 09:21 | XMS_ITS | Encounter Summary ---
Author Organization [facility] Address [address] [facility] [place] [address] Care Team Providers Care Watch Technician Name Role Phone Indigo Curtis MD Unavailable [phone] Colton Hernández MD Unavailable [phone] Ida Bailey MD Primary Care Provider [phone] Antonio Santillan MD Primary Care Provider [phone] Hiram Fontenot MD Primary Care Provider [phone] Huber Matos MD Unavailable [phone] Leah Barajas MD Primary Care Provider [phone] Myrna Devi PA-C Unavailable [phone] Lavern Monzon Primary Care Provider [phone] Encounter Details Date Type Department Care Team (Late Contact Info) Description 11/13/2016 [facility] Outpatient Visit [facility] Orthopedics [address] [place] [address], [address] [address] Unknown, Provider Social History Tobacco Use Types Packs/Day Years Used Date Smoking Tobacco: Never Assessed Comments Unknown Sex and Gender Information Value Date Recorded Sex Assigned at Not on file Legal Sex Female 2:16 PM FREIGHT TRAFFIC CONSULTANT Gender Identity Not on file Sexual Orientation Not on file documented as of this encounter Plan of Treatment Upcoming Encounters Date Type Department Care Team (Late Contact Info) Description 04/05/2025 9:45 AM CDT [facility] Visit [facility] [address] [facility] [address] [facility] [place] [address] [place] [address] [address] [address] 05/03/2025 10:50 AM FREIGHT TRAFFIC CONSULTANT Office Visit [facility] Health Orthopedics [address] [facility], [address] [address] [place] [address] [address] [address] documented as of this encounter Visit Diagnoses Not on filedocumented in this encounter Care Teams Watch Technician Relationship Specialty [place] [address] [address] [address] PCP - General Family Medicine 05/29/16 07/13/17 Antonio Santillan MD [address] [place] [address] PCP - General Internal Medicine 07/14/17 02/08/18 Hiram Fontenot MD [address] [place] [address] PCP - General 02/09/18 07/15/20 [place] [address] [address] [address] PCP - General Internal Medicine 10/08/20 07/11/24 Myrna Devi, PA-C [address] [address] PCP - Attributed-Sandeep [place] 10/13/22 07/02/23 Lavern Monzon [address] [place] [address] PCP - General Manager Ccu 07/12/24 Indigo Curtis MD Orthopedic Surgery 04/14/12 Colton Hernández [place] [address] [place] [address] Orthopedic Surgery 10/21/13 [place] [address] [place] [address] Physical Medicine and Rehabilitation 09/22/18 documented as of this encounter
--- OUTSIDE RECORDS SUMMARY | 2025-03-15 09:21 | XMS_ITS | Encounter Summary ---
Author Organization [facility] Address [address] [facility] [place] [address] Care Team Providers Care Senior Property Accountant Name Role Phone Indigo Curtis MD Unavailable [phone] Colton Hernández MD Unavailable [phone] Ida Bailey MD Primary Care Provider [phone] Antonio Santillan MD Primary Care Provider [phone] Hiram Fontenot MD Primary Care Provider [phone] Huber Matos MD Unavailable [phone] Leah Barajas MD Primary Care Provider + [phone] Myrna Devi PA-C Unavailable [phone] Lavern Monzon Primary Care Provider [phone] Encounter Details Date Type Department Care Team (Late Contact Info) Description 06/04/2017 [facility] Outpatient Visit [facility] Orthopedics [address] [place] [address], [address] [address] Unknown, Provider Social History Tobacco Use Types Packs/Day Years Used Date Smoking Tobacco: Never Assessed Comments Unknown Sex and Gender Information Value Date Recorded Sex Assigned at Not on file Legal Sex Female 2:16 PM QUALITY CONTROL ENGINEER Gender Identity Not on file Sexual Orientation Not on file documented as of this encounter Plan of Treatment Upcoming Encounters Date Type Department Care Team (Late Contact Info) Description 04/05/2025 9:45 AM CDT Office Visit [facility] [address] [facility] [address] [facility] [place] [address] [place] [address] [address] [address] 05/03/2025 10:50 AM QUALITY CONTROL ENGINEER Office Visit [facility] Health Orthopedics [address] [facility], [address] [address] [place] [address] [address] [address] documented as of this encounter Visit Diagnoses Not on filedocumented in this encounter Care Teams Senior Property Accountant Relationship Specialty [place] [address] [address] [address] PCP - General Family Medicine 05/29/16 07/13/17 Antonio Santillan MD [address] [place] [address] PCP - General Internal Medicine 07/14/17 02/08/18 Hiram Fontenot MD [address] [place] [address] PCP - General 02/09/18 07/15/20 [place] [address] [address] [address] PCP - General Internal Medicine 10/08/20 07/11/24 Myrna Devi, PA-C [address] [address] PCP - Attributed-Sandeep [place] 10/13/22 07/02/23 Lavern Monzon [address] [place] [address] PCP - General Older Worker Specialist 07/12/24 Indigo Curtis MD Orthopedic Surgery 04/14/12 Colton Hernández [place] [address] [place] [address] Orthopedic Surgery 10/21/13 [place] [address] [place] [address] Physical Medicine and Rehabilitation 09/22/18 documented as of this encounter
--- OUTSIDE RECORDS SUMMARY | 2025-03-15 09:21 | XMS_ITS | Encounter Summary ---
Author Organization [facility] Address [address] [facility] [place] [address] Care Team Providers Care Grain Inspector Name Role Phone Indigo Curtis MD Unavailable [phone] Colton Hernández MD Unavailable [phone] Ida Bailey MD Primary Care Provider [phone] Antonio Santillan MD Primary Care Provider [phone] Hiram Fontenot MD Primary Care Provider [phone] Huber Matos MD Unavailable [phone] Leah Barajas MD Primary Care Provider + [phone] Myrna Devi PA-C Unavailable [phone] Lavern Monzon Primary Care Provider [phone] Encounter Details Date Type Department Care Team (Late Contact Info) Description 10/29/2016 SS Outpatient Visit [facility] Orthopedics [id number] [place] [address], [address] [address] Unknown, Provider Social History Tobacco Use Types Packs/Day Years Used Date Smoking Tobacco: Never Assessed Comments Unknown Sex and Gender Information Value Date Recorded Sex Assigned at Not on file Legal Sex Female 2:16 PM ASSEMBLER SEMICONDUCTOR Gender Identity Not on file Sexual Orientation Not on file documented as of this encounter Plan of Treatment Upcoming Encounters Date Type Department Care Team (Late Contact Info) Description 04/05/2025 9:45 AM CDT Office Visit [facility] [address] [facility] [address] [place] [address] [place] [address] [address] 05/03/2025 10:50 AM ASSEMBLER SEMICONDUCTOR Office Visit [facility] Health Orthopedics [address] [facility], [address] [address] [place] [address] [address] [address] documented as of this encounter Visit Diagnoses Not on filedocumented in this encounter Care Teams Grain Inspector Relationship Specialty [place] [address] [address] [address] PCP - General Family Medicine 05/29/16 07/13/17 Antonio Santillan MD [address] [place] [address] PCP - General Internal Medicine 07/14/17 02/08/18 Hiram Fontenot MD [address] [place] [address] PCP - General 02/09/18 07/15/20 [place] [address] [address] PCP - General Internal Medicine 10/08/20 07/11/24 Myrna Devi, PA-C [address] [address] PCP - Attributed-Sandeep [place] 10/13/22 07/02/23 Lavern Monzon [address] [place] [address] PCP - General Yard Inspector 07/12/24 Indigo Curtis MD Orthopedic Surgery 04/14/12 Colton Hernán[place] [address] [place] [address] Orthopedic Surgery 10/21/13 [place] [address] [place] [address] Physical Medicine and Rehabilitation 09/22/18 documented as of this encounter
[2025-03-15 09:23] VITALS: BP 141/63; PULSE 59; RESP 20; O2SAT 96
--- NOTE | 2025-03-15 09:28 | ECG_ITS ---
Test Date: 2025-03-15 09:43:04 Measurements Intervals [place] Rate: 54 P: 47 LA: 158 QRS: 7 QRSD: 101 T: 48 QT: 418 QTc: 398 Interpretive Statements SINUS BRADYCARDIA WITH SINUS ARRHYTHMIA VOLTAGE CRITERIA FOR LVH BORDERLINE ECG Compared to ECG 12/18/2024 22:58:28 No significant changes Electronically Signed On 03-15-2025 11:01:45 CDT by Rohan High D.O.
--- NOTE | 2025-03-15 09:46 | ED.NAVMDI ---
HPI - Nausea/Vomiting/Diarrhea General Chief complaint: Nausea/Vomiting/Diarrhea Stated complaint: Thursday +covid, nausea, hallucinating, dehydrated Time Seen by Provider: 03/15/25 08:58 Source: patient Mode of arrival: ambulatory Limitations: no limitations History of Present Illness HPI Narrative: Patient is a 79 y/o female who presents to the ED with multiple complaints. Patient reports she has not been feeling well lately. Is in the process of moving apartments. Took a home COVID test on Thursday which resulted positive. She reports nausea, vomiting, weakness, dehydration, general malaise, cough, very mild shortness breath, hot flashes. Also reports she feels as though she has been hallucinating over the past couple of days, seeing things and people better not there. Denies chest pain, abdominal pain, focal numbness or weakness. Related Data Home Medications ?Medication ?Instructions ?Recorded ?Confirmed ?Last Taken ?Type amlodipine 2.5 mg tablet 2.5 mg PO DAILY 02/26/21 04/25/24 Unknown History hydrochlorothiazide 12.5 mg tablet 12.5 mg PO DAILY 02/26/21 04/25/24 06/01/23 History latanoprost 0.005 % eye drops 1 drp EACH EYE HS 02/26/21 04/25/24 06/01/23 History cetirizine 10 mg capsule (Wal-Zyr 10 mg PO DAILY 04/14/22 04/25/24 06/01/23 History (cetirizine)) lisinopril 40 mg tablet 40 mg PO DAILY 04/14/22 04/25/24 06/01/23 History pravastatin 40 mg tablet 40 mg PO HS 04/14/22 04/25/24 06/01/23 History acetaminophen 500 mg tablet 1,000 mg PO TID PRN Pain 05/15/23 04/25/24 06/01/23 History amoxicillin 500 mg tablet 2,000 mg PO ONCE PRN PROPHYLACTIC 05/15/23 04/25/24 06/01/23 History multivitamin with minerals-folic 1 tablet PO DAILY 05/15/23 04/25/24 06/01/23 History acid 80 mcg chewable tablet (Centrum Adult 50 Plus) psyllium husk 3.4 gram/5.4 gram 1 tsp PO DAILY 05/15/23 04/25/24 06/01/23 History oral powder (Metamucil) albuterol sulfate 90 mcg/actuation 2 puff inhalation Q4-6H PRN 04/25/24 04/25/24 Unknown History aerosol inhaler Shortness Of Breath ibuprofen 600 mg tablet 1,200 mg PO BID 04/25/24 04/25/24 Unknown History methocarbamol 500 mg tablet 500 mg PO BID PRN muscle spasms 04/25/24 04/25/24 Unknown History Allergies Allergy/AdvReac Type Severity Reaction Status Date / Time benzocaine Allergy Severe Swelling Verified 12/18/24 20:32 cedarwood Allergy Severe Difficulty Verified 12/18/24 20:32 Breathing bacitracin Allergy Intermediate Blister Verified 12/18/24 20:32 camphor Allergy Intermediate Heart Verified 12/18/24 20:32 fluttering latex Allergy Intermediate Blister Verified 09/14/24 09:18 menthol Allergy Intermediate Heart Verified 09/14/24 09:18 fluttering neomycin Allergy Intermediate HIVES Verified 09/14/24 09:18 polymyxin B Allergy Intermediate Blister Verified 09/14/24 09:18 cefadroxil Allergy Unknown Verified 09/14/24 09:25 doxycycline Allergy Unknown Verified 09/14/24 09:18 furosemide Allergy Rash Verified 09/14/24 09:25 azelastine AdvReac Severe Nose Bleeds Verified 09/14/24 09:18 cephalexin AdvReac Intermediate Nausea Verified 09/14/24 09:18 ipratropium AdvReac Intermediate Palpitation Verified 09/14/24 09:18 s ketorolac AdvReac Intermediate Nausea Verified 09/14/24 09:18 levofloxacin AdvReac Intermediate Nausea Verified 09/14/24 09:18 ofloxacin AdvReac Intermediate NAUSEA Verified 09/14/24 09:18 triamcinolone AdvReac Intermediate N/V Verified 09/14/24 09:18 Quinolones AdvReac Mild N/V Verified 09/14/24 09:18 celecoxib (From Celebrex) AdvReac Swelling Verified 09/14/24 09:18 sulfamethoxazole (From AdvReac Other Verified 09/14/24 09:18 Bactrim) trimethoprim (From Bactrim) AdvReac Other Verified 09/14/24 09:18 dust mites Allergy Severe Wheezing Uncoded 12/18/24 20:32 DURAPREP Allergy Intermediate RASH Uncoded 12/18/24 20:32 Review of Systems Review of Systems: All systems reviewed & are unremarkable except as noted in HPI. All systems reviewed & are unremarkable except as noted in HPI and below [facility] Past Medical History Medical History Constipation Left lower quadrant pain Diverticulitis Stomach ulcer Hyperlipidemia Hypertension Seizure PVC (premature ventricular contraction) Surgical History Surgical History History of hysterectomy History of arthroscopic knee surgery History of cataract surgery History of colectomy History of laparoscopic cholecystectomy History of incisional hernia repair Multiple incisional hernia repairs - 10/1995, 06/2021, 04/2005, 06/2006, 07/2015 Family History Family History Mother Family history of arthritis Family history of anemia, Onset Age: 92 Depression, Onset Age: 92 Family history of mental disorder, Onset Age: 92 Hypertension, Onset Age: 92 Cerebrovascular accident, Onset Age: 92 Father Depression, Onset Age: 82 Family history of glaucoma, Onset Age: 82 Family history of dementia Grandparent Family history of cardiovascular disease Family history of malignant neoplasm Family history of lung cancer Family history of Hodgkin's lymphoma Carcinoma of colon Hypertension Sibling Patient's brother is in good health Family history of Parkinson's disease Social History Social History Smoking status: Never smoker Second hand tobacco smoke exposure: Yes Alcohol intake: current Substance use: never Substance use type: does not use Living arrangements: with family Occupation/Education: retired Spiritual care concerns: No Exam Narrative: GENERAL: Eldery, mildly ill appearing, obese with BMI of 32.3, non-toxic, in no acute distress. HEAD: Normocephalic, atraumatic. RESPIRATORY: Airway patent, respirations nonlabored. Clear to auscultation bilaterally, no rales, rhonchi, wheezing. Frequent coughing. No significnat focal lung sounds. CARDIOVASCULAR: Regular rate and rhythm without murmurs, rubs, or gallops. ABDOMINAL: Soft, nontender, nondistended. Normoactive BS. MUSCULOSKELETAL: Moves all extremities. No gross deformities. No significant peripheral edema. SKIN: Warm, dry, normal color. NEURO: A&O X3. Speech clear. Cranial nerves II-XII grossly intact. Steady gait. No ataxic movements. No focal deficits. PSYCHIATRIC: Appropriate mood and affect. Normal interaction. Course Vital Signs Vital signs: Vital Signs Pulse Rate 65 03/15/25 09:02 Respiratory Rate 12 03/15/25 09:02 Blood Pressure 157/73 H 03/15/25 09:02 Pulse Oximetry 98 03/15/25 09:02 Pulse Rate 59 L 03/15/25 09:23 Respiratory Rate 20 03/15/25 09:23 Blood Pressure 141/63 H 03/15/25 09:23 Pulse Oximetry 96 03/15/25 09:23 MDM - Nausea/Vomiting/Diarrhea MDM Narrative Medical decision making narrative: Patient presented to ED with multiple complaints, COVID positive, nausea, dehydration, hallucinations. Vital signs are stable upon arrival. Patient in no acute distress. Neurologically intact upon my evaluation. No focal deficits. Laboratory studies fairly unremarkable. No leukocytosis or anemia. Stable platelets. Sodium is low on CMP 125. Patient has history of hyponatremia per records. Likely consistent with mild dehydration and decreased p.o. intake. Patient given fluids in the ED. Otherwise stable electrolytes. Stable kidney function. EKG with sinus bradycardia, no significant concerning ST changes. Troponin undetectable. CT brain was negative. Chest x-ray was clear. Discussed lab and imaging findings with patient. She is feeling improved after fluids and Zofran in the ED. Able to tolerate p.o. intake. Discussed possibility of a new environment (patient recently moved to new apartment), fever/delirium, vs paxlovid causing hallucinations. She does report hx of hallucinations with taking tamiflu in the past. Otherwise remains neurologically intact. Low suspicion for central neurologic cause. Discussed discharge home versus admission. Utilized shared decision making. Patient does feel comfortable going home. She feels she will able to keep up with fluids at home. Recommend electrolyte rich fluids, increasing salt intake, advised very close follow-up with PCP for repeat laboratory evaluation within the next 1 week. She is in agreement this plan. Discussed very strict return precautions. Patient voiced understanding. Discharged in stable condition. Medical Records Attestation: I reviewed the patient's medical records. Lab Data Attestation: I reviewed the patient's lab results. 03/15/25 09:41 03/15/25 09:41 Labs: Lab Results 03/15/25 03/15/25 Range/Units 09:41 09:54 WBC 6.5 (4.5-10.0) K/mm3 RBC 4.76 (4.2-5.4) M/mm3 Hgb 14.3 (12.0-15.0) g/dL Hct 43.1 (37.0-47.0) % MCV 90.5 (80-100) fl MCH 30.0 (26-34) pg MCHC 33.2 (32-36) g/dl RDW 12.4 (11.5-14.5) % Plt Count 219 (150-375) k/mm3 MPV 9.5 (7.4-10.4) fl Immature Gran % (Auto) 0.2 (0-0.5) % Neut % (Auto) 71.3 (45.5-73.1) % Lymph % (Auto) 17.3 L (18.3-44.2) % [place] % (Auto) 9.6 H (2.6-8.5) % Eos % (Auto) 1.1 (0-4.4) % Baso % (Auto) 0.5 (0.2-1.2) % Lymph # (Auto) 1.13 (0.9-3.2) K/mm3 [place] # (Auto) 0.6 (0.1-0.6) K/mm3 Eos # (Auto) 0.1 (0-0.3) K/mm3 Baso # (Auto) 0.0 (0.0-0.1) K/mm3 Abs Immat Gran (auto) 0.01 (0.00-0.031) K/mm3 Absolute Neuts (auto) 4.7 (1.3-6.7) K/mm3 Absolute Nucleated RBC 0.000 (0.0-0.012) K/mm3 Nucleated RBC % 0.0 (0.0-0.2) % Sodium 125 L (137-145) mmol/L Potassium 4.4 (3.4-5.0) mmol/L Chloride 91 L (98-107) mmol/L Carbon Dioxide 27 (22-30) mmol/L Anion Gap 7 (4-12) mmol/L BUN 13 (7-17) mg/dL Creatinine 0.71 (0.7-1.0) mg/dL Estim Creat Clear Calc 55 ml/min Estimated GFR > 60 (59 - ) Glucose 106 (65-110) mg/dL Calcium 9.4 (8.4-10.2) mg/dL Total Bilirubin 0.5 (0.2-1.3) mg/dL AST 31 (14-36) U/L ALT 20 (6-35) U/L Alkaline Phosphatase 78 (38-126) U/L Troponin I < 0.012 (0.000-0.034) ng/mL Total Protein 7.1 (6.3-8.2) g/dL Albumin 4.3 (3.5-5.1) g/dL Lipase 67 (23-300) U/L Urine Color Yellow (Yellow) Urine Appearance Clear (Clear) Urine pH 7.5 (5.0-9.0) Ur Specific [place] 1.018 (1.001-1.035) Urine Protein Negative (Negative) mg/dL Urine Glucose (UA) Negative (Negative) mg/dL Urine Ketones Trace H (Negative) mg/dL Ur Blood (Man) Negative (Negative) Urine Nitrate Negative (Negative) Urine Bilirubin Negative (Negative) Urine Urobilinogen 0.2 (<2.0) mg/dL Leukocyte Esterase Rfl Trace H (Negative) VICENTA/UL Urine RBC 3-5 H (0-2) /hpf Urine WBC 0-5 (0-3) /hpf Ur Squamous Epith Cells Occasional (Few) /hpf Urine Bacteria None seen /hpf Urine Casts 0-2 Influenza A (RT-PCR) Negative (Negative) Influenza B (RT-PCR) Negative (Negative) RSV (RT-PCR) Negative (Negative) SARS-CoV-2 RNA (RT-PCR) Positive A (Negative) Imaging Data Attestation: I personally reviewed and interpreted this imaging study as follows: Radiologist's impression: ITS Impressions Head CT 03/15/25 10:16 Impression: 1.No acute intracranial abnormality. Chest X-Ray 03/15/25 10:31 Impression: No acute cardiopulmonary abnormality. ECG Data EKG #1: Attestation: I personally reviewed and interpreted this ECG as follows: ECG completion date: 03/15/25 ECG completion time: 09:43 EKG Interpretation: bradycardia (54), sinus rhythm (With sinus arrhythmia) and no ST changes Discharge Plan Discharge Clinical Impression: COVID-19, Hyponatremia Nausea and vomiting Qualifiers: Vomiting type: unspecified Qualified Code(s): R11.2 - Nausea with vomiting, unspecified Patient Disposition: Home Condition: Stable Instructions: Antibiotic Form, Dehydration (ED), Hyponatremia (ED), Acute Nausea and Vomiting (ED), How to Recover from COVID-19 at Home (ED) Additional Instructions: Stay well-hydrated at home. Recommend electrolyte rich fluids, Gatorade, Pedialyte, body armor. Zofran as needed for nausea. Tessalon Perles as needed for cough. Tylenol and Ibuprofen for discomfort and/or fevers. Recommend njoj-jvm-tlijpbs cough and cold medicines for symptom relief, Delsym, Mucinex, DayQuil, NyQuil, Sudafed, Robitussin, TheraFlu. Follow with primary care doctor upon resolution of symptoms. Return to the ED if you experience chest pain, difficulty breathing, unable to keep down food or drink, severe pain, or any other symptoms of concern. Patient Language: Bulgarian Prescriptions: New benzonatate 200 mg capsule 200 mg PO TID PRN (Reason: cough) Qty: 20 0RF ondansetron 4 mg tablet,disintegrating 4 mg PO Q8H PRN (Reason: nausea and vomiting) Qty: 15 0RF No Action lisinopril 40 mg tablet 40 mg PO DAILY pravastatin 40 mg tablet 40 mg PO HS Wal-Zyr (cetirizine) 10 mg capsule 10 mg PO DAILY latanoprost 0.005 % drops 1 drp EACH EYE HS amlodipine 2.5 mg tablet 2.5 mg PO DAILY hydrochlorothiazide 12.5 mg tablet 12.5 mg PO DAILY amoxicillin 500 mg Tablet 2,000 mg PO ONCE PRN (Reason: PROPHYLACTIC) Patient Comments: PRIOR TO DENTAL PROCEDURES Rx Instructions: before dental procedures Metamucil 3.4 gram/5.4 gram Powder 1 tsp PO DAILY Rx Instructions: mix into at least 4 oz water or juice before administering Centrum Adult 50 Plus 80 mcg Tablet,Chewable 1 tablet PO DAILY acetaminophen 500 mg tablet 1,000 mg PO TID PRN (Reason: Pain) lidocaine 5 % adhesive patch,medicated 1 patch topical DAILY Qty: 30 0RF Rx Instructions: leave on most painful area for up to 12 hrs methocarbamol 500 mg Tablet 500 mg PO BID PRN (Reason: muscle spasms) Rx Instructions: take 1-2 tablets by mouth BID PRN muscle spasms ibuprofen 600 mg Tablet 1,200 mg PO BID albuterol sulfate 90 mcg/actuation Hfa Aerosol Inhaler 2 puff INHALATION Q4-6H PRN (Reason: Shortness Of Breath) sodium,potassium,mag sulfates [Suprep Bowel Prep Kit] 17.5-3.13-1.6 gram recon soln See Rx Instructions PO .COMPLEX Qty: 354 0RF Rx Instructions: TAKE DIRECTED Follow-up/Referrals: Na,Lavern Bridges, CERTIFIED CORPORATE TRAVEL EXECUTIVE [Primary Care Provider, Unknown] Time of Disposition: 11:48
[2025-03-15 09:48] LABS: Hematocrit 43.1 % (37.0-47.0); Hemoglobin 14.3 g/dL (12.0-15.0); Immature Granulocyte Percent A 0.2 % (0-0.5); Lymphocytes Absolute Auto 1.13 K/mm3 (0.9-3.2); Mean Corpuscular HGB Conc 33.2 g/dl (32-36); Mean Corpuscular Hemoglobin 30.0 pg (26-34); Mean Corpuscular Volume 90.5 fl (80-100); Nucleated Red Blood Cells Absolute Auto 0.000 K/mm3 (0.0-0.012); Nucleated Red Blood Cells Perc 0.0 % (0.0-0.2); Platelet Count Result 219 k/mm3 (150-375); Red Blood Count 4.76 M/mm3 (4.2-5.4); White Blood Count 6.5 K/mm3 (4.5-10.0)
[2025-03-15] MEDS: SODIUM CHLORIDE 0.9% IV 1,000 ML 999 ML IV CONT (09:55)
[2025-03-15] MEDS: ONDANSETRON INJ 4 MG/2 ML VIAL IV PUSH (09:56)
--- OUTSIDE RECORDS SUMMARY | 2025-03-15 09:57 | XMS_ITS | Encounter Summary ---
Author Organization [facility] Address [address] [facility] [place] [address] Care Team Providers Care Pathology Transcriptionist Name Role Phone Indigo Curtis MD Unavailable [phone] Colton Hernández MD Unavailable [phone] Ida Bailey MD Primary Care Provider [phone] Antonio Santillan MD Primary Care Provider [phone] Hiram Fontenot MD Primary Care Provider [phone] Huber Matos MD Unavailable [phone] Leah Barajas MD Primary Care Provider [phone] Myrna Devi PA-C Unavailable [phone] Lavern Monzon Primary Care Provider [phone] Encounter Details Date Type Department Care Team (Late Contact Info) Description 10/29/2016 SS Outpatient Visit [facility] [id number] [place] [address], [address] [address] Unknown, Provider Social History Tobacco Use Types Packs/Day Years Used Date Smoking Tobacco: Never Assessed Comments Unknown Sex and Gender Information Value Date Recorded Sex Assigned at Not on file Legal Sex Female 2:16 PM ROTARY DRIER FEEDER Gender Identity Not on file Sexual Orientation Not on file documented as of this encounter Plan of Treatment Upcoming Encounters Date Type Department Care Team (Late Contact Info) Description 04/05/2025 9:45 AM CDT Office Visit [facility] [address] [facility] [address] [facility] [place] [address] [place] [address] [address] [address] 05/03/2025 10:50 AM ROTARY DRIER FEEDER Office Visit [facility] Health Orthopedics [address] [facility], [address] [address] [place] [address] [address] [address] documented as of this encounter Visit Diagnoses Not on filedocumented in this encounter Care Teams Pathology Transcriptionist Relationship Specialty [place] [address] [address] [address] PCP - General Family Medicine 05/29/16 07/13/17 Antonio Santillan MD [address] [place] [address] PCP - General Internal Medicine 07/14/17 02/08/18 Hiram Fontenot MD [address] [place] [address] PCP - General 02/09/18 07/15/20 [place] [address] [address] [address] PCP - General Internal Medicine 10/08/20 07/11/24 Myrna Devi, PA-C [address] [address] PCP - Attributed-Sandeep [place] 10/13/22 07/02/23 Lavern Monzon [address] [place] [address] PCP - General Bed Teacher 07/12/24 Indigo Curtis MD Orthopedic Surgery 04/14/12 Colton Hernández [place] [address] [place] [address] Orthopedic Surgery 10/21/13 [place] [address] [place] [address] Physical Medicine and Rehabilitation 09/22/18 documented as of this encounter
--- OUTSIDE RECORDS SUMMARY | 2025-03-15 09:57 | XMS_ITS | Encounter Summary ---
Author Organization [facility] Address [address] [facility] [place] [address] Care Team Providers Care Living Specialist Name Role Phone Indigo Curtis MD Unavailable [phone] Colton Hernández MD Unavailable [phone] Ida Bailey MD Primary Care Provider [phone] Antonio Santillan MD Primary Care Provider [phone] Hiram Fontenot MD Primary Care Provider [phone] Huber Matos MD Unavailable [phone] Leah Barajas MD Primary Care Provider [phone] Myrna Devi PA-C Unavailable [phone] Lavern Monzon Primary Care Provider [phone] Encounter Details Date Type Department Care Team (Late Contact Info) Description 09/29/2016 [facility] Outpatient Visit [facility] Orthopedics [address] [place] [address], [address] [address] Unknown, Provider Social History Tobacco Use Types Packs/Day Years Used Date Smoking Tobacco: Never Assessed Comments Unknown Sex and Gender Information Value Date Recorded Sex Assigned at Not on file 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 [address] [place] [address] [address] [address] 05/03/2025 10:50 AM ADDING MACHINE OPERATOR Office Visit [facility] Health Orthopedics [address] [facility], [address] [address] [place] [address] [address] [address] documented as of this encounter Visit Diagnoses Not on filedocumented in this encounter Care Teams Living Specialist Relationship Specialty [place] [address] [address] [address] PCP - General Family Medicine 05/29/16 07/13/17 Antonio Santillan MD [address] [place] [address] PCP - General Internal Medicine 07/14/17 02/08/18 Hiram Fontenot MD [address] [place] [address] PCP - General 02/09/18 07/15/20 [place] [address] [address] PCP - General Internal Medicine 10/08/20 07/11/24 Myrna Devi, PA-C [address] [address] PCP - Attributed-Sandeep [place] 10/13/22 07/02/23 Lavern Monzon [address] [place] [address] PCP - General Leather Shaver 07/12/24 Indigo Curtis MD Orthopedic Surgery 04/14/12 Colton Hernández [place] [address] [place] [address] Orthopedic Surgery 10/21/13 [place] [address] [place] [address] Physical Medicine and Rehabilitation 09/22/18 documented as of this encounter
--- OUTSIDE RECORDS SUMMARY | 2025-03-15 09:57 | XMS_ITS | Encounter Summary ---
Author Organization [facility] Address [address] [facility] [place] [address] Care Team Providers Care Casing Wringer Operator Name Role Phone Indigo Curtis MD Unavailable [phone] Colton Hernández MD Unavailable [phone] Ida Bailey MD Primary Care Provider [phone] Antonio Santillan MD Primary Care Provider [phone] Hiram Fontenot MD Primary Care Provider [phone] Huber Matos MD Unavailable [phone] Leah Barjaas MD Primary Care Provider + [phone] Myrna Devi PA-C Unavailable [phone] Lavern Monzon Primary Care Provider [phone] Encounter Details Date Type Department Care Team (Late Contact Info) Description 06/04/2017 [facility] Outpatient Visit [facility] Orthopedics [id number] [place] [address], [address] [address] Unknown, Provider Social History Tobacco Use Types Packs/Day Years Used Date Smoking Tobacco: Never Assessed Comments Unknown Sex and Gender Information Value Date Recorded Sex Assigned at Not on file 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 [address] [place] [address] [address] 05/03/2025 10:50 AM GAS PUMP ATTENDANT Office Visit [facility] Health Orthopedics [address] [facility], [address] [address] [place] [address] [address] documented as of this encounter Visit Diagnoses Not on filedocumented in this encounter Care Teams Casing Wringer Operator Relationship Specialty [place] [address] [address] PCP - General Family Medicine 05/29/16 07/13/17 Antonio Santillan MD [address] [place] [address] PCP - General Internal Medicine 07/14/17 02/08/18 Hiram Fontenot MD [address] [place] [address] PCP - General 02/09/18 07/15/20 [place] [address] [address] PCP - General Internal Medicine 10/08/20 07/11/24 Myrna Devi, PA-C [address] [address] PCP - Attributed-Sandeep [place] 10/13/22 07/02/23 Lavern Monzon [address] [place] [address] PCP - General Convex Grinder Operator 07/12/24 Indigo Curtis MD Orthopedic Surgery 04/14/12 Colton Hernández [place] [address] [place] [address] Orthopedic Surgery 10/21/13 [place] [address] [place] [address] Physical Medicine and Rehabilitation 09/22/18 documented as of this encounter
--- OUTSIDE RECORDS SUMMARY | 2025-03-15 09:58 | XMS_ITS | Encounter Summary ---
Author Organization [facility] Address [address] [facility] [place] [address] Care Team Providers Care Veneer Sander Name Role Phone Indigo Curtis MD Unavailable [phone] Colton Hernández MD Unavailable [phone] Ida Bailey MD Primary Care Provider [phone] Antonio Santillan MD Primary Care Provider [phone] Hiram Fontenot MD Primary Care Provider [phone] Huber Matos MD Unavailable [phone] Leah Barajas MD Primary Care Provider + [phone] Myrna Devi PA-C Unavailable [phone] Lavern Monzon Primary Care Provider [phone] Encounter Details Date Type Department Care Team (Late Contact Info) Description 11/13/2016 [facility] Outpatient Visit [facility] Orthopedics [address] [place] [address], [address] [address] Unknown, Provider Social History Tobacco Use Types Packs/Day Years Used Date Smoking Tobacco: Never Assessed Comments Unknown Sex and Gender Information Value Date Recorded Sex Assigned at Not on file 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 [address] [place] [address] [address] [address] 05/03/2025 10:50 AM ECONOMICS LECTURER Office Visit [facility] Health Orthopedics [address] [facility], [address] [address] [place] [address] [address] [address] documented as of this encounter Visit Diagnoses Not on filedocumented in this encounter Care Teams Veneer Sander Relationship Specialty [place] [address] [address] [address] PCP - General Family Medicine 05/29/16 07/13/17 Antonio Santillan MD [address] [place] [address] PCP - General Internal Medicine 07/14/17 02/08/18 Hiram Fontenot MD [address] [place] [address] PCP - General 02/09/18 07/15/20 [place] [address] [address] PCP - General Internal Medicine 10/08/20 07/11/24 Myrna Devi, PA-C [address] [address] PCP - Attributed-Sandeep [place] 10/13/22 07/02/23 Lavern Monzon [address] [place] [address] PCP - General Auto Body Straightener 07/12/24 Indigo Curtis MD Orthopedic Surgery 04/14/12 Colton Hernández [place] [address] [place] [address] Orthopedic Surgery 10/21/13 [place] [address] [place] [address] Physical Medicine and Rehabilitation 09/22/18 documented as of this encounter
--- OUTSIDE RECORDS SUMMARY | 2025-03-15 09:58 | XMS_ITS | Clinical Summary ---
Author Organization [facility] Address [address] [place] [address] Care Team Providers Care Brake Tester Name Role Phone Indigo Curtis MD Unavailable [phone] Colton Hernández MD Unavailable [phone] Huber Matos MD Unavailable [phone] Lavern Monzon Primary Care Provider [phone] Source Comments [facility],non-owned Affiliates and Associated Physician Practices is amultiple site organization consisting of ambulatory clinics and hospital sitesin [place], [place], [place] and [place]. This disclosure is being madepursuant to the Care Everywhere program and may not contain all information available regarding this patient. Last updated 18.[facility] Allergies Active Allergy Reactions Criticality Noted Date [...] 03/28/2024 Hydrogen Peroxide Rash Medium 04/13/2024 Ipratropium [place] Palpitations 08/27/2023 Cephalexin Nausea and/or Vomiting 04/14/2012 Oral form Toradol Nausea and/or Vomiting 04/03/2011 Latex Other 04/14/2012 blisters Levofloxacin Nausea and/or Vomiting,Myalgias 04/14/2012 Menthol (Topical Analgesic) Palpitations Low 08/27/2023 Flushing, red swollen face Zacesujx-Joimnmezdz-Nfixm yxin Skin Reactions 08/27/2023 blisters Nystatin Rash [...] needed for Shortness of Breath Active Multiple Vitamins-[place] als (CENTRUM SILVER 50+WOMEN PO) Take 1 [...] post reverse total replacement of right s amriat 04/19/2024 Sciatica 06/22/2023 Overview (10/12/2024): approximate date of onset; have been to physical therapy to remediate; pain has worsened Primary osteoarthritis of left knee 05/29/2016 Encounters Date Type Department Care Team Description 02/28/2025 Travel 02/16/2025 Travel 02/07/2025 Telephone [facility] [address] [place] [address] Mary Jane Pérez Scheduling 02/01/2025 2:45 PM CDT Office Visit [facility] Orthopedics [address] [place] [address], [address] [place] [address] Myrna Devi PA-C Status post reverse total shoulder replacement, right (Primary Dx) 02/01/2025 2:40 PM CDT Ancillary Procedure [facility] - Radiology [id number] [place] [address] Myrna Devi PA-C Status post reverse total shoulder replacement, right 12/21/2024 3:00 PM CDT Office Visit [facility] Orthopedics [address] [place] [address], [address] [place] [address] Indigo Curtis MD Chronic right shoulder pain [...] Recorded Patient Health Questionnaire-2 Score 0 03/09/2025 [facility] of Occupat ional Health - Occupational Stress [...] any time in the past 12 m [place], were you homeless or living in a longterm (including now)? 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 [place] [address] [place] [address] [address] [address] 05/03/2025 10:50 AM MACHINE LOAD CLERK Office Visit [facility] Health Orthopedics [address] [place] [address] [place] [address] [address] [address] Health Maintenance Due Date Last [...] this topic Medical Devices Implanted Type Area Legal Instruments Examiner Device Identifier Shelf Expiration Date Model / Serial / Lot Bsplt Glnd 30mm Rsp Shldr P2 Strl Lf Implanted:Qty: 1 on 09/29/2023 by Indigo Curtis MD at [facility] Right: Shoulder [employer] 09/14/2029 508-32-204 / / [id number] Stem Hum 48mm 6mm Sm Shl Implanted:Qty: 1 on 09/29/2023 by Indigo Curtis MD at [facility] Right: Shoulder [employer] 03/07/2029 533-06-048 / / [id number] Head Glnd 32mm Rsp -4mm Ofst Shldr Rtn Implanted:Qty: 1 on 04/19/2024 by Indigo Curtis MD at [facility] Right: Shoulder [employer] 03/27/2030 508-32-103 / / [id number] Altivate Reverse Torx Peripheral Screw, 26mm Implanted:Qty: 1 on 04/19/2024 by Indigo Curtis MD at [facility] Right: Shoulder [employer] 02/17/2029 506-04-126 / / [id number] Altivate Reverse Rev Mod Central Screw, 8.0 X 40mm Implanted:Qty: 1 on 04/19/2024 by Indigo Curtis MD at [facility] Right: Shoulder [employer] 07/27/2028 508-80-040 / / [id number] Altivate Reverse Torx Peripheral Screw, 30mm Implanted:Qty: 1 on 04/19/2024 by Indigo Curtis MD at [facility] Right: Shoulder [employer] 10/14/2028 506-04-130 / / [id number] Altivate Reverse Torx Peripheral Screw, 18mm Implanted:Qty: 1 on 04/19/2024 by Indigo Curtis MD at [facility] Right: Shoulder [employer] 02/10/2029 506--118 / / [id number] Altivate Reverse Torx Peripheral Screw, 22mm Implanted:Qty: 1 on 04/19/2024 by Indigo Curtis MD at [facility] Right: Shoulder [employer] 09/13/2028 506-04-122 / / [id number] Revision Modular Baseplate And Taper Kit, 8.0mm Wedge Implanted:Qty: 1 on 04/19/2024 by Indigo Curtis MD at [facility] Right: Shoulder [employer] 08/31/2028 508-80-001 / / [id number] Ins Sckt 32mm Altivate Rvrs +4mm Sm Ntrl Implanted:Qty: 1 on 04/19/2024 by Indigo Curtis MD at [facility] Right: Shoulder [employer] 10/20/2027 509-02-432 / / [id number] Explanted Type Area Legal Instruments Examiner Device Identifier Shelf Expiration Date Model / Serial / Lot Screw 5mm 18mm Shldr Lck Rsp Glnd Bsplt Implanted:Qty: 1 on 09/29/2023 by Indigo Curtis MD at [facility] Explanted:Qty: 1 on 04/19/2024 by Indigo Curtis MD at [facility] Right: Shoulder [employer] 06/10/2029 506-03-118 / / [id number] Screw 5mm 18mm Shldr Lck Rsp Glnd Bsplt Implanted:Qty: 1 on 09/29/2023 by Indigo Curtis MD at [facility] Explanted:Qty: 1 on 04/19/2024 by Indigo Curtis MD at [facility] Right: Shoulder [employer] 05/21/2029 506-03-118 / / [id number] Screw 5mm 26mm Shldr Lck Rsp Glnd Bsplt Implanted:Qty: 1 on 09/29/2023 by Indigo Curtis MD at [facility] Explanted:Qty: 1 on 04/19/2024 by Indigo Curtis MD at [facility] Right: Shoulder [employer] 05/18/2029 506-03-126 / / [id number] Screw 5mm 14mm Shldr Lck Rsp Glnd Bsplt Implanted:Qty: 1 on 09/29/2023 by Indigo Curtis MD at [facility] Explanted:Qty: 1 on 04/19/2024 by Indigo Curtis MD at [facility] Right: Shoulder [employer] 08/11/2029 506-03-114 / / [id number] Head Glnd 32mm Rsp -4mm Ofst Shldr Rtn Implanted:Qty: 1 on 09/29/2023 by Indigo Curtis MD at [facility] Explanted:Qty: 1 on 04/19/2024 by Indigo Curtis MD at [facility] Right: Shoulder [employer] 02/06/2029 508-32-103 / / [id number] Ins Sckt 32mm Altivate Rvrs +4mm Sm Implanted:Qty: 1 on 09/29/2023 by Indigo Curtis MD at [facility] Explanted:Qty: 1 on 04/19/2024 by Indigo Curtis MD at [facility] Right: Shoulder [employer] 07/01/2028 509-03-[facility] / / [id number] Procedures Procedure Name Priority Date/Time Associated Diagnosis Comments XR SHOULDER RIGHT 2VW OR MORE Routine 02/01/2025 2:49 PM CDT Status post reverse total shoulder replacement, right from Last 3 Months Results * XR Shoulder Right 2Vw or More (02/01/2025 2:49 PM CDT) Narrative [facility] [address] - 02/01/2025 2:49 PM CDT Please see progress note in Epic for results. us Myrna Devi PA-C DIAGNOSTIC IMAGING ORDERABLE S Final Result [facility] [address] from Last 3 Months Insurance [employer] MEDICARE ADV AETNA MEDICARE ADV Advance Directives Documents on File Type Date Recorded Patient Rose Grader Expl anation Adv Directive/Living Will/POA 09/02/2023 1:24 AM * Full Code (Latest Code Status on File) Date Activated Date Inactivated Comments 04/19/2024 1:09 PM 04/20/2024 1:57 PM Care Teams Brake Tester Relationship Specialty Start Date End Date Lavern Monzon [address] [place] [address] PCP - General Frame Sample And Pattern Supervisor 07/12/24 Indigo Curtis MD Orthopedic Surgery 04/14/12 Colton Hernán[place] [address] [place] [address] Orthopedic Surgery 10/21/13 [place] [address] [place] [address] Physical Medicine and Rehabilitation 09/22/18
--- NOTE | 2025-03-15 10:05 | PC.NURSE ---
patient has erikad with her- inuqiered whether or not she should take her 1000 dose. discussed with provider, states that she can take it. patient to radiology at this time
[2025-03-15 10:07] LABS: Add Urine Microscopic? YES; Appearance Urine Clear (Clear); Glucose Urine UA Negative (Negative); Leukocyte Esterase Ur Trace LEU/UL (Negative); Nitrate Urine Negative (Negative); Non Pathogenic Casts 0-2; Specific Grav Ur 1.018 (1.001-1.035)
[2025-03-15 10:37] LABS: Influenza A QL RT-PCR Negative (Negative); Influenza B QL RT-PCR Negative (Negative); RSV RNA, RT-PCR Negative (Negative); SARS-CoV-2 RNA PCR Positive (Negative)
[2025-03-15 11:08] LABS: Alanine Aminotransferase 20 U/L (6-35); Albumin Level 4.3 g/dL (3.5-5.1); Alkaline Phosphatase 78 U/L (38-126); Anion Gap 7 mmol/L (4-12); Aspartate Amino Transferase 31 U/L (14-36); Bilirubin,Total 0.5 mg/dL (0.2-1.3); Blood Urea Nitrogen 13 mg/dL (7-17); Calcium 9.4 mg/dL (8.4-10.2); Carbon Dioxide 27 mmol/L (22-30); Chloride 91 mmol/L (98-107); Estimated CRCL calculation 55 ml/min; Estimated Glomerular Filt Rate > 60; Glucose 106 mg/dL (65-110); Lipase 67 U/L (23-300); Potassium 4.4 mmol/L (3.4-5.0); Sodium 125 mmol/L (137-145); Total Protein 7.1 g/dL (6.3-8.2)
[2025-03-15 11:20] LABS: Troponin I < 0.012 ng/mL (0.000-0.034)
== END 2025-03-15 11:57 | disposition home or self-care (01) ==
PROVIDERS: Emergency Provider Physician Assistant; PCP Nurse Practitioner
DX: U07.1 COVID-19 (principal); R11.2 Nausea with vomiting, unspecified; I10 Essential (primary) hypertension; E87.1 Hypo-osmolality and hyponatremia; E78.5 Hyperlipidemia, unspecified; E66.9 Obesity, unspecified; Z68.32 Body mass index [BMI] 32.0-32.9, adult; Z90.710 Acquired absence of both cervix and uterus; Z90.49 Acquired absence of other specified parts of digestive tract; Z98.49 Cataract extraction status, unspecified eye; R00.1 Bradycardia, unspecified
CPT/HCPCS: 36415; 70450; 71046; 80053; 81001; 83690; 84484; 85025; 87637; 93005; 96361; 96374; 99284; J2405; J7030

== ENCOUNTER 2025-03-15 22:29 | Inpatient (IN) | payer MEDICARE, SELFPAY ==
--- NOTE | ~2025-03-15 | CT_ITS ---
EXAMINATION: CT abdomen pelvis w con DATE: 03/16/2025 01:36 INDICATION: Generalized abdominal pain. TECHNIQUE: Computed tomography (CT) of the abdomen and pelvis was performed with 100 mL Omnipaque 350 intravenous contrast. Automated exposure control and iterative reconstruction technique were employed. The dose-length product was 1067.11 mGy-cm. COMPARISON: CT abdomen and pelvis 12/18/2024 FINDINGS: The visualized portions of the lung bases demonstrate mild atelectasis. No pleural effusion. There is left atrial enlargement of the heart. No pericardial effusion. The liver and spleen are normal. There are changes of cholecystectomy. The pancreas, adrenal glands, and kidneys are normal. There is an anastomosis in the rectosigmoid. There is diverticulosis of the colon without evidence of diverticulitis. The appendix is normal. There are no pathologically enlarged lymph nodes. There is no free intraperitoneal fluid. There are changes of ventral hernia repair. There is severe thoracic and lumbar spondylosis. IMPRESSION: 1. No etiology for the patient's symptoms. Reviewed, dictated and finalized at location E.
[2025-03-15 22:38] VITALS: BP 147/64; PULSE 61; RESP 18; TEMP 36.8; O2SAT 98
--- NOTE | 2025-03-15 22:43 | ECG_ITS ---
Test Date: 2025-03-15 22:49:15 Measurements Intervals [place] Rate: 60 P: 47 MD: 161 QRS: 13 QRSD: 95 T: 61 QT: 404 QTc: 407 Interpretive Statements SINUS RHYTHM WITH SINUS ARRHYTHMIA BASELINE ARTIFACT- I, II, III, AVR, AVL, AVF, V4-V6 NORMAL ECG Compared to ECG 03/15/2025 09:43:04 HEART RATE HAS INCREASED Electronically Signed On 03-16-2025 05:24:25 CDT by Rohan High D.O.
[2025-03-15 23:09] LABS: Hematocrit 40.9 % (37.0-47.0); Hemoglobin 13.7 g/dL (12.0-15.0); Immature Granulocyte Percent A 0.3 % (0-0.5); Lymphocytes Absolute Auto 1.20 K/mm3 (0.9-3.2); Mean Corpuscular HGB Conc 33.5 g/dl (32-36); Mean Corpuscular Hemoglobin 30.0 pg (26-34); Mean Corpuscular Volume 89.7 fl (80-100); Nucleated Red Blood Cells Absolute Auto 0.000 K/mm3 (0.0-0.012); Nucleated Red Blood Cells Perc 0.0 % (0.0-0.2); Platelet Count Result 236 k/mm3 (150-375); Red Blood Count 4.56 M/mm3 (4.2-5.4); White Blood Count 6.5 K/mm3 (4.5-10.0)
[2025-03-15 23:21] LABS: INR 1.0; Partial Thromboplastin Time 28.8 Seconds (22.3-36.8); Prothrombin Time 13.0 Seconds (11.1-14.7)
[2025-03-15 23:24] LABS: Alanine Aminotransferase 21 U/L (6-35); Albumin Level 4.1 g/dL (3.5-5.1); Alkaline Phosphatase 68 U/L (38-126); Anion Gap 4 mmol/L (4-12); Aspartate Amino Transferase 33 U/L (14-36); Bilirubin,Total 0.2 mg/dL (0.2-1.3); Blood Urea Nitrogen 11 mg/dL (7-17); Calcium 8.9 mg/dL (8.4-10.2); Carbon Dioxide 28 mmol/L (22-30); Chloride 88 mmol/L (98-107); Estimated Glomerular Filt Rate > 60; Glucose 127 mg/dL (65-110); Lipase 367 U/L (23-300); Potassium 4.3 mmol/L (3.4-5.0); Sodium 120 mmol/L (137-145); Total Protein 6.9 g/dL (6.3-8.2)
[2025-03-15 23:35] LABS: Troponin I < 0.012 ng/mL (0.000-0.034)
[2025-03-16] VITALS (11 sets, daily range): BP systolic 135–174; BP diastolic 56–96; PULSE 56–79; RESP 14–18; TEMP 36.3–36.8; O2SAT 97–100; BMI 35.0
--- NOTE | 2025-03-16 00:46 | ED.ABDPAIN ---
HPI - Abdominal Pain General Chief Complaint: Abdominal Pain Stated Complaint: +Covid today-feels worse, N/abd pain-weak Time Seen by Provider: 03/16/25 00:39 Source: patient and family Mode of arrival: ambulatory Limitations: no limitations History of Present Illness HPI narrative: This is a 79-year-old female with history hypertension and recent diagnosis of COVID who presents the ED for abdominal pain, nausea vomiting. Patient states that she was seen in this ED this morning for nausea and vomiting and she was diagnosed with COVID. She states that her symptoms have worsened despite medications prompting her to return to the ED. She states that she has been feeling weaker and having significant coughing fits with subsequent vomitus. Related Data Home Medications ?Medication ?Instructions ?Recorded ?Confirmed ?Last Taken ?Type amlodipine 2.5 mg tablet 2.5 mg PO DAILY 02/26/21 03/16/25 03/14/25 21:00 History 2.5 mg hydrochlorothiazide 12.5 mg tablet 12.5 mg PO DAILY 02/26/21 03/16/25 03/14/25 08:00 History 12.5 mg latanoprost 0.005 % eye drops 1 drp EACH EYE HS 02/26/21 03/16/25 03/15/25 07:00 History 1 drp cetirizine 10 mg capsule (Wal-Zyr 10 mg PO DAILY 04/14/22 03/16/25 06/01/23 History (cetirizine)) lisinopril 40 mg tablet 40 mg PO DAILY 04/14/22 03/16/25 03/14/25 21:00 History 40 mg pravastatin 40 mg tablet 40 mg PO HS 04/14/22 03/16/25 03/14/25 21:00 History 40 mg acetaminophen 500 mg tablet 1,000 mg PO TID PRN Pain 05/15/23 03/16/25 06/01/23 History amoxicillin 500 mg tablet 2,000 mg PO ONCE PRN PROPHYLACTIC 05/15/23 03/16/25 03/14/25 09:00 History 500 mg multivitamin with minerals-folic 1 tablet PO DAILY 05/15/23 03/16/25 06/01/23 History acid 80 mcg chewable tablet (Centrum Adult 50 Plus) ibuprofen 600 mg tablet 1,200 mg PO BID 04/25/24 03/16/25 Unknown History methocarbamol 500 mg tablet 500 mg PO BID PRN muscle spasms 04/25/24 03/16/25 Unknown History hydrochlorothiazide 12.5 mg capsule 12.5 mg PO Q12H 03/16/25 03/16/25 Unknown History Held on 03/16/25. Instructions: Order Change Allergies Allergy/AdvReac Type Severity Reaction Status Date / Time benzocaine Allergy Severe Swelling Verified 12/18/24 20:32 cedarwood Allergy Severe Difficulty Verified 12/18/24 20:32 Breathing bacitracin Allergy Intermediate Blister Verified 12/18/24 20:32 camphor Allergy Intermediate Heart Verified 12/18/24 20:32 fluttering latex Allergy Intermediate Blister Verified 09/14/24 09:18 menthol Allergy Intermediate Heart Verified 09/14/24 09:18 fluttering neomycin Allergy Intermediate HIVES Verified 09/14/24 09:18 polymyxin B Allergy Intermediate Blister Verified 09/14/24 09:18 cefadroxil Allergy Unknown Verified 09/14/24 09:25 doxycycline Allergy Unknown Verified 09/14/24 09:18 furosemide Allergy Rash Verified 09/14/24 09:25 azelastine AdvReac Severe Nose Bleeds Verified 09/14/24 09:18 cephalexin AdvReac Intermediate Nausea Verified 09/14/24 09:18 ipratropium AdvReac Intermediate Palpitation Verified 09/14/24 09:18 s ketorolac AdvReac Intermediate Nausea Verified 09/14/24 09:18 levofloxacin AdvReac Intermediate Nausea Verified 09/14/24 09:18 ofloxacin AdvReac Intermediate NAUSEA Verified 09/14/24 09:18 triamcinolone AdvReac Intermediate N/V Verified 09/14/24 09:18 Quinolones AdvReac Mild N/V Verified 09/14/24 09:18 celecoxib (From Celebrex) AdvReac Swelling Verified 09/14/24 09:18 sulfamethoxazole (From AdvReac Other Verified 09/14/24 09:18 Bactrim) trimethoprim (From Bactrim) AdvReac Other Verified 09/14/24 09:18 dust mites Allergy Severe Wheezing Uncoded 12/18/24 20:32 DURAPREP Allergy Intermediate RASH Uncoded 12/18/24 20:32 Review of Systems Review of Systems: Gen.: Denies fevers or chills Eyes: Denies eye pain or visual change ENT: Denies congestion Respiratory: Denies shortness of breath or cough CV: Denies chest pain or palpitations GI: As per HPI denies burning, urgency, frequency or hematuria Musculoskeletal: Denies back pain or muscle pain Neuro: As per HPI Skin: Denies rash Except as documented, all other systems reviewed and negative [facility] Past Medical History Medical History Constipation Left lower quadrant pain Diverticulitis Stomach ulcer Hyperlipidemia Hypertension Seizure PVC (premature ventricular contraction) Surgical History Surgical History History of hysterectomy History of arthroscopic knee surgery History of cataract surgery History of colectomy History of laparoscopic cholecystectomy History of incisional hernia repair Multiple incisional hernia repairs - 10/1995, 06/2021, 04/2005, 06/2006, 07/2015 Family History Family History Mother Family history of arthritis Family history of anemia, Onset Age: 92 Depression, Onset Age: 92 Family history of mental disorder, Onset Age: 92 Hypertension, Onset Age: 92 Cerebrovascular accident, Onset Age: 92 Father Depression, Onset Age: 82 Family history of glaucoma, Onset Age: 82 Family history of dementia Grandparent Family history of cardiovascular disease Family history of malignant neoplasm Family history of lung cancer Family history of Hodgkin's lymphoma Carcinoma of colon Hypertension Sibling Patient's brother is in good health Family history of Parkinson's disease Social History Social History Smoking status: Never smoker Second hand tobacco smoke exposure: Yes Alcohol intake: current Substance use: never Substance use type: does not use Living arrangements: with family Occupation/Education: retired Spiritual care concerns: No Exam Narrative: APPEARANCE: Mild distress, nontoxic, resting in bed EYES: EOMI HEENT: Normocephalic, atraumatic, OMM RESPIRATORY: No respiratory distress Clear to auscultation bilaterally with no rhonchi wheezing or rales. CARDIOVASCULAR: Regular rate and rhythm without murmurs rubs or gallops. ABDOMINAL: Soft, mild diffuse tenderness to palpation, nondistended, no rebound or guarding MUSCULOSKELETAl: Moves all extremities. No clubbing, cyanosis or edema. NEURO: Awake and alert. Following commands, speech normal, no focal deficits SKIN:: Warm, dry. No rashes lesions or abrasions PSYCHIATRIC: Normal affect/mood, Course Vital Signs Vital signs: Vital Signs Temperature 98.3 F 03/15/25 22:38 Pulse Rate 61 03/15/25 22:38 Respiratory Rate 18 03/15/25 22:38 Blood Pressure 147/64 H 03/15/25 22:38 Pulse Oximetry 98 03/15/25 22:38 Oxygen Delivery Room Air 03/15/25 22:38 Temperature 98.3 F 03/15/25 22:38 Pulse Rate 57 L 03/16/25 00:45 Respiratory Rate 14 03/16/25 00:45 Blood Pressure 135/62 03/16/25 00:45 Pulse Oximetry 97 03/16/25 00:45 Oxygen Delivery Room Air 03/15/25 22:38 MDM - Abdominal Pain MDM Narrative Medical decision making narrative: 79-year-old female presenting for nausea vomiting, COVID. On initial evaluation, patient was in mild distress, afebrile, hemodynamically stable. She had mild diffuse tenderness to palpation to the abdomen. Heart and lungs were clear. He does membranes mildly dry. Patient was given Zofran and 1 L NS bolus with improvement of her symptoms. CBC was without significant abnormalities. She was hyponatremic to 120 and hypochloremic to 88. She does have a history of hyponatremia but this is worse than usual. Given this is her 2nd visit to the ED today with worsening hyponatremia, patient will require admission for IV fluids and close observation. Case was discussed with hospitalist who will admit the patient. Differential Diagnosis Differential diagnosis: Likely other (COVID, diverticulitis, UTI, electrolyte abnormality) Medical Records Attestation: I reviewed the patient's medical records. Lab Data Attestation: I reviewed the patient's lab results. 03/15/25 23:01 03/15/25 23:01 Labs: Lab Results 03/15/25 03/16/25 Range/Units 23:01 01:53 WBC 6.5 (4.5-10.0) K/mm3 RBC 4.56 (4.2-5.4) M/mm3 Hgb 13.7 (12.0-15.0) g/dL Hct 40.9 (37.0-47.0) % MCV 89.7 (80-100) fl MCH 30.0 (26-34) pg MCHC 33.5 (32-36) g/dl RDW 12.3 (11.5-14.5) % Plt Count 236 (150-375) k/mm3 MPV 9.6 (7.4-10.4) fl Immature Gran % (Auto) 0.3 (0-0.5) % Neut % (Auto) 71.3 (45.5-73.1) % Lymph % (Auto) 18.5 (18.3-44.2) % Bradford % (Auto) 8.3 (2.6-8.5) % Eos % (Auto) 1.1 (0-4.4) % Baso % (Auto) 0.5 (0.2-1.2) % Lymph # (Auto) 1.20 (0.9-3.2) K/mm3 Bradford # (Auto) 0.5 (0.1-0.6) K/mm3 Eos # (Auto) 0.1 (0-0.3) K/mm3 Baso # (Auto) 0.0 (0.0-0.1) K/mm3 Abs Immat Gran (auto) 0.02 (0.00-0.031) K/mm3 Absolute Neuts (auto) 4.6 (1.3-6.7) K/mm3 Absolute Nucleated RBC 0.000 (0.0-0.012) K/mm3 Nucleated RBC % 0.0 (0.0-0.2) % PT 13.0 (11.1-14.7) Seconds INR 1.0 APTT 28.8 (22.3-36.8) Seconds Sodium 120 L (137-145) mmol/L Potassium 4.3 (3.4-5.0) mmol/L Chloride 88 L (98-107) mmol/L Carbon Dioxide 28 (22-30) mmol/L Anion Gap 4 (4-12) mmol/L BUN 11 (7-17) mg/dL Creatinine 0.69 L (0.7-1.0) mg/dL Estim Creat Clear Calc Not Reportable Estimated GFR > 60 (59 - ) Glucose 127 H (65-110) mg/dL Calcium 8.9 (8.4-10.2) mg/dL Total Bilirubin 0.2 (0.2-1.3) mg/dL AST 33 (14-36) U/L ALT 21 (6-35) U/L Alkaline Phosphatase 68 (38-126) U/L Total Creatine Kinase 62 (30-135) U/L Troponin I < 0.012 < 0.012 (0.000-0.034) ng/mL Total Protein 6.9 (6.3-8.2) g/dL Albumin 4.1 (3.5-5.1) g/dL Lipase 367 H (23-300) U/L Imaging Data Attestation: I personally reviewed and interpreted this imaging study as follows: Radiologist's impression: CT abdomen and pelvis: No acute intra abdominal abnormality. No bowel obstruction or inflammation. Normal appendix. Diverticulosis. No hydronephrosis or renal calculus. Hepatic steatosis and hepatomegaly. Cholecystectomy. ECG Data EKG #1: ECG completion date: 03/15/25 ECG completion time: 22:43 Prior ECG tracings: available for review Interpretation: Normal sinus rhythm rate of 60, normal axis, normal intervals, no acute ST or T-wave changes. Comparison earlier in the day: No significant change Discharge Plan Discharge Clinical Impression: COVID-19, Acute hyponatremia Patient Disposition: Still a Patient Condition: Stable
[2025-03-16] MEDS: ACETAMINOPHEN 500 MG TABLET 1000 MG PO (01:02)
[2025-03-16] MEDS: ONDANSETRON INJ 4 MG/2 ML VIAL IV PUSH (01:02)
[2025-03-16] MEDS: SODIUM CHLORIDE 0.9% IV 1,000 ML 999 ML IV CONT (01:02)
[2025-03-16 01:03] LABS: Creatine Kinase 62 U/L (30-135)
[2025-03-16 02:22] LABS: Troponin I < 0.012 ng/mL (0.000-0.034)
--- NOTE | 2025-03-16 02:56 | PC.NURSE ---
Attempted to call report to floor RN and was told the RN is doing an EKG and will have to call back.
--- NOTE | 2025-03-16 03:31 | ADMGEN ---
This patient, Atiya Aguilera, was admitted to IMU Room 213-01. Patient/family oriented to hospital policies and general routines including ID bracelet, bed and alarms, visiting hours, pain management, procedures, bathroom and other care routines, personal items, smoking policy, room service/diet, and visiting hours. Information on how to activate the Rapid Response Team has been discussed. Patient/Family are encouraged to report perceived risks to care and to ask questions if they do not understand what they are told or what they should do.
--- NOTE | 2025-03-16 05:54 | PC.NURSE ---
pt is sleeping on the couch in the room does not want to use the bed so no bed alarm is on.she is a low fall risk but came in for weakness. pt asked if she would switch to the bed pt declined.
[2025-03-16] MEDS: SODIUM CHLORIDE 0.9% IV 1,000 ML 125 ML IV CONT ×3 (05:56→22:19)
[2025-03-16 06:10] LABS: Troponin I < 0.012 ng/mL (0.000-0.034)
--- NOTE | 2025-03-16 06:27 | PM.IMHP ---
H&P: HPI History of Present Illness Date/Time: 03/16/25 06:27 Chief Complaint: Abdominal pain Narrative: This is a 79-year-old female patient with a history of hypertension who came to the emergency room yesterday with complaints of abdominal pain, nausea, and vomiting. She also has lower back pain and generalized aches as well. The patient has been feeling weaker and has a significant cough with a subsequent vomitimg. The patient was seen earlier in the day in the emergency room and she had taken a COVID test Thursday and her results were positive. At that time she was given Zofran for the nausea however she continued to feel nauseated and continued to vomit. Patient stated she chronically has low sodium. She also takes a water pill. Patient's for sodium yesterday was 125 in which came back to ER was 120. Her baseline is somewhere between 130 and 134. During her 1st visit to the ER she received a L fluids. Then she was given another L of normal saline when she returned to the emergency room. She was given Zofran and Tylenol as well. Her troponins were negative. The patient is being admitted to inpatient status on the date of service of 03/16/2025. Review of Systems Constitutional: Constitutional: Reports as per HPI and Reports no additional constitutional complaints Eyes: Eyes: Reports as per HPI and Reports no additional eye complaints ENT: Reports system reviewed and no additional complaints, except as documented and Reports Normal hearing present Cardiovascular: Cardiovascular: Reports no additional cardiovascular complaints Respiratory: Respiratory: Reports as per HPI and Reports no additional respiratory complaints Gastrointestinal: Gastrointestinal: Reports as per HPI and Reports no additional gastrointestinal complaints Genitourinary: Genitourinary: Reports no additional female genitourinary complaints Musculoskeletal: Musculoskeletal: Reports no additional musculoskeletal complaints Integumentary/Breasts: Skin/Breast: Reports system reviewed and no additional complaints, except as docu Neurologic: Reports system reviewed and no additional complaints, except as documented and Reports Normal hearing present Psychiatric: Psychiatric: Reports no additional psychiatric complaints and Reports as per HPI Hematologic/Lymphatic: Hematologic/Lymphatic: Reports no additional hematologic/lymphatic complaints Allergic/Immunologic: Allergic/Immunologic: Reports no additional allergic/immunologic complaints [facility] Past Medical History Medical History (Updated 03/16/25 @ 06:51 by Sarah Porter APRN) Hyponatremia Constipation Left lower quadrant pain Diverticulitis Stomach ulcer Hyperlipidemia Hypertension Seizure The patient stated that she has only had 1 seizure and was never placed on any medication for this. She has not had any seizures since PVC (premature ventricular contraction) Surgical History Surgical History (Updated 03/16/25 @ 06:51 by Sarah Porter APRN) History of ventral hernia repair H/O shoulder surgery X2 History of hysterectomy History of arthroscopic knee surgery History of cataract surgery History of colectomy History of laparoscopic cholecystectomy History of incisional hernia repair Multiple incisional hernia repairs - 10/1995, 06/2021, 04/2005, 06/2006, 07/2015 Family History Family History Mother Family history of arthritis Family history of anemia, Onset Age: 92 Depression, Onset Age: 92 Family history of mental disorder, Onset Age: 92 Hypertension, Onset Age: 92 Cerebrovascular accident, Onset Age: 92 Father Depression, Onset Age: 82 Family history of glaucoma, Onset Age: 82 Family history of dementia Grandparent Family history of cardiovascular disease Family history of malignant neoplasm Family history of lung cancer Family history of Hodgkin's lymphoma Carcinoma of colon Hypertension Sibling Patient's brother is in good health Family history of Parkinson's disease Social History Social History (Updated 03/16/25 @ 06:42 by Sarah Porter APRN) Social History: For the last week she has been moving in to [place] independent Living with her partner. She has no children. 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 Code status: Full code Smoking status: Never smoker Second hand tobacco smoke exposure: Yes Alcohol intake: never Substance use: never Substance use type: does not use Lack of Transportation: No Lack of Food: Never True Current Housing: I Have Housing Concerned About Future Housing: No Difficulty Paying Gas/Electric Bills: No Difficulty Paying for Meds: No Currently Unemployed: No Education: Associate Degree Difficulty w/ Childcare or Family Care: No Living arrangements: with family Occupation/Education: retired Spiritual care concerns: No Meds Home Medications and Allergies Home Medications ?Medication ?Instructions ?Recorded ?Confirmed ?Type amlodipine 2.5 mg tablet 2.5 mg PO DAILY 02/26/21 03/16/25 History hydrochlorothiazide 12.5 mg tablet 12.5 mg PO DAILY 02/26/21 03/16/25 History latanoprost 0.005 % eye drops 1 drp EACH EYE HS 02/26/21 03/16/25 History cetirizine 10 mg capsule (Wal-Zyr 10 mg PO DAILY 04/14/22 03/16/25 History (cetirizine)) lisinopril 40 mg tablet 40 mg PO DAILY 04/14/22 03/16/25 History pravastatin 40 mg tablet 40 mg PO HS 04/14/22 03/16/25 History acetaminophen 500 mg tablet 1,000 mg PO TID PRN Pain 05/15/23 03/16/25 History amoxicillin 500 mg tablet 2,000 mg PO ONCE PRN PROPHYLACTIC 05/15/23 03/16/25 History multivitamin with minerals-folic 1 tablet PO DAILY 05/15/23 03/16/25 History acid 80 mcg chewable tablet (Centrum Adult 50 Plus) lidocaine 5 % topical patch 1 patch topical DAILY #30 ea 03/18/24 03/16/25 Rx ibuprofen 600 mg tablet 1,200 mg PO BID 04/25/24 03/16/25 History methocarbamol 500 mg tablet 500 mg PO BID PRN muscle spasms 04/25/24 03/16/25 History benzonatate 200 mg capsule 200 mg PO TID PRN cough #20 caps 03/15/25 03/16/25 Rx ondansetron 4 mg disintegrating 4 mg PO Q8H PRN nausea and 03/15/25 03/16/25 Rx tablet vomiting #15 tabs hydrochlorothiazide 12.5 mg capsule 12.5 mg PO Q12H 03/16/25 03/16/25 History Held on 03/16/25. Instructions: Order Change Allergies Allergy/AdvReac Type Severity Reaction Status Date / Time benzocaine Allergy Severe Swelling Verified 12/18/24 20:32 cedarwood Allergy Severe Difficulty Verified 12/18/24 20:32 Breathing bacitracin Allergy Intermediate Blister Verified 12/18/24 20:32 camphor Allergy Intermediate Heart Verified 12/18/24 20:32 fluttering latex Allergy Intermediate Blister Verified 09/14/24 09:18 menthol Allergy Intermediate Heart Verified 09/14/24 09:18 fluttering neomycin Allergy Intermediate HIVES Verified 09/14/24 09:18 polymyxin B Allergy Intermediate Blister Verified 09/14/24 09:18 cefadroxil Allergy Unknown Verified 09/14/24 09:25 doxycycline Allergy Unknown Verified 09/14/24 09:18 furosemide Allergy Rash Verified 09/14/24 09:25 azelastine AdvReac Severe Nose Bleeds Verified 09/14/24 09:18 cephalexin AdvReac Intermediate Nausea Verified 09/14/24 09:18 ipratropium AdvReac Intermediate Palpitation Verified 09/14/24 09:18 s ketorolac AdvReac Intermediate Nausea Verified 09/14/24 09:18 levofloxacin AdvReac Intermediate Nausea Verified 09/14/24 09:18 ofloxacin AdvReac Intermediate NAUSEA Verified 09/14/24 09:18 triamcinolone AdvReac Intermediate N/V Verified 09/14/24 09:18 Quinolones AdvReac Mild N/V Verified 09/14/24 09:18 celecoxib (From Celebrex) AdvReac Swelling Verified 09/14/24 09:18 sulfamethoxazole (From AdvReac Other Verified 09/14/24 09:18 Bactrim) trimethoprim (From Bactrim) AdvReac Other Verified 09/14/24 09:18 dust mites Allergy Severe Wheezing Uncoded 12/18/24 20:32 DURAPREP Allergy Intermediate RASH Uncoded 12/18/24 20:32 Vital Signs Vital Signs - 24 hr 03/15/25 22:38 03/16/25 00:45 03/16/25 04:00 Temperature 98.3 F 98.3 F Pulse Rate 61 57 L 64 Respiratory Rate 18 14 14 Blood Pressure 147/64 H 135/62 149/64 H Pulse Oximetry 98 97 99 Oxygen Delivery Room Air Exam Const: General: cooperative, comfortable, no acute distress, well developed, awake, Physically active, ill appearing, average body habitus and well nourished Nutritional Appearance: average body habitus and well nourished Orientation/consciousness: oriented to person, oriented to place, oriented to time and patient oriented x3 HENMT: Head: normal to inspection, No palpable skull fracture present, normocephalic, atraumatic and abrasion Ears: hearing grossly normal bilaterally Eyes: General: appearance normal, both eyes and all related structures Alignment and Position: alignment normal Periorbital: periorbital findings normal Eyelids: eyelids normal Conjunctivae: conjunctivae normal Neck: Neck: normal visual inspection, full ROM and no lymphadenopathy Chest: Chest palpation & inspection: normal inspection of the chest Resp: Effort & Inspection: normal respiratory effort Auscultation: clear to auscultation bilaterally Cardio: Palpation: normal PMI Rate: regular rate Rhythm: regular rhythm Heart sounds: S1 normal heart sound present and S2 normal heart sound present Peripheral pulses: Peripheral pulses 2+ throughout GI: Inspection: normal to inspection Percussion: Yes normal to percussion Auscultation: normal bowel sounds Rectal Exam: deferred : General: Yes no CVA tenderness Back/Spine/Pelvis: Back: no CVA tenderness Skin: General skin exam: normal color Lesions: no lesions Rashes: no rashes Trauma: no lacerations or abrasions Wounds: no wounds Hair: normal Nails: normal Neuro: General: oriented to person, oriented to place, oriented to time and patient oriented x3 Cognition (Neuro): normal cognition Speech: normal speech Gait exam (Neuro): Normal gait present Motor exam (neuro): 5/5 motor strength present throughout Sensory Exam: normal sensation Extrem: General: normal to inspection Right upper extremity: normal to inspection and shoulder/upper arm Left upper extremity: normal to inspection and shoulder/upper arm Right lower extremity: normal to inspection Left lower extremity: normal to inspection Psych: Appearance: grossly normal Mental Status: mental status grossly normal Speech and movement: Normal speech and movement present Affect: normal affect Attitude: cooperative Thought process: Normal thought process present Thought content: Yes Normal thought content present Insight: Good insight present (Psych) Judgement: Good judgement present (Psych) H&P: Results Labs Labs: Short CBC 03/15/25 Range/Units 23:01 WBC 6.5 (4.5-10.0) K/mm3 Hgb 13.7 (12.0-15.0) g/dL Hct 40.9 (37.0-47.0) % Plt Count 236 (150-375) k/mm3 BMP 03/15/25 23:01 Sodium 120 L Potassium 4.3 Chloride 88 L Carbon Dioxide 28 BUN 11 Creatinine 0.69 L Glucose 127 H Calcium 8.9 Cardiac Enzymes 03/15/25 03/16/25 03/16/25 Range/Units 23:01 01:53 05:26 Total Creatine Kinase 62 (30-135) U/L Troponin I < 0.012 < 0.012 < 0.012 (0.000-0.034) ng/mL Liver Function 03/15/25 Range/Units 23:01 Total Bilirubin 0.2 (0.2-1.3) mg/dL AST 33 (14-36) U/L ALT 21 (6-35) U/L Alkaline Phosphatase 68 (38-126) U/L Albumin 4.1 (3.5-5.1) g/dL ECG Interpretation: Test Date: 2025-03-15 22:49:15 Measurements Intervals Dennard Rate: 60 P: 47 MO: 161 QRS: 13 QRSD: 95 T: 61 QT: 404 QTc: 407 Interpretive Statements SINUS RHYTHM WITH SINUS ARRHYTHMIA BASELINE ARTIFACT- I, II, III, AVR, AVL, AVF, V4-V6 NORMAL ECG Compared to ECG 03/15/2025 09:43:04 HEART RATE HAS INCREASED Electronically Signed On 03-16-2025 05:24:25 CDT by Rohan High D.O. Imaging Chest x-ray: Radiologist's impression: CT abdomen and pelvis: No acute intra abdominal abnormality. No bowel obstruction or inflammation. Normal appendix. Diverticulosis. No hydronephrosis or renal calculus. Hepatic steatosis and hepatomegaly. Cholecystectomy Assessment and Plan Assessment and plan (1) Acute hyponatremia: Code(s): E87.1 - Hypo-osmolality and hyponatremia Status: Inactive Assessment and Plan: -the patient stated she recently has been moving and stated that she has not been drinking much. He could possibly be dehydrated. The patient was given 1 L fluid in the Emergency Room the a.m. and a 2nd L of fluid when she returned later in the evening to the emergency room. The patient currently has 1 L fluid infusing at this time. I plan on be seeing that L of fluid because she is at risk for pulmonary edema with COVID. The patient stated that she is typically chronically low but only mildly low. -hydrochlorothiazide has been on hold. -patient's sodium level is somewhere around 130-134 at baseline. Her sodium level was initially 125 yesterday and then when she returned to the ER was 120. Is currently 123. Please continue to monitor closely if she has gone from 120-123 and 5-1/2 hours. -the patient also had some nausea and vomiting. The goal is to control her vomiting. (2) COVID-19: Code(s): U07.1 - COVID-19 Status: Acute Assessment and Plan: -the patient stated that she was on Paxlovid prior to admission and she feels that this made her sick to her stomach and made her hallucinate. She stated that she has had this in the past without difficulty but now she is having severe side effects from it. Paxlovid was stopped. -p.r.n. albuterol inhaler -Decadron p.o. -may consider CTA pulmonary if patient becomes too short of breath. -she is currently on room air with a pulse oximetry of 99%. -she does not appear to be in any respiratory distress. Her respiratory rate is 14. -continue to monitor pulse ox and respirations closely. (3) Hypertension: Code(s): I10 - Essential (primary) hypertension Status: Acute Assessment and Plan: -hydrochlorothiazide is on hold due to the low sodium -continue with lisinopril and monitor BMP daily (4) Abdominal pain: Code(s): R10.9 - Unspecified abdominal pain Status: Inactive Assessment and Plan: -CT abdomen and pelvis: No acute intra abdominal abnormality. No bowel obstruction or inflammation. Normal appendix. Diverticulosis. No hydronephrosis or renal calculus. Hepatic steatosis and hepatomegaly. Cholecystectomy -continue with Zofran. QTC is 407. (5) Nausea and vomiting: Qualifiers: Vomiting type: unspecified Qualified Code(s): R11.2 - Nausea with vomiting, unspecified Code(s): R11.2 - Nausea with vomiting, unspecified Status: Inactive Assessment and Plan: -continue with Zofran. -the patient has had 3 L of IV fluids in the last 24 hours. A plan to discontinue her fluids after this L completed. Quality VTE Prophylaxis VTE prophylaxis: mechanical ordered
[2025-03-16 06:37] LABS: Hematocrit 44.3 % (37.0-47.0); Hemoglobin 14.6 g/dL (12.0-15.0); Immature Granulocyte Percent A 0.3 % (0-0.5); Lymphocytes Absolute Auto 1.27 K/mm3 (0.9-3.2); Mean Corpuscular HGB Conc 33.0 g/dl (32-36); Mean Corpuscular Hemoglobin 30.0 pg (26-34); Mean Corpuscular Volume 91.2 fl (80-100); Nucleated Red Blood Cells Absolute Auto 0.000 K/mm3 (0.0-0.012); Nucleated Red Blood Cells Perc 0.0 % (0.0-0.2); Platelet Count Result 265 k/mm3 (150-375); Red Blood Count 4.86 M/mm3 (4.2-5.4); White Blood Count 6.4 K/mm3 (4.5-10.0)
[2025-03-16 06:45] LABS: Anion Gap 10 mmol/L (4-12); Blood Urea Nitrogen 8 mg/dL (7-17); Calcium 9.1 mg/dL (8.4-10.2); Carbon Dioxide 23 mmol/L (22-30); Chloride 90 mmol/L (98-107); Estimated CRCL calculation 64 ml/min; Estimated Glomerular Filt Rate > 60; Glucose 106 mg/dL (65-110); Magnesium 1.7 mg/dL (1.6-2.3); Potassium 4.6 mmol/L (3.4-5.0); Sodium 123 mmol/L (137-145)
[2025-03-16 07:12] LABS: Thyroid Stimulating Hormone Reflex 2.320 uIU/mL (0.465-4.68)
[2025-03-16] MEDS: MULTIVITS W-FE,MIN CHEWABLE TABLET 1 TABLET PO (08:40)
--- NOTE | 2025-03-16 08:55 | P.PNIM_ITS ---
Progress Note: A&P Assessment and Plan (1) Hypertension: Code(s): I10 - Essential (primary) hypertension Status: Acute (2) COVID-19: Code(s): U07.1 - COVID-19 Status: Acute (3) Acute hyponatremia: Code(s): E87.1 - Hypo-osmolality and hyponatremia Status: Acute (4) Medication side effect: Code(s): T88.7XXA - Unspecified adverse effect of drug or medicament, initial encounter Status: Acute Plan 79-year-old female with history of chronic hyponatremia, hypertension on hydrochlorothiazide, history of diverticulitis, constipation, stomach ulcer, hyperlipidemia, chronic leg swelling left greater than right, 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 The patient felt ill so she took it at home COVID test and call her PCP, covering service prescribed Paxlovid. Since then she has had the above symptoms, also has a metallic taste in her mouth. She had influenza previously and took Tamiflu had a similar metallic taste and hallucinations during that time. She describes hallucinations as right before she goes to sleep, she is hearing weird things and she some man at a computer with a blurred head. Quad viral screen demonstrating code PCR positive on admission. Laboratory evaluation on admission reveals a sodium of 120, she typically runs between 30 and 34 and is on hydrochlorothiazide. Head CT, chest x-ray, CT abdomen pelvis were unremarkable for acute abnormalities. TSH 2.3. Lipase 367 but an abdominal exam is benign. She was given multiple fluid boluses, dexamethasone, Tylenol, Zofran. ----- The majority of her symptoms are likely from side effect of Paxlovid rather than COVID itself. She is breathing comfortably and saturating 97% on room air. Her lungs are clear. At this time she does not require treatment for COVID. Continue dexamethasone. She is already 4 days out and remdesivir will likely not have a therapeutic affect. Monitor O2 saturations. avoid paxlovid, tamiflu. She has multiple medication side effects. She should start to feel better as the paxlovid is cleared. Continue normal saline at 75 cc/hour. As for her nausea, continue Zofran. Sucralfate 1 g a.c. HS. She feels very weak. Will consult PT/OT tomorrow if she is feeling better. Her sodium has improved she still feels the same, unlikely her symptomatology is related to low sodium. It was 120 on admission, improved to 123 after fluids. Due to nausea, hypovolemia, hydrochlorothiazide. Would like to stop hydrochlorothiazide altogether and give her other medications for blood pressure and swelling. Check BMP at 11:00 a.m.. Hypertension: Uncontrolled at this moment, she has been started on [employer] lisinopril 40 mg p.o. q.day and amlodipine 2.5 mg p.o. q.day, continue to monitor after morning administration. hypnagogic hallucinations: none since admission, ctm. likely 2/2 to paxlovid. Patient also feels like she is clenching her teeth and has not slept, she requests a sleep medication. Medication reactions reviewed, she has a lot of adverse effects. Advised bed rest and fluids for now. Can use melatonin at night. ----- Patient wishes to be full code. Medication reconciliation is being reviewed once again, patient's partner is bringing in her medications. Normal saline at 75 cc/hour. Lovenox 40 mg subQ q.day, the patient is at high risk for DVT. Discussed the risk versus benefits of this medication. Heart healthy diet. Monitor bowel habits. Stable to move to medical floor with telemetry. Greater than 55 minute spent on [id number] time, discussions with the patient, medical decision making. Time Spent With Patient Time with patient: Greater than 35 minutes Subjective Date/time seen: 03/16/25 08:55 Interval history: She has persistent nausea. She tells me about her hallucinations she had at home. Right when she was falling asleep she saw a man at a computer with a large head, heard weird sounds. At this time she feels agitated, nauseous, she is unable to sleep due to the paxlovid. Denies shortness of breath, cough, fever, chest pain. She has chronic left lower extremity lymphedema left greater than the right Review of Systems Review of Systems: All systems reviewed & are unremarkable except as noted in HPI and below (Subjective) Exam Const: General: comfortable and no acute distress HENMT: Mouth: Yes moist mucous membranes Eyes: Pupils: Equal, round and reactive pupils present Neck: Neck: supple Resp: Effort & Inspection: normal respiratory effort Auscultation: clear to auscultation bilaterally Cardio: Rate: regular rate Rhythm: regular rhythm Heart sounds: no murmurs GI: Inspection: non-distended GI Palp: Yes Soft to palpation, No Tenderness to palpation present (GI) and No Guarding due to palpation present (GI) Auscultation: normal bowel sounds Neuro: Motor exam (neuro): 5/5 motor strength present throughout Extrem: Other: Trace pitting edema bilateral left lower extremity [id number] Objective Data Vital Signs Vital Signs: Vital Signs - 24 hr 03/15/25 22:38 03/16/25 00:45 03/16/25 04:00 Temperature 98.3 F 98.3 F Pulse Rate 61 57 L 64 Respiratory Rate 18 14 14 Blood Pressure 147/64 H 135/62 149/64 H Pulse Oximetry 98 97 99 Oxygen Delivery Room Air 03/16/25 04:00 03/16/25 06:00 03/16/25 08:00 Temperature 97.9 F Pulse Rate 56 L 63 67 Respiratory Rate 16 Blood Pressure 174/62 H Pulse Oximetry 100 Oxygen Delivery Intake/Output Intake/Output: Intake & Output 03/13/25 03/14/25 03/15/25 03/16/25 23:59 23:59 23:59 23:59 Intake Total 1240 Output Total 1200 Balance 40 Meds/Results Medications: Active Medications Generic Name Dose Route Start Last Admin Trade Name Freq PRN Reason Stop Dose Admin Acetaminophen 1,000 mg 03/16/25 06:31 Acetaminophen 500 Mg Tablet PO TID PRN Pain Albuterol 2 puff 03/16/25 06:30 Albuterol Sulfate (*Sp) Aerosol 1 Puff INHALATION Q6HRT PRN Shortness Of Breath Amlodipine Besylate 2.5 mg 03/16/25 09:00 03/16/25 08:23 Amlodipine Besylate 2.5 Mg Tablet PO 2.5 mg DAILY GINA Administration Benzonatate 200 mg 03/16/25 06:36 Benzonatate 100 Mg Capsule PO TID PRN cough Sodium Chloride 1,000 mls @ 75 mls/hr 03/16/25 02:25 03/16/25 05:56 Normal Saline Iv IV CONT 125 mls/hr .[id number] GINA Administration Latanoprost 1 drop 03/16/25 21:00 Latanoprost 0.005% Op Soln 2.5 Ml Btl EACH EYE HS [facility] Lidocaine 1 patch 03/16/25 09:00 03/16/25 08:24 Lidocaine 5% Patch TOPICAL Not Given DAILY [facility] Lisinopril 40 mg 03/16/25 09:00 03/16/25 08:22 Lisinopril 20 Mg Tablet PO 40 mg DAILY GINA Administration Methocarbamol 500 - 1,000 mg 03/16/25 06:31 Methocarbamol 500 Mg Tablet PO BID PRN muscle spasms Multivitamins/Minerals 1 tablet 03/16/25 09:00 03/16/25 08:40 Multivits W-Fe,Min Chewable Tablet PO 1 tablet DAILY GINA Administration Ondansetron HCl 4 mg 03/16/25 06:31 Ondansetron Inj 4 Mg/2 Ml Vial IV PUSH Q4H PRN Nausea And Vomiting Pravastatin Sodium 40 mg 03/16/25 21:00 Pravastatin Sodium 20 Mg Tablet PO HS GINA Sucralfate 1 gm 03/16/25 11:30 Sucralfate 1 Gm Tablet PO ACHS [facility] Radiology Results: ITS Impressions Abdomen/Pelvis CT 03/16/25 07:22 IMPRESSION: 1. No etiology for the patient's symptoms. Labs Labs: Laboratory Results - last 24 hr 03/15/25 03/16/25 03/16/25 23:01 01:53 05:21 WBC 6.5 RBC 4.56 Hgb 13.7 Hct 40.9 MCV 89.7 MCH 30.0 MCHC 33.5 RDW 12.3 Plt Count 236 MPV 9.6 Immature Gran % (Auto) 0.3 Neut % (Auto) 71.3 Lymph % (Auto) 18.5 [place] % (Auto) 8.3 Eos % (Auto) 1.1 Baso % (Auto) 0.5 Lymph # (Auto) 1.20 [place] # (Auto) 0.5 Eos # (Auto) 0.1 Baso # (Auto) 0.0 Abs Immat Gran (auto) 0.02 Absolute Neuts (auto) 4.6 Absolute Nucleated RBC 0.000 Nucleated RBC % 0.0 PT 13.0 INR 1.0 APTT 28.8 Sodium 120 L Cancelled Potassium 4.3 Cancelled Chloride 88 L Cancelled Carbon Dioxide 28 Cancelled Anion Gap 4 Cancelled BUN 11 Cancelled Creatinine 0.69 L Cancelled Estim Creat Clear Calc Not Reportable Cancelled Estimated GFR > 60 Cancelled Glucose 127 H Cancelled Calcium 8.9 Cancelled Magnesium Cancelled Total Bilirubin 0.2 AST 33 ALT 21 Alkaline Phosphatase 68 Total Creatine Kinase 62 Troponin I < 0.012 < 0.012 Total Protein 6.9 Albumin 4.1 Lipase 367 H TSH (Reflex) 2.320 03/16/25 05:26 WBC 6.4 RBC 4.86 Hgb 14.6 Hct 44.3 MCV 91.2 MCH 30.0 MCHC 33.0 RDW 12.5 Plt Count 265 MPV 10.2 Immature Gran % (Auto) 0.3 Neut % (Auto) 71.6 Lymph % (Auto) 19.8 [place] % (Auto) 7.2 Eos % (Auto) 0.5 Baso % (Auto) 0.6 Lymph # (Auto) 1.27 [place] # (Auto) 0.5 Eos # (Auto) 0.0 Baso # (Auto) 0.0 Abs Immat Gran (auto) 0.02 Absolute Neuts (auto) 4.6 Absolute Nucleated RBC 0.000 Nucleated RBC % 0.0 PT INR APTT Sodium 123 L Potassium 4.6 Chloride 90 L Carbon Dioxide 23 Anion Gap 10 BUN 8 Creatinine 0.63 L Estim Creat Clear Calc 64 Estimated GFR > 60 Glucose 106 Calcium 9.1 Magnesium 1.7 Total Bilirubin AST ALT Alkaline Phosphatase Total Creatine Kinase Troponin I < 0.012 Total Protein Albumin Lipase TSH (Reflex)
[2025-03-16] MEDS: ENOXAPARIN 40 MG/0.4 ML SYRINGE SUB-Q (10:01)
[2025-03-16 11:28] LABS: Anion Gap 7 mmol/L (4-12); Blood Urea Nitrogen 7 mg/dL (7-17); Calcium 9.0 mg/dL (8.4-10.2); Carbon Dioxide 28 mmol/L (22-30); Chloride 86 mmol/L (98-107); Estimated CRCL calculation 70 ml/min; Estimated Glomerular Filt Rate > 60; Glucose 175 mg/dL (65-110); Potassium 4.9 mmol/L (3.4-5.0); Sodium 121 mmol/L (137-145)
[2025-03-16] MEDS: SUCRALFATE 1 GM TABLET PO ×3 (11:32→22:02)
--- NOTE | 2025-03-16 17:51 | PC.NURSE ---
This patient, Atiya Aguilera, was received from on 03/16/25 at 1751. Patient/family oriented to unit policies and routines.
--- NOTE | 2025-03-16 17:57 | PC.NURSE ---
Pt transferred to room 303 at 1743. Report given to SENTHIL York.
[2025-03-16] MEDS: PRAVASTATIN SODIUM 20 MG TABLET 40 MG PO (22:02)
[2025-03-16] MEDS: LATANOPROST 0.005% OP SOLN 2.5 ML BTL 1 DROP EACH EYE (22:08)
[2025-03-17] VITALS (9 sets, daily range): BP systolic 127–141; BP diastolic 45–55; PULSE 55–76; RESP 16–18; TEMP 36.4–36.8; O2SAT 99–100
[2025-03-17] MEDS: SUCRALFATE 1 GM TABLET PO ×4 (05:37→21:02)
[2025-03-17 06:26] LABS: Hematocrit 38.3 % (37.0-47.0); Hemoglobin 12.7 g/dL (12.0-15.0); Immature Granulocyte Percent A 0.5 % (0-0.5); Lymphocytes Absolute Auto 0.88 K/mm3 (0.9-3.2); Mean Corpuscular HGB Conc 33.2 g/dl (32-36); Mean Corpuscular Hemoglobin 30.0 pg (26-34); Mean Corpuscular Volume 90.5 fl (80-100); Nucleated Red Blood Cells Absolute Auto 0.000 K/mm3 (0.0-0.012); Nucleated Red Blood Cells Perc 0.0 % (0.0-0.2); Platelet Count Result 233 k/mm3 (150-375); Red Blood Count 4.23 M/mm3 (4.2-5.4); White Blood Count 12.0 K/mm3 (4.5-10.0)
[2025-03-17 07:44] LABS: Anion Gap 4 mmol/L (4-12); Blood Urea Nitrogen 12 mg/dL (7-17); Calcium 9.1 mg/dL (8.4-10.2); Carbon Dioxide 25 mmol/L (22-30); Chloride 96 mmol/L (98-107); Estimated CRCL calculation 63 ml/min; Estimated Glomerular Filt Rate > 60; Glucose 151 mg/dL (65-110); Magnesium 1.9 mg/dL (1.6-2.3); Potassium 4.5 mmol/L (3.4-5.0); Sodium 125 mmol/L (137-145)
[2025-03-17] MEDS: ENOXAPARIN 40 MG/0.4 ML SYRINGE SUB-Q (09:27)
[2025-03-17] MEDS: MULTIVITS W-FE,MIN CHEWABLE TABLET 1 TABLET PO (09:27)
--- NOTE | 2025-03-17 15:10 | P.PNIM_ITS ---
Progress Note: A&P Assessment and Plan (1) Hypertension: Code(s): I10 - Essential (primary) hypertension Status: Acute (2) COVID-19: Code(s): U07.1 - COVID-19 Status: Acute (3) Acute hyponatremia: Code(s): E87.1 - Hypo-osmolality and hyponatremia Status: Acute (4) Medication side effect: Code(s): T88.7XXA - Unspecified adverse effect of drug or medicament, initial encounter Status: Acute Plan 79-year-old female with history of chronic hyponatremia, hypertension on hydrochlorothiazide, history of diverticulitis, constipation, stomach ulcer, hyperlipidemia, chronic leg swelling left greater than right, 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 The patient felt ill so she took it at home COVID test and call her PCP, covering service prescribed Paxlovid. Since then she has had the above symptoms, also has a metallic taste in her mouth. She had influenza previously and took Tamiflu had a similar metallic taste and hallucinations during that time. She describes hallucinations as right before she goes to sleep, she is hearing weird things and she some man at a computer with a blurred head. Quad viral screen demonstrating code PCR positive on admission. Laboratory evaluation on admission reveals a sodium of 120, she typically runs between 30 and 34 and is on hydrochlorothiazide. Head CT, chest x-ray, CT abdomen pelvis were unremarkable for acute abnormalities. TSH 2.3. Lipase 367 but an abdominal exam is benign. She was given multiple fluid boluses, dexamethasone, Tylenol, Zofran. ----- 03/17/2025 update: Patient is walking around, she feels much stronger. She has declined for PT OT. She reports she is breathing comfortably without any nausea or vomiting. Avoid Paxil of it. Discontinue normal saline. Sodium improved, check 1 again now and in the morning to ensure proper increased. Has good oral intake at this time. No more hallucinations. The majority of her symptoms are likely from side effect of Paxlovid rather than COVID itself. She is breathing comfortably and saturating 97% on room air. Her lungs are clear. At this time she does not require treatment for COVID. Continue dexamethasone. She is already 4 days out and remdesivir will likely not have a therapeutic affect. Monitor O2 saturations. avoid paxlovid, tamiflu. She has multiple medication side effects. She should start to feel better as the paxlovid is cleared. Continue normal saline at 75 cc/hour. As for her nausea, continue Zofran. Sucralfate 1 g a.c. HS. She feels very weak. Will consult PT/OT tomorrow if she is feeling better. Her sodium has improved she still feels the same, unlikely her symptomatology is related to low sodium. It was 120 on admission, improved to 123 after fluids. Due to nausea, hypovolemia, hydrochlorothiazide. Would like to stop hydrochlorothiazide altogether and give her other medications for blood pressure and swelling. Check BMP at 11:00 a.m.. Hypertension: Uncontrolled at this moment, she has been started on PR[employer]ING [employer]OTH TENDER lisinopril 40 mg p.o. q.day and amlodipine 2.5 mg p.o. q.day, continue to monitor after morning administration. hypnagogic hallucinations: none since admission, ctm. likely 2/2 to paxlovid. Patient also feels like she is clenching her teeth and has not slept, she requests a sleep medication. Medication reactions reviewed, she has a lot of adverse effects. Advised bed rest and fluids for now. Can use melatonin at night. ----- Patient wishes to be full code. Saline lock IV Lovenox 40 mg subQ q.day Patient requested to remove peripheral IV Heart healthy diet. Monitor bowel habits. Discontinue telemetry. Stable on medical floor. Time Spent With Patient Time with patient: 25 - 35 minutes Subjective Date/time seen: 03/17/25 15:11 Interval history: No acute overnight events. Patient reports no symptomatology at all today. She says she is markedly improved. Review of Systems Review of Systems: All systems reviewed & are unremarkable except as noted in HPI and below (Subjective) Exam Const: General: comfortable and no acute distress HENMT: Mouth: Yes moist mucous membranes Eyes: Pupils: Equal, round and reactive pupils present Neck: Neck: supple Resp: Effort & Inspection: normal respiratory effort Auscultation: clear to auscultation bilaterally Cardio: Rate: regular rate Rhythm: regular rhythm Heart sounds: no murmurs GI: Inspection: non-distended GI Palp: Yes Soft to palpation Neuro: Motor exam (neuro): 5/5 motor strength present throughout Extrem: General: no edema Objective Data Vital Signs Vital Signs: Vital Signs - 24 hr 03/16/25 16:00 03/16/25 16:00 03/16/25 17:45 Temperature 98 F 97.3 F L Pulse Rate 70 73 79 Respiratory Rate 18 18 Blood Pressure 135/56 L 168/96 H Pulse Oximetry 98 99 Oxygen Delivery 03/16/25 20:00 03/16/25 21:01 03/16/25 22:02 Temperature 97.5 F L Pulse Rate 72 66 Respiratory Rate 16 Blood Pressure 136/59 L Pulse Oximetry 99 Oxygen Delivery Room Air 03/16/25 23:39 03/17/25 00:00 03/17/25 04:00 Temperature 97.5 F L Pulse Rate 66 59 L 55 L Respiratory Rate 16 Blood Pressure 136/59 L Pulse Oximetry 99 Oxygen Delivery 03/17/25 05:22 03/17/25 08:00 03/17/25 09:30 Temperature 97.5 F L Pulse Rate 55 L 58 L Respiratory Rate 16 Blood Pressure 127/45 L Pulse Oximetry 99 Oxygen Delivery Room Air 03/17/25 12:00 Temperature Pulse Rate 62 Respiratory Rate Blood Pressure Pulse Oximetry Oxygen Delivery Intake/Output Intake/Output: Intake & Output 03/14/25 03/15/25 03/16/25 03/17/25 23:59 23:59 23:59 23:59 Intake Total 4373.3 780 Output Total 3425 Balance 948.3 780 Meds/Results Medications: Active Medications Generic Name Dose Route Start Last Admin Trade Name Freq PRN Reason Stop Dose Admin Acetaminophen 1,000 mg 03/16/25 06:31 Acetaminophen 500 Mg Tablet PO TID PRN Pain Albuterol 2 puff 03/16/25 06:30 Albuterol Sulfate (*Sp) Aerosol 1 Puff INHALATION Q6HRT PRN Shortness Of Breath Amlodipine Besylate 2.5 mg 03/16/25 09:00 03/17/25 09:27 Amlodipine Besylate 2.5 Mg Tablet PO 2.5 mg DAILY GINA Administration Benzonatate 200 mg 03/16/25 06:36 Benzonatate 100 Mg Capsule PO TID PRN cough Enoxaparin Sodium 40 mg 03/16/25 09:05 03/17/25 09:27 Enoxaparin 40 Mg/0.4 Ml Syringe SUB-Q 40 mg DAILY GINA Administration Latanoprost 1 drop 03/16/25 21:00 03/16/25 22:08 Latanoprost 0.005% Op Soln 2.5 Ml Btl EACH EYE 1 drop HS GINA Administration Lidocaine 1 patch 03/16/25 09:00 03/17/25 09:29 Lidocaine 5% Patch TOPICAL Not Given DAILY GINA Lisinopril 40 mg 03/16/25 09:00 03/17/25 09:27 Lisinopril 20 Mg Tablet PO 40 mg DAILY GINA Administration Methocarbamol 500 - 1,000 mg 03/16/25 06:31 Methocarbamol 500 Mg Tablet PO BID PRN muscle spasms Multivitamins/Minerals 1 tablet 03/16/25 09:00 03/17/25 09:27 Multivits W-Fe,Min Chewable Tablet PO 1 tablet DAILY GINA Administration Pravastatin Sodium 40 mg 03/16/25 21:00 03/16/25 22:02 Pravastatin Sodium 20 Mg Tablet PO 40 mg HS GINA Administration Sucralfate 1 gm 03/16/25 11:30 03/17/25 12:35 Sucralfate 1 Gm Tablet PO 1 gm ACHS GINA Administration Radiology Results: ITS Impressions Abdomen/Pelvis CT 03/16/25 07:22 IMPRESSION: 1. No etiology for the patient's symptoms. Labs Labs: Laboratory Results - last 24 hr 03/17/25 05:31 WBC 12.0 H RBC 4.23 Hgb 12.7 Hct 38.3 MCV 90.5 MCH 30.0 MCHC 33.2 RDW 12.4 Plt Count 233 MPV 10.0 Immature Gran % (Auto) 0.5 Neut % (Auto) 87.0 H Lymph % (Auto) 7.3 L Castro % (Auto) 5.1 Eos % (Auto) 0.0 Baso % (Auto) 0.1 L Lymph # (Auto) 0.88 L Castro # (Auto) 0.6 Eos # (Auto) 0.0 Baso # (Auto) 0.0 Abs Immat Gran (auto) 0.06 H Absolute Neuts (auto) 10.4 H Absolute Nucleated RBC 0.000 Nucleated RBC % 0.0 Sodium 125 L Potassium 4.5 Chloride 96 L Carbon Dioxide 25 Anion Gap 4 BUN 12 D Creatinine 0.64 L Estim Creat Clear Calc 63 Estimated GFR > 60 Glucose 151 H Calcium 9.1 Magnesium 1.9
[2025-03-17 16:48] LABS: Anion Gap 3 mmol/L (4-12); Blood Urea Nitrogen 17 mg/dL (7-17); Calcium 9.1 mg/dL (8.4-10.2); Carbon Dioxide 28 mmol/L (22-30); Chloride 94 mmol/L (98-107); Estimated CRCL calculation 56 ml/min; Estimated Glomerular Filt Rate > 60; Glucose 136 mg/dL (65-110); Potassium 4.6 mmol/L (3.4-5.0); Sodium 125 mmol/L (137-145)
[2025-03-17] MEDS: LATANOPROST 0.005% OP SOLN 2.5 ML BTL 1 DROP EACH EYE (21:01)
[2025-03-17] MEDS: PRAVASTATIN SODIUM 20 MG TABLET 40 MG PO (21:01)
[2025-03-18] MEDS: SUCRALFATE 1 GM TABLET PO (05:44)
[2025-03-18 06:13] LABS: Hematocrit 38.5 % (37.0-47.0); Hemoglobin 12.6 g/dL (12.0-15.0); Immature Granulocyte Percent A 0.4 % (0-0.5); Lymphocytes Absolute Auto 0.99 K/mm3 (0.9-3.2); Mean Corpuscular HGB Conc 32.7 g/dl (32-36); Mean Corpuscular Hemoglobin 30.1 pg (26-34); Mean Corpuscular Volume 91.9 fl (80-100); Nucleated Red Blood Cells Absolute Auto 0.000 K/mm3 (0.0-0.012); Nucleated Red Blood Cells Perc 0.0 % (0.0-0.2); Platelet Count Result 245 k/mm3 (150-375); Red Blood Count 4.19 M/mm3 (4.2-5.4); White Blood Count 12.5 K/mm3 (4.5-10.0)
[2025-03-18 06:39] LABS: Anion Gap 5 mmol/L (4-12); Blood Urea Nitrogen 17 mg/dL (7-17); Calcium 9.0 mg/dL (8.4-10.2); Carbon Dioxide 28 mmol/L (22-30); Chloride 94 mmol/L (98-107); Estimated CRCL calculation 60 ml/min; Estimated Glomerular Filt Rate > 60; Glucose 144 mg/dL (65-110); Magnesium 2.1 mg/dL (1.6-2.3); Potassium 4.6 mmol/L (3.4-5.0); Sodium 127 mmol/L (137-145)
[2025-03-18 06:54] LABS: Procalcitonin 0.0 ng/mL
[2025-03-18 07:00] VITALS: BP 139/45; PULSE 62; RESP 18; TEMP 36.4; O2SAT 99
[2025-03-18] MEDS: MULTIVITS W-FE,MIN CHEWABLE TABLET 1 TABLET PO (08:42)
--- NOTE | 2025-03-18 09:27 | PM.DS ---
DS: Admitting Diagnosis Discharge Date 03/18/2025 Admitting Diagnosis Hyponatremia DS: Discharge Diagnosis Discharge Diagnosis (1) Medication side effect: Code(s): T88.7XXA - Unspecified adverse effect of drug or medicament, initial encounter Status: Acute (2) Hypertension: Code(s): I10 - Essential (primary) hypertension Status: Acute (3) Acute hyponatremia: Code(s): E87.1 - Hypo-osmolality and hyponatremia Status: Acute (4) Dehydration: Code(s): E86.0 - Dehydration Status: Acute (5) COVID-19: Code(s): U07.1 - COVID-19 Status: Acute DS: Summary Hospital Course Hospital Course: 79-year-old female with history of chronic hyponatremia, hypertension on hydrochlorothiazide, history of diverticulitis, constipation, stomach ulcer, hyperlipidemia, chronic leg swelling left greater than right, 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 The patient felt ill so she took it at home COVID test and call her PCP, covering service prescribed Paxlovid. Since then she has had the above symptoms, also has a metallic taste in her mouth. She had influenza previously and took Tamiflu had a similar metallic taste and hallucinations during that time. She describes hallucinations as right before she goes to sleep, she is hearing weird things and she some man at a computer with a blurred head. Quad viral screen demonstrating code PCR positive on admission. Laboratory evaluation on admission reveals a sodium of 120, she typically runs between 30 and 34 and is on hydrochlorothiazide. Head CT, chest x-ray, CT abdomen pelvis were unremarkable for acute abnormalities. TSH 2.3. Lipase 367 but an abdominal exam is benign. She was given multiple fluid boluses, dexamethasone, Tylenol, Zofran. ----- All of her symptoms were due to medication side effect of Paxlovid. The paxolvid was withheld. Her nausea, vomiting, hallucinations, restlessness, hyponatremia all resolved. She had similar symptoms with Tamiflu, I have added both of those medications to her adverse reaction list. She receives all of her COVID vaccinations and boosters. Her partner is present on 03/18/2025 eager to take her home. The patient would like to leave today. She is relatively stable for discharge. Fluids have been discontinued and she is eating and drinking well on her own. Her sodium has improved to 127. We discussed the proper monitoring and slow increase of her sodium levels and the risk of sodium going too high or too low, they expressed their understanding and would like to monitor in the outpatient setting. Elevated white count, which could be due to receiving steroid on admission, the patient feels at her baseline without any symptomatology to indicate infection. Her procalcitonin level is 0 as well. Repeat labs in 2 days to be forwarded to her PCP, follow-up with PCP within 7 days. Due to hyponatremia, hydrochlorothiazide has been discontinued, further management per PCP, blood pressure 139/45 on discharge. The patient was full code during admission. Status at Discharge Overall status at discharge: patient is back to baseline Time Spent with Patient Time attestation: Total time spent providing and/or coordinating discharge services: Time spent: Greater than 30 minutes Exam Const: General: comfortable and no acute distress HENMT: Mouth: Yes moist mucous membranes Eyes: Pupils: Equal, round and reactive pupils present Neck: Neck: supple Resp: Effort & Inspection: normal respiratory effort Auscultation: clear to auscultation bilaterally Cardio: Rate: regular rate Rhythm: regular rhythm Heart sounds: no murmurs GI: Inspection: non-distended GI Palp: Yes Soft to palpation Neuro: Motor exam (neuro): 5/5 motor strength present throughout Extrem: General: no edema DS: Data Data Completed and Pending Labs on day of discharge: Labs from last 24 hours 03/18/25 03/17/25 05:26 16:21 WBC 12.5 H RBC 4.19 L Hgb 12.6 Hct 38.5 MCV 91.9 MCH 30.1 MCHC 32.7 RDW 12.6 Plt Count 245 MPV 10.3 Immature Gran % (Auto) 0.4 Neut % (Auto) 85.8 H Lymph % (Auto) 7.9 L Perkins % (Auto) 5.8 Eos % (Auto) 0.0 Baso % (Auto) 0.1 L Lymph # (Auto) 0.99 Perkins # (Auto) 0.7 H Eos # (Auto) 0.0 Baso # (Auto) 0.0 Abs Immat Gran (auto) 0.05 H Absolute Neuts (auto) 10.7 H Absolute Nucleated RBC 0.000 Nucleated RBC % 0.0 Sodium 127 L 125 L Potassium 4.6 4.6 Chloride 94 L 94 L Carbon Dioxide 28 28 Anion Gap 5 3 L BUN 17 17 Creatinine 0.68 L 0.73 Estim Creat Clear Calc 60 56 Estimated GFR > 60 > 60 Glucose 144 H 136 H Calcium 9.0 9.1 Magnesium 2.1 Procalcitonin 0.0 Discharge Plan Discharge Attending physician on discharge: valdo Discharging Clinician: Evelyn Stern Patient Disposition: Home Activity: october shower Diet: as tolerated Patient Instructions: Antibiotic Form Patient Language: Gambian Stand Alone Forms: General Discharge Information Follow-up/Referrals: Na,Lavern Bridges APRN [Primary Care Provider, Unknown] - 03/23/25 Referral Note: f/u on covid, low sodium, hospital stay. Discharge Medications: Continued lisinopril 40 mg tablet 40 mg PO DAILY pravastatin 40 mg tablet 40 mg PO HS Wal-Zyr (cetirizine) 10 mg capsule 10 mg PO DAILY latanoprost 0.005 % drops 1 drp EACH EYE HS amlodipine 2.5 mg tablet 2.5 mg PO DAILY Centrum Adult 50 Plus 80 mcg Tablet,Chewable 1 tablet PO DAILY acetaminophen 500 mg tablet 1,000 mg PO TID PRN (Reason: Pain) lidocaine 5 % adhesive patch,medicated 1 patch topical DAILY Qty: 30 0RF Rx Instructions: leave on most painful area for up to 12 hrs methocarbamol 500 mg Tablet 500 mg PO BID PRN (Reason: muscle spasms) Rx Instructions: take 1-2 tablets by mouth BID PRN muscle spasms Discontinued hydrochlorothiazide 12.5 mg capsule 12.5 mg PO Q12H hydrochlorothiazide 12.5 mg tablet 12.5 mg PO DAILY amoxicillin 500 mg Tablet 2,000 mg PO ONCE PRN (Reason: PROPHYLACTIC) Patient Comments: PRIOR TO DENTAL PROCEDURES Rx Instructions: before dental procedures ibuprofen 600 mg Tablet 1,200 mg PO BID benzonatate 200 mg capsule 200 mg PO TID PRN (Reason: cough) Qty: 20 0RF ondansetron 4 mg tablet,disintegrating 4 mg PO Q8H PRN (Reason: nausea and vomiting) Qty: 15 0RF Other Ambulatory Orders: Basic Metabolic Panel (Routine) Timeframe: 2 Days Location: Determined by Patient Ordered By: Evelyn Stern Complete Blood Count with Diff (Routine) Timeframe: 2 Days Location: Determined by Patient Ordered By: Evelyn Stern Date of admission: 03/16/25 02:25 Primary Care Provider: NaLavern Admitting Provider: Evelyn Stern Attending physician on admission: Evelyn Stern Condition: Stable Hospitalist MIPS Heart Failure (Exclusion) Patient has history of Heart Transplant or Left Ventricular Assistive Device?: No IF YES, STOP HERE Heart Failure (Qualifier) Patient has current or prior documentation of LVEF less than or equal to 40%, or mod/servere depressed LVSF?: No IF NO, STOP HERE
[2025-03-22 04:07] LABS: Osmolality, Serum 257 mOsmol/kg (280-301)
[2025-03-22 13:08] LABS: Osmolality, Urine 419 mOsmol/kg (.)
== END 2025-03-18 10:40 | disposition home or self-care (01) | DRG 640 ==
LOC: ANHED 03-16 01:24 → ANHIMU 03-16 02:47 → ANH3MEDSUR 03-16 17:45
PROVIDERS: Nurse Practitioner; Admitting Provider Internal Medicine; Emergency Provider Student in an Organized Health Care Education/Training Program; PCP Nurse Practitioner; Visit Provider General Practice
DX: E86.1 Hypovolemia (principal); U07.1 COVID-19; R44.2 Other hallucinations; E87.1 Hypo-osmolality and hyponatremia; T37.5X5A Adverse effect of antiviral drugs, initial encounter; R11.2 Nausea with vomiting, unspecified; E78.5 Hyperlipidemia, unspecified; I10 Essential (primary) hypertension; R10.9 Unspecified abdominal pain; M54.50 Low back pain, unspecified; I89.0 Lymphedema, not elsewhere classified; T38.0X5A Adverse effect of glucocorticoids and synthetic analogues, initial encounter; D72.829 Elevated white blood cell count, unspecified; E86.0 Dehydration; Z77.22 Contact with and (suspected) exposure to environmental tobacco smoke (acute) (chronic); Z87.19 Personal history of other diseases of the digestive system; Z90.49 Acquired absence of other specified parts of digestive tract; Z86.79 Personal history of other diseases of the circulatory system
CPT/HCPCS: 36415; 74177; 80048; 80053; 82550; 83690; 83735; 83930; 83935; 84145; 84443; 84484; 85025; 85610; 85730; 93005; 96361; 96374; 99285; A9270; J1650; J2405; J7030; J8540; Q9967

== ENCOUNTER 2025-03-20 07:35 | Outpatient (CLI) | payer MEDICARE, SELFPAY ==
--- OUTSIDE RECORDS SUMMARY | 2009-12-10 08:15 | XMS_ITS | Continuity of Care Document ---
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 Name Role Phone Moffett OD, Isak Unavailable Unavailable Procedures Procedure Date Visual Field Examination(s) Optic Nerve Topography Optic Nerve Topography Eye Exam & Treatment Refraction Office/outpatient Visit, Est Optic Nerve Topography Optic Nerve Topography Visual Field Examination(s) Removal Of Skin Lesion No Charge Contact Lens Check CL Replacement - Vistakon Disp W/BW Soft [facility] Medical Eye Exam & Treatment Refraction No Charge Contact Lens Check CL Replacement - Vistak[employer] Disp W/BW Soft [facility] No Charge Contact Lens Check No Charge Contact Lens Check No Charge Contact Lens Check Office/outpatient Visit, Est Visual Field Examination(s) Office/outpatient Visit, Est No Charge Contact Lens Check CL Replacement - Vistakon Disp W/BW Soft [facility] No Charge Contact Lens Check CL Replacement - Vistakon Disp W/BW Soft [facility] No Charge Contact Lens Check Advance Directives Directive Yes / No Effective Date File Name No Information Encounters Encounter Description Practice Location Reason(s) For Visit Diagnoses Date Provider Providers Copied on Encounter formerly [facility], [id number] [place] [address] [address], [place], [place], [address], [place] tel:[phone] [facility] No Information 8-201 0 Moffett OD Isak. [address] [facility] [address], [place], [place], [facility], . tel:[phone] Referring Provider: Isak Moffett OD A, [address] [place], [place] [address]ate [address], [place], [facility]. tel:[phone] formerly [facility], [address], [place], [place], [address], [place] tel:[phone] [facility] No Information 5-201 0 Moffett OD Isak. [address] [facility] [address], [address], [place], [facility], [place]. tel:[phone] Referring Provider: Isak Moffett OD A, [address] [place], [place] [address]ate [address], [place], [facility]. tel:[phone] formerly [facility], [address] [place] [address] [address], [place], [place], [address], [place] tel:[phone] [facility] No Information 8-201 0 Moffett OD Isak. [address] [place] [address] [address], [address], [place], [facility], [place]. tel:[phone] Office/outpat ient Visit, Est formerly [facility], [address], [place], [place], [address], [place] tel:[phone] [facility] No Information 3-200 9 Moffett OD Isak. [address] [facility] [address], [address], [place], [facility], [place]. tel:[phone] formerly [facility], [address], [place], [place], [address], [place] tel:[phone] [facility] No Information 7-200 9 Moffett OD Isak. [address] [place], [place] [address]ate Center , [address], [place], [facility], . tel:[phone] Referring Provider: Isak Moffett OD A, [address] [place], [place] [address], [place], [facility]. tel:[phone] [facility], [address] [place] [address] [address], [place], [place], [address], tel:[phone] [facility] No Information 9-200 9 Moffett OD Isak. [address] [place], [place] [address]ate Center , [address], [place], [facility], . tel:[phone] Referring Provider: Isak Moffett OD A, [address] [place], [place] [address]ate [address], [place], [facility]. tel:[phone] [facility], [address] [place] [address] [address], [place], [place], [address], tel:[phone] [facility] No Information 8-200 9 Miramontes Nitza. [address] [place], [place] [address]ate Center , [address], [place], [facility], . tel:[phone] Referring Provider: Isak Moffett OD A, [address] [place], [place] [address]ate [address], [place], [facility]. tel:[phone] [facility], [address] [place] [address] [address], [place], [place], [address], [place] tel:[phone] [facility] [place] No Information 4-200 8 Moffett OD Isak. [address] [place], [place] [address], [place], [facility], [place]. tel:[phone] [facility], [address] [place] [address] [address], [place], [place], [address], [place] tel:[phone] [facility] No Information Dec-1 6-200 8 Moffett OD Isak. [address] , [address], [place], [address], [place]. tel:[phone] [facility], [address], [place], [place], [address], [place] tel:[phone] [facility] No Information Nov-1 4-200 8 Moffett OD Isak. [address] , [address], [place], [facility], [place]. tel:[phone] [facility], [address] [place] [address] [address], [place], [place], [address], [place] tel:[phone] [facility] No Information Oct-3 0-200 8 Moffett OD Isak. [address] , [address], [place], [facility], [place]. tel:[phone] [facility], [address] [place] [address] [address], [place], [place], [address], [place] tel:[phone] [facility] No Information Sep-1 8-200 8 Moffett OD Isak. [address] , [address], [place], [address], [place]. tel:[phone] [facility], [address] [place] [address] [address], [place], [place], [address], [place] tel:[phone] [facility] No Information Sep-1 2-200 8 Moffett OD Isak. [address] , [address], [place], [address], [place]. tel:[phone] Office/outpat ient Visit, Est [facility], [address] [place] [address] [address], [place], [place], [address], [place] tel:[phone] [facility] [place] No Information Real-1 8-200 8 Moffett OD Isak. [address] , [address], [place], [facility], [place]. tel:[phone] [facility], [address], [place], [place], [address], [place] tel:[phone] [facility] No Information Dec-0 6-200 7 Moffett OD Isak. [address] [facility] [address], [place], [facility], [place]. tel:[phone] Referring Provider: Isak Moffett OD A, [facility] [address], [place], [facility]. tel:[phone] Office/outpat ient Visit, [facility], [address], [place], [place], [address], [place] tel:[phone] [facility] No Information Real-2 0-200 7 Moffett OD Isak. [address] [facility] [address], [address], [place], [facility], [place]. tel:[phone] [facility], [address] [place] [address] [address], [place], [place], [address], [place] tel:[phone] [facility] No Information Apr-2 4-200 7 Moffett OD Isak. [address] [facility], [address], [place], [address], [place]. tel:[phone] formerly [facility], [address], [place], [place], [address], [place] tel:[phone] [facility] No Information Apr-1 2-200 7 Moffett OD Isak. [address] [facility], [address], [place], [address], [place]. tel:[phone] [facility], [address], [place], [place], [address], [place] tel:[phone] [facility] No Information Apr-0 3-200 7 Moffett OD Isak. [address] , [address], [place], [address], [place]. tel:[phone] Family History Family Member Type Diagnosis Age At Onset No Information Payers Payer name Insurance type Covered democrat ID Authoriza tion(s) No Information Social History Type Description Quantity Date Captured Comments Sex Female Smoking Status No Information Chief Complaint And Reason For Visit No Information Reason For Referral Reason For Referral No Information History Of Present Illness Encounter Date Complaint History Of Prese nt Illness No Information Functional Status Date Functional Assessmen t No Information Instructions Date Instruction Additional Infor mation No Information Assessments Type Assessment Date No Information Patient Care Teams Name Effective Dates (start - stop) Status Members No Information
--- OUTSIDE RECORDS SUMMARY | 2025-03-20 07:39 | XMS_ITS | Encounter Summary ---
Author Organization [facility] Address [address] [place] [address] Care Team Providers Care Body Piercer Name Role Phone Indigo Curtis MD Unavailable [phone] Colton Hernández MD Unavailable [phone] Ida Bailey MD Primary Care Provider [phone] Antonio Santillan MD Primary Care Provider [phone] Hiram Fontenot MD Primary Care Provider [phone] Huber Matos MD Unavailable [phone] Leah Barajas MD Primary Care Provider + [phone] Myrna Devi PA-C Unavailable [phone] Lavern Monzon Primary Care Provider [phone] Encounter Details Date Type Department Care Team (Late Contact Info) Description 09/29/2016 SS Outpatient Visit [facility] Orthopedics [id number] [place] [address], [address] [address] Unknown, Provider Social History Tobacco Use Types Packs/Day Years Used Date Smoking Tobacco: Never Assessed Comments Unknown Sex and Gender Information Value Date Recorded Sex Assigned at Not on file 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 [address] [place] [address] [address] 05/03/2025 10:50 AM NET FISHER Office Visit [facility] Orthoped[facility] [address] [facility], [address] [address] [place] [address] [address] documented as of this encounter Visit Diagnoses Not on filedocumented in this encounter Care Teams Body Piercer Relationship Specialty [place] [address] [address] [address] PCP - General Family Medicine 05/29/16 07/13/17 Antonio Santillan MD [address] [place] [address] PCP - General Internal Medicine 07/14/17 02/08/18 Hiram Fontenot MD [address] [place] [address] PCP - General 02/09/18 07/15/20 [place] [address] [address] PCP - General Internal Medicine 10/08/20 07/11/24 Myrna Devi, PA-C [address] [address] PCP - Attributed-Sandeep [place] 10/13/22 07/02/23 Lavenr Monzon [address] [place] [address] PCP - General Electronics System Mechanic 07/12/24 Indigo Curtis MD Orthopedic Surgery 04/14/12 Colton Hernández [place] [address] [place] [address] Orthopedic Surgery 10/21/13 [place] [address] [place] [address] Physical Medicine and Rehabilitation 09/22/18 documented as of this encounter
--- OUTSIDE RECORDS SUMMARY | 2025-03-20 07:39 | XMS_ITS | Encounter Summary ---
Author Organization [facility] Address [address] [facility] [place] [address] Care Team Providers Care Compliance Representative Name Role Phone Indigo Curtis MD Unavailable [phone] Colton Hernández MD Unavailable [phone] Ida Bailey MD Primary Care Provider [phone] Antonio Santillan MD Primary Care Provider [phone] Hiram Fontenot MD Primary Care Provider [phone] Huber Matos MD Unavailable [phone] Leah Barajas MD Primary Care Provider [phone] Myrna Devi PA-C Unavailable [phone] Lavern Monzon Primary Care Provider [phone] Encounter Details Date Type Department Care Team (Late Contact Info) Description 06/04/2017 [facility] Outpatient Visit [facility] Orthoped[facility] [id number] [place] [address], [address] [address] Unknown, Provider Social History Tobacco Use Types Packs/Day Years Used Date Smoking Tobacco: Never Assessed Comments Unknown Sex and Gender Information Value Date Recorded Sex Assigned at Not on file Legal Sex Female 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 [address] [place] [address] [address] 05/03/2025 10:50 AM CONCERT PROMOTER Office Visit [facility] Health Orthopedics [address] [facility], [address] [address] [place] [address] [address] [address] documented as of this encounter Visit Diagnoses Not on filedocumented in this encounter Care Teams Compliance Representative Relationship Specialty [place] [address] [address] [address] PCP - General Family Medicine 05/29/16 07/13/17 Antonio Santillan MD [address] [place] [address] PCP - General Internal Medicine 07/14/17 02/08/18 Hiram Fontenot MD [address] [place] [address] PCP - General 02/09/18 07/15/20 [place] [address] [address] PCP - General Internal Medicine 10/08/20 07/11/24 Myrna Devi, PA-C [address] [address] PCP - Attributed-[place]andeep [place] 10/13/22 07/02/23 Lavern Monzon [address] [place] [address] PCP - General Machine Sander 07/12/24 Indigo Curtis MD Orthopedic Surgery 04/14/12 Colton Hernández [place] [address] [place] [address] Orthopedic Surgery 10/21/13 [place] [address] [place] [address] Physical Medicine and Rehabilitation 09/22/18 documented as of this encounter
--- OUTSIDE RECORDS SUMMARY | 2025-03-20 07:39 | XMS_ITS | Clinical Summary ---
Author Organization [facility] Address [address] [facility] [place] [address] Care Team Providers Care Park Worker Supervisor Name Role Phone Indigo Curtis MD Unavailable Colton Hernández MD Unavailable [phone] Huber Matos MD Unavailable [phone] Lavern Monzon Primary Care Provider [phone] Source Comments [facility],non-owned Affiliates and Associated Physician Practices is amultiple site organization consisting of ambulatory clinics and hospital sitesin [place], [place], [place] and [place]. This disclosure is being madepursuant to the Care Everywhere program and may not contain all information available regarding this patient. Last updated 18.[facility] Allergies Active Allergy Reactions Criticality Noted Date [...] 03/28/2024 Hydrogen Peroxide Rash Medium 04/13/2024 Ipratropium [place] Palpitations 08/27/2023 Cephalexin Nausea and/or Vomiting 04/14/2012 Oral form Toradol Nausea and/or Vomiting 04/03/2011 Latex Other 04/14/2012 blisters Levofloxacin Nausea and/or Vomiting,Myalgias 04/14/2012 Menthol (Topical Analgesic) Palpitations Low 08/27/2023 Flushing, red swollen face Wxzcfqqj-Jgfwelvyaa-Srwtz yxin Skin Reactions 08/27/2023 blisters Nystatin Rash [...] needed for Shortness of Breath Active Multiple Vitamins-[place] als (CENTRUM SILVER 50+WOMEN PO) Take 1 [...] Description 02/28/2025 Travel 02/16/2025 Travel 02/07/2025 Telephone [facility] [address] [place] [address] Mary Jane Pérez Scheduling 02/01/2025 2:45 PM CDT Office Visit [facility] [address] [place] [address], [address] [place] [address] Myrna Devi PA-C Status post reverse total shoulder replacement, right (Primary Dx) 02/01/2025 2:40 PM CDT Ancillary Procedure [facility] - Radiology [address] [place] [address] Myrna Devi PA-C Status post reverse total shoulder replacement, right 12/21/2024 3:00 PM CDT Office Visit [facility] [address] [place] [address], [address] [place] [address] Indigo Curtis MD Chronic right shoulder pain [...] Recorded Patient Health Questionnaire-2 Score 0 03/09/2025 [facility] Occupat ional Health - Occupational Stress [...] any time in the past 12 m [facility], were you homeless or living in a snf (including now)? 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 [place] [address] [place] [address] [address] 05/03/2025 10:50 AM AUTOMOTIVE STARTER REPAIRER Office Visit [facility] [address] [place] [address] [place] [address] [address] [address] Health Maintenance Due Date Last [...] this topic Medical Devices Implanted Type Area Billiard Parlor Manager Device Identifier Shelf Expiration Date Model / Serial / Lot Bsplt Glnd 30mm Rsp Shldr P2 Strl Lf Implanted:Qty: 1 on 09/29/2023 by Indigo Curtis MD at [facility] Right: Shoulder [employer] 09/14/2029 508-32-204 / / [id number] Stem Hum 48mm 6mm Sm Shl Implanted:Qty: 1 on 09/29/2023 by Indigo Curtis MD at [facility] Right: Shoulder [employer] 03/07/2029 533-06-048 / / [id number] Head Glnd 32mm Rsp -4mm Ofst Shldr Rtn Implanted:Qty: 1 on 04/19/2024 by Indigo Curtis MD at [facility] Right: Shoulder [employer] 03/27/2030 508-32-103 / / [id number] Altivate Reverse Torx Peripheral Screw, 26mm Implanted:Qty: 1 on 04/19/2024 by Indigo Curtis MD at [facility] Right: Shoulder [employer] 02/17/2029 506-04-126 / / [id number] Altivate Reverse Rev Mod Central Screw, 8.0 X 40mm Implanted:Qty: 1 on 04/19/2024 by Indigo uCrtis MD at [facility] Right: Shoulder [employer] 07/27/2028 508-80-040 / / [id number] Altivate Reverse Torx Peripheral Screw, 30mm Implanted:Qty: 1 on 04/19/2024 by Indigo Curtis MD at [facility] Right: Shoulder [employer] 10/14/2028 506-04-130 / / [id number] Altivate Reverse Torx Peripheral Screw, 18mm Implanted:Qty: 1 on 04/19/2024 by Indigo Curtis MD at [facility] Right: Shoulder [employer] 02/10/2029 506--118 / / [id number] Altivate Reverse Torx Peripheral Screw, 22mm Implanted:Qty: 1 on 04/19/2024 by Indigo Curtis MD at [facility] Right: Shoulder [employer] 09/13/2028 506-04-122 / / [id number] Revision Modular Baseplate And Taper Kit, 8.0mm Wedge Implanted:Qty: 1 on 04/19/2024 by Indigo Curtis MD at [facility] Right: Shoulder [employer] 08/31/2028 508-80-001 / / [id number] Ins Sckt 32mm Altivate Rvrs +4mm Sm Ntrl Implanted:Qty: 1 on 04/19/2024 by Indigo Curtis MD at [facility] Right: Shoulder [employer] 10/20/2027 509-02-432 / / [id number] Explanted Type Area Billiard Parlor Manager Device Identifier Shelf Expiration Date Model / Serial / Lot Screw 5mm 18mm Shldr Lck Rsp Glnd Bsplt Implanted:Qty: 1 on 09/29/2023 by Indigo Curtis MD at [facility] Explanted:Qty: 1 on 04/19/2024 by Indigo Curtis MD at [facility] Right: Shoulder [employer] 06/10/2029 506-03-118 / / [id number] Screw 5mm 18mm Shldr Lck Rsp Glnd Bsplt Implanted:Qty: 1 on 09/29/2023 by Indigo Curtis MD at [facility] Explanted:Qty: 1 on 04/19/2024 by Indigo Curtis MD at [facility] Right: Shoulder [employer] 05/21/2029 506-03-118 / / [id number] Screw 5mm 26mm Shldr Lck Rsp Glnd Bsplt Implanted:Qty: 1 on 09/29/2023 by Indigo Curtis MD at [facility] Explanted:Qty: 1 on 04/19/2024 by Indigo Curtis MD at [facility] Right: Shoulder [employer] Orthoped[employer] 05/18/2029 506-03-126 / / [id number] Screw 5mm 14mm Shldr Lck Rsp Glnd Bsplt Implanted:Qty: 1 on 09/29/2023 by Indigo Curtis MD at [facility] Explanted:Qty: 1 on 04/19/2024 by Indigo Curtis MD at [facility] Right: Shoulder [employer] Orthopedics 08/11/2029 506-03-114 / / [id number] Head Glnd 32mm Rsp -4mm Ofst Shldr Rtn Implanted:Qty: 1 on 09/29/2023 by Indigo Curtis MD at [facility] Explanted:Qty: 1 on 04/19/2024 by Indigo Curtis MD at [facility] Right: Shoulder [employer] Orthoped[employer] 02/06/2029 508-32-103 / / [id number] Ins Sckt 32mm Altivate Rvrs +4mm Sm Implanted:Qty: 1 on 09/29/2023 by Indigo Curtis MD at [facility] Explanted:Qty: 1 on 04/19/2024 by Indigo Curtis MD at [facility] Right: Shoulder [employer] Orth[employer]ics 07/01/2028 509-03-[facility] / / [id number] Procedures Procedure Name Priority Date/Time Associated Diagnosis Comments XR SHOULDER RIGHT 2VW OR MORE Routine 02/01/2025 2:49 PM CDT Status post reverse total shoulder replacement, right from Last 3 Months Results * XR Shoulder Right 2Vw or More (02/01/2025 2:49 PM CDT) Narrative [facility] [address] - 02/01/2025 2:49 PM CDT Please see progress note in Epic for results. us Myrna Devi PA-C DIAGNOSTIC IMAGING ORDERABLE S Final Result [facility] [address] from Last 3 Months Insurance AETNA MEDICARE ADV AETNA MEDICARE ADV Advance Directives Documents on File Type Date Recorded Patient Life Skills Coordinator Volunteer Expl anation Adv Directive/Living Will/POA 09/02/2023 1:24 AM * Full Code (Latest Code Status on File) Date Activated Date Inactivated Comments 04/19/2024 1:09 PM 04/20/2024 1:57 PM Care Teams Park Worker Supervisor Relationship Specialty Start Date End Date Lavern Monzon [address] [place] [address] PCP - General Sander Wooden Pencils 07/12/24 Indigo Curtis MD Orthopedic Surgery 04/14/12 Colton Hernán[place] [address] [place] [address] Orthopedic Surgery 10/21/13 [place] [address] [place] [address] Physical Medicine and Rehabilitation 09/22/18
--- OUTSIDE RECORDS SUMMARY | 2025-03-20 07:39 | XMS_ITS | Encounter Summary ---
Author Organization [facility] Address [address] [facility] [place] [address] Care Team Providers Care Intelligence Clerk Name Role Phone Indigo Curtis MD Unavailable [phone] Colton Hernández MD Unavailable [phone] Ida Bailey MD Primary Care Provider [phone] Antonio Santillan MD Primary Care Provider [phone] Hiram Fontenot MD Primary Care Provider [phone] Huber Matos MD Unavailable [phone] Leah Barajas MD Primary Care Provider [phone] Myrna Devi PA-C Unavailable [phone] Lavern Monzon Primary Care Provider [phone] Encounter Details Date Type Department Care Team (Late Contact Info) Description 11/13/2016 SS Outpatient Visit [facility] Orthopedics [address] [place] [address], [address] [address] Unknown, Provider Social History Tobacco Use Types Packs/Day Years Used Date Smoking Tobacco: Never Assessed Comments Unknown Sex and Gender Information Value Date Recorded Sex Assigned at Not on file Legal Sex Female 2:16 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 [address] [place] [address] [address] 05/03/2025 10:50 AM WEB OPERATIONS ADMINISTRATOR Office Visit [facility] [address] [facility], [address] [address] [place] [address] [address] [address] documented as of this encounter Visit Diagnoses Not on filedocumented in this encounter Care Teams Intelligence Clerk Relationship Specialty [place] [address] [address] [address] PCP - General Family Medicine 05/29/16 07/13/17 Antonio Santillan MD [address] [place] [address] PCP - General Internal Medicine 07/14/17 02/08/18 Hiram Fontenot MD [address] [place] [address] PCP - General 02/09/18 07/15/20 [place] [address] [address] PCP - General Internal Medicine 10/08/20 07/11/24 Myrna Devi, PA-C [address] [address] PCP - Attributed-Sandeep [place] 10/13/22 07/02/23 Lavern Monzon [address] [place] [address] PCP - General Business Reporter 07/12/24 Indigo Curtis MD Orthopedic Surgery 04/14/12 Colton Hernández [place] [address] [place] [address] Orthopedic Surgery 10/21/13 [place] [address] [place] [address] Physical Medicine and Rehabilitation 09/22/18 documented as of this encounter
--- OUTSIDE RECORDS SUMMARY | 2025-03-20 07:39 | XMS_ITS | Encounter Summary ---
Author Organization [facility] Address [address] [facility] [place] [address] Care Team Providers Care Dipper Machine Operator Name Role Phone Indigo Curtis MD Unavailable [phone] Colton Hernández MD Unavailable [phone] Ida Bailey MD Primary Care Provider [phone] Antonio Santillan MD Primary Care Provider [phone] Hiram Fontenot MD Primary Care Provider [phone] Huber Matos MD Unavailable [phone] Leah Barajas MD Primary Care Provider [phone] Myrna Devi PA-C Unavailable [phone] Lavern Monzon Primary Care Provider [phone] Encounter Details Date Type Department Care Team (Late Contact Info) Description 10/29/2016 SS Outpatient Visit [facility] Orthopedics [address] [place] [address], [address] [address] Unknown, Provider Social History Tobacco Use Types Packs/Day Years Used Date Smoking Tobacco: Never Assessed Comments Unknown Sex and Gender Information Value Date Recorded Sex Assigned at Not on file Legal Sex Female 2:16 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 [address] [place] [address] [address] 05/03/2025 10:50 AM UNLOAD ASSOCIATE Office Visit [facility] Orth[facility] [address] [facility], [address] [address] [place] [address] [address] [address] documented as of this encounter Visit Diagnoses Not on filedocumented in this encounter Care Teams Dipper Machine Operator Relationship Specialty [place] [address] [address] [address] PCP - General Family Medicine 05/29/16 07/13/17 Antonio Santillan MD [address] [place] [address] PCP - General Internal Medicine 07/14/17 02/08/18 Hiram Fontenot MD [address] [place] [address] PCP - General 02/09/18 07/15/20 [place] [address] [address] PCP - General Internal Medicine 10/08/20 07/11/24 Myrna Devi, PA-C [address] [address] PCP - Attributed-Sandeep [place] 10/13/22 07/02/23 Lavern Monzon [address] [place] [address] PCP - General Dead Mail Checker 07/12/24 Indigo Curtis MD Orthopedic Surgery 04/14/12 Colton Hernández [place] [address] [place] [address] Orthopedic Surgery 10/21/13 [place] [address] [place] [address] Physical Medicine and Rehabilitation 09/22/18 documented as of this encounter
--- OUTSIDE RECORDS SUMMARY | 2025-03-20 07:39 | XMS_ITS | Patient Health Record ---
Author Organization [facility] Phone2Actions & whoactually [place] ([address]) Address [address] [place] [address] Care Team Providers Care Meter/Relay Technician Name Role Phone Leah Barajas Primary Care Provider Caroline Tello Unavailable [phone] Allergies Allergen (clinical drug ingredient) Drug/Non Drug Allergy documented on EMR Reaction Allergy Type Onset Date Status KEFLEX (uncoded) unknown reaction Allergy Active PROLONG CONTACT TO LATEX (uncoded) Blisters on skin Allergy Active ketorolac TORADOL (uncoded) Unknown Allergy Ac tive azelastine Azelastine HCl epistaxis Drug Allergy A ctive menthol Biofreeze Palpitations; flushing Drug Allergy Active ipratropium Ipratropium Taiban Palpitations ; flushing; red/swolen face Drug Allergy [...] review and pick correct strength-formula tion from [employer] options. If intended option is not shown, [...] review and pick correct strength-formula tion from [employer] options. If intended option is not shown, [...] review and pick correct strength-formula tion from [employer] options. If intended option is not shown, [...] review and pick correct strength-formula tion from [employer] options. If intended option is not shown, [...] Status Risk Notes Problem Chronic allergic conjunctivitis (18882082) Other chronic allergic conjunctivitis (H10.45) Active confirmed Problem Allergic rhinitis caused by pollen (disorder) (90366908) Allergic rhinitis due to pollen (J30.1) Active confirmed Problem Allergic rhinitis (24091284) Other allergic rhinitis (J30.89) Active confirmed Problem Allergic contact dermatitis caused by drug in contact with skin (853199821) Allergic contact dermatitis due to drugs in contact with skin (L23.3) Active confirmed Problem Sunburn (648862833) Sunburn, unspecified (L55.9) Active confirmed Problem Allergic rhinitis caused by animal hair and dander (331059352868622) Allergic rhinitis due to animal (cat) (dog) hair and dander (J30.81) Active confirmed Problem Allergic contact dermatitis caused by chemical (3847323867687966 3) Allergic contact dermatitis due to other chemical products (L23.5) Active confirmed Problem Postnasal drip (07121291) Postnasal drip (R09.82) Active confirmed Problem Allergy status t o anesthetic agent status (Z88.4) Active confirmed Problem Drug allergy (730591747) Allergy status to other drugs, medicaments and biological substances status (Z88.8) Active confirmed Problem 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
[2025-03-20 08:29] LABS: Hematocrit 42.0 % (37.0-47.0); Hemoglobin 13.6 g/dL (12.0-15.0); Immature Granulocyte Percent A 0.6 % (0-0.5); Lymphocytes Absolute Auto 2.20 K/mm3 (0.9-3.2); Mean Corpuscular HGB Conc 32.4 g/dl (32-36); Mean Corpuscular Hemoglobin 29.8 pg (26-34); Mean Corpuscular Volume 91.9 fl (80-100); Nucleated Red Blood Cells Absolute Auto 0.000 K/mm3 (0.0-0.012); Nucleated Red Blood Cells Perc 0.0 % (0.0-0.2); Platelet Count Result 256 k/mm3 (150-375); Red Blood Count 4.57 M/mm3 (4.2-5.4); White Blood Count 7.8 K/mm3 (4.5-10.0)
[2025-03-20 08:48] LABS: Anion Gap 5 mmol/L (4-12); Blood Urea Nitrogen 18 mg/dL (7-17); Calcium 8.9 mg/dL (8.4-10.2); Carbon Dioxide 29 mmol/L (22-30); Chloride 95 mmol/L (98-107); Estimated Glomerular Filt Rate > 60; Glucose 92 mg/dL (65-110); Potassium 4.5 mmol/L (3.4-5.0); Sodium 129 mmol/L (137-145)
== END 2025-03-20 07:36 | disposition home or self-care (01) ==
PROVIDERS: PCP Nurse Practitioner; Visit Provider General Practice
DX: T88.7XXA Unspecified adverse effect of drug or medicament, initial encounter (principal); I10 Essential (primary) hypertension; E86.0 Dehydration
CPT/HCPCS: 36415; 80048; 85025